=== PATIENT | male | born 1960 | race Caucasian/White ===

== ENCOUNTER 2022-05-12 10:27 | Emergency (ER) | payer MEDICAID, SELFPAY ==
--- NOTE | ~2022-05-12 | XR_ITS ---
EXAMINATION: LEFT HAND, BILATERAL KNEE AP PELVIS AND RIGHT HIP. CLINICAL INFORMATION: Fall. Pain. COMPARISON: None TECHNIQUE: Left hand 3 views. 4 views each knee. AP pelvis and right hip 3 views. FINDINGS: Left hand: There is mild loss of PIP and DIP joints all digits with mild flexion deformity PIP joint fifth digit and periarticular spurring. The MCP joint spaces are maintained normal. No visible acute fracture or dislocation seen. Left knee: There is mild loss of tricompartment joint space. No visible acute fracture or dislocation seen no bony erosive changes. No abnormal joint effusion. There is anterior superior patellar enthesophyte. There is a small bone infarct changes distal femur.. Right knee: Mild loss of tricompartment joint space is seen. There is minimal suprapatellar joint effusion. There is anterior superior patellar enthesophyte. There is moderate anterior patellar enthesophyte as well. Minimal suprapatellar joint effusion seen. There are no loose bodies. No bony erosive changes. AP pelvis and right hip: There is significant loss of right hip joint space with bone on bone apposition and moderate periarticular spurring. No visible acute fracture or dislocation seen. The SI joints are symmetrical and unremarkable. Rest the pelvic bones are normal.. There is moderate loss of left hip joint space. XR/XR hip RT w PEL1V IMPRESSION: Severe right and moderate left osteoarthritic changes PIP joint. No visible acute fracture or dislocation seen involving either hip joints are the pelvis. Mild degenerative changes bilateral knee joints without acute fracture or dislocation. There is mild bilateral suprapatellar joint effusion. There is moderate size anterior superior left and small anterior superior right enthesophytes. There is no acute fracture or dislocation in either joints. Mild degenerative osteoarthritic changes PIP and DIP joints all digits moderate periapical spurring DIP and PIP joint fifth digit with mild dorsal soft tissue swelling and deformity PIP joint fifth digit. However there is no visible fracture seen at any of the digits at this time
--- NOTE | ~2022-05-12 | XR_ITS ---
EXAMINATION: XR HAND, LEFT CLINICAL INFORMATION: Pain and swelling COMPARISON: 05/12/2022 TECHNIQUE: PA, lateral, and oblique views of the left hand. FINDINGS: There is no acute fracture or dislocation. Mild flexed positioning of the fifth digit at the proximal interphalangeal joint, similar to prior. Small osteophytes throughout the interphalangeal joints. Diffuse soft tissue swelling. XR/XR hand LT 2V IMPRESSION: Diffuse soft tissue swelling which is increased from prior. No acute osseous abnormality. Persistent flexed positioning at the fifth digit proximal interphalangeal joint.
[2022-05-12 10:34] VITALS: BP 152/92; PULSE 86; RESP 16; TEMP 36.1; O2SAT 97; BMI 37.4
--- NOTE | 2022-05-12 15:35 | ED_ITS ---
HPI - Fall General Chief Complaint: Fall Stated Complaint: Fall 05/09 multiple injuries Time Seen by Provider: 05/12/22 12:45 Source: patient Mode of arrival: ambulatory Limitations: no limitations History of Present Illness HPI Narrative: Patient presents emergency department for multiple joint pain after a mechanical fall per the case ago. He states he was attempting to walk up the stairs in his home which are carpeted, and he lost his balance falling forward. He is reporting pain to the left hand, bilateral knees and bilateral hips. He reports chronic severe osteoarthritis to all of his joints. He states that he is being followed by his primary care provider Dr. Rush, states that he is taking anti-inflammatories for pain, he states he has not received cortisone injections in acute months because his PCP has had COVID. States he is otherwise not prescribed anything for pain. He denies any preceding symptoms prior to the cough has present lightheadedness chest pain shortness of breath. He has no additional complaints at this time. He does report that he would like to be evaluated for short-term rehab as he feels too weak to return home safely Related Data Home Medications Medication Instructions Recorded Confirmed aspirin 81 mg chewable tablet 1 tab PO DAILY 05/12/22 05/12/22 chlordiazepoxide HCl 25 mg capsule 1 cap PO TID PRN Pain 05/12/22 05/12/22 clonidine HCl 0.1 mg tablet 1 tab PO TID PRN Anxiety 05/12/22 05/12/22 diclofenac sodium 75 mg 1 tab PO BID 05/12/22 05/12/22 tablet,delayed release diltiazem HCl 30 mg tablet 1 tab PO Q6H 05/12/22 05/12/22 lisinopril 40 mg tablet 1 tab PO DAILY 05/12/22 05/12/22 metoprolol tartrate 50 mg tablet 1 tab PO BID 05/12/22 05/12/22 Previous Rx's Medication Instructions Recorded buprenorphine 4 mg-naloxone 1 mg 1 film sublingual TID #42 ea 05/14/22 sublingual film (Suboxone) Allergies Allergy/AdvReac Type Severity Reaction Status Date / Time No Known Allergies Allergy Verified 05/12/22 10:33 Review of Systems Review of Systems: Musculoskeletal: Positive joint pain Yes all other systems are reviewed and are negative PMFSH Past Medical History Attestation statement: The following information was validated with the patient. Source: old records reviewed Social History Social History Advance Directives: No Advance Directives Information Provided: Yes Physical Exam Vital Signs: Vital Signs: Last Vital Signs Temp 97.6 F 05/15/22 07:14 Pulse 77 05/15/22 07:14 Resp 16 05/15/22 07:14 BP 141/84 H 05/15/22 07:14 Pulse Ox 98 05/15/22 07:14 O2 Del Method 05/15/22 07:14 BMI result Body Mass Index 37.4 Vital signs have been reviewed as normal and appeared to be correct. Hypertensive? Heart rate normal.? Respiration rate normal. Temperature normal.? Oxygen saturation normal. Appearance: Alert.?Oriented to person, place and time. No acute distress.?Normal affect. Eyes: Pupils equal, round and reactive to light.? ENT: Pharynx normal.?? Neck: Normal inspection.? Neck supple.?? CVS: Heart sounds normal. Normal heart rate and rhythm.? Pulses normal.?? Respiratory: No respiratory distress.? Lung sounds clear to auscultation bilate rally?? Abdomen: Soft and non-tender. Normoactive bowel sounds. ? Skin: Skin warm and dry.? Normal skin color.? ?? Extremities: No lower extremity edema.? No calf ttp? Neuro: Moves all extremities spontaneously. Sensation intact bilaterally. CN II- XII intact. No focal neuro deficits. Ambulates with antalgic gait and walker Course Course Course Narrative: Patient is a 62-year-old male with a past medical history of severe arthritis, and hypertension presenting to the emergency department for evaluation after a fall reportedly 3 days ago. Left hand x-ray reveals osteoarthritic changes, with dorsal soft tissue swelling, but no visible fractures. Degenerative changes of the bilateral knees without acute fracture dislocation, mild suprapatellar joint effusion. Severe right moderate osteoarthritic changes to the hips, no acute fracture or dislocation. Patient has been followed by his primary care provider, was previously receiving prescription for oxycodone every 2 weeks up until the beginning of March. He reports at that time he had been drinking a lot to aid with his pain as the oxycodone was not relieving it, he presented to [facility], as he states he took too many pills but did not overdose was able to drive himself there, but subsequently his primary care provider stopped prescribing him oxycodone due to this event. At this time he is reporting diffuse joint pain 08/24 will trial oxycodone 10 mg p.o. He states that he feels unsafe going home, he is having difficulty ambulating despite the use of his walker due to his unsteady gait, he is requesting to be evaluated for possible short-term rehab placement. Will obtain basic labs including CBC and BMP, COVID-19 test in preparation for possible short-term rehab placement, physical therapy evaluation and case management evaluation will be required. Reevaluation(s) Reevaluation #1: CBC and BMP are overall unremarkable. Patient placed in physician observation comments he has been evaluated by case management, physical therapy let the to evaluate patient tomorrow. Discussed this patient he is agreeable remaining night as she continues to report feeling unsafe to go home. He is in no apparent distress. Time: 16:42 MDM - Fall Medical Records Attestation: I reviewed the patient's medical records. Lab Data Attestation: I reviewed the patient's lab results. Result diagrams: 05/12/22 16:06 05/12/22 16:06 Labs: Lab Results 05/12/22 05/12/22 05/12/22 Range/Units 16:06 16:06 17:29 WBC 8.3 (4.8-10.8) X10*3/uL RBC 4.27 L (4.60-5.80) X10*6/uL Hgb 15.1 (14.0-18.0) g/dl Hct 42.6 (42.0-52.0) % MCV 99.8 H (80.0-98.0) fL MCH 35.4 H (27.0-33.0) pg MCHC 35.4 (31.0-36.0) g/dl RDW 12.6 (11.0-16.0) % Plt Count 211 (160-400) X10*3/uL MPV 10.4 (9.4-12.4) fL Immature Gran % (Auto) 0.6 H (0.0-0.4) % Neut % (Auto) 50.5 (45-73) % Lymph % (Auto) 37.9 (20-40) % [place] % (Auto) 7.8 (2-11) % Eos % (Auto) 2.5 (0-4) % Baso % (Auto) 0.7 (0-2) % Lymph # (Auto) 3.2 (1.2-4.9) X10*3/uL [place] # (Auto) 0.7 (0.1-1.2) X10*3/uL Eos # (Auto) 0.2 (0.0-0.4) X10*3/uL Baso # (Auto) 0.1 (0.0-0.2) X10*3/uL Abs Immat Gran (auto) 0.05 H (0.00-0.03) X10*3/uL Absolute Neuts (auto) 4.2 (2.0-8.3) x10*3/uL Absolute Nucleated RBC 0.000 (0.0-0.012) X10*3/uL Nucleated RBC % (auto) 0.0 (0.0-0.2) /100WBC Sodium 141 (135-145) mmol/L Potassium 4.1 (3.3-5.1) mmol/L Chloride 109 H (96-108) mmol/L Carbon Dioxide 24 (22-29) mmol/L Anion Gap 12 (12-20) BUN 15 (9-16) mg/dL Creatinine 0.84 (0.5-1.4) mg/dL Estim Creat Clear Calc 124.6 Estimated GFR > 60 Random Glucose 97 (60-115) mg/dL Calcium 8.6 (8.4-10.2) mg/dL Urine Color Urine Appearance Urine pH (5.0-8.0) Ur Specific [place] (1.005-1.025) Urine Protein (NEG-TRACE) MG/DL Urine Glucose (UA) (NEG) MG/DL Urine Ketones (NEG) MG/DL Urine Blood (NEG) Urine Nitrite (NEG) Ur Leukocyte Esterase (NEG) Urine Opiates Screen (Not Detect) Urine Fentanyl Screen (Not Detect) Ur Barbiturates Screen (Not Detect) Ur Phencyclidine Scrn (Not Detect) Ur Amphetamines Screen (Not Detect) U Benzodiazepines Scrn (Not Detect) Urine Cocaine Screen (Not Detect) U Marijuana (THC) Screen (Not Detect) COVID-19 (JANNIE) Negative (Negative) COVID-19 Clin Com See Note 05/12/22 05/12/22 Range/Units 18:37 18:37 WBC (4.8-10.8) X10*3/uL RBC (4.60-5.80) X10*6/uL Hgb (14.0-18.0) g/dl Hct (42.0-52.0) % MCV (80.0-98.0) fL MCH (27.0-33.0) pg MCHC (31.0-36.0) g/dl RDW (11.0-16.0) % Plt Count (160-400) X10*3/uL MPV (9.4-12.4) fL Immature Gran % (Auto) (0.0-0.4) % Neut % (Auto) (45-73) % Lymph % (Auto) (20-40) % [place] % (Auto) (2-11) % Eos % (Auto) (0-4) % Baso % (Auto) (0-2) % Lymph # (Auto) (1.2-4.9) X10*3/uL [place] # (Auto) (0.1-1.2) X10*3/uL Eos # (Auto) (0.0-0.4) X10*3/uL Baso # (Auto) (0.0-0.2) X10*3/uL Abs Immat Gran (auto) (0.00-0.03) X10*3/uL Absolute Neuts (auto) (2.0-8.3) x10*3/uL Absolute Nucleated RBC (0.0-0.012) X10*3/uL Nucleated RBC % (auto) (0.0-0.2) /100WBC Sodium (135-145) mmol/L Potassium (3.3-5.1) mmol/L Chloride (96-108) mmol/L Carbon Dioxide (22-29) mmol/L Anion Gap (12-20) BUN (9-16) mg/dL Creatinine (0.5-1.4) mg/dL Estim Creat Clear Calc Estimated GFR Random Glucose (60-115) mg/dL Calcium (8.4-10.2) mg/dL Urine Color STRAW Urine Appearance CLEAR Urine pH 6.0 (5.0-8.0) Ur Specific [place] 1.010 (1.005-1.025) Urine Protein NEG (NEG-TRACE) MG/DL Urine Glucose (UA) NEG (NEG) MG/DL Urine Ketones NEG (NEG) MG/DL Urine Blood NEG (NEG) Urine Nitrite NEG (NEG) Ur Leukocyte Esterase NEG (NEG) Urine Opiates Screen Not Detected (Not Detect) Urine Fentanyl Screen POSITIVE H (Not Detect) Ur Barbiturates Screen Not Detected (Not Detect) Ur Phencyclidine Scrn Not Detected (Not Detect) Ur Amphetamines Screen Not Detected (Not Detect) U Benzodiazepines Scrn POSITIVE H (Not Detect) Urine Cocaine Screen Not Detected (Not Detect) U Marijuana (THC) Screen Not Detected (Not Detect) COVID-19 (JANNIE) (Negative) COVID-19 Clin Com Imaging Data XR L hand, bilat knee, bilat hip: Radiologist's impression: IMPRESSION: Severe right and moderate left osteoarthritic changes PIP joint. No visible acute fracture or dislocation seen involving either hip joints are the pelvis. ? Mild degenerative changes bilateral knee joints without acute fracture or dislocation. There is mild bilateral suprapatellar joint effusion. There is moderate size anterior superior left and small anterior superior right enthesophytes. There is no acute fracture or dislocation in either joints. ? Mild degenerative osteoarthritic changes PIP and DIP joints all digits moderate periapical spurring DIP and PIP joint fifth digit with mild dorsal soft tissue swelling and deformity PIP joint fifth digit. However there is no visible fracture seen at any of the digits at this time Discharge Plan Discharge Clinical Impression: Fall, Osteoarthritis Patient Disposition: Still a Patient Prescriptions: New buprenorphine-naloxone [Suboxone] 4-1 mg film 1 film sublingual TID Qty: 42 0RF No Action clonidine HCl 0.1 mg tablet 1 tab PO TID PRN (Reason: Anxiety) metoprolol tartrate 50 mg tablet 1 tab PO BID aspirin 81 mg tablet,chewable 1 tab PO DAILY diclofenac sodium 75 mg tablet,delayed release (DR/EC) 1 tab PO BID diltiazem HCl 30 mg tablet 1 tab PO Q6H lisinopril 40 mg tablet 1 tab PO DAILY chlordiazepoxide HCl 25 mg capsule 1 cap PO TID PRN (Reason: Pain)
--- NOTE | 2022-05-12 15:52 | PC.NURSE ---
pt called and was given update that pt will likely be admitted for pt/cm consult for STR per pt request.
[2022-05-12 16:18] LABS: MANUAL DIFF FLAG NO
[2022-05-12 16:20] VITALS: PULSE 98; RESP 16; O2SAT 98
[2022-05-12 16:25] LABS: Basophils Absolute Auto 0.1 X10*3/uL (0.0-0.2); Basophils Percent Auto 0.7 % (0-2); Eosinophils Absolute Auto 0.2 X10*3/uL (0.0-0.4); Eosinophils Percent Auto 2.5 % (0-4); Hematocrit 42.6 % (42.0-52.0); Hemoglobin 15.1 g/dl (14.0-18.0); Imm Gran Abs Auto 0.05 X10*3/uL (0.00-0.03); Imm Gran Pct Auto 0.6 % (0.0-0.4); Lymphocytes Absolute Auto 3.2 X10*3/uL (1.2-4.9); Lymphocytes Percent Auto 37.9 % (20-40); Mean Corpuscular HGB Conc 35.4 g/dl (31.0-36.0); Mean Corpuscular Hemoglobin 35.4 pg (27.0-33.0); Mean Corpuscular Volume 99.8 fL (80.0-98.0); Mean Platelet Volume 10.4 fL (9.4-12.4); Monocytes Absolute Auto 0.7 X10*3/uL (0.1-1.2); Monocytes Percent Auto 7.8 % (2-11); Neutrophils Absolute Auto 4.2 x10*3/uL (2.0-8.3); Neutrophils Percent Auto 50.5 % (45-73); Platelet Count 211 X10*3/uL (160-400); Red Blood Count 4.27 X10*6/uL (4.60-5.80); Red Cell Distribution Width 12.6 % (11.0-16.0); White Blood Count 8.3 X10*3/uL (4.8-10.8)
[2022-05-12 16:37] LABS: Anion Gap 12 (12-20); Blood Urea Nitrogen 15 mg/dL (9-16); Calcium 8.6 mg/dL (8.4-10.2); Carbon Dioxide 24 mmol/L (22-29); Chloride 109 mmol/L (96-108); Creatinine Clr Calc Pharmacy 124.6; Estimated Glomerular Filt Rate > 60; Glucose Random 97 mg/dL (60-115); Potassium 4.1 mmol/L (3.3-5.1); Sodium 141 mmol/L (135-145)
[2022-05-12 17:01] VITALS: BP 162/111; PULSE 92; RESP 18; TEMP 36.2; O2SAT 99
[2022-05-12 18:00] LABS: COVID-19 Test Negative (Negative); IDNOW Serial# 16C4AD1C
[2022-05-12 18:50] LABS: Appearance Urine CLEAR; Color Urine STRAW; Glucose Urine UA NEG (NEG); Leukocyte Esterase Urine NEG (NEG); Nitrite Urine NEG (NEG); Urine Blood NEG (NEG); Urine Ketones NEG (NEG); Urine Protein NEG (NEG-TRACE)
[2022-05-12 19:07] LABS: Fentanyl, urine POSITIVE (Not Detect)
[2022-05-12 19:08] LABS: Amphetamine Screen Urine Not Detected (Not Detect); Barbiturates, Urine Not Detected (Not Detect); Cannabinoid Screen Urine Not Detected (Not Detect); Cocaine Screen Urine Not Detected (Not Detect); Opiate Screen Urine Not Detected (Not Detect); Phencyclidine Screen Urine Not Detected (Not Detect)
[2022-05-12] MEDS: oxyCODONE HCl Immed Release 5 MG TABLET PO (20:22)
[2022-05-12] MEDS: Metoprolol Tartrate 50 MG TABLET PO (20:24)
--- NOTE | 2022-05-12 21:31 | MHC.CM.ED ---
CM met with patient at request of Mikayla GAVIRIA. Pt is requesting STR. Pt has hx of arthritis, lumbar spine degeneration, ETOH and opiate dependence. Lives with . Drives. Uses walker/cane. No services. Pfizer x2. No booster. HCP reviewed, completed and signed. Copies given. Uploaded into [facility] and [facility]pan[facility]. HCP/ Tara Tolentino ([phone]). 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 Referrals also placed Locally for STR. [facility] given for both. PT pending in the morning. CM to follow for d/c needs.
[2022-05-12 23:11] VITALS: BP 161/109; PULSE 94; RESP 20; TEMP 36.2; O2SAT 96
[2022-05-12] MEDS: cloNIDine HCL 0.1 MG TABLET PO (23:39)
[2022-05-12] MEDS: dilTIAZem HCL 30 MG TABLET PO (23:39)
[2022-05-12] MEDS: Diclofenac Sodium Delayed Rel 75 MG TABLET.DR PO (23:39)
[2022-05-13] VITALS (7 sets, daily range): BP systolic 140–182; BP diastolic 90–119; PULSE 88–94; RESP 12–20; TEMP 36.2–36.9; O2SAT 96–98
[2022-05-13] MEDS: Ketorolac Tromethamine 60 MG/2 ML VIAL IM (02:30)
[2022-05-13] MEDS: lisinopriL 40 MG TABLET PO (07:47)
[2022-05-13] MEDS: Metoprolol Tartrate 50 MG TABLET PO ×2 (07:47→20:21)
[2022-05-13] MEDS: dilTIAZem HCL 30 MG TABLET PO ×3 (07:47→20:21)
[2022-05-13] MEDS: Aspirin 81 MG TAB.CHEW PO (07:48)
--- NOTE | 2022-05-13 09:08 | PHA.MEDREC ---
Pharmacy Consult ? Medication Reconciliation Pharmacy has completed the medication reconciliation. Spoke to patient down in ED.
--- NOTE | 2022-05-13 10:47 | MHC.RECOVRN ---
Met with pt in ED20 after request to discuss substance use. Upon entering, pt sitting on edge of bed, drinking coffee, does not appear in any distress. Pt easily engages in conversation. Pt reports extensive history (15 years) of prescription opioids for pain from PCP. Pt reports pain is due to arthritis in bilateral knees. Recently, pts prescriber informed pt he would no longer prescribe medications due to patient taking more than prescribed. Pt has since used illicit fentanyl patches and what patient believed to be Percocet. Pt informed that UDS positive for fentanyl, negative for opiates. Pt educated regarding the risks of pressed pills and buying medication on the street. Pt reports having friends who use heroin, denies personal use. Pt reports hx alcohol use, last drink approx 2 weeks ago. Pt denies current alcohol use and cravings. Pt reports having discussed methadone and Suboxone with PCP in the past, however, pt had declined. Upon further discussion and education, pt interested in Suboxone. Educated pt regarding risks and benefits, precipitated withdrawal, mechanism of action. Discussed with provider, plan to administer 2 mg Suboxone and assess for effectiveness.
--- NOTE | 2022-05-13 10:57 | MHC.CM.ED ---
Patient remains in ER. Physical therapy and occupational therapy evals completed. [facility] not able to offer a bed. Patient has a history of polysubstance abuse. [place] radio interference trouble shooter met with patient. Patient will be started on Suboxone. Anticipate patient will be dificult to place. Referral broadcasted in [facility] to all facilities within 50 miles. Continue to monitor for d/c needs.
[2022-05-13] MEDS: Buprenorphine/Naloxone 2/0.5mg FILM 1 FILM SUBLINGUAL (11:18)
[2022-05-13] MEDS: Diclofenac Sodium Delayed Rel 75 MG TABLET.DR PO ×2 (11:27→21:06)
[2022-05-13] MEDS: Colchicine 0.6 MG TABLET PO (11:27)
--- NOTE | 2022-05-13 14:14 | HO.ADDICT_ITS ---
History of Present Illness Date of Service: 05/13/2022 Chief Complaint: Fall 05/09 multiple injuries Requesting physician: Linda Lynn Discussed with referring provider: Yes Sources of Information: patient interviewed and chart reviewed HPI Narrative: Mirella is a 62 year old male who presented to [facility] ED after a reported fall at home. Reporting weakness and wprsening chronic knee and back pain and remained in ED while STR placement was being sought out. Lab work completed, including UDS, which showed +fentanyl (negative for all other substances) Seen by RSRN and patient reported that he has been prescribed oxycodone for over 15 years and last month provider stopped prescribing secondary to ED visit where patient reported increased drinking and taking more oxycodone than prescribed. Following that he states he was given, what he believed was an oxycodone, and per UDS , likely fentanyl. Discussed with RN and provider options for treatment and agreeable to buprenorphine. Patient seen by this curriculum writer in room 20 of main ED. Awake, alert, pleasant and engaged in interview. COnfirmed that he was was being prescribed oxycodone every two weeks by his PCP for several years. He states that his pain had been worsening, likely du eo tworking, and he was drinking several shots of hard liquor and beers after work to be able to sleep. He states he presented to other local ED because he noted drinking was worsening and per his report, his PCP was esther aware and discontinued oxycodone rx. He is tearful during interview numeroud times referencing pain and impact on quality of life. Denies any history of SUDs including alcohol use disorder. Patient reports that although he abruptly discontinued oxycodone, he did not experience any withdrawal sx. aside from worsening pain and anxiety. This curriculum writer reviewed medication with patient suboxone (buprenorphine/naloxone). Reviewed indications, including opioid use disorder. Reviewed dosing, goals of treatment and outpatient treatment program. Reviewed benefits and limitations of medication. Reviewed risk associated with taking medication and drinking alcohol. Reinforced risk of adverse events with buying medications off the street, including overdose. Patient verbalized understanding and wishes to continue with this medication Review of Systems Constitutional: Reports as per HPI Diagnostics Vital Signs (24Hr): Vital Signs - 24 hr 05/12/22 16:20 05/12/22 17:01 05/12/22 23:11 Temperature 97.1 F 97.1 F Pulse Rate 98 92 94 Respiratory Rate 16 18 20 Blood Pressure 162/111 H 161/109 H Pulse Oximetry 98 99 96 Oxygen Delivery Method Room Air Room Air Room Air 05/13/22 07:33 05/13/22 07:49 05/13/22 11:32 Temperature 97.1 F Pulse Rate 94 89 88 Respiratory Rate 18 20 Blood Pressure 156/106 H 142/100 H Pulse Oximetry 96 98 Oxygen Delivery Method Room Air BMI result Body Mass Index 37.4 Labs Results: 05/12/22 16:06 05/12/22 16:06 Labs: Laboratory Results - last 48 hr 05/12/22 05/12/22 05/12/22 16:06 16:06 17:29 WBC 8.3 RBC 4.27 L Hgb 15.1 Hct 42.6 MCV 99.8 H MCH 35.4 H MCHC 35.4 RDW 12.6 Plt Count 211 MPV 10.4 Immature Gran % (Auto) 0.6 H Neut % (Auto) 50.5 Lymph % (Auto) 37.9 [place] % (Auto) 7.8 Eos % (Auto) 2.5 Baso % (Auto) 0.7 Lymph # (Auto) 3.2 [place] # (Auto) 0.7 Eos # (Auto) 0.2 Baso # (Auto) 0.1 Abs Immat Gran (auto) 0.05 H Absolute Neuts (auto) 4.2 Absolute Nucleated RBC 0.000 Nucleated RBC % (auto) 0.0 Sodium 141 Potassium 4.1 Chloride 109 H Carbon Dioxide 24 Anion Gap 12 BUN 15 Creatinine 0.84 Estim Creat Clear Calc 124.6 Estimated GFR > 60 Random Glucose 97 Calcium 8.6 Urine Color Urine Appearance Urine pH Ur Specific [place] Urine Protein Urine Glucose (UA) Urine Ketones Urine Blood Urine Nitrite Ur Leukocyte Esterase Urine Opiates Screen Urine Fentanyl Screen Ur Barbiturates Screen Ur Phencyclidine Scrn Ur Amphetamines Screen Urine Cocaine Screen U Marijuana (THC) Screen COVID-19 (JANNIE) Negative COVID-19 Clin Com See Note 05/12/22 05/12/22 18:37 18:37 WBC RBC Hgb Hct MCV MCH MCHC RDW Plt Count MPV Immature Gran % (Auto) Neut % (Auto) Lymph % (Auto) [place] % (Auto) Eos % (Auto) Baso % (Auto) Lymph # (Auto) [place] # (Auto) Eos # (Auto) Baso # (Auto) Abs Immat Gran (auto) Absolute Neuts (auto) Absolute Nucleated RBC Nucleated RBC % (auto) Sodium Potassium Chloride Carbon Dioxide Anion Gap BUN Creatinine Estim Creat Clear Calc Estimated GFR Random Glucose Calcium Urine Color STRAW Urine Appearance CLEAR Urine pH 6.0 Ur Specific [place] 1.010 Urine Protein NEG Urine Glucose (UA) NEG Urine Ketones NEG Urine Blood NEG Urine Nitrite NEG Ur Leukocyte Esterase NEG Urine Opiates Screen Not Detected Urine Fentanyl Screen POSITIVE H Ur Barbiturates Screen Not Detected Ur Phencyclidine Scrn Not Detected Ur Amphetamines Screen Not Detected Urine Cocaine Screen Not Detected U Marijuana (THC) Screen Not Detected COVID-19 (JANNIE) COVID-19 Clin Com Imaging Radiology Impressions: ITS Impressions Hand X-Ray 05/12/22 12:07 IMPRESSION: Severe right and moderate left osteoarthritic changes PIP joint. No visible acute fracture or dislocation seen involving either hip joints are the pelvis. Mild degenerative changes bilateral knee joints without acute fracture or dislocation. There is mild bilateral suprapatellar joint effusion. There is moderate size anterior superior left and small anterior superior right enthesophytes. There is no acute fracture or dislocation in either joints. Mild degenerative osteoarthritic changes PIP and DIP joints all digits moderate periapical spurring DIP and PIP joint fifth digit with mild dorsal soft tissue swelling and deformity PIP joint fifth digit. However there is no visible fracture seen at any of the digits at this time Hip/Pelvis X-Ray 05/12/22 12:07 IMPRESSION: Severe right and moderate left osteoarthritic changes PIP joint. No visible acute fracture or dislocation seen involving either hip joints are the pelvis. Mild degenerative changes bilateral knee joints without acute fracture or dislocation. There is mild bilateral suprapatellar joint effusion. There is moderate size anterior superior left and small anterior superior right enthesophytes. There is no acute fracture or dislocation in either joints. Mild degenerative osteoarthritic changes PIP and DIP joints all digits moderate periapical spurring DIP and PIP joint fifth digit with mild dorsal soft tissue swelling and deformity PIP joint fifth digit. However there is no visible fracture seen at any of the digits at this time Knee X-Ray 05/12/22 12:07 IMPRESSION: Severe right and moderate left osteoarthritic changes PIP joint. No visible acute fracture or dislocation seen involving either hip joints are the pelvis. Mild degenerative changes bilateral knee joints without acute fracture or dislocation. There is mild bilateral suprapatellar joint effusion. There is moderate size anterior superior left and small anterior superior right enthesophytes. There is no acute fracture or dislocation in either joints. Mild degenerative osteoarthritic changes PIP and DIP joints all digits moderate periapical spurring DIP and PIP joint fifth digit with mild dorsal soft tissue swelling and deformity PIP joint fifth digit. However there is no visible fracture seen at any of the digits at this time Knee X-Ray 05/12/22 12:07 IMPRESSION: Severe right and moderate left osteoarthritic changes PIP joint. No visible acute fracture or dislocation seen involving either hip joints are the pelvis. Mild degenerative changes bilateral knee joints without acute fracture or dislocation. There is mild bilateral suprapatellar joint effusion. There is moderate size anterior superior left and small anterior superior right enthesophytes. There is no acute fracture or dislocation in either joints. Mild degenerative osteoarthritic changes PIP and DIP joints all digits moderate periapical spurring DIP and PIP joint fifth digit with mild dorsal soft tissue swelling and deformity PIP joint fifth digit. However there is no visible fracture seen at any of the digits at this time Mental Status Exam Mental Status Exam Patient Appearance: Appropriate Patient Orientation: Person, Place, Time and Situation Level of Consciousness: Awake and Appropriate Patient Behavior: Talkative and Cooperative Mood Description: Depressed and Sad Affect Description: Anxious (tearful) Medications Medications Current Medications Aspirin (Aspirin 81 Mg Tab.Chew) 81 mg PO DAILY [facility] Last Admin: 05/13/22 07:48 Dose: 81 mg Buprenorphine/Naloxone (Buprenorphine/Naloxone 4/1 Mg Film) 1 film SUBLINGUAL TID [facility] Clonidine HCl (Clonidine Hcl 0.1 Mg Tablet) 0.1 mg PO TID PRN; Protocol PRN Reason: Anxiety Last Admin: 05/12/22 23:39 Dose: 0.1 mg Colchicine (Colchicine 0.6 Mg Tablet) 0.6 mg PO DAILY [facility] Last Admin: 05/13/22 11:27 Dose: 0.6 mg Diclofenac Sodium (Diclofenac Sodium Delayed Rel 75 Mg Tablet.Dr) 75 mg PO BID [facility] Last Admin: 05/13/22 11:27 Dose: 75 mg Diltiazem HCl (Diltiazem Hcl 30 Mg Tablet) 30 mg PO Q6H [facility]; Protocol Last Admin: 05/13/22 13:28 Dose: 30 mg Lisinopril (Lisinopril 40 Mg Tablet) 40 mg PO DAILY [facility]; Protocol Last Admin: 05/13/22 07:47 Dose: 40 mg Metoprolol Tartrate (Metoprolol Tartrate 50 Mg Tablet) 50 mg PO BID [facility]; Protocol Last Admin: 05/13/22 07:47 Dose: 50 mg Pharmacy Consult (Consult Rx Perform Med Rec) 1 each MISCELLANE ONCE PRN PRN Reason: Consult order Allergies Allergies Allergy/AdvReac Type Severity Reaction Status Date / Time No Known Allergies Allergy Verified 05/12/22 10:33 Assessment & Plan Assessment & Plan (1) Opioid dependence: Status: Acute Code(s): F11.20 - Opioid dependence, uncomplicated Assessment and Plan: * additional 4mg dose now and anotehr 4mg this evening * tomorrow suboxone 4mg TID. --it will likely take a few days to get to appropriate dose * if any signs of oversedation, hold next dose. I spent ___50___ minutes with the patient and/or on the patient floor today, greater than?50% of which was spent counseling/coordinating care. PMFSH Social History Social History Advance Directives: No Advance Directives Information Provided: Yes
--- NOTE | 2022-05-13 14:55 | MHC.CM.ED ---
Met with patient to discuss discharge plan. Patient has not been able to get in touch with his . He wants to discuss if he will go to STR about an hour away or go home with outpatient physical therapy arranged by PCP's office at [facility]. Continue to monitor for d/c needs.
--- NOTE | 2022-05-13 15:50 | MHC.CM.ED ---
Addendum entered by Christy Dove 05/13/22 16:00: Pt has still not reached his . Deferring decision until he speaks with his . Original Note: Spoke with pt at 1515 regarding bed offer at [facility]. Pt wants to discuss with his , as he is unsure if he wants to go that far, or if he wants to d/c with outpatient PT. Explained to patient that CM would need to know to save his bed. Pt asked for 1 hour to decide. CM to follow for d/c needs.
--- NOTE | 2022-05-13 16:07 | PC.NURSE ---
PATIENT IS IN GOOD SPRITS ,LAUGHING AND JOKING AROUND WITH STAFF .
[2022-05-13] MEDS: Buprenorphine/Naloxone 4/1 mg FILM 1 FILM SUBLINGUAL ×2 (16:10→20:21)
--- NOTE | 2022-05-13 19:56 | PC.NURSE ---
patient ate 100 % of meals drank 720 ml fluids ,now walking around the department .
[2022-05-13] MEDS: cloNIDine HCL 0.1 MG TABLET PO (20:21)
[2022-05-14 00:02] VITALS: BP 152/86; PULSE 90; RESP 20; O2SAT 95
--- NOTE | 2022-05-14 00:45 | PC.NURSE ---
drivability technician alerted this RN that pt was c/o left hand pain and swelling. LINE SERVICER notified. XR ordered. +CSM
[2022-05-14] MEDS: dilTIAZem HCL 30 MG TABLET PO ×5 (01:15→23:41)
[2022-05-14] MEDS: predniSONE 20 MG TABLET 60 MG PO (02:19)
--- NOTE | 2022-05-14 04:12 | PC.NURSE ---
pt has no further c/o pain r/t left hand after prednisone administration. sleeping at this time
[2022-05-14 05:56] VITALS: BP 142/85; PULSE 86; RESP 20; O2SAT 95
[2022-05-14 07:41] VITALS: BP 145/95; PULSE 99; RESP 16; TEMP 36.7; O2SAT 94
--- NOTE | 2022-05-14 07:48 | MHC.CM.ED ---
Addendum entered by Chula Bender 05/14/22 10:40: [facility] is not able to offer a bed. Met with patient and . They will accept the [facility] bed. [facility] aware. MDS faxed to [facility]. [place], disaster recovery consultant has been asked to make sure a 2 week suboxone prescription is faxed to [facility] at [phone]. Original Note: Patient remains in ER. Started on Suboxone 05/13. Waiting to hear if [facility] will be able to offer a bed today. If not, [facility] should be able to offer a bed. Continue to monitor for d/c needs.
[2022-05-14] MEDS: Diclofenac Sodium Delayed Rel 75 MG TABLET.DR PO ×2 (08:19→21:18)
[2022-05-14] MEDS: Colchicine 0.6 MG TABLET PO (08:19)
[2022-05-14] MEDS: Aspirin 81 MG TAB.CHEW PO (08:19)
[2022-05-14] MEDS: Buprenorphine/Naloxone 4/1 mg FILM 1 FILM SUBLINGUAL ×3 (08:19→20:15)
[2022-05-14] MEDS: Metoprolol Tartrate 50 MG TABLET PO ×2 (08:19→20:15)
[2022-05-14] MEDS: lisinopriL 40 MG TABLET PO (08:19)
[2022-05-14 08:45] LABS: Benzodiazepines Screen Urine POSITIVE (Not Detect)
--- NOTE | 2022-05-14 09:26 | PC.NURSE ---
awaiting answers from 2 facilities for str placement, of not dc home.
--- NOTE | 2022-05-14 12:08 | MHC.RECOVRN ---
Met with pt to follow up after Suboxone initiation yesterday. Pt sitting on edge of bed, awake, alert, easily engages in conversation. Pt does not appear in any distress. Pt reports Suboxone has helped decrease pain in bilateral knees, however, continues to have pain in right hip. Discussed plan with pt- telehealth to be scheduled next week with Yumiko Simms APRN for follow up. When pt returns to the area, will have in person appointments. Pt agreeable. Answered pts questions regarding dosing and frequency of dose, reinforced education regarding the medication. Pt denies other questions or concerns at this time. Discussed with CM as well as MQ.
[2022-05-14 14:50] VITALS: BP 168/87; PULSE 83; RESP 16; TEMP 36.7; O2SAT 94
--- NOTE | 2022-05-14 17:20 | PC.NURSE ---
[facility]
[2022-05-14 18:47] VITALS: BP 158/93; PULSE 84; RESP 18; TEMP 36.3; O2SAT 98
[2022-05-14 23:39] VITALS: BP 133/85; PULSE 79; RESP 18; O2SAT 95
[2022-05-14] MEDS: Acetaminophen 325 MG TABLET 975 MG PO (23:59)
[2022-05-15] VITALS (8 sets, daily range): BP systolic 105–178; BP diastolic 55–91; PULSE 66–93; RESP 16–20; TEMP 36.3–36.4; O2SAT 95–98
[2022-05-15] MEDS: dilTIAZem HCL 30 MG TABLET PO ×3 (06:23→19:31)
[2022-05-15] MEDS: Diclofenac Sodium Delayed Rel 75 MG TABLET.DR PO (09:14)
[2022-05-15] MEDS: lisinopriL 40 MG TABLET PO (09:15)
[2022-05-15] MEDS: Colchicine 0.6 MG TABLET PO (09:15)
[2022-05-15] MEDS: Aspirin 81 MG TAB.CHEW PO (09:16)
[2022-05-15] MEDS: Metoprolol Tartrate 50 MG TABLET PO ×2 (09:16→20:48)
[2022-05-15] MEDS: Buprenorphine/Naloxone 4/1 mg FILM 1 FILM SUBLINGUAL ×3 (09:18→20:48)
--- NOTE | 2022-05-15 09:19 | PC.NURSE ---
Patient A/O X 4. Pearrla . lungs clear . heart beat regular at 88 beats . patient obese . skin pink and warm . edema noted in lower extremities , pulses felt . positive bowel sounds in all sounds in all quadrants . abdomen soft non distended . patient uses walker to ambulate . patient aware of plan of care .
--- NOTE | 2022-05-15 12:30 | MHC.RECOVRN ---
Pt has follow up appt through the [facility] with Yumiko Simms APRN, on 05/21 at 4:14PM. CM aware.
[2022-05-15] MEDS: Ketorolac Tromethamine 15 MG/ML VIAL IM (13:34)
--- NOTE | 2022-05-15 13:45 | MHC.CM.ED ---
Patient can leave for [facility] at 4pm. [facility] booked. Med nec with chart. Patient, Tawanna OVALLE and Terri GAVIRIA aware. Continue to monitor for d/c needs.
--- NOTE | 2022-05-15 16:08 | PC.NURSE ---
Rn to RN [facility] . patient awaiting ambulance transport . patient aware of plan of care .
--- NOTE | 2022-05-15 18:12 | MHC.CM.ED ---
Addendum entered by Christy Dove 05/15/22 20:50: Ambulance arrived [id number]. RN awate Addendum entered by Christy Dove 05/15/22 19:23: Still waiting for ambulance transport. CM called [facility]. They are aware that transport is delayed and are willing to accept pt whenever he arrives. Pt aware. Original Note: CM called [facility] at 1700 regarding ETA. Unfortunately, ambulance is delayed and expect transport at 7pm. Pt aware. CM to follow for d/c needs.
== END 2022-05-15 20:53 ==
PROVIDERS: Nurse Practitioner Family; Emergency Provider Emergency Medicine; PCP Internal Medicine
DX: M19.042 Primary osteoarthritis, left hand (principal); M19.041 Primary osteoarthritis, right hand; M25.561 Pain in right knee; M25.562 Pain in left knee; M25.511 Pain in right shoulder; M25.552 Pain in left hip; I10 Essential (primary) hypertension; F11.20 Opioid dependence, uncomplicated; Z91.81 History of falling; Z79.82 Long term (current) use of aspirin; Z79.899 Other long term (current) drug therapy; Z20.822 Contact with and (suspected) exposure to COVID-19
CPT/HCPCS: 36415; 73120; 73130; 73502; 73564; 80048; 80307; 81003; 85025; 87635; 96372; 97162; 97166; 99284; 99285; J1885

== ENCOUNTER → 2022-06-18 09:41 | Outpatient (BNVA) | payer MEDICAID, SELFPAY | PROVIDERS: PCP Internal Medicine; Visit Provider Nurse Practitioner Psychiatric/Mental Health | DX: F11.20 Opioid dependence, uncomplicated (principal); Z51.81 Encounter for therapeutic drug level monitoring; Z79.01 Long term (current) use of anticoagulants | CPT/HCPCS: 80305; 99212 ==

== ENCOUNTER → 2022-06-22 09:39 | Outpatient (BNVA) | payer MEDICAID, SELFPAY | PROVIDERS: PCP Internal Medicine; Visit Provider Nurse Practitioner Psychiatric/Mental Health | DX: F11.20 Opioid dependence, uncomplicated (principal); Z51.81 Encounter for therapeutic drug level monitoring; Z79.899 Other long term (current) drug therapy | CPT/HCPCS: 80305 ==

== ENCOUNTER → 2022-07-06 09:35 | Outpatient (BNVA) | payer MEDICAID, SELFPAY | PROVIDERS: PCP Internal Medicine; Visit Provider Nurse Practitioner Psychiatric/Mental Health | DX: Z51.81 Encounter for therapeutic drug level monitoring (principal); F11.20 Opioid dependence, uncomplicated | CPT/HCPCS: 80305; 99212 ==

== ENCOUNTER → 2022-07-21 09:40 | Outpatient (BNVA) | payer MEDICAID, SELFPAY | PROVIDERS: PCP Internal Medicine; Visit Provider Nurse Practitioner Psychiatric/Mental Health | DX: F11.20 Opioid dependence, uncomplicated (principal); Z51.81 Encounter for therapeutic drug level monitoring; Z79.899 Other long term (current) drug therapy | CPT/HCPCS: 80305; 99212 ==

== ENCOUNTER → 2022-08-04 10:12 | Outpatient (BNVA) | payer MEDICAID, SELFPAY | PROVIDERS: PCP Internal Medicine; Visit Provider Nurse Practitioner Psychiatric/Mental Health | DX: F11.20 Opioid dependence, uncomplicated (principal) | CPT/HCPCS: 80305; 99212 ==

== ENCOUNTER → 2022-08-25 09:18 | Outpatient (BNVA) | payer MEDICAID, SELFPAY | PROVIDERS: PCP Internal Medicine; Visit Provider Nurse Practitioner Psychiatric/Mental Health | DX: Z51.81 Encounter for therapeutic drug level monitoring (principal); F11.20 Opioid dependence, uncomplicated | CPT/HCPCS: 80305; 99212 ==

== ENCOUNTER → 2022-09-14 10:07 | Outpatient (BNVA) | payer MEDICAID, SELFPAY | PROVIDERS: PCP Internal Medicine; Visit Provider Nurse Practitioner Psychiatric/Mental Health | DX: Z51.81 Encounter for therapeutic drug level monitoring (principal); F11.20 Opioid dependence, uncomplicated | CPT/HCPCS: 80305; 99212 ==

== ENCOUNTER → 2022-10-05 11:04 | Outpatient (BNVA) | payer MEDICAID, SELFPAY | PROVIDERS: PCP Internal Medicine; Visit Provider Nurse Practitioner Psychiatric/Mental Health | DX: F11.20 Opioid dependence, uncomplicated (principal); Z51.81 Encounter for therapeutic drug level monitoring; Z79.01 Long term (current) use of anticoagulants | CPT/HCPCS: 99212 ==

== ENCOUNTER → 2022-11-03 10:59 | Outpatient (BNVA) | payer MEDICAID, SELFPAY | PROVIDERS: PCP Internal Medicine; Visit Provider Nurse Practitioner Psychiatric/Mental Health | DX: Z51.81 Encounter for therapeutic drug level monitoring (principal); F11.20 Opioid dependence, uncomplicated | CPT/HCPCS: 99212 ==

== ENCOUNTER → 2022-11-24 10:49 | Outpatient (BNVA) | payer MEDICAID, SELFPAY | PROVIDERS: PCP Internal Medicine; Visit Provider Nurse Practitioner Psychiatric/Mental Health | DX: Z51.81 Encounter for therapeutic drug level monitoring (principal); F11.20 Opioid dependence, uncomplicated | CPT/HCPCS: 80305; 99212 ==

== ENCOUNTER → 2022-12-17 10:29 | Outpatient (BNVA) | payer MEDICAID, SELFPAY | PROVIDERS: PCP Internal Medicine; Visit Provider Nurse Practitioner Psychiatric/Mental Health | DX: Z51.81 Encounter for therapeutic drug level monitoring (principal); F11.20 Opioid dependence, uncomplicated | CPT/HCPCS: 99212 ==

== ENCOUNTER → 2023-01-08 09:26 | Outpatient (BNVA) | payer MEDICAID, SELFPAY | PROVIDERS: PCP Internal Medicine; Visit Provider Nurse Practitioner Psychiatric/Mental Health | DX: F11.20 Opioid dependence, uncomplicated (principal) | CPT/HCPCS: 99212 ==

== ENCOUNTER → 2023-02-05 10:09 | Outpatient (BNVA) | payer MEDICAID, SELFPAY | PROVIDERS: PCP Internal Medicine | DX: Z51.81 Encounter for therapeutic drug level monitoring (principal); F11.20 Opioid dependence, uncomplicated | CPT/HCPCS: 80305 ==

== ENCOUNTER → 2023-04-08 11:09 | Outpatient (BNVA) | payer MEDICAID, SELFPAY | PROVIDERS: PCP Internal Medicine; Visit Provider Nurse Practitioner Psychiatric/Mental Health | DX: Z51.81 Encounter for therapeutic drug level monitoring (principal); F11.20 Opioid dependence, uncomplicated | CPT/HCPCS: 99212 ==

== ENCOUNTER → 2023-04-29 09:32 | Outpatient (BNVA) | payer MEDICAID, SELFPAY | PROVIDERS: PCP Internal Medicine; Visit Provider Nurse Practitioner Psychiatric/Mental Health | DX: Z51.81 Encounter for therapeutic drug level monitoring (principal); F11.20 Opioid dependence, uncomplicated; Z79.52 Long term (current) use of systemic steroids | CPT/HCPCS: 99212 ==

== ENCOUNTER 2023-05-14 11:11 | Inpatient (IN) | payer MEDICAID, SELFPAY ==
[2023-05-14] VITALS (10 sets, daily range): BP systolic 90–137; BP diastolic 58–82; PULSE 85–131; RESP 13–20; TEMP 36.2–36.7; O2SAT 95–98; BMI 40.4; BMI 40.6
--- NOTE | ~2023-05-14 | XR_ITS ---
EXAMINATION: XR CHEST CLINICAL INFORMATION: Weakness and shortness of breath COMPARISON: 03/19/2019 TECHNIQUE: Frontal view of the chest was obtained. FINDINGS: Mild left base atelectasis, otherwise no significant abnormality is noted involving the heart, lungs, mediastinum, bony thorax or soft tissues. XR/XR chest 1V IMPRESSION: Mild left base atelectasis.
--- NOTE | ~2023-05-14 | CT_ITS ---
EXAMINATION: CT HEAD WITHOUT CONTRAST CLINICAL INFORMATION: Presyncope COMPARISON: None available. TECHNIQUE: Contiguous axial imaging was performed from the skull base to vertex without intravenous administration of contrast. This CT examination was performed using dose optimization techniques as appropriate, variously including the following: *Automated exposure control *Adjustment of mA and/or kV according to patient size (this includes techniques or standardized protocols for targeted exams where dose is matched to indication/reason for exam; i.e. extremities or head) *Use of iterative reconstruction technique DLP: 821 mGy-cm FINDINGS: The brain parenchyma has normal attenuation. The magdaleno-white matter differentiation is well preserved. No evidence of an acute major vascular territory infarction. No intracranial hemorrhage, extra-axial fluid collection, focal mass effect or midline shift. The ventricles have normal size and configuration; no hydrocephalus. The brainstem and cerebellum have a normal appearance. The cerebellar tonsils are in normal position. The calvarium is intact. The visualized paranasal sinuses, mastoid air cells and middle ear cavities are well aerated. The orbits and globes are unremarkable. The temporomandibular joints are normal. Chronic severe dental caries of a right maxillary molar tooth. CT/CT head/brain wo IV con IMPRESSION: No intracranial mass, hemorrhage or other acute intracranial pathology.
--- NOTE | 2023-05-14 11:17 | ECG_ITS ---
Test Reason : WEAKNESS Blood Pressure : / mmHG Vent. Rate : 088 BPM Atrial Rate : 000 BPM P-R Int : 000 ms QRS Dur : 094 ms QT Int : 342 ms P-R-T Axes : 000 060 061 degrees QTc Int : 413 ms Atrial fibrillation Abnormal ECG When compared with ECG of 06-OCT-2006 15:09, Atrial fibrillation has replaced Sinus rhythm Referred By: Carol Brice Electronically Signed By:Samy Pink
--- NOTE | 2023-05-14 11:17 | ED.GENADULT ---
HPI - General Adult General Chief complaint: Syncope Stated complaint: not feeling well feels like passing out Time Seen by Provider: 05/14/23 11:58 Source: patient Mode of arrival: ambulatory Limitations: no limitations History of Present Illness HPI narrative: 63 yo male with history of afib on Eliquis, HTN, opioid use disorder on Suboxone, arthritis, obesity, former ETOH abuse now sober x 9 months, hx right hip replacement 2 months ago who presents to the ER for evaluation of recurrent episodes of feeling lightheaded, like he is going to pass out with exertion, associated with significant diaphoresis. Patient states he was seen at [facility] on 05/10 where he was diagnosed with a UTI and started on cefpodoxime. He states for the last several days he has felt weak, tired, and fatigued. With exertion he gets very lightheaded and sweaty. He needed to ring out his shirt yesterday because it was soaked. He denies any associated SOB or chest pain. His symptoms improve with rest. No new medication changes. He has been compliant with all of his meds. MD complaint: lightheaded and diaphoretic Onset (ago): day(s) Radiation: non-radiation Severity: moderate Quality: other (lightheaded) Pain Consistency: intermittent Relieving factors: rest Exacerbating factors: movement Associated symptoms: diaphoresis, malaise and weakness Treatments prior to arrival: none Related Data Home Medications Medication Instructions Recorded Confirmed aspirin 81 mg chewable tablet 1 tab PO DAILY 05/12/22 05/12/22 chlordiazepoxide HCl 25 mg capsule 1 cap PO TID PRN Pain 05/12/22 05/12/22 clonidine HCl 0.1 mg tablet 1 tab PO TID PRN Anxiety 05/12/22 05/12/22 diclofenac sodium 75 mg 1 tab PO BID 05/12/22 05/12/22 tablet,delayed release diltiazem HCl 30 mg tablet 1 tab PO Q6H 05/12/22 05/12/22 lisinopril 40 mg tablet 1 tab PO DAILY 05/12/22 05/12/22 metoprolol tartrate 50 mg tablet 1 tab PO BID 05/12/22 05/12/22 Previous Rx's Medication Instructions Recorded docusate sodium 100 mg capsule 100 mg PO BID PRN constipation #30 06/22/22 (Colace) caps naloxone 4 mg/actuation nasal 4 mg intranasal Q2M PRN opioid 06/22/22 spray (Narcan) overdose #2 ea polyethylene glycol 3350 17 17 g PO DAILY PRN constipation 11/13/22 gram/dose oral powder #510 grams buprenorphine 8 mg-naloxone 2 mg 1 film sublingual DAILY #15 ea 05/13/23 sublingual film (Suboxone) Allergies Allergy/AdvReac Type Severity Reaction Status Date / Time No Known Allergies Allergy Verified 01/08/23 09:33 Review of Systems Review of Systems: Yes all other systems are reviewed and are negative [facility] Past Medical History Attestation statement: The following information was validated with the patient. Source: old records reviewed Medical History Alcohol withdrawal Elevated LFTs Hypersomnia with sleep apnea Hypertension Knee osteoarthritis Lumbar degenerative disc disease Social History Social History Alcohol intake: never Smoked in Last 30 Days: No Use of substances other than those prescribed or required for medical reasons: No Advance Directives: Yes Advance Directives on File: Yes Advance Directives Date on File: 05/12/22 Physical Exam ED Vital Signs: Vital Signs - 24 hr 05/14/23 11:22 05/14/23 11:59 05/14/23 11:59 Temperature 97.9 F Pulse Rate 92 93 Respiratory Rate 20 13 Blood Pressure 123/70 104/67 Pulse Oximetry 98 96 97 Oxygen Delivery Method Room Air Room Air Room Air 05/14/23 12:51 05/14/23 12:53 05/14/23 12:54 Temperature Pulse Rate 87 85 97 Respiratory Rate Blood Pressure 94/69 100/66 115/67 Pulse Oximetry Oxygen Delivery Method BMI result Body Mass Index 40.4 Appearance: Alert. Oriented X3. No acute distress. Significantly diaphoretic. Head: normocephalic, atraumatic. Eyes: Pupils equal, round and reactive to light. ENT: Pharynx normal. No tonsillar swelling or exudate. Neck: Normal inspection. Neck supple. CVS:irregularly irregular, regular rate. Pulses normal. Respiratory: No respiratory distress. Breath sounds normal. Abdomen: Obese, Soft and nontender. +BS x4 Skin: Skin warm and dry. Normal skin color. Normal skin turgor. No rashes. Extremities: No lower extremity edema. No joint swelling. Neuro/psych: Oriented X 3. Course Course Course Narrative: This is an RME: Additional HPI, ROS, PE not included below will be deferred to primary provider. 63 year old male hx htn, afib on eliquis presenting w/ near syncope, weakness, diaphoresis, fatigue, malaise X2 days. Currently on atbx for UTI. PE- diaphoretic plan- labs, blood cultures, lactic Medical Decision Making Medical Decision Making MDM Narrative: 63 yo male with history of afib on Eliquis, HTN, opioid use disorder on Suboxone, arthritis, obesity, former ETOH abuse now sober x 9 months, hx right hip replacement 2 months ago who presents to the ER for evaluation of recurrent episodes of feeling lightheaded, like he is going to pass out with exertion, associated with significant diaphoresis. Vital signs unremarkable. Physical exam significant for Orthostatic vitals notable for increased HR at 120, otherwise within normal limits. CBC within normal limits. BNP normal. Urine tox negative. COVID negative. Differential Diagnosis Differential Diagnoses: The differential diagnosis associated with the presentation includes (orthostatic hypotension, ACS, symptomatic afib, less likely PE, dehydration, anemia) Admission/Observation Consideration of admission/observation: Escalation of care including admission/observation considered (This 63 yo male with history of afib and anginal equivilent symptoms will be admitted.) Consult Healthcare Provider Management of the patient was discussed with: Hospitalist (Dalia) Lab Data [facility] Lab Attestation statement: I reviewed the patient's lab results. CBC and CMP within normal limits. U tox negative. 05/14/23 12:21 05/14/23 11:49 Labs: Lab Results 05/14/23 05/14/23 05/14/23 Range/Units 11:49 11:49 11:49 WBC (4.8-10.8) X10*3/uL RBC (4.60-5.80) X10*6/uL Hgb (14.0-18.0) g/dl Hct (42.0-52.0) % MCV (80.0-98.0) fL MCH (27.0-33.0) pg MCHC (31.0-36.0) g/dl RDW (11.0-16.0) % Plt Count (160-400) X10*3/uL MPV (9.4-12.4) fL Immature Gran % (Auto) (0.0-0.4) % Neut % (Auto) (45-73) % Lymph % (Auto) (20-40) % Bartholomew % (Auto) (2-11) % Eos % (Auto) (0-4) % Baso % (Auto) (0-2) % Lymph # (Auto) (1.2-4.9) X10*3/uL Bartholomew # (Auto) (0.1-1.2) X10*3/uL Eos # (Auto) (0.0-0.4) X10*3/uL Baso # (Auto) (0.0-0.2) X10*3/uL Abs Immat Gran (auto) (0.00-0.03) X10*3/uL Absolute Neuts (auto) (2.0-8.3) x10*3/uL Absolute Nucleated RBC (0.0-0.012) X10*3/uL Nucleated RBC % (auto) (0.0-0.2) /100WBC Sodium 138 (135-145) mmol/L Potassium 3.6 (3.3-5.1) mmol/L Chloride 103 (96-108) mmol/L Carbon Dioxide 20 L (22-29) mmol/L Anion Gap 19 (12-20) BUN 21 H (9-16) mg/dL Creatinine 1.23 (0.5-1.4) mg/dL Estim Creat Clear Calc 85.0 Estimated GFR 59 Random Glucose 141 H (60-115) mg/dL Lactic Acid 1.9 (0.5-2.0) mmol/L Calcium 9.7 D (8.4-10.2) mg/dL Magnesium 1.9 (1.6-2.6) mg/dL Total Bilirubin 0.8 (0.0-1.0) mg/dL AST 34 (5-37) U/L ALT 38 (0-40) U/L Alkaline Phosphatase 104 (39-117) U/L Troponin I High Sens < 2.7 (<3.5-35.0) ng/L B-Natriuretic Peptide (<100) pg/mL Total Protein 7.5 (6.5-8.0) g/dL Albumin 4.1 (3.5-5.0) g/dL Urine Color Urine Appearance Urine pH (5.0-9.0) Ur Specific [place] (1.005-1.025) Urine Protein (Neg-Trace) mg/dL Urine Glucose (UA) (Negative) mg/dL Urine Ketones (Negative) mg/dL Urine Blood (Negative) Urine Nitrite (Negative) Ur Leukocyte Esterase (Negative) Urine RBC (0-2) /HPF Urine WBC (0-5) /HPF Ur Squamous Epith Cells (0-2) /HPF Urine Bacteria (None Seen) Hyaline Casts (0-2) /LPF Urine Opiates Screen (Not Detect) Urine Fentanyl Screen (Not Detect) Ur Barbiturates Screen (Not Detect) Ur Phencyclidine Scrn (Not Detect) Ur Amphetamines Screen (Not Detect) U Benzodiazepines Scrn (Not Detect) Urine Cocaine Screen (Not Detect) U Marijuana (THC) Screen (Not Detect) Ethyl Alcohol < 10 mg/dL COVID-19 (JANNIE) (Negative) COVID-19 Clin Com 05/14/23 05/14/23 05/14/23 Range/Units 11:49 12:21 12:21 WBC 9.2 (4.8-10.8) X10*3/uL RBC 4.71 (4.60-5.80) X10*6/uL Hgb 15.1 (14.0-18.0) g/dl Hct 44.4 (42.0-52.0) % MCV 94.3 (80.0-98.0) fL MCH 32.1 (27.0-33.0) pg MCHC 34.0 (31.0-36.0) g/dl RDW 12.6 (11.0-16.0) % Plt Count 294 D (160-400) X10*3/uL MPV 9.7 (9.4-12.4) fL Immature Gran % (Auto) 0.2 (0.0-0.4) % Neut % (Auto) 54.7 (45-73) % Lymph % (Auto) 35.7 (20-40) % Bartholomew % (Auto) 7.7 (2-11) % Eos % (Auto) 1.3 (0-4) % Baso % (Auto) 0.4 (0-2) % Lymph # (Auto) 3.3 (1.2-4.9) X10*3/uL Bartholomew # (Auto) 0.7 (0.1-1.2) X10*3/uL Eos # (Auto) 0.1 (0.0-0.4) X10*3/uL Baso # (Auto) 0.0 (0.0-0.2) X10*3/uL Abs Immat Gran (auto) 0.02 (0.00-0.03) X10*3/uL Absolute Neuts (auto) 5.0 (2.0-8.3) x10*3/uL Absolute Nucleated RBC 0.000 (0.0-0.012) X10*3/uL Nucleated RBC % (auto) 0.0 (0.0-0.2) /100WBC Sodium (135-145) mmol/L Potassium (3.3-5.1) mmol/L Chloride (96-108) mmol/L Carbon Dioxide (22-29) mmol/L Anion Gap (12-20) BUN (9-16) mg/dL Creatinine (0.5-1.4) mg/dL Estim Creat Clear Calc Estimated GFR Random Glucose (60-115) mg/dL Lactic Acid (0.5-2.0) mmol/L Calcium (8.4-10.2) mg/dL Magnesium (1.6-2.6) mg/dL Total Bilirubin (0.0-1.0) mg/dL AST (5-37) U/L ALT (0-40) U/L Alkaline Phosphatase (39-117) U/L Troponin I High Sens (<3.5-35.0) ng/L B-Natriuretic Peptide 28 (<100) pg/mL Total Protein (6.5-8.0) g/dL Albumin (3.5-5.0) g/dL Urine Color Urine Appearance Urine pH (5.0-9.0) Ur Specific [place] (1.005-1.025) Urine Protein (Neg-Trace) mg/dL Urine Glucose (UA) (Negative) mg/dL Urine Ketones (Negative) mg/dL Urine Blood (Negative) Urine Nitrite (Negative) Ur Leukocyte Esterase (Negative) Urine RBC (0-2) /HPF Urine WBC (0-5) /HPF Ur Squamous Epith Cells (0-2) /HPF Urine Bacteria (None Seen) Hyaline Casts (0-2) /LPF Urine Opiates Screen (Not Detect) Urine Fentanyl Screen (Not Detect) Ur Barbiturates Screen (Not Detect) Ur Phencyclidine Scrn (Not Detect) Ur Amphetamines Screen (Not Detect) U Benzodiazepines Scrn (Not Detect) Urine Cocaine Screen (Not Detect) U Marijuana (THC) Screen (Not Detect) Ethyl Alcohol mg/dL COVID-19 (JANNIE) Negative (Negative) COVID-19 Clin Com See Note 05/14/23 05/14/23 Range/Units 13:43 13:43 WBC (4.8-10.8) X10*3/uL RBC (4.60-5.80) X10*6/uL Hgb (14.0-18.0) g/dl Hct (42.0-52.0) % MCV (80.0-98.0) fL MCH (27.0-33.0) pg MCHC (31.0-36.0) g/dl RDW (11.0-16.0) % Plt Count (160-400) X10*3/uL MPV (9.4-12.4) fL Immature Gran % (Auto) (0.0-0.4) % Neut % (Auto) (45-73) % Lymph % (Auto) (20-40) % Bartholomew % (Auto) (2-11) % Eos % (Auto) (0-4) % Baso % (Auto) (0-2) % Lymph # (Auto) (1.2-4.9) X10*3/uL Bartholomew # (Auto) (0.1-1.2) X10*3/uL Eos # (Auto) (0.0-0.4) X10*3/uL Baso # (Auto) (0.0-0.2) X10*3/uL Abs Immat Gran (auto) (0.00-0.03) X10*3/uL Absolute Neuts (auto) (2.0-8.3) x10*3/uL Absolute Nucleated RBC (0.0-0.012) X10*3/uL Nucleated RBC % (auto) (0.0-0.2) /100WBC Sodium (135-145) mmol/L Potassium (3.3-5.1) mmol/L Chloride (96-108) mmol/L Carbon Dioxide (22-29) mmol/L Anion Gap (12-20) BUN (9-16) mg/dL Creatinine (0.5-1.4) mg/dL Estim Creat Clear Calc Estimated GFR Random Glucose (60-115) mg/dL Lactic Acid (0.5-2.0) mmol/L Calcium (8.4-10.2) mg/dL Magnesium (1.6-2.6) mg/dL Total Bilirubin (0.0-1.0) mg/dL AST (5-37) U/L ALT (0-40) U/L Alkaline Phosphatase (39-117) U/L Troponin I High Sens (<3.5-35.0) ng/L B-Natriuretic Peptide (<100) pg/mL Total Protein (6.5-8.0) g/dL Albumin (3.5-5.0) g/dL Urine Color Yellow Urine Appearance Clear Urine pH 6.0 (5.0-9.0) Ur Specific [place] 1.010 (1.005-1.025) Urine Protein Negative (Neg-Trace) mg/dL Urine Glucose (UA) Negative (Negative) mg/dL Urine Ketones Negative (Negative) mg/dL Urine Blood Negative (Negative) Urine Nitrite Negative (Negative) Ur Leukocyte Esterase Trace H (Negative) Urine RBC 0-2 (0-2) /HPF Urine WBC 0-5 (0-5) /HPF Ur Squamous Epith Cells 3-5 (0-2) /HPF Urine Bacteria None Seen (None Seen) Hyaline Casts 3-5 (0-2) /LPF Urine Opiates Screen Not Detected (Not Detect) Urine Fentanyl Screen Not Detected (Not Detect) Ur Barbiturates Screen Not Detected (Not Detect) Ur Phencyclidine Scrn Not Detected (Not Detect) Ur Amphetamines Screen Not Detected (Not Detect) U Benzodiazepines Scrn Not Detected (Not Detect) Urine Cocaine Screen Not Detected (Not Detect) U Marijuana (THC) Screen Not Detected (Not Detect) Ethyl Alcohol mg/dL COVID-19 (JANNIE) (Negative) COVID-19 Clin Com Independent Interpretation I performed an independent interpretation of an: EKG and Plain X-Ray Interpretation: ekg w/ atrial fibrillation, HR 88 bpm, no ST segment elevations or depressions cxr w/ some LLL opacity c/w atelectasis Radiology Impression Discussion of test interpretation with radiology: I have reviewed the radiologist's reading. Radiologist Impression: XR/XR chest 1V IMPRESSION: Mild left base atelectasis. ? External Record Review External record reviewed: Inpatient record Chronic Conditions Patient?s care impacted by: Hypertension and Other (afib, obesity) Critical Care Time Critical Care Time Critical Care Time: Yes Total Critical Care Time: 36 Attestation: I have personally provided critical care time exclusive of time spent on separately billable procedures. Time includes review of lab data, radiology results, discussion with consultants, and monitoring for potential decompensation. Intervention performed as documented. Discharge Plan Discharge Clinical Impression: Pre-syncope Patient Disposition: Admitted As Inpatient
[2023-05-14 12:08] LABS: Lactic Acid 1.9 mmol/L (0.5-2.0)
[2023-05-14 12:19] LABS: Alanine Aminotransferase 38 U/L (0-40); Albumin Level 4.1 g/dL (3.5-5.0); Alkaline Phosphatase 104 U/L (39-117); Anion Gap 19 (12-20); Aspartate Amino Transferase 34 U/L (5-37); Bilirubin Total 0.8 mg/dL (0.0-1.0); Blood Urea Nitrogen 21 mg/dL (9-16); Calcium 9.7 mg/dL (8.4-10.2); Carbon Dioxide 20 mmol/L (22-29); Chloride 103 mmol/L (96-108); Estimated Glomerular Filt Rate 59; Glucose Random 141 mg/dL (60-115); Magnesium 1.9 mg/dL (1.6-2.6); Potassium 3.6 mmol/L (3.3-5.1); Sodium 138 mmol/L (135-145); Total Protein 7.5 g/dL (6.5-8.0)
[2023-05-14 12:26] LABS: MANUAL DIFF FLAG NO
[2023-05-14 12:27] LABS: Troponin-I High Sensitivity < 2.7 ng/L (<3.5-35.0)
[2023-05-14 12:29] LABS: Basophils Percent Auto 0.4 % (0-2); Eosinophils Absolute Auto 0.1 X10*3/uL (0.0-0.4); Eosinophils Percent Auto 1.3 % (0-4); Hematocrit 44.4 % (42.0-52.0); Hemoglobin 15.1 g/dl (14.0-18.0); Imm Gran Abs Auto 0.02 X10*3/uL (0.00-0.03); Imm Gran Pct Auto 0.2 % (0.0-0.4); Lymphocytes Absolute Auto 3.3 X10*3/uL (1.2-4.9); Lymphocytes Percent Auto 35.7 % (20-40); Mean Corpuscular Hemoglobin 32.1 pg (27.0-33.0); Mean Corpuscular Volume 94.3 fL (80.0-98.0); Mean Platelet Volume 9.7 fL (9.4-12.4); Monocytes Absolute Auto 0.7 X10*3/uL (0.1-1.2); Monocytes Percent Auto 7.7 % (2-11); Neutrophils Percent Auto 54.7 % (45-73); Platelet Count 294 X10*3/uL (160-400); Red Blood Count 4.71 X10*6/uL (4.60-5.80); Red Cell Distribution Width 12.6 % (11.0-16.0); White Blood Count 9.2 X10*3/uL (4.8-10.8)
[2023-05-14 12:47] LABS: B Type Natriuretic Peptide 28 pg/mL (<100)
[2023-05-14 12:48] LABS: Ethanol < 10 mg/dL
[2023-05-14 12:57] LABS: COVID-19 Test Negative (Negative); IDNOW Serial# BCCEAD1C
[2023-05-14 14:09] LABS: Appearance Urine Clear; Color Urine Yellow; Glucose Urine UA Negative (Negative); Leukocyte Esterase Urine Trace (Negative); Nitrite Urine Negative (Negative); UMIC TRIGGER UACC YES; Urine Blood Negative (Negative); Urine Ketones Negative (Negative); Urine Protein Negative (Neg-Trace)
[2023-05-14 14:17] LABS: Amphetamine Screen Urine Not Detected (Not Detect); Barbiturates, Urine Not Detected (Not Detect); Benzodiazepines Screen Urine Not Detected (Not Detect); Cannabinoid Screen Urine Not Detected (Not Detect); Cocaine Screen Urine Not Detected (Not Detect); Fentanyl, urine Not Detected (Not Detect); Opiate Screen Urine Not Detected (Not Detect); Phencyclidine Screen Urine Not Detected (Not Detect)
[2023-05-14 14:29] LABS: Bacteria Urine None Seen (None Seen); RBC Urine 0-2 /HPF (0-2); WBC Urine 0-5 /HPF (0-5)
--- NOTE | 2023-05-14 15:20 | PHA.MEDREC ---
Pharmacy Consult ? Medication Reconciliation Pharmacy has completed the medication reconciliation. Patient stopped aspirin, atorvastatin, folic acid, and gabapentin anymore Shay
--- NOTE | 2023-05-14 15:59 | P.HPHOSP_ITS ---
History of Present Illness Date of Service: 05/14/23 Attending physician on admission: [facility] Chief Complaint: Near syncope 63-year-old male with history of alcohol use disorder, morbid obesity, HFrEF, chronic low back pain with lumbar degenerative disc disease, osteoarthritis, hy pertension, atrial fibrillation anticoagulated with Eliquis presents earlier today for evaluation of recurrent episodes of near-syncope. He is reporting episodes of lightheadedness with associated pallor and diaphoresis that last for several minutes typically occurring with exertion. He denies any associated palpitations, shortness of breath, chest pain, visual changes. States this has been ongoing for several weeks. He did recently have right hip replacement and was told by Anesthesia that he has sleep apnea but is not yet been formally diagnosed on sleep study and does not wear CPAP. He does state occasionally he experiences some shortness of breath but again this was not related to these instances. He states yesterday he went to buy an iced tea and 1 is unable to walk up to the counter due to the symptoms and was so diaphoretic that he had during out his shirt. He states there happened to be EMS on site who checked his vital signs with normal blood pressure and mild bradycardia 50 not normalized. Prior to 1 month ago, no history of similar symptoms. Denies any illicit drug use though does have a history of opiate use disorder and is on Suboxone. No ongoing alcohol use, last drink was about 9 months ago. Denies any smoking history. In the ED, vitals on the softer side but no hypotension. Orthostatic vital signs negative. No leukocytosis, no anemia. Creatinine 1.23, BUN 21, lytes normal. Urinalysis unremarkable. Urine drug screen negative. Head CT negative for any acute intracranial pathology. Chest x-ray showing mild left basilar atelectasis. Last echo at [facility] with decreased systolic LV function with EF 40-45% with moderate global hypokinesis of the left ventricle. Left ventricular wall thickness mildly increased. Normal right ventricular size and function and no significant valvular disease. Review of Systems Review of Systems: General: No fevers, malaise, unintentional weight loss. + pallor HEENT: No blurred vision, diplopia. No sore throat, nasal congestion, rhinorrhea, sinus pain, ear pain Cardiovascular: No chest pain, palpitations, or leg edema. + diaphoresis Respiratory: No wheezing, cough. + occasional shortness of breath GI: No abdominal pain, nausea, vomiting, diarrhea, constipation, melena, hematochezia : No dysuria, hematuria, increased urinary frequency, decreased urinary output MSK: No myalgia, back pain Neuro: No headaches, weakness, paresthesias. + near syncope Skin: No rashes or lesions [facility] Medical History Alcohol withdrawal Elevated LFTs History of alcohol abuse Hypersomnia with sleep apnea Hypertension Knee osteoarthritis Lumbar degenerative disc disease Opioid dependence Social History Alcohol intake: never Smoked in Last 30 Days: No Use of substances other than those prescribed or required for medical reasons: No Advance Directives: Yes Advance Directives on File: Yes Advance Directives Date on File: 05/12/22 Meds Allergies Allergy/AdvReac Type Severity Reaction Status Date / Time No Known Allergies Allergy Verified 01/08/23 09:33 Active Medications: Current Medications Acetaminophen (Acetaminophen 325 Mg Tablet) 650 mg PO Q6H PRN PRN Reason: Pain, Mild (Pain Scale 1-3) Albuterol Sulfate (Albuterol Sulfate 90 Mcg 8 Gm Inhaler) 2 puff INHALE Q4H PRN PRN Reason: wheezing Apixaban (Apixaban 5 Mg Tablet) 5 mg PO BID [facility] Docusate Sodium (Docusate Sodium 100 Mg Capsule) 100 mg PO DAILY PRN PRN Reason: Constipation Ondansetron HCl (Ondansetron Hcl 4 Mg/2 Ml Vial) 4 mg IVPUSH Q8H PRN PRN Reason: Nausea and Vomiting Pharmacy Consult (Consult Rx Perform Med Rec) 1 each MISCELLANE ONCE PRN PRN Reason: Consult order Sodium Chloride (0.9 % Sodium Chloride Flush 3 Ml Syringe) 3 ml IVFLUSH [facility] Home Medications Medication Instructions Recorded Confirmed Last Taken Type lisinopril 40 mg tablet 1 tab PO DAILY 05/12/22 05/14/23 05/14/23 History albuterol sulfate 90 mcg/actuation 2 puff inhalation Q4H PRN wheezing 05/14/23 05/14/23 Unknown History aerosol inhaler (Ventolin HFA) apixaban 5 mg tablet (Eliquis) 5 mg PO BID 05/14/23 05/14/23 05/14/23 History cefpodoxime 200 mg tablet 200 mg PO Q12H 05/14/23 05/14/23 Unknown History duloxetine 30 mg capsule,delayed 30 mg PO DAILY 05/14/23 05/14/23 3 Days Ago History release ~05/11/23 hydrochlorothiazide 25 mg tablet 25 mg PO DAILY 05/14/23 05/14/23 05/14/23 History lorazepam 0.5 mg tablet 0.5 mg PO BID PRN Anxiety 05/14/23 05/14/23 Unknown History metoprolol tartrate 50 mg tablet 100 mg PO BID 05/14/23 05/14/23 05/14/23 H istory tizanidine 2 mg tablet 2 mg PO TID PRN MUSCLE SPASMS 05/14/23 05/14/23 2 Days Ago History ~05/12/23 Physical Exam Vital Signs and Narrative: Vital Signs: Last Vital Signs Temp 97.9 F 05/14/23 11:22 Pulse 90 05/14/23 15:39 Resp 14 05/14/23 15:39 BP 118/69 05/14/23 15:39 Pulse Ox 96 05/14/23 15:39 O2 Del Method Room Air 05/14/23 15:39 BMI result Body Mass Index 40.4 Constitutional - Awake and Alert, No apparent distress . Morbidly obese Eyes - PERRLA, EOMI Cardiovascular - S1S2, RRR, No edema Respiratory - Normal lung expansion, Normal respiratory effort, No respiratory distress, CTA bilaterally Gastrointestinal - obese abdomen, NT / ND; +BS; No rebound or guarding - No CVA tenderness Extremities - no calf tenderness bilaterally, no swelling Skin - Warm/Dry Neurological - Alert & oriented x3, CN II-XII in tact, 5/5 strength BUE and BLE Psychological - Appropriate affect Results Labs 05/14/23 12:21 05/14/23 11:49 Labs: Laboratory Results - last 24 hr 05/14/23 05/14/23 05/14/23 11:49 11:49 11:49 MCV MCH MCHC RDW Plt Count MPV Immature Gran % (Auto) Neut % (Auto) Lymph % (Auto) [place] % (Auto) Eos % (Auto) Baso % (Auto) Lymph # (Auto) [place] # (Auto) Eos # (Auto) Baso # (Auto) Abs Immat Gran (auto) Absolute Neuts (auto) Absolute Nucleated RBC Nucleated RBC % (auto) Anion Gap 19 Estim Creat Clear Calc 85.0 Estimated GFR 59 Random Glucose 141 H Lactic Acid 1.9 Calcium 9.7 D Magnesium 1.9 Total Bilirubin 0.8 AST 34 ALT 38 Alkaline Phosphatase 104 Troponin I High Sens < 2.7 B-Natriuretic Peptide Total Protein 7.5 Albumin 4.1 Urine Color Urine Appearance Urine pH Ur Specific [place] Urine Protein Urine Glucose (UA) Urine Ketones Urine Blood Urine Nitrite Ur Leukocyte Esterase Urine RBC Urine WBC Ur Squamous Epith Cells Urine Bacteria Hyaline Casts Urine Opiates Screen Urine Fentanyl Screen Ur Barbiturates Screen Ur Phencyclidine Scrn Ur Amphetamines Screen U Benzodiazepines Scrn Urine Cocaine Screen U Marijuana (THC) Screen Ethyl Alcohol < 10 COVID-19 (JANNIE) COVID-[employer] [employer] 05/14/23 05/14/23 05/14/23 11:49 12:21 12:21 MCV 94.3 MCH 32.1 MCHC 34.0 RDW 12.6 Plt Count 294 D MPV 9.7 Immature Gran % (Auto) 0.2 Neut % (Auto) 54.7 Lymph % (Auto) 35.7 [place] % (Auto) 7.7 Eos % (Auto) 1.3 Baso % (Auto) 0.4 Lymph # (Auto) 3.3 [place] # (Auto) 0.7 Eos # (Auto) 0.1 Baso # (Auto) 0.0 Abs Immat Gran (auto) 0.02 Absolute Neuts (auto) 5.0 Absolute Nucleated RBC 0.000 Nucleated RBC % (auto) 0.0 Anion Gap Estim Creat Clear Calc Estimated GFR Random Glucose Lactic Acid Calcium Magnesium Total Bilirubin AST ALT Alkaline Phosphatase Troponin I High Sens B-Natriuretic Peptide 28 Total Protein Albumin Urine Color Urine Appearance Urine pH Ur Specific [place] Urine Protein Urine Glucose (UA) Urine Ketones Urine Blood Urine Nitrite Ur Leukocyte Esterase Urine RBC Urine WBC Ur Squamous Epith Cells Urine Bacteria Hyaline Casts Urine Opiates Screen Urine Fentanyl Screen Ur Barbiturates Screen Ur Phencyclidine Scrn Ur Amphetamines Screen U Benzodiazepines Scrn Urine Cocaine Screen U Marijuana (THC) Screen Ethyl Alcohol COVID-19 (JANNIE) Negative COVID-19 [employer] See Note 05/14/23 05/14/23 13:43 13:43 MCV MCH MCHC RDW Plt Count MPV Immature Gran % (Auto) Neut % (Auto) Lymph % (Auto) [place] % (Auto) Eos % (Auto) Baso % (Auto) Lymph # (Auto) [place] # (Auto) Eos # (Auto) Baso # (Auto) Abs Immat Gran (auto) Absolute Neuts (auto) Absolute Nucleated RBC Nucleated RBC % (auto) Anion Gap Estim Creat Clear Calc Estimated GFR Random Glucose Lactic Acid Calcium Magnesium Total Bilirubin AST ALT Alkaline Phosphatase Troponin I High Sens B-Natriuretic Peptide Total Protein Albumin Urine Color Yellow Urine Appearance Clear Urine pH 6.0 Ur Specific [place] 1.010 Urine Protein Negative Urine Glucose (UA) Negative Urine Ketones Negative Urine Blood Negative Urine Nitrite Negative Ur Leukocyte Esterase Trace H Urine RBC 0-2 Urine WBC 0-5 Ur Squamous Epith Cells 3-5 Urine Bacteria None Seen Hyaline Casts 3-5 Urine Opiates Screen Not Detected Urine Fentanyl Screen Not Detected Ur Barbiturates Screen Not Detected Ur Phencyclidine Scrn Not Detected Ur Amphetamines Screen Not Detected U Benzodiazepines Scrn Not Detected Urine Cocaine Screen Not Detected U Marijuana (THC) Screen Not Detected Ethyl Alcohol COVID-19 (JANNIE) COVID-19 Clin Com Imaging Radiologist's Impressions: Impressions Chest X-Ray 05/14/23 12:13 IMPRESSION: Mild left base atelectasis. Head CT 05/14/23 14:50 IMPRESSION: No intracranial mass, hemorrhage or other acute intracranial pathology. Assessment and Plan (1) Pre-syncope: Status: Acute Plan 63-year-old male with history of alcohol use disorder, morbid obesity, HFrEF, chronic low back pain with lumbar degenerative disc disease, osteoarthritis, hypertension, atrial fibrillation anticoagulated with Eliquis to be observed for near syncope. # recurrent near-syncope -suspect cardiogenic and allergy given associated pallor and diaphoresis -U tox negative, urinalysis unremarkable, no anemia, renal function electrolytes normal -hold HCTZ, tizanidine -monitor on telemetry -orthostatics negative -echocardiogram ordered -cardiology consult # paroxysmal atrial fibrillation-rate controlled -continue Eliquis -continue metoprolol for rate control #HFrEF -no acute exacerbation -not on Lasix # hypertension -BP is reasonably controlled -hold HCTZ in setting of above. Continue metoprolol and lisinopril # history opiate abuse -continue Suboxone DVT prophylaxis-on Eliquis Full code Time Spent With Patient Time: Total time managing care of this patient today ____ minutes. Quality Stroke Does the patient have a stroke diagnosis?: No VTE Prior VTE?: No VTE Risk Level:: Medical - moderate - high VTE Device Contraindication: Treatment Not Indicated VTE Drug Contraindication: N/A - Med Ordered
[2023-05-14] MEDS: 0.9 % Sodium Chloride 1,000 ML 250 ML IV (17:18)
--- NOTE | 2023-05-14 18:34 | PC.NURSE ---
nurse to nurse report given to Ly on [facility]
[2023-05-14] MEDS: Apixaban 5 MG TABLET PO (20:23)
[2023-05-14] MEDS: Metoprolol Tartrate 100 MG TABLET PO (20:23)
[2023-05-14] MEDS: 0.9 % Sodium Chloride Flush 3 ML SYRINGE IVFLUSH (20:24)
[2023-05-15] VITALS (9 sets, daily range): BP systolic 103–134; BP diastolic 50–79; PULSE 78–94; RESP 18–20; TEMP 30.3–36.8; O2SAT 94–97
[2023-05-15 07:37] LABS: MANUAL DIFF FLAG NO
[2023-05-15 07:45] LABS: Basophils Percent Auto 0.4 % (0-2); Eosinophils Absolute Auto 0.2 X10*3/uL (0.0-0.4); Eosinophils Percent Auto 1.9 % (0-4); Hematocrit 42.1 % (42.0-52.0); Hemoglobin 14.2 g/dl (14.0-18.0); Imm Gran Abs Auto 0.01 X10*3/uL (0.00-0.03); Imm Gran Pct Auto 0.1 % (0.0-0.4); Lymphocytes Absolute Auto 3.2 X10*3/uL (1.2-4.9); Lymphocytes Percent Auto 41.4 % (20-40); Mean Corpuscular HGB Conc 33.7 g/dl (31.0-36.0); Mean Corpuscular Hemoglobin 32.4 pg (27.0-33.0); Mean Corpuscular Volume 96.1 fL (80.0-98.0); Mean Platelet Volume 10.5 fL (9.4-12.4); Monocytes Absolute Auto 0.7 X10*3/uL (0.1-1.2); Monocytes Percent Auto 9.1 % (2-11); Neutrophils Absolute Auto 3.7 x10*3/uL (2.0-8.3); Neutrophils Percent Auto 47.1 % (45-73); Platelet Count 230 X10*3/uL (160-400); Red Blood Count 4.38 X10*6/uL (4.60-5.80); Red Cell Distribution Width 12.6 % (11.0-16.0); White Blood Count 7.8 X10*3/uL (4.8-10.8)
[2023-05-15 08:07] LABS: Blood Urea Nitrogen 18 mg/dL (9-16); Calcium 9.2 mg/dL (8.4-10.2); Creatinine Clr Calc Pharmacy 121.8; Estimated Glomerular Filt Rate > 60; Glucose Random 96 mg/dL (60-115)
[2023-05-15 08:16] LABS: Anion Gap 15 (12-20); Carbon Dioxide 24 mmol/L (22-29); Chloride 106 mmol/L (96-108); Potassium 3.4 mmol/L (3.3-5.1); Sodium 142 mmol/L (135-145)
--- NOTE | 2023-05-15 08:34 | MHC.CM.PN ---
Interview conducted w/Pt. Lives at home w/ Tara. HCP on file. Stairs in home, Pt previously independent, drives, owns walker and cane from hip replacement 2.5 mos. ago. [facility] services in the home have ended and he is no longer active w/them, but was very happy their care should he require services for D/C for any reason. Pt drove himself to [facility], but is unsure if vehicle will stay in [facility] lot, he may have family come get it. Either way, for D/C either he intends on driving self home, or he will arrange his own ride home. D/C plan is home via self-arranged transport. CM to follow.
[2023-05-15] MEDS: Buprenorphine/Naloxone 8/2 mg FILM 1 FILM SUBLINGUAL (08:48)
[2023-05-15] MEDS: lisinopriL 40 MG TABLET PO (08:48)
[2023-05-15] MEDS: 0.9 % Sodium Chloride Flush 3 ML SYRINGE IVFLUSH ×3 (08:48→20:42)
[2023-05-15] MEDS: Metoprolol Tartrate 100 MG TABLET PO ×2 (08:48→20:41)
[2023-05-15] MEDS: Apixaban 5 MG TABLET PO ×2 (08:48→20:41)
[2023-05-15] MEDS: DULoxetine HCl 30 MG CAPSULE.DR PO (08:48)
[2023-05-15] MEDS: LORazepam 0.5 MG TABLET PO (10:20)
--- NOTE | 2023-05-15 10:33 | PM.CNCAR ---
History of Present Illness History of Present Illness Date of Service: 05/15/23 Requesting physician: Jamar Callahan Chief complaint: near syncope Narrative: 63-year-old gentleman who is presenting with presyncope. He has background history of low normal ejection fraction and permanent atrial fibrillation for which he has been on apixaban and metoprolol tartrate 100 mg twice a day. He has been following with Dr. Ramsey. He said he had cardiac catheterization performed previously which showed mild coronary disease. Two weeks ago he was admitted at [facility] urinary tract infection and presyncope. He said he was sweating profusely and was nauseous and had low blood pressure at that time. Yesterday he was trying to help his friend when he started feeling hot and flushed and became very sweaty and nauseous. He said he left and went to a convenience store to get cold water. An ambulance was there who checked him and his blood pressure by his report was quite low. Was advised to go to the hospital but he decided to go back home and laid down in bed. He said he continued to feel nauseous and was very weak and tired. After this he decided to come to [facility]. His troponins and proBNP were normal. His blood pressure readings are mostly okay with couple of readings with systolics in 90s. His hydrochlorothiazide lisinopril and tizanidine were stopped. He has been feeling quite fatigued and tired. He has obesity and nighttime snoring. He had hip surgery in the last 2 months and during the surgery then is still just told him that he stops breathing many times pointing to underlying sleep apnea. This was performed under spinal anesthesia. He is due to get a sleep study at [facility] next month. [facility] Past Medical History Medical History Alcohol withdrawal Elevated LFTs History of alcohol abuse Hypersomnia with sleep apnea Hypertension Knee osteoarthritis Lumbar degenerative disc disease Opioid dependence Social History Social History Alcohol intake: never Patient Tobacco Use Status: Former Tobacco user Smoked in Last 30 Days: No Use of substances other than those prescribed or required for medical reasons: No Advance Directives: Yes Advance Directives on File: Yes Advance Directives Date on File: 05/12/22 Nutrition Risks: No Nutritional Risk service: No Meds Allergies Allergy/AdvReac Type Severity Reaction Status Date / Time No Known Allergies Allergy Verified 01/08/23 09:33 Active Medications: Current Medications Acetaminophen (Acetaminophen 325 Mg Tablet) 650 mg PO Q6H PRN PRN Reason: Pain, Mild (Pain Scale 1-3) Albuterol Sulfate (Albuterol Sulfate 90 Mcg 8 Gm Inhaler) 2 puff INHALE Q4H PRN PRN Reason: wheezing Apixaban (Apixaban 5 Mg Tablet) 5 mg PO BID [facility] Last Admin: 05/15/23 08:48 Dose: 5 mg Buprenorphine/Naloxone (Buprenorphine/Naloxone 8/2 Mg Film) 1 film SUBLINGUAL DAILY [facility] Last Admin: 05/15/23 08:48 Dose: 1 film Cefuroxime Axetil (Cefuroxime Axetil 500 Mg Tablet) 500 mg PO BID [facility] Stop: 05/16/23 21:01 Last Admin: 05/15/23 08:48 Dose: 500 mg Docusate Sodium (Docusate Sodium 100 Mg Capsule) 100 mg PO DAILY PRN PRN Reason: Constipation Duloxetine HCl (Duloxetine Hcl 30 Mg Capsule.Dr) 30 mg PO DAILY [facility] Last Admin: 05/15/23 08:48 Dose: 30 mg Lisinopril (Lisinopril 40 Mg Tablet) 40 mg PO DAILY [facility]; Protocol Last Admin: 05/15/23 08:48 Dose: 40 mg Lorazepam (Lorazepam 0.5 Mg Tablet) 0.5 mg PO BID PRN PRN Reason: Anxiety Last Admin: 05/15/23 10:20 Dose: 0.5 mg Metoprolol Tartrate (Metoprolol Tartrate 100 Mg Tablet) 100 mg PO BID [facility]; Protocol Last Admin: 05/15/23 08:48 Dose: 100 mg Naloxone HCl (Naloxone Hcl Nasal 4 Mg [place]) 4 mg NOSTRILALT Q2M PRN PRN Reason: opioid overdose Ondansetron HCl (Ondansetron Hcl 4 Mg/2 Ml Vial) 4 mg IVPUSH Q8H PRN PRN Reason: Nausea and Vomiting Pharmacy Consult (Consult Rx Perform Med Rec) 1 each MISCELLANE ONCE PRN PRN Reason: Consult order Sodium Chloride (0.9 % Sodium Chloride Flush 3 Ml Syringe) 3 ml IVFLUSH QSHIFT [facility] Last Admin: 05/15/23 08:48 Dose: 3 ml Home Medications Medication Instructions Recorded Confirmed Last Taken Type lisinopril 40 mg tablet 1 tab PO DAILY 05/12/22 05/14/23 05/14/23 History albuterol sulfate 90 mcg/actuation 2 puff inhalation Q4H PRN wheezing 05/14/23 05/14/23 Unknown History aerosol inhaler (Ventolin HFA) apixaban 5 mg tablet (Eliquis) 5 mg PO BID 05/14/23 05/14/23 05/14/23 History cefpodoxime 200 mg tablet 200 mg PO Q12H 05/14/23 05/14/23 Unknown History duloxetine 30 mg capsule,delayed 30 mg PO DAILY 05/14/23 05/14/23 3 Days Ago History release ~05/11/23 hydrochlorothiazide 25 mg tablet 25 mg PO DAILY 05/14/23 05/14/23 05/14/23 History lorazepam 0.5 mg tablet 0.5 mg PO BID PRN Anxiety 05/14/23 05/14/23 Unknown History metoprolol tartrate 50 mg tablet 100 mg PO BID 05/14/23 05/14/23 05/14/23 History tizanidine 2 mg tablet 2 mg PO TID PRN MUSCLE SPASMS 05/14/23 05/14/23 2 Days Ago History ~05/12/23 Physical Exam Vital Signs: Vital Signs: Last Vital Signs Temp 97.6 F 05/15/23 07:15 Pulse 85 05/15/23 07:15 Resp 20 05/15/23 07:15 BP 130/62 05/15/23 07:15 Pulse Ox 95 05/15/23 07:15 O2 Del Method Room Air 05/15/23 07:15 BMI result Body Mass Index 40.6 GENERAL APPEARANCE: in no acute distress, pleasant. NECK: no carotid bruit, no jugular venous distention. SKIN: no suspicious lesions, warm and dry. HEART: no murmurs, irregular rate and rhythm. LUNGS: clear to auscultation bilaterally. ABDOMEN: soft, nontender. EXTREMITIES: no edema. PERIPHERAL PULSES: equal. NEUROLOGIC: No gross deficits, AAO X 3 Objective Labs and Meds 05/15/23 06:14 05/15/23 06:14 Lab results: Laboratory Results - last 24 hr 05/14/23 05/14/23 05/14/23 11:49 11:49 11:49 WBC RBC Hgb Hct MCV MCH MCHC RDW Plt Count MPV Immature Gran % (Auto) Neut % (Auto) Lymph % (Auto) [place] % (Auto) Eos % (Auto) Baso % (Auto) Lymph # (Auto) [place] # (Auto) Eos # (Auto) Baso # (Auto) Abs Immat Gran (auto) Absolute Neuts (auto) Absolute Nucleated RBC Nucleated RBC % (auto) Sodium 138 Potassium 3.6 Chloride 103 Carbon Dioxide 20 L Anion Gap 19 BUN 21 H Creatinine 1.23 Estim Creat Clear Calc 85.0 Estimated GFR 59 Random Glucose 141 H Lactic Acid 1.9 Calcium 9.7 D Magnesium 1.9 Total Bilirubin 0.8 AST 34 ALT 38 Alkaline Phosphatase 104 Troponin I High Sens < 2.7 B-Natriuretic Peptide Total Protein 7.5 Albumin 4.1 Urine Color Urine Appearance Urine pH Ur Specific [place] Urine Protein Urine Glucose (UA) Urine Ketones Urine Blood Urine Nitrite Ur Leukocyte Esterase Urine RBC Urine WBC Ur Squamous Epith Cells Urine Bacteria Hyaline Casts Urine Opiates Screen Urine Fentanyl Screen Ur Barbiturates Screen Ur Phencyclidine Scrn Ur Amphetamines Screen U Benzodiazepines Scrn Urine Cocaine Screen U Marijuana (THC) Screen Ethyl Alcohol < 10 COVID-19 (JANNIE) COVID-19 Clin Com 05/14/23 05/14/23 05/14/23 11:49 12:21 12:21 WBC 9.2 RBC 4.71 Hgb 15.1 Hct 44.4 MCV 94.3 MCH 32.1 MCHC 34.0 RDW 12.6 Plt Count 294 D MPV 9.7 Immature Gran % (Auto) 0.2 Neut % (Auto) 54.7 Lymph % (Auto) 35.7 [place] % (Auto) 7.7 Eos % (Auto) 1.3 Baso % (Auto) 0.4 Lymph # (Auto) 3.3 [place] # (Auto) 0.7 Eos # (Auto) 0.1 Baso # (Auto) 0.0 Abs Immat Gran (auto) 0.02 Absolute Neuts (auto) 5.0 Absolute Nucleated RBC 0.000 Nucleated RBC % (auto) 0.0 Sodium Potassium Chloride Carbon Dioxide Anion Gap BUN Creatinine Estim Creat Clear Calc Estimated GFR Random Glucose Lactic Acid Calcium Magnesium Total Bilirubin AST ALT Alkaline Phosphatase Troponin I High Sens B-Natriuretic Peptide 28 Total Protein Albumin Urine Color Urine Appearance Urine pH Ur Specific [place] Urine Protein Urine Glucose (UA) Urine Ketones Urine Blood Urine Nitrite Ur Leukocyte Esterase Urine RBC Urine WBC Ur Squamous Epith Cells Urine Bacteria Hyaline Casts Urine Opiates Screen Urine Fentanyl Screen Ur Barbiturates Screen Ur Phencyclidine Scrn Ur Amphetamines Screen U Benzodiazepines Scrn Urine Cocaine Screen U Marijuana (THC) Screen Ethyl Alcohol COVID-19 (JANNIE) Negative COVID-19 Clin Com See Note 05/14/23 05/14/23 05/15/23 13:43 13:43 06:14 WBC 7.8 RBC 4.38 L Hgb 14.2 Hct 42.1 MCV 96.1 MCH 32.4 MCHC 33.7 RDW 12.6 Plt Count 230 MPV 10.5 Immature Gran % (Auto) 0.1 Neut % (Auto) 47.1 Lymph % (Auto) 41.4 H [place] % (Auto) 9.1 Eos % (Auto) 1.9 Baso % (Auto) 0.4 Lymph # (Auto) 3.2 [place] # (Auto) 0.7 Eos # (Auto) 0.2 Baso # (Auto) 0.0 Abs Immat Gran (auto) 0.01 Absolute Neuts (auto) 3.7 Absolute Nucleated RBC 0.000 Nucleated RBC % (auto) 0.0 Sodium Potassium Chloride Carbon Dioxide Anion Gap BUN Creatinine Estim Creat Clear Calc Estimated GFR Random Glucose Lactic Acid Calcium Magnesium Total Bilirubin AST ALT Alkaline Phosphatase Troponin I High Sens B-Natriuretic Peptide Total Protein Albumin Urine Color Yellow Urine Appearance Clear Urine pH 6.0 Ur Specific [place] 1.010 Urine Protein Negative Urine Glucose (UA) Negative Urine Ketones Negative Urine Blood Negative Urine Nitrite Negative Ur Leukocyte Esterase Trace H Urine RBC 0-2 Urine WBC 0-5 Ur Squamous Epith Cells 3-5 Urine Bacteria None Seen Hyaline Casts 3-5 Urine Opiates Screen Not Detected Urine Fentanyl Screen Not Detected Ur Barbiturates Screen Not Detected Ur Phencyclidine Scrn Not Detected Ur Amphetamines Screen Not Detected U Benzodiazepines Scrn Not Detected Urine Cocaine Screen Not Detected U Marijuana (THC) Screen Not Detected Ethyl Alcohol COVID-19 (JANNIE) COVID-19 Clin Com 05/15/23 06:14 WBC RBC Hgb Hct MCV MCH MCHC RDW Plt Count MPV Immature Gran % (Auto) Neut % (Auto) Lymph % (Auto) [place] % (Auto) Eos % (Auto) Baso % (Auto) Lymph # (Auto) [place] # (Auto) Eos # (Auto) Baso # (Auto) Abs Immat Gran (auto) Absolute Neuts (auto) Absolute Nucleated RBC Nucleated RBC % (auto) Sodium 142 Potassium 3.4 Chloride 106 Carbon Dioxide 24 Anion Gap 15 BUN 18 H Creatinine 0.86 Estim Creat Clear Calc 121.8 Estimated GFR > 60 Random Glucose 96 Lactic Acid Calcium 9.2 Magnesium Total Bilirubin AST ALT Alkaline Phosphatase Troponin I High Sens B-Natriuretic Peptide Total Protein Albumin Urine Color Urine Appearance Urine pH Ur Specific [place] Urine Protein Urine Glucose (UA) Urine Ketones Urine Blood Urine Nitrite Ur Leukocyte Esterase Urine RBC Urine WBC Ur Squamous Epith Cells Urine Bacteria Hyaline Casts Urine Opiates Screen Urine Fentanyl Screen Ur Barbiturates Screen Ur Phencyclidine Scrn Ur Amphetamines Screen U Benzodiazepines Scrn Urine Cocaine Screen U Marijuana (THC) Screen Ethyl Alcohol COVID-19 (JANNIE) COVID-19 Clin Com Imaging Radiologist's impression: Impressions Chest X-Ray 05/14/23 12:13 IMPRESSION: Mild left base atelectasis. Head CT 05/14/23 14:50 IMPRESSION: No intracranial mass, hemorrhage or other acute intracranial pathology. Assessment and Plan (1) Pre-syncope: Status: Acute Plan 63-year-old gentleman with mild cardiomyopathy with no coronary artery disease diagnosed by cardiac catheterization by his report presenting with 2 episodes of presyncope, nausea, sweating and feeling hot and flushed. First episode was in the setting of urinary tract infection and was treated for that. Second episode was while he was working outside in the heat and started feeling hot and flushed and then had extreme fatigue and tiredness and nausea. He was noticed to be hypotensive by EMS. Overall his clinical presentation appears to be due to his vocal syncope. Monitor on telemetry for any arrhythmia. Does not appear to be in heart failure. His BNP and troponins are completely normal. Stop the hydrochlorothiazide and hold lisinopril for now. Potentially can be discharged home on beta-edwin with advised to keep himself well hydrated. He should avoid heat. He should follow-up with Dr. Ramsey after discharge. Thank you for allowing me to participate in the care of your patient. Please feel free to contact me if you have any questions. Time Spent With Patient Time: Total time managing care of this patient today ____ minutes. Procedures Date of Service Date of Service: 05/15/23
--- NOTE | 2023-05-15 15:48 | HO.PM.IMPN ---
Subjective Subjective Date of Service: 05/15/23 Interval History: still feels out of sorts .no other acute issues Review of Systems denies chest pain Denies shortness of breath Denies Physical Exam Vital Signs: Vital Signs: Last Vital Signs Temp 98.2 F 05/15/23 14:30 Pulse 84 05/15/23 14:30 Resp 19 05/15/23 14:30 BP 109/70 05/15/23 14:30 Pulse Ox 96 05/15/23 14:30 O2 Del Method Room Air 05/15/23 14:30 BMI result Body Mass Index 40.6 Const: Other: awake alert no acute distress Resp: Other: clear to auscultation bilaterally no rales rhonchi or wheezes Cardio: Other: no S4; positive S1-S2; no S3 murmurs rubs or gallops GI: Other: soft nontender nondistended normoactive bowel sounds Neuro: Other: cranial nerves 2-12 grossly intact as tested. Motor is 5/5 all extremities. Sensation intact. Cognition appropriate Extrem: Other: no edema bilaterally Objective Data Active Medications Acetaminophen (Acetaminophen 325 Mg Tablet) 650 mg PO Q6H PRN PRN Reason: Pain, Mild (Pain Scale 1-3) Albuterol Sulfate (Albuterol Sulfate 90 Mcg 8 Gm Inhaler) 2 puff INHALE Q4H PRN PRN Reason: wheezing Apixaban (Apixaban 5 Mg Tablet) 5 mg PO BID [facility] Last Admin: 05/15/23 08:48 Dose: 5 mg Documented By: JARROD Buprenorphine/Naloxone (Buprenorphine/Naloxone 8/2 Mg Film) 1 film SUBLINGUAL DAILY [facility] Last Admin: 05/15/23 08:48 Dose: 1 film Documented By: JARROD Cefuroxime Axetil (Cefuroxime Axetil 500 Mg Tablet) 500 mg PO BID [facility] Stop: 05/16/23 21:01 Last Admin: 05/15/23 08:48 Dose: 500 mg Documented By: JARROD Docusate Sodium (Docusate Sodium 100 Mg Capsule) 100 mg PO DAILY PRN PRN Reason: Constipation Duloxetine HCl (Duloxetine Hcl 30 Mg Capsule.) 30 mg PO DAILY [facility] Last Admin: 05/15/23 08:48 Dose: 30 mg Documented By: JARROD Lisinopril (Lisinopril 40 Mg Tablet) 40 mg PO DAILY [facility]; Protocol Last Admin: 05/15/23 08:48 Dose: 40 mg Documented By: JARROD Lorazepam (Lorazepam 0.5 Mg Tablet) 0.5 mg PO BID PRN PRN Reason: Anxiety Last Admin: 05/15/23 10:20 Dose: 0.5 mg Documented By: JARROD Metoprolol Tartrate (Metoprolol Tartrate 100 Mg Tablet) 100 mg PO BID [facility]; Protocol Last Admin: 05/15/23 08:48 Dose: 100 mg Documented By: JARROD Naloxone HCl (Naloxone Hcl Nasal 4 Mg [place]) 4 mg NOSTRILALT Q2M PRN PRN Reason: opioid overdose Ondansetron HCl (Ondansetron Hcl 4 Mg/2 Ml Vial) 4 mg IVPUSH Q8H PRN PRN Reason: Nausea and Vomiting Pharmacy Consult (Consult Rx Perform Med Rec) 1 each MISCELLANE ONCE PRN PRN Reason: Consult order Sodium Chloride (0.9 % Sodium Chloride Flush 3 Ml Syringe) 3 ml IVFLUSH [facility] Last Admin: 05/15/23 08:48 Dose: 3 ml Documented By: JARROD Labs 05/15/23 06:14 05/15/23 06:14 Labs: Laboratory Results - last 24 hr 05/15/23 05/15/23 06:14 06:14 MCV 96.1 MCH 32.4 MCHC 33.7 RDW 12.6 Plt Count 230 MPV 10.5 Immature Gran % (Auto) 0.1 Neut % (Auto) 47.1 Lymph % (Auto) 41.4 H [place] % (Auto) 9.1 Eos % (Auto) 1.9 Baso % (Auto) 0.4 Lymph # (Auto) 3.2 [place] # (Auto) 0.7 Eos # (Auto) 0.2 Baso # (Auto) 0.0 Abs Immat Gran (auto) 0.01 Absolute Neuts (auto) 3.7 Absolute Nucleated RBC 0.000 Nucleated RBC % (auto) 0.0 Anion Gap 15 Estim Creat Clear Calc 121.8 Estimated GFR > 60 Random Glucose 96 Calcium 9.2 Microbiology Microbiology Results: Microbiology 05/14/23 11:49 Blood Culture - Preliminary Blood - Venous No growth after 24 hours. 06/30/23 11:49 Blood Culture - Preliminary Blood - Venous No growth after 24 hours. Assessment and Plan (1) Pre-syncope: Status: Acute (2) Paroxysmal atrial fibrillation: Status: Acute (3) (HFpEF) heart failure with preserved ejection fraction: Status: Acute (4) Hypertension: Status: Acute Plan 63-year-old male with history of alcohol use disorder, morbid obesity, HFrEF, chronic low back pain with lumbar degenerative disc disease, osteoarthritis, hypertension, atrial fibrillation anticoagulated with Eliquis to be observed for near syncope. 1.Recurrent near-syncope - cardiology input appreciated. Query vasovagal - 2D echo essentially unremarkable - continue to hold lisinopril/ HCTZ 2. Paroxysmal atrial fibrillation -rate control adequate -continue Eliquis -continue metoprolol - adjust as indicated 3.HFrEF - stable/well compensated - continue current therapies 4.Hypertension - acceptable control off therapy - observe symptoms Eliquis Full code requires ongoing hospitalization to assess near-syncope in backdrop of med changes Time Spent With Patient Time: Total time managing care of this patient today ____ minutes. Quality Stroke Does the patient have a stroke diagnosis?: No VTE Prior VTE?: No VTE Risk Level:: Medical - moderate - high VTE Device Contraindication: Treatment Not Indicated VTE Drug Contraindication: N/A - Med Ordered
[2023-05-16 03:31] VITALS: BP 126/58; PULSE 99; RESP 18; TEMP 36.4; O2SAT 97
[2023-05-16 07:15] LABS: MANUAL DIFF FLAG NO
[2023-05-16 07:27] LABS: Basophils Percent Auto 0.4 % (0-2); Eosinophils Absolute Auto 0.2 X10*3/uL (0.0-0.4); Eosinophils Percent Auto 2.3 % (0-4); Hematocrit 41.7 % (42.0-52.0); Hemoglobin 13.9 g/dl (14.0-18.0); Imm Gran Abs Auto 0.05 X10*3/uL (0.00-0.03); Imm Gran Pct Auto 0.6 % (0.0-0.4); Lymphocytes Percent Auto 33.6 % (20-40); Mean Corpuscular HGB Conc 33.3 g/dl (31.0-36.0); Mean Corpuscular Hemoglobin 32.2 pg (27.0-33.0); Mean Corpuscular Volume 96.5 fL (80.0-98.0); Mean Platelet Volume 10.5 fL (9.4-12.4); Monocytes Absolute Auto 0.6 X10*3/uL (0.1-1.2); Monocytes Percent Auto 6.6 % (2-11); Neutrophils Absolute Auto 5.1 x10*3/uL (2.0-8.3); Neutrophils Percent Auto 56.5 % (45-73); Platelet Count 232 X10*3/uL (160-400); Red Blood Count 4.32 X10*6/uL (4.60-5.80); Red Cell Distribution Width 12.6 % (11.0-16.0); White Blood Count 9.1 X10*3/uL (4.8-10.8)
[2023-05-16 08:00] VITALS: BP 115/79; PULSE 79; RESP 18; TEMP 36.8; O2SAT 94
[2023-05-16 08:01] LABS: Alanine Aminotransferase 31 U/L (0-40); Albumin Level 3.5 g/dL (3.5-5.0); Alkaline Phosphatase 86 U/L (39-117); Anion Gap 13 (12-20); Aspartate Amino Transferase 25 U/L (5-37); Bilirubin Total 0.2 mg/dL (0.0-1.0); Blood Urea Nitrogen 18 mg/dL (9-16); Calcium 9.1 mg/dL (8.4-10.2); Carbon Dioxide 26 mmol/L (22-29); Chloride 105 mmol/L (96-108); Creatinine Clr Calc Pharmacy 112.7; Estimated Glomerular Filt Rate > 60; Glucose Fasting 142 mg/dL (60-99); Potassium 3.5 mmol/L (3.3-5.1); Sodium 140 mmol/L (135-145); Total Protein 6.3 g/dL (6.5-8.0)
[2023-05-16] MEDS: Apixaban 5 MG TABLET PO ×2 (08:30→20:11)
[2023-05-16] MEDS: LORazepam 0.5 MG TABLET PO (08:30)
[2023-05-16] MEDS: Metoprolol Tartrate 100 MG TABLET PO ×2 (08:30→20:11)
[2023-05-16] MEDS: DULoxetine HCl 30 MG CAPSULE.DR PO (08:30)
[2023-05-16] MEDS: Buprenorphine/Naloxone 8/2 mg FILM 1 FILM SUBLINGUAL (08:30)
--- NOTE | 2023-05-16 11:51 | PM.PNCARD ---
Subjective Subjective Date of Service: 05/16/23 Interval history: Seen and examined at bedside. He is feeling tired and fatigued. Echocardiography disorders from yesterday reviewed with patient his ejection fraction is 55-60. Previously was 40 45%. Physical Exam Vital Signs: Last Vital Signs Temp 98.3 F 05/16/23 08:00 Pulse 79 05/16/23 08:00 Resp 18 05/16/23 08:00 BP 115/79 05/16/23 08:00 Pulse Ox 94 05/16/23 08:00 O2 Del Method Room Air 05/16/23 08:00 BMI result Body Mass Index 40.6 GENERAL APPEARANCE: in no acute distress, pleasant. NECK: no carotid bruit, no jugular venous distention. SKIN: no suspicious lesions, warm and dry. HEART: no murmurs, irregular rate and rhythm. LUNGS: clear to auscultation bilaterally. ABDOMEN: soft, nontender. EXTREMITIES: no edema. PERIPHERAL PULSES: equal. NEUROLOGIC: No gross deficits, AAO X 3 Objective Labs and Meds 05/16/23 05:52 05/16/23 05:52 Lab results: Laboratory Results - last 24 hr 05/16/23 05/16/23 05:52 05:52 WBC 9.1 RBC 4.32 L Hgb 13.9 L Hct 41.7 L MCV 96.5 MCH 32.2 MCHC 33.3 RDW 12.6 Plt Count 232 MPV 10.5 Immature Gran % (Auto) 0.6 H Neut % (Auto) 56.5 Lymph % (Auto) 33.6 [place] % (Auto) 6.6 Eos % (Auto) 2.3 Baso % (Auto) 0.4 Lymph # (Auto) 3.0 [place] # (Auto) 0.6 Eos # (Auto) 0.2 Baso # (Auto) 0.0 Abs Immat Gran (auto) 0.05 H Absolute Neuts (auto) 5.1 Absolute Nucleated RBC 0.000 Nucleated RBC % (auto) 0.0 Sodium 140 Potassium 3.5 Chloride 105 Carbon Dioxide 26 Anion Gap 13 BUN 18 H Creatinine 0.93 Estim Creat Clear Calc 112.7 Estimated GFR > 60 Fasting Glucose 142 H Calcium 9.1 Total Bilirubin 0.2 AST 25 ALT 31 Alkaline Phosphatase 86 Total Protein 6.3 L Albumin 3.5 Progress Note: A&P Assessment and plan (1) Hypertension: Status: Acute (2) (HFpEF) heart failure with preserved ejection fraction: Status: Acute (3) Persistent atrial fibrillation: Status: Acute Plan 63-year-old gentleman presenting with presyncope. Clinical story is consistent with vasovagal syncope. Echocardiography has shown normal LV function. RV function is borderline reduced and RV is mildly dilated. There is also mild dilation of aorta. He is obese and has underlying undiagnosed sleep apnea. He is due for sleep study next month. He appears to be in a negative fluid balance still. He is saying his mildly dizzy. His thiazide should be discontinued on discharge. He should be encouraged to drink more fluids. Orthostatic vital sign should be checked. Continue apixaban for atrial fibrillation. He is saying he is in AFib all the time making AFib when unlikely cause for his fatigue and tiredness. 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 Thank you for allowing me to participate in the care of your patient. Please feel free to contact me if you have any questions. Time Spent With Patient Time: Total time managing care of this patient today ____ minutes. Progress Note: Quality Stroke Does the patient have a stroke diagnosis?: No Procedures Date of Service Date of Service: 05/16/23
[2023-05-16 12:00] VITALS: BP 119/74; PULSE 83; RESP 20; TEMP 36.1; O2SAT 94
--- NOTE | 2023-05-16 12:11 | HO.PM.IMPN ---
Subjective Subjective Date of Service: 05/16/23 Interval History: still feels lousy . BP acceptable off lisinopril 40 mg. When further queried patient does not take his Suboxone regularly; some symptoms today after Suboxone ingestion Review of Systems denies chest pain Denies shortness of breath Denies nausea vomiting diarrhea Denies fever chills Physical Exam Vital Signs: Vital Signs: Last Vital Signs Temp 97.0 F 05/16/23 12:00 Pulse 83 05/16/23 12:00 Resp 20 05/16/23 12:00 BP 119/74 05/16/23 12:00 Pulse Ox 94 05/16/23 12:00 O2 Del Method Room Air 05/16/23 12:00 BMI result Body Mass Index 40.6 Const: Other: awake alert no acute distress Resp: Other: clear to auscultation bilaterally no rales rhonchi or wheezes Cardio: Other: no S4; positive S1-S2; no S3 murmurs rubs or gallops GI: Other: soft nontender nondistended normoactive bowel sounds Neuro: Other: cranial nerves 2-12 grossly intact as tested. Motor is 5/5 all extremities. Sensation intact. Cognition appropriate Extrem: Other: no edema bilaterally Objective Data Active Medications Acetaminophen (Acetaminophen 325 Mg Tablet) 650 mg PO Q6H PRN PRN Reason: Pain, Mild (Pain Scale 1-3) Albuterol Sulfate (Albuterol Sulfate 90 Mcg 8 Gm Inhaler) 2 puff INHALE Q4H PRN PRN Reason: wheezing Apixaban (Apixaban 5 Mg Tablet) 5 mg PO BID [facility] Last Admin: 05/16/23 08:30 Dose: 5 mg Documented By: MYRIAM Buprenorphine/Naloxone (Buprenorphine/Naloxone 8/2 Mg Film) 1 film SUBLINGUAL DAILY [facility] Last Admin: 05/16/23 08:30 Dose: 1 film Documented By: MYRIAM Cefuroxime Axetil (Cefuroxime Axetil 500 Mg Tablet) 500 mg PO BID [facility] Stop: 05/16/23 21:01 Last Admin: 05/16/23 08:30 Dose: 500 mg Documented By: MYRIAM Docusate Sodium (Docusate Sodium 100 Mg Capsule) 100 mg PO DAILY PRN PRN Reason: Constipation Duloxetine HCl (Duloxetine Hcl 30 Mg Capsule.) 30 mg PO DAILY [facility] Last Admin: 05/16/23 08:30 Dose: 30 mg Documented By: MYRIAM Lorazepam (Lorazepam 0.5 Mg Tablet) 0.5 mg PO BID PRN PRN Reason: Anxiety Last Admin: 05/16/23 08:30 Dose: 0.5 mg Documented By: MYRIAM Metoprolol Tartrate (Metoprolol Tartrate 100 Mg Tablet) 100 mg PO BID [facility]; Protocol Last Admin: 05/16/23 08:30 Dose: 100 mg Documented By: MYRIAM Naloxone HCl (Naloxone Hcl Nasal 4 Mg [place]) 4 mg NOSTRILALT Q2M PRN PRN Reason: opioid overdose Ondansetron HCl (Ondansetron Hcl 4 Mg/2 Ml Vial) 4 mg IVPUSH Q8H PRN PRN Reason: Nausea and Vomiting Pharmacy Consult (Consult Rx Perform Med Rec) 1 each MISCELLANE ONCE PRN PRN Reason: Consult order Sodium Chloride (0.9 % Sodium Chloride Flush 3 Ml Syringe) 3 ml IVFLUSH QSMNFT [facility] Last Admin: 05/15/23 20:42 Dose: 3 ml Documented By: JUAN Labs 05/16/23 05:52 05/16/23 05:52 Labs: Laboratory Results - last 24 hr 05/16/23 05/16/23 05:52 05:52 MCV 96.5 MCH 32.2 MCHC 33.3 RDW 12.6 Plt Count 232 MPV 10.5 Immature Gran % (Auto) 0.6 H Neut % (Auto) 56.5 Lymph % (Auto) 33.6 [place] % (Auto) 6.6 Eos % (Auto) 2.3 Baso % (Auto) 0.4 Lymph # (Auto) 3.0 [place] # (Auto) 0.6 Eos # (Auto) 0.2 Baso # (Auto) 0.0 Abs Immat Gran (auto) 0.05 H Absolute Neuts (auto) 5.1 Absolute Nucleated RBC 0.000 Nucleated RBC % (auto) 0.0 Anion Gap 13 Estim Creat Clear Calc 112.7 Estimated GFR > 60 Fasting Glucose 142 H Calcium 9.1 Total Bilirubin 0.2 AST 25 ALT 31 Alkaline Phosphatase 86 Total Protein 6.3 L Albumin 3.5 Microbiology Microbiology Results: Microbiology 05/14/23 11:49 Blood Culture - Preliminary Blood - Venous No growth after 24 hours. 06/30/23 11:49 Blood Culture - Preliminary Blood - Venous No growth after 24 hours. Assessment and Plan (1) Pre-syncope: Status: Acute (2) Paroxysmal atrial fibrillation: Status: Acute (3) (HFpEF) heart failure with preserved ejection fraction: Status: Acute (4) Hypertension: Status: Acute Plan 63-year-old male with history of alcohol use disorder, morbid obesity, HFrEF, chronic low back pain with lumbar degenerative disc disease, osteoarthritis, hypertension, atrial fibrillation anticoagulated with Eliquis to be observed for near syncope. 1.Recurrent near-syncope - cardiology input appreciated. - 2D echo essentially unremarkable - continue to hold lisinopril/ HCTZ - likely combination of untreated sleep apnea/ Suboxone use/ overmedication - check TSH and free testosterone in a.m. 2. Paroxysmal atrial fibrillation -rate control adequate -continue Eliquis -continue metoprolol - adjust as indicated 3.HFrEF - stable/well compensated - continue current therapies 4.Hypertension - acceptable control off therapy - observe symptoms Eliquis Full code requires ongoing hospitalization to assess near-syncope in backdrop of med changes Time Spent With Patient Time: Total time managing care of this patient today ____ minutes. Quality Stroke Does the patient have a stroke diagnosis?: No VTE Prior VTE?: No VTE Risk Level:: Medical - moderate - high VTE Device Contraindication: Treatment Not Indicated VTE Drug Contraindication: N/A - Med Ordered
[2023-05-16 15:57] VITALS: BP 142/83; PULSE 82; RESP 20; TEMP 36; O2SAT 96
[2023-05-16] MEDS: 0.9 % Sodium Chloride Flush 3 ML SYRINGE IVFLUSH ×2 (16:54→20:11)
[2023-05-16 19:21] VITALS: BP 125/80; PULSE 83; RESP 18; TEMP 36.2; O2SAT 94
[2023-05-16 23:33] VITALS: BP 160/86; PULSE 83; RESP 18; TEMP 36.6; O2SAT 93
[2023-05-17 03:55] VITALS: BP 129/69; PULSE 88; RESP 20; TEMP 36.8; O2SAT 96
[2023-05-17 07:38] VITALS: BP 140/80; PULSE 92; RESP 20; TEMP 36.6; O2SAT 97
[2023-05-17 07:44] LABS: Thyroid Stimulating Hormone 1.17 uIU/mL (0.32-4.0)
[2023-05-17] MEDS: Metoprolol Tartrate 100 MG TABLET PO ×2 (08:08→19:55)
[2023-05-17] MEDS: LORazepam 0.5 MG TABLET PO ×2 (08:08→20:01)
[2023-05-17] MEDS: Apixaban 5 MG TABLET PO ×2 (08:08→19:55)
[2023-05-17] MEDS: DULoxetine HCl 30 MG CAPSULE.DR PO (08:08)
[2023-05-17] MEDS: 0.9 % Sodium Chloride Flush 3 ML SYRINGE IVFLUSH ×2 (08:08→19:55)
--- NOTE | 2023-05-17 10:43 | MHC.CM.PN ---
EMR reviewed and per MD rounds, pt is not medically cleared for D/C due to ongoing management of A-fib. CM will continue to follow.
[2023-05-17] MEDS: Acetaminophen 325 MG TABLET 650 MG PO ×2 (10:53→21:44)
[2023-05-17 11:20] VITALS: BP 157/93; PULSE 79; RESP 20; TEMP 36.2; O2SAT 95
--- NOTE | 2023-05-17 11:24 | HO.PM.IMPN ---
Subjective Subjective Date of Service: 05/17/23 Interval History: episodes of AFib with rapid ventricular response overnight during which patient was symptomatic. When queried patient states he does not feel this Review of Systems denies chest pain Denies shortness of breath Denies nausea vomiting diarrhea Denies fever chills Physical Exam Vital Signs: Vital Signs: Last Vital Signs Temp 97.2 F 05/17/23 11:20 Pulse 79 05/17/23 11:20 Resp 20 05/17/23 11:20 BP 157/93 H 05/17/23 11:20 Pulse Ox 95 05/17/23 11:20 O2 Del Method Room Air 05/17/23 11:20 BMI result Body Mass Index 40.6 Const: Other: awake alert no acute distress Resp: Other: clear to auscultation bilaterally no rales rhonchi or wheezes Cardio: Other: no S4; positive S1-S2; no S3 murmurs rubs or gallops GI: Other: soft nontender nondistended normoactive bowel sounds Neuro: Other: cranial nerves 2-12 grossly intact as tested. Motor is 5/5 all extremities. Sensation intact. Cognition appropriate Extrem: Other: no edema bilaterally Objective Data Active Medications Acetaminophen (Acetaminophen 325 Mg Tablet) 650 mg PO Q6H PRN PRN Reason: Pain, Mild (Pain Scale 1-3) Last Admin: 05/17/23 10:53 Dose: 650 mg Documented By: MYRIAM Albuterol Sulfate (Albuterol Sulfate 90 Mcg 8 Gm Inhaler) 2 puff INHALE Q4H PRN PRN Reason: wheezing Apixaban (Apixaban 5 Mg Tablet) 5 mg PO BID [facility] Last Admin: 05/17/23 08:08 Dose: 5 mg Documented By: MYRIAM Buprenorphine/Naloxone (Buprenorphine/Naloxone 8/2 Mg Film) 1 film SUBLINGUAL DAILY [facility] Last Admin: 05/17/23 08:10 Dose: Not Given Documented By: MYRIAM Non-Admin Reason: Patient Refused Digoxin (Digoxin 0.5 Mg/2 Ml Ampul) 0.25 mg IVPUSH Q6H [facility] Stop: 05/18/23 00:31 Docusate Sodium (Docusate Sodium 100 Mg Capsule) 100 mg PO DAILY PRN PRN Reason: Constipation Duloxetine HCl (Duloxetine Hcl 30 Mg Capsule.) 30 mg PO DAILY [facility] Last Admin: 05/17/23 08:08 Dose: 30 mg Documented By: MYRIAM Lorazepam (Lorazepam 0.5 Mg Tablet) 0.5 mg PO BID PRN PRN Reason: Anxiety Last Admin: 05/17/23 08:08 Dose: 0.5 mg Documented By: MYRIAM Metoprolol Tartrate (Metoprolol Tartrate 100 Mg Tablet) 100 mg PO BID [facility]; Protocol Last Admin: 05/17/23 08:08 Dose: 100 mg Documented By: MYRIAM Naloxone HCl (Naloxone Hcl Nasal 4 Mg [place]) 4 mg NOSTRILALT Q2M PRN PRN Reason: opioid overdose Ondansetron HCl (Ondansetron Hcl 4 Mg/2 Ml Vial) 4 mg IVPUSH Q8H PRN PRN Reason: Nausea and Vomiting Pharmacy Consult (Consult Rx Perform Med Rec) 1 each MISCELLANE ONCE PRN PRN Reason: Consult order Sodium Chloride (0.9 % Sodium Chloride Flush 3 Ml Syringe) 3 ml IVFLUSH QSHIFT [facility] Last Admin: 05/17/23 08:08 Dose: 3 ml Documented By: MYRIAM Labs 05/16/23 05:52 05/16/23 05:52 Labs: Laboratory Results - last 24 hr 05/17/23 06:15 TSH 1.17 Microbiology Microbiology Results: Microbiology 05/14/23 11:49 Blood Culture - Preliminary Blood - Venous No growth after 48 hours. 05/14/23 11:49 Blood Culture - Preliminary Blood - Venous No growth after 48 hours. Assessment and Plan (1) Pre-syncope: Status: Acute (2) Persistent atrial fibrillation: Status: Acute (3) (HFpEF) heart failure with preserved ejection fraction: Status: Acute (4) Hypertension: Status: Acute Plan 63-year-old male with history of alcohol use disorder, morbid obesity, HFrEF, chronic low back pain with lumbar degenerative disc disease, osteoarthritis, hypertension, atrial fibrillation anticoagulated with Eliquis to be observed for near syncope. 1.Recurrent near-syncope - cardiology input appreciated. - 2D echo essentially unremarkable - continue to hold lisinopril/ HCTZ - check TSH and free testosterone in a.m. 2. Persistant atrial fibrillation ( RVR likely the cause of his symptoms) -poor rate control...will dig load -continue Eliquis -continue metoprolol 3.HFrEF - stable/well compensated - continue current therapies 4.Hypertension - acceptable control off therapy - observe symptoms Eliquis Full code requires ongoing hospitalization to assess near-syncope in backdrop Afib with poor Ventricular Rate Time Spent With Patient Time: Total time managing care of this patient today ____ minutes. Quality Stroke Does the patient have a stroke diagnosis?: No VTE Prior VTE?: No VTE Risk Level:: Medical - moderate - high VTE Device Contraindication: Treatment Not Indicated VTE Drug Contraindication: N/A - Med Ordered
[2023-05-17 15:17] VITALS: BP 143/81; PULSE 87; RESP 18; TEMP 37; O2SAT 95
[2023-05-17 19:08] VITALS: BP 139/69; PULSE 86; RESP 16; TEMP 36.1; O2SAT 96
[2023-05-17 23:38] VITALS: BP 163/98; PULSE 75; RESP 18; TEMP 37.1; O2SAT 96
[2023-05-18 04:00] VITALS: BP 126/66; PULSE 70; RESP 20; TEMP 37.1; O2SAT 94
[2023-05-18] MEDS: Acetaminophen 325 MG TABLET 650 MG PO ×3 (05:55→21:05)
[2023-05-18 07:07] LABS: Alanine Aminotransferase 26 U/L (0-40); Albumin Level 3.3 g/dL (3.5-5.0); Alkaline Phosphatase 78 U/L (39-117); Anion Gap 14 (12-20); Aspartate Amino Transferase 22 U/L (5-37); Bilirubin Total 0.8 mg/dL (0.0-1.0); Blood Urea Nitrogen 14 mg/dL (9-16); Calcium 9.3 mg/dL (8.4-10.2); Carbon Dioxide 24 mmol/L (22-29); Chloride 107 mmol/L (96-108); Creatinine Clr Calc Pharmacy 147.6; Estimated Glomerular Filt Rate > 60; Glucose Fasting 100 mg/dL (60-99); Potassium 3.8 mmol/L (3.3-5.1); Sodium 141 mmol/L (135-145); Total Protein 6.2 g/dL (6.5-8.0)
[2023-05-18 07:26] VITALS: BP 151/90; PULSE 81; RESP 20; TEMP 36.3; O2SAT 95
[2023-05-18] MEDS: Apixaban 5 MG TABLET PO ×2 (08:31→21:06)
[2023-05-18] MEDS: Metoprolol Tartrate 100 MG TABLET PO ×2 (08:31→21:06)
[2023-05-18] MEDS: Buprenorphine/Naloxone 8/2 mg FILM 1 FILM SUBLINGUAL (08:32)
[2023-05-18] MEDS: DULoxetine HCl 30 MG CAPSULE.DR PO (08:32)
[2023-05-18] MEDS: 0.9 % Sodium Chloride Flush 3 ML SYRINGE IVFLUSH ×3 (08:32→21:11)
[2023-05-18] MEDS: LORazepam 0.5 MG TABLET PO ×2 (08:53→21:05)
--- NOTE | 2023-05-18 11:19 | HO.PM.IMPN ---
Subjective Subjective Date of Service: 05/18/23 Interval History: Being followed for near-syncope, complaining of persistent lightheadedness feel not ready for discharge complaining of headache, no nausea no vomiting complaining of urinary symptoms of nocturia, frequency was told to have enlarged prostate , denies urinary burning, no urgency. No fevers, no chills Review of Systems All other systems reviewed and negative. Physical Exam Vital Signs: Vital Signs: Last Vital Signs Temp 97.4 F 05/18/23 07:26 Pulse 81 05/18/23 07:26 Resp 20 05/18/23 07:26 BP 151/90 H 05/18/23 07:26 Pulse Ox 95 05/18/23 07:26 O2 Del Method Room Air 05/18/23 07:26 BMI result Body Mass Index 40.6 Const: Other: General awake alert x3 resting comfortably in no acute distress. Neck no JVD. CVS regular rate rhythm, Respiratory lungs clear to auscultation, no respiratory distress, no wheeze, no rhonchi. Gastrointestinal abdomen soft, nontender, bowel sounds audible, no guarding , no rigidity. Extremities no edema. Neuro nonfocal Skin no rash Psych appropriate affect Objective Data Active Medications Acetaminophen (Acetaminophen 325 Mg Tablet) 650 mg PO Q6H PRN PRN Reason: Pain, Mild (Pain Scale 1-3) Last Admin: 05/18/23 05:55 Dose: 650 mg Documented By: PERRI Albuterol Sulfate (Albuterol Sulfate 90 Mcg 8 Gm Inhaler) 2 puff INHALE Q4H PRN PRN Reason: wheezing Apixaban (Apixaban 5 Mg Tablet) 5 mg PO BID [facility] Last Admin: 05/18/23 08:31 Dose: 5 mg Documented By: JONNIE Buprenorphine/Naloxone (Buprenorphine/Naloxone 4/1 Mg Film) 1 film SUBLINGUAL DAILY [facility] Docusate Sodium (Docusate Sodium 100 Mg Capsule) 100 mg PO DAILY PRN PRN Reason: Constipation Duloxetine HCl (Duloxetine Hcl 30 Mg Capsule.Dr) 30 mg PO DAILY [facility] Last Admin: 05/18/23 08:32 Dose: 30 mg Documented By: JONNIE Lisinopril (Lisinopril 10 Mg Tablet) 10 mg PO DAILY [facility]; Protocol Lorazepam (Lorazepam 0.5 Mg Tablet) 0.5 mg PO BID PRN PRN Reason: Anxiety Last Admin: 05/18/23 08:53 Dose: 0.5 mg Documented By: JARROD Metoprolol Tartrate (Metoprolol Tartrate 100 Mg Tablet) 100 mg PO BID [facility]; Protocol Last Admin: 05/18/23 08:31 Dose: 100 mg Documented By: JONNIE Naloxone HCl (Naloxone Hcl Nasal 4 Mg [place]) 4 mg NOSTRILALT Q2M PRN PRN Reason: opioid overdose Ondansetron HCl (Ondansetron Hcl 4 Mg/2 Ml Vial) 4 mg IVPUSH Q8H PRN PRN Reason: Nausea and Vomiting Pharmacy Consult (Consult Rx Perform Med Rec) 1 each MISCELLANE ONCE PRN PRN Reason: Consult order Sodium Chloride (0.9 % Sodium Chloride Flush 3 Ml Syringe) 3 ml IVFLUSH QSHIFT [facility] Last Admin: 05/18/23 08:32 Dose: 3 ml Documented By: JONNIE Labs 05/18/23 05:50 05/18/23 05:50 Labs: Laboratory Results - last 24 hr 05/17/23 05/18/23 05/18/23 15:53 05:50 05:50 MCV 95.3 MCH 32.7 MCHC 34.3 RDW 12.2 Plt Count 201 MPV 10.7 Immature Gran % (Auto) 0.4 Neut % (Auto) 63.3 Lymph % (Auto) 27.6 [place] % (Auto) 6.6 Eos % (Auto) 1.6 Baso % (Auto) 0.5 Lymph # (Auto) 2.7 [place] # (Auto) 0.7 Eos # (Auto) 0.2 Baso # (Auto) 0.1 Abs Immat Gran (auto) 0.04 H Absolute Neuts (auto) 6.2 Absolute Nucleated RBC 0.000 Nucleated RBC % (auto) 0.0 Anion Gap 14 Estim Creat Clear Calc 147.6 Estimated GFR > 60 POC Glucose 99 Fasting Glucose 100 H Calcium 9.3 Total Bilirubin 0.8 AST 22 ALT 26 Alkaline Phosphatase 78 Total Protein 6.2 L Albumin 3.3 L Assessment and Plan (1) Pre-syncope: Status: Acute (2) Persistent atrial fibrillation: Status: Acute (3) (HFpEF) heart failure with preserved ejection fraction: Status: Acute (4) Hypertension: Status: Acute Plan 63-year-old male with history of alcohol use disorder, morbid obesity, HFrEF, chronic low back pain with lumbar degenerative disc disease, osteoarthritis, hypertension, atrial fibrillation anticoagulated with Eliquis to be observed for near syncope. 1.Recurrent near-syncope - question etiology orthostatic vitals unremarkable, normal CBC and electrolytes, normal blood sugars, question due to anxiety/urinary symptoms, had an episode of AFib RVR but have persistent symptoms despite stable heart rate - continue metoprolol 100 mg b.i.d. , status post digoxin load - continue to hold lisinopril 40 mg/ HCTZ, 2D echo essentially unremarkable - TSH normal, total and free testosterone pending - will resume lisinopril 10 mg low-dose, patient declined Suboxone yesterday question contributing to symptoms will place on low-dose Suboxone with slow taper -will add Flomax for urinary symptoms follow clinical course 2. Persistant atrial fibrillation ( RVR likely the cause of his symptoms) -s/p dig load, will place on digoxin 0.125 mg daily check dig level next week -continue Eliquis -continue metoprolol 3.HFrEF - stable/well compensated - continue current therapies 4.Hypertension - few high blood pressure readings since lisinopril 40 mg and hydrochlorothiazide on hold will place on lisinopril 10 mg daily continue metoprolol 100 b.i.d. 5. Urinary frequency and nocturia l placed on Flomax 0.4 mg daily 6. History of opioid dependence Will gradually wean Suboxone since patient refused to take Suboxone yesterday home dose 06/18 will change to 02/13 recommended slow taper and outpatient follow-up Eliquis Full code requires ongoing hospitalization to assess near-syncope in backdrop Afib with poor Ventricular Rate Time Spent With Patient Time: Total time managing care of this patient today ____ minutes. Quality Stroke Does the patient have a stroke diagnosis?: No VTE Prior VTE?: No VTE Risk Level:: Medical - moderate - high VTE Device Contraindication: Treatment Not Indicated VTE Drug Contraindication: N/A - Med Ordered
[2023-05-18 11:20] VITALS: BP 137/80; PULSE 59; RESP 20; TEMP 36.4; O2SAT 94
[2023-05-18 15:32] VITALS: BP 132/65; PULSE 61; RESP 18; TEMP 36.2; O2SAT 96
[2023-05-18 20:00] VITALS: BP 158/91; PULSE 93; RESP 20; TEMP 36.5; O2SAT 96
[2023-05-18 23:45] VITALS: BP 153/85; PULSE 66; RESP 18; TEMP 36.6; O2SAT 96
[2023-05-19] VITALS (7 sets, daily range): BP systolic 115–164; BP diastolic 63–90; PULSE 60–92; RESP 17–20; TEMP 36.1–37.2; O2SAT 92–100
[2023-05-19] MEDS: Acetaminophen 325 MG TABLET 650 MG PO ×2 (08:48→15:25)
[2023-05-19] MEDS: Metoprolol Tartrate 100 MG TABLET PO ×2 (08:50→20:32)
[2023-05-19] MEDS: Apixaban 5 MG TABLET PO ×2 (08:51→20:32)
[2023-05-19] MEDS: DULoxetine HCl 30 MG CAPSULE.DR PO (08:56)
[2023-05-19] MEDS: 0.9 % Sodium Chloride Flush 3 ML SYRINGE IVFLUSH ×2 (08:58→17:57)
--- NOTE | 2023-05-19 11:02 | HO.PM.IMPN ---
Subjective Subjective Date of Service: 05/19/23 Interval History: dizzy, weakness Physical Exam Vital Signs: Vital Signs: Last Vital Signs Temp 96.9 F 05/19/23 07:31 Pulse 74 05/19/23 07:31 Resp 18 05/19/23 07:31 BP 129/63 05/19/23 07:31 Pulse Ox 93 05/19/23 07:31 O2 Del Method Room Air 05/19/23 07:31 BMI result Body Mass Index 40.6 Const: Other: General awake alert x3 resting comfortably in no acute distress. Neck no JVD. CVS regular rate rhythm, Respiratory lungs clear to auscultation, no respiratory distress, no wheeze, no rhonchi. Gastrointestinal abdomen soft, nontender, bowel sounds audible, no guarding , no rigidity. Extremities no edema. Neuro nonfocal Skin no rash Psych appropriate affect Objective Data Active Medications Acetaminophen (Acetaminophen 325 Mg Tablet) 650 mg PO Q6H PRN PRN Reason: Pain, Mild (Pain Scale 1-3) Last Admin: 05/19/23 08:48 Dose: 650 mg Documented By: CARA Albuterol Sulfate (Albuterol Sulfate 90 Mcg 8 Gm Inhaler) 2 puff INHALE Q4H PRN PRN Reason: wheezing Apixaban (Apixaban 5 Mg Tablet) 5 mg PO BID [facility] Last Admin: 05/19/23 08:51 Dose: 5 mg Documented By: CARA Buprenorphine/Naloxone (Buprenorphine/Naloxone 4/1 Mg Film) 1 film SUBLINGUAL DAILY [facility] Last Admin: 05/19/23 08:51 Dose: 1 film Documented By: CARA Digoxin (Digoxin 0.125 Mg Tablet) 0.125 mg PO DAILY [facility] Last Admin: 05/19/23 08:49 Dose: 0.125 mg Documented By: CARA Docusate Sodium (Docusate Sodium 100 Mg Capsule) 100 mg PO DAILY PRN PRN Reason: Constipation Duloxetine HCl (Duloxetine Hcl 30 Mg Capsule.) 30 mg PO DAILY [facility] Last Admin: 05/19/23 08:56 Dose: 30 mg Documented By: CARA Lisinopril (Lisinopril 10 Mg Tablet) 10 mg PO DAILY [facility]; Protocol Last Admin: 05/19/23 08:50 Dose: 10 mg Documented By: CARA Lorazepam (Lorazepam 0.5 Mg Tablet) 0.5 mg PO BID PRN PRN Reason: Anxiety Last Admin: 05/18/23 21:05 Dose: 0.5 mg Documented By: DENYS Metoprolol Tartrate (Metoprolol Tartrate 100 Mg Tablet) 100 mg PO BID [facility]; Protocol Last Admin: 05/19/23 08:50 Dose: 100 mg Documented By: CARA Naloxone HCl (Naloxone Hcl Nasal 4 Mg [place]) 4 mg NOSTRILALT Q2M PRN PRN Reason: opioid overdose Ondansetron HCl (Ondansetron Hcl 4 Mg/2 Ml Vial) 4 mg IVPUSH Q8H PRN PRN Reason: Nausea and Vomiting Pharmacy Consult (Consult Rx Perform Med Rec) 1 each MISCELLANE ONCE PRN PRN Reason: Consult order Sodium Chloride (0.9 % Sodium Chloride Flush 3 Ml Syringe) 3 ml IVFLUSH QSHIFT [facility] Last Admin: 05/19/23 08:58 Dose: 3 ml Documented By: CARA Tamsulosin HCl (Tamsulosin Hcl 0.4 Mg Capsule) 0.4 mg PO BEDTIME [facility] Last Admin: 05/18/23 21:05 Dose: 0.4 mg Documented By: DENYS Labs 05/18/23 05:50 05/18/23 05:50 Assessment and Plan (1) Pre-syncope: Status: Acute (2) Persistent atrial fibrillation: Status: Acute (3) (HFpEF) heart failure with preserved ejection fraction: Status: Acute (4) Hypertension: Status: Acute Plan 63-year-old male with history of alcohol use disorder, morbid obesity, HFrEF, chronic low back pain with lumbar degenerative disc disease, osteoarthritis, hypertension, atrial fibrillation anticoagulated with Eliquis presented with near syncope. Recurrent near-syncope multifactorial decondintiong - PT recommended STr untreated CHRISTI - outpatient sleep study morbid obesity - weight loss ? etoh neuropathy - continue cymbalta Persistant atrial fibrillation with rvr on ambulation digoxin 0.125 mg daily -continue Eliquis -continue metoprolol chronic chf with recovered EF metoprolol, lisinopril Hypertension lisinopril 10 mg daily continue metoprolol 100 b.i.d. Urinary frequency and nocturia placed on Flomax 0.4 mg daily History of opioid dependence gradually wean Suboxone since patient refused to take Suboxone on 05/17/23 home dose 06/18 changed to 02/13 recommended slow taper and outpatient follow-up Vasu Full code reason for continued hospitalization:still feeling dizzy Time Spent With Patient Time: Total time managing care of this patient today ____ minutes. Quality Stroke Does the patient have a stroke diagnosis?: No VTE Prior VTE?: No VTE Risk Level:: Medical - moderate - high VTE Device Contraindication: Treatment Not Indicated VTE Drug Contraindication: N/A - Med Ordered
[2023-05-19] MEDS: ondansetron HCL 4 MG/2 ML VIAL IVPUSH (15:41)
[2023-05-20] MEDS: ondansetron HCL 4 MG/2 ML VIAL IVPUSH (01:48)
[2023-05-20] MEDS: 0.9 % Sodium Chloride Flush 3 ML SYRINGE IVFLUSH ×4 (02:21→20:17)
[2023-05-20 04:00] VITALS: BP 134/84; PULSE 70; RESP 18
[2023-05-20 06:43] LABS: Hemoglobin 13.4 g/dl (14.0-18.0); Mean Corpuscular HGB Conc 34.4 g/dl (31.0-36.0); Mean Corpuscular Hemoglobin 31.8 pg (27.0-33.0); Mean Corpuscular Volume 92.6 fL (80.0-98.0); Mean Platelet Volume 10.4 fL (9.4-12.4); Platelet Count 230 X10*3/uL (160-400); Red Blood Count 4.21 X10*6/uL (4.60-5.80); Red Cell Distribution Width 12.2 % (11.0-16.0); White Blood Count 9.6 X10*3/uL (4.8-10.8)
[2023-05-20 07:10] LABS: Anion Gap 10 (12-20); Blood Urea Nitrogen 19 mg/dL (9-16); Calcium 9.4 mg/dL (8.4-10.2); Carbon Dioxide 27 mmol/L (22-29); Chloride 105 mmol/L (96-108); Creatinine Clr Calc Pharmacy 120.4; Estimated Glomerular Filt Rate > 60; Glucose Fasting 105 mg/dL (60-99); Sodium 138 mmol/L (135-145)
[2023-05-20 07:31] VITALS: BP 137/83; PULSE 78; RESP 16; TEMP 35.6; O2SAT 92
[2023-05-20] MEDS: Apixaban 5 MG TABLET PO ×2 (08:21→20:16)
[2023-05-20] MEDS: Metoprolol Tartrate 100 MG TABLET PO ×2 (08:21→20:16)
[2023-05-20] MEDS: DULoxetine HCl 30 MG CAPSULE.DR PO (08:22)
--- NOTE | 2023-05-20 09:13 | HO.PM.IMPN ---
Subjective Subjective Date of Service: 05/20/23 Interval History: headache Physical Exam Vital Signs: Vital Signs: Last Vital Signs Temp 96.0 F L 05/20/23 07:31 Pulse 78 05/20/23 07:31 Resp 16 05/20/23 07:31 BP 137/83 05/20/23 07:31 Pulse Ox 92 05/20/23 07:31 O2 Del Method Room Air 05/20/23 07:31 BMI result Body Mass Index 40.6 Const: Other: General awake alert x3 resting comfortably in no acute distress. Neck no JVD. CVS regular rate rhythm, Respiratory lungs clear to auscultation, no respiratory distress, no wheeze, no rhonchi. Gastrointestinal abdomen soft, nontender, bowel sounds audible, no guarding , no rigidity. Extremities no edema. Neuro nonfocal Skin no rash Psych appropriate affect Objective Data Active Medications Acetaminophen (Acetaminophen 325 Mg Tablet) 650 mg PO Q6H PRN PRN Reason: Pain, Mild (Pain Scale 1-3) Last Admin: 05/19/23 15:25 Dose: 650 mg Documented By: CARA Acetaminophen/Butalbital/Caffeine (Butalb/Acetamin/Caff 50/325/40 Tablet) 1 tab PO Q4H PRN PRN Reason: Headache Last Admin: 05/20/23 08:23 Dose: 1 tab Documented By: CARA Albuterol Sulfate (Albuterol Sulfate 90 Mcg 8 Gm Inhaler) 2 puff INHALE Q4H PRN PRN Reason: wheezing Apixaban (Apixaban 5 Mg Tablet) 5 mg PO BID [facility] Last Admin: 05/20/23 08:21 Dose: 5 mg Documented By: CARA Buprenorphine/Naloxone (Buprenorphine/Naloxone 4/1 Mg Film) 1 film SUBLINGUAL DAILY [facility] Last Admin: 05/20/23 08:20 Dose: 1 film Documented By: CARA Digoxin (Digoxin 0.125 Mg Tablet) 0.125 mg PO DAILY [facility] Last Admin: 05/20/23 08:21 Dose: 0.125 mg Documented By: CARA Docusate Sodium (Docusate Sodium 100 Mg Capsule) 100 mg PO DAILY PRN PRN Reason: Constipation Duloxetine HCl (Duloxetine Hcl 30 Mg Capsule.) 30 mg PO DAILY [facility] Last Admin: 05/20/23 08:22 Dose: 30 mg Documented By: CARA Lisinopril (Lisinopril 10 Mg Tablet) 10 mg PO DAILY [facility]; Protocol Last Admin: 05/20/23 08:21 Dose: 10 mg Documented By: CARA Metoprolol Tartrate (Metoprolol Tartrate 100 Mg Tablet) 100 mg PO BID [facility]; Protocol Last Admin: 05/20/23 08:21 Dose: 100 mg Documented By: CARA Naloxone HCl (Naloxone Hcl Nasal 4 Mg [place]) 4 mg NOSTRILALT Q2M PRN PRN Reason: opioid overdose Ondansetron HCl (Ondansetron Hcl 4 Mg/2 Ml Vial) 4 mg IVPUSH Q8H PRN PRN Reason: Nausea and Vomiting Last Admin: 05/20/23 01:48 Dose: 4 mg Documented By: ANIL Pharmacy Consult (Consult Rx Perform Med Rec) 1 each MISCELLANE ONCE PRN PRN Reason: Consult order Sodium Chloride (0.9 % Sodium Chloride Flush 3 Ml Syringe) 3 ml IVFLUSH QSHIFT [facility] Last Admin: 05/20/23 08:23 Dose: 3 ml Documented By: CARA Tamsulosin HCl (Tamsulosin Hcl 0.4 Mg Capsule) 0.4 mg PO BEDTIME [facility] Last Admin: 05/19/23 20:32 Dose: 0.4 mg Documented By: KELLEY Labs 05/20/23 06:13 05/20/23 06:13 Labs: Laboratory Results - last 24 hr 05/20/23 05/20/23 06:13 06:13 MCV 92.6 MCH 31.8 MCHC 34.4 RDW 12.2 Plt Count 230 MPV 10.4 Absolute Nucleated RBC 0.000 Nucleated RBC % (auto) 0.0 Anion Gap 10 L Estim Creat Clear Calc 120.4 Estimated GFR > 60 Fasting Glucose 105 H Calcium 9.4 Microbiology Microbiology Results: Microbiology 05/14/23 11:49 Blood Culture - Final Blood - Venous No growth after 5 days. 05/14/23 11:49 Blood Culture - Final Blood - Venous No growth after 5 days. Assessment and Plan (1) Pre-syncope: Status: Acute (2) Persistent atrial fibrillation: Status: Acute (3) (HFpEF) heart failure with preserved ejection fraction: Status: Acute (4) Hypertension: Status: Acute Plan 63-year-old male with history of alcohol use disorder, morbid obesity, HFrEF, chronic low back pain with lumbar degenerative disc disease, osteoarthritis, hypertension, atrial fibrillation anticoagulated with Eliquis presented with near syncope. Recurrent near-syncope multifactorial decondintiong - PT recommended home with vna untreated CHRISTI - outpatient sleep study morbid obesity - weight loss ? etoh neuropathy - continue cymbalta headaches fiorecet Persistant atrial fibrillation with rvr on ambulation digoxin 0.125 mg daily -continue Eliquis -continue metoprolol rate much better chronic chf with recovered EF metoprolol, lisinopril Hypertension lisinopril 10 mg daily continue metoprolol 100 b.i.d. Urinary frequency and nocturia placed on Flomax 0.4 mg daily History of opioid dependence gradually wean Suboxone since patient refused to take Suboxone on 05/17/23 home dose 06/18 changed to 02/13 recommended slow taper and outpatient follow-up Vasu Full code reason for continued hospitalization:still feeling dizzy, headache Time Spent With Patient Time: Total time managing care of this patient today ____ minutes. Quality Stroke Does the patient have a stroke diagnosis?: No VTE Prior VTE?: No VTE Risk Level:: Medical - moderate - high VTE Device Contraindication: Treatment Not Indicated VTE Drug Contraindication: N/A - Med Ordered
[2023-05-20 11:36] VITALS: BP 133/74; PULSE 60; RESP 20; TEMP 36.8; O2SAT 94
[2023-05-20 15:46] VITALS: BP 118/69; PULSE 70; RESP 20; TEMP 36.3; O2SAT 97
[2023-05-20 19:13] VITALS: BP 128/75; PULSE 93; RESP 16; TEMP 36.3; O2SAT 94
[2023-05-20 23:25] VITALS: BP 117/55; PULSE 84; RESP 18; TEMP 36.8; O2SAT 92
[2023-05-21 07:11] VITALS: BP 136/69; PULSE 99; RESP 20; TEMP 37.2; O2SAT 93
[2023-05-21 08:47] LABS: Anion Gap 13 (12-20); Blood Urea Nitrogen 15 mg/dL (9-16); Calcium 9.2 mg/dL (8.4-10.2); Carbon Dioxide 25 mmol/L (22-29); Chloride 108 mmol/L (96-108); Creatinine Clr Calc Pharmacy 137.9; Estimated Glomerular Filt Rate > 60; Glucose Fasting 93 mg/dL (60-99); Sodium 142 mmol/L (135-145)
[2023-05-21] MEDS: 0.9 % Sodium Chloride Flush 3 ML SYRINGE IVFLUSH (08:56)
[2023-05-21] MEDS: Metoprolol Tartrate 100 MG TABLET PO (08:57)
[2023-05-21] MEDS: Apixaban 5 MG TABLET PO (08:57)
[2023-05-21] MEDS: DULoxetine HCl 30 MG CAPSULE.DR PO (08:57)
--- NOTE | 2023-05-21 09:34 | PM.DS ---
DS: Providers Provider Date of Service: 05/21/23 Date of admission: 05/17/23 15:15 Primary care physician: Duncan Rush MD Consults: 05/14/23 15:52 Consult to Cardiology Routine Consulting Provider: [facility] [facility] Reason for consultation: recurrent near syncope, diaphoresis DS: Diagnosis Discharge Diagnosis (1) Pre-syncope: Status: Acute (2) Persistent atrial fibrillation: Status: Acute (3) (HFpEF) heart failure with preserved ejection fraction: Status: Acute (4) Hypertension: Status: Acute DS: Summary Hospital Course Hospital Course: from initial hpi: 63-year-old male with history of alcohol use disorder, morbid obesity, HFrEF, chronic low back pain with lumbar degenerative disc disease, osteoarthritis, hypertension, atrial fibrillation anticoagulated with Eliquis presents earlier today for evaluation of recurrent episodes of near-syncope.? He is reporting episodes of lightheadedness with associated pallor and diaphoresis that last for several minutes typically occurring with exertion.? He denies any associated palpitations, shortness of breath, chest pain, visual changes.? States this has been ongoing for several weeks.? He did recently have right hip replacement and was told by Anesthesia that he has sleep apnea but is not yet been formally diagnosed on sleep study and does not wear CPAP.? He does state occasionally he experiences some shortness of breath but again this was not related to these instances.? He states yesterday he went to buy an iced tea and 1 is unable to walk up to the counter due to the symptoms and was so diaphoretic that he had during out his shirt.? He states there happened to be EMS on site who checked his vital signs with normal blood pressure and mild bradycardia 50 not normalized.? Prior to 1 month ago, no history of similar symptoms.? Denies any illicit drug use though does have a history of opiate use disorder and is on Suboxone.? No ongoing alcohol use, last drink was about 9 months ago.? Denies any smoking history. In the ED, vitals on the softer side but no hypotension.? Orthostatic vital signs negative.? No leukocytosis, no anemia.? Creatinine 1.23, BUN 21, lytes normal.? Urinalysis unremarkable.? Urine drug screen negative.? Head CT negative for any acute intracranial pathology.? Chest x-ray showing mild left basilar atelectasis. Last echo at [facility] with decreased systolic LV function with EF 40-45% with moderate global hypokinesis of the left ventricle.? Left ventricular wall thickness mildly increased.? Normal right ventricular size and function and no significant valvular disease. hospital course: Patient was admitted with recurrent near-syncope, likely multifactorial due to deconditioning, untreated CHRISTI, morbid obesity, question of alcohol neuropathy. He was seen by physical therapy recommended home with services, present treated CHRISTI he should get a sleep study as outpatient. From morbid obesity weight loss recommended for his alcohol neuropathy is on Cymbalta. Patient had headaches throughout hospital course which significant improved with Fioricet. For persistent atrial fibrillation patient episodes of rapid ventricular response on ambulation. He was started on digoxin 0.125 mg daily and continued on metoprolol and Eliquis. Rate is now much better. For chronic CHF with recovered ejection fraction he was continued on metoprolol and lisinopril. He remained euvolemic. For hypertension his lisinopril was decreased to 10 mg daily and was continue metoprolol 100 mg b.i.d., hydrochlorothiazide was discontinued. For urinary frequency and nocturia he was placed on Flomax. For history of opiate dependence he was weaned off Suboxone. Patient is feeling much better will be discharged home. Time Spent with Patient Time attestation: Total time managing care of this patient today ____ minutes. Discharge coordination time: Greater than 30 minutes Quality: Safe Use of Opioids Does Pt have an Active Cancer Diagnosis on the Problem List?: No Quality: Stroke Does the patient have a stroke diagnosis?: No Physical Exam Vital Signs: Vital Signs: Last Vital Signs Temp 99.0 F 05/21/23 07:11 Pulse 99 05/21/23 07:11 Resp 20 05/21/23 07:11 BP 136/69 05/21/23 07:11 Pulse Ox 93 05/21/23 07:11 O2 Del Method Room Air 05/21/23 07:11 BMI result Body Mass Index 40.6 Const: Other: General awake alert x3 resting comfortably in no acute distress. Neck no JVD. CVS regular rate rhythm, Respiratory lungs clear to auscultation, no respiratory distress, no wheeze, no rhonchi. Gastrointestinal abdomen soft, nontender, bowel sounds audible, no guarding , no rigidity. Extremities no edema. Neuro nonfocal Skin no rash Psych appropriate affect DS: Data Data Completed and Pending Labs on day of discharge: Laboratory Results - last 24 hr 05/21/23 05/21/23 06:50 06:50 WBC 8.0 RBC 4.10 L Hgb 13.3 L Hct 39.2 L MCV 95.6 MCH 32.4 MCHC 33.9 RDW 12.3 Plt Count 233 MPV 10.7 Absolute Nucleated RBC 0.000 Nucleated RBC % (auto) 0.0 Sodium 142 Potassium 4.0 Chloride 108 Carbon Dioxide 25 Anion Gap 13 BUN 15 Creatinine 0.76 Estim Creat Clear Calc 137.9 Estimated GFR > 60 Fasting Glucose 93 Calcium 9.2 Discharge Plan Discharge Anticipated Discharge Date/Time: 05/21/23 09:30 Patient Disposition: Home Health Service Discharge Diagnosis: afib, christi, Referrals: Duncan Rush MD [Primary Care Provider] - 1 Week Discharge Medications: New bzhaplokqa-afoqbwrvrknke-fxyw 50-325-40 mg Tablet 1 tab PO Q4H PRN (Reason: Headache) Qty: 15 0RF tamsulosin 0.4 mg Capsule 0.4 mg PO BEDTIME Qty: 30 0RF lisinopril 10 mg Tablet 10 mg PO DAILY Qty: 30 0RF Protocol: Hold for SBP< HOLD for SBP < : 90 digoxin 125 mcg (0.125 mg) Tablet 0.125 mg PO DAILY Qty: 30 0RF Continued tizanidine 2 mg tablet 2 mg PO TID PRN (Reason: MUSCLE SPASMS) albuterol sulfate [Ventolin HFA] 90 mcg/actuation HFA aerosol inhaler 2 puff INHALATION Q4H PRN (Reason: wheezing) metoprolol tartrate 50 mg tablet 100 mg PO BID lorazepam 0.5 mg tablet 0.5 mg PO BID PRN (Reason: Anxiety) Qty: 20 0RF duloxetine 30 mg capsule,delayed release(DR/EC) 30 mg PO DAILY Qty: 30 0RF Eliquis 5 mg tablet 5 mg PO BID Qty: 60 0RF naloxone [Narcan] 4 mg/actuation spray,non-aerosol 4 mg intranasal Q2M PRN (Reason: opioid overdose) Qty: 2 0RF Rx Instructions: spray 1 dose into ONE nostril; alternate nostrils w each dose until help arrives Discontinued buprenorphine-naloxone [Suboxone] 8-2 mg film 1 film sublingual DAILY Qty: 15 0RF lisinopril 40 mg tablet 1 tab PO DAILY hydrochlorothiazide 25 mg tablet 25 mg PO DAILY cefpodoxime 200 mg tablet 200 mg PO Q12H Discharge Orders: Discharge Order (Routine); Ordered 05/21/23 Ordered By: Deandre Martin Diet: Advance to usual diet Activity on Discharge: As tolerated Stand Alone Forms: Patient Portal Discharge page Care Plan Goals: recovery Health Concerns: CHRISTI Plan of Treatment: arrange sleep study, PT at home Assessment: see above
--- NOTE | 2023-05-21 09:36 | W.MHC.F2F ---
Service Date Service Date: 05/21/23 Encounter Date of encounter: 05/21/23 Reasons for Services Signs and symptoms assessed: dizzy on ambulation, poor excersise tolerance Reason for mcc: medication management, medication treatment and teach disease management Reason for physical therapy: home safety and mobility, therapeutic exercises and restore joint function Homebound: Leaving the home is medically contraindicated at this time without the asist of a device and/or another person due th the listed conditions above and below. Reason homebound: poor balance / fall risk Certification: Based on the above findings, I certify that this patient is confined to the home and needs intermittent mcc care, physical therapy and/or speech therapy, or continues to need occupational therapy. The patient is under my care, and I have initiated the establishment of the plan of care. The patient will be followed by a physician who will periodically review the plan of care. Time Spent With Patient Time: Total time managing care of this patient today ____ minutes.
--- NOTE | 2023-05-21 09:54 | MHC.CM.PN ---
Patient has been medically cleared for dc to home today, with services, A referral was made to [facility], who has been made aware of today's dc.
[2023-05-21 11:49] VITALS: BP 131/71; PULSE 81; RESP 18; TEMP 36.7; O2SAT 93
[2023-05-21 13:28] VITALS: BP 131/71; PULSE 81; O2SAT 93
[2023-05-21 17:13] LABS: Testosterone, Free 27.2 pg/mL (35.0-155.0); Testosterone, Total 394 ng/dL (250-1100)
== END 2023-05-21 12:29 | disposition home health service (06) | DRG 201 ==
LOC: HO.ED 14:24 → HO.EDOVER 15:58 → HO.IMC 16:20
PROVIDERS: Hospitalist; Physician Assistant; Admitting Provider Physician Assistant; Emergency Provider Emergency Medicine Emergency Medical Services; PCP Internal Medicine; Visit Provider Internal Medicine
DX: I48.19 Other persistent atrial fibrillation (principal); G62.1 Alcoholic polyneuropathy; I42.9 Cardiomyopathy, unspecified; I50.22 Chronic systolic (congestive) heart failure; I11.0 Hypertensive heart disease with heart failure; Z79.01 Long term (current) use of anticoagulants; E66.01 Morbid (severe) obesity due to excess calories; F10.11 Alcohol abuse, in remission; F11.20 Opioid dependence, uncomplicated; G47.33 Obstructive sleep apnea (adult) (pediatric); F10.188 Alcohol abuse with other alcohol-induced disorder; M51.36 Other intervertebral disc degeneration, lumbar region; Z91.148 Patient's other noncompliance with medication regimen for other reason; Z68.41 Body mass index [BMI] 40.0-44.9, adult; Z20.822 Contact with and (suspected) exposure to COVID-19; Z79.899 Other long term (current) drug therapy
CPT/HCPCS: 36415; 70450; 71045; 80048; 80053; 80307; 81001; 82947; 83605; 83735; 83880; 84402; 84403; 84443; 84484; 85025; 85027; 87040; 87635; 93005; 93306; 97116; 97162; 99285; J1160; J1885; J2060; J2405; Q9957

== ENCOUNTER 2023-05-27 14:46 | Outpatient (AMB) | payer MEDICAID, SELFPAY ==
[2023-05-27 14:58] VITALS: BP 130/74; PULSE 92; O2SAT 95
--- NOTE | 2023-05-27 14:58 | MHC.OFFVIS ---
Intake Vital Signs 05/27/23 14:58 BP 130/74 Blood Pressure Location Rt brachial Position Sitting Pulse 92 Pulse Source Pulse Oximeter Pulse Oximetry (%) 95 Oxygen Delivery Method Room Air Intake Visit Reasons: MAT Visit Allergies No Known Allergies Allergy (Verified 01/08/23 09:33) HPI MAT Visit HPI Details Patient presents for OUD treatment follow up Recently discharged from the hospital--CHF Was hospitalized for about a week. Has follow-up with Cardiology. Per chart review patient was not taking not taking full dose of suboxone at home and as a result Suboxone dose was decreased from 8 mg daily to 4 mg daily. Patient tolerating current dose. No issues related to medication. [facility], [facility] Medical History Alcohol withdrawal Elevated LFTs History of alcohol abuse Hypersomnia with sleep apnea Hypertension Knee osteoarthritis Lumbar degenerative disc disease Opioid dependence Social History Alcohol intake: never Patient Tobacco Use Status: Former Tobacco user Advance Directives Date on File: 05/12/22 service: No Review of Systems Const Reports as per HPI and Reports no additional complaints Physical Exam Vital Signs: Last Vital Signs Pulse 92 05/27/23 14:58 BP 130/74 05/27/23 14:58 Pulse Ox 95 05/27/23 14:58 Oxygen Delivery Method Room Air 05/27/23 14:58 Const General: cooperative Psych Speech and movement: Clear speech present Thought process: Circumstantial thought process present Insight: Good insight present (Psych) Assessment & Plan Assessment & Plan (1) Opioid dependence: Code(s): F11.20 - Opioid dependence, uncomplicated Plan: Continue Suboxone at 4 mg daily Follow-up 4 weeks Medications: New buprenorphine-naloxone 4-1 mg (Suboxone) 1 film sublingual DAILY 28 ea 0RF Coding Level of Care Code Est Pt Level 3 (38747) Diagnoses Opioid dependence F11.20
== END 2023-05-27 15:12 | disposition home or self-care (01) ==
LOC: HO.HCC 14:46
PROVIDERS: PCP Internal Medicine; Visit Provider Nurse Practitioner Psychiatric/Mental Health
DX: F11.20 Opioid dependence, uncomplicated (principal)
CPT/HCPCS: 99213

== ENCOUNTER → 2023-05-27 14:46 | Outpatient (BNVA) | payer MEDICAID, SELFPAY | PROVIDERS: PCP Internal Medicine; Visit Provider Nurse Practitioner Psychiatric/Mental Health | DX: F11.20 Opioid dependence, uncomplicated (principal) | CPT/HCPCS: 99213 ==

== ENCOUNTER 2023-06-01 15:57 | Outpatient (REF) | payer MEDICAID, SELFPAY ==
[2023-06-01 19:01] LABS: Prostate Specific Antigen 1.56 ng/mL (<0.05-4.0)
== END 2023-06-01 15:58 | disposition home or self-care (01) ==
LOC: HO.MANLDS 15:57
PROVIDERS: Visit Provider Physician Assistant
DX: Z12.5 Encounter for screening for malignant neoplasm of prostate (principal)
CPT/HCPCS: 36415; 84153

== ENCOUNTER 2023-06-24 14:41 | Outpatient (AMB) | payer MEDICAID, SELFPAY ==
--- NOTE | 2023-06-24 14:52 | MHC.OFFVIS ---
Intake Vital Signs 06/24/23 14:59 BP 134/78 Blood Pressure Location Lt radial Position Sitting Pulse 95 Pulse Source Pulse Oximeter Pulse Oximetry (%) 97 Oxygen Delivery Method Room Air Intake Visit Reasons: MAT Visit Intake Note: the patient is here for a mat visit Cardiology Consultant Required: No Allergies No Known Allergies Allergy (Verified 06/24/23 14:59) Do you need a note to return to daycare/school/sports/work: No HPI MAT Visit HPI Details Patient presents for OUD treatment follow up Recently saw PCP--no medication changes Currently prescribed Suboxone 4mg daily --reports he occasionally takes more than prescribed Appearing very comfortable today, bright affect, minimal anxiety PFSH Medical History Alcohol withdrawal Elevated LFTs History of alcohol abuse Hypersomnia with sleep apnea Hypertension Knee osteoarthritis Lumbar degenerative disc disease Opioid dependence Social History Alcohol intake: never Patient Tobacco Use Status: Former Tobacco user Advance Directives Date on File: 05/12/22 service: No Review of Systems Const Reports as per HPI and Reports no additional complaints Physical Exam Vital Signs: Last Vital Signs Pulse 95 06/24/23 14:59 BP 134/78 06/24/23 14:59 Pulse Ox 97 06/24/23 14:59 Oxygen Delivery Method Room Air 06/24/23 14:59 Const General: cooperative Psych Speech and movement: Clear speech present Thought process: Circumstantial thought process present Insight: Good insight present (Psych) Assessment & Plan Assessment & Plan (1) Opioid dependence: Code(s): F11.20 - Opioid dependence, uncomplicated Plan: Continue Suboxone at 4 mg daily Follow-up 4 weeks Medications: Refilled buprenorphine-naloxone 4-1 mg (Suboxone) 1 film sublingual DAILY 30 ea 0RF Coding Level of Care Code Est Pt Level 3 (77512) Diagnoses Opioid dependence F11.20
[2023-06-24 14:59] VITALS: BP 134/78; PULSE 95; O2SAT 97
== END 2023-06-24 15:33 | disposition home or self-care (01) ==
LOC: HO.HCC 14:41
PROVIDERS: PCP Internal Medicine; Visit Provider Nurse Practitioner Psychiatric/Mental Health
DX: F11.20 Opioid dependence, uncomplicated (principal)
CPT/HCPCS: 99213

== ENCOUNTER → 2023-06-24 14:41 | Outpatient (BNVA) | payer MEDICAID, SELFPAY | PROVIDERS: PCP Internal Medicine; Visit Provider Nurse Practitioner Psychiatric/Mental Health | DX: F11.20 Opioid dependence, uncomplicated (principal); F10.239 Alcohol dependence with withdrawal, unspecified; Z51.81 Encounter for therapeutic drug level monitoring; Z79.899 Other long term (current) drug therapy | CPT/HCPCS: 99213 ==

== ENCOUNTER 2023-07-22 13:26 | Outpatient (AMB) | payer MEDICAID, SELFPAY ==
[2023-07-22 13:39] VITALS: BP 124/80; PULSE 76
--- NOTE | 2023-07-22 13:39 | A.OFFVIS_ITS ---
Intake Vital Signs 07/22/23 13:39 BP 124/80 Blood Pressure Location Lt brachial Position Sitting Pulse 76 Intake Visit Reasons: MAT Visit Allergies No Known Allergies Allergy (Verified 06/24/23 14:59) HPI MAT Visit HPI Details Patient presents for OUD treatment follow up Continues to do well with current suboxone dose More active recently--hip is feeling better, working, bright affect Denies any constipation PFSH Medical History (Updated 07/22/23 @ 14:29 by Yumiko Simms CNP) History of alcohol abuse Elevated LFTs Hypersomnia with sleep apnea Lumbar degenerative disc disease Knee osteoarthritis Hypertension Alcohol withdrawal Opioid dependence Social History Alcohol intake: never Patient Tobacco Use Status: Former Tobacco user Advance Directives Date on File: 05/12/22 service: No Review of Systems Const Reports as per HPI and Reports no additional complaints Physical Exam Vital Signs: Last Vital Signs Pulse 76 07/22/23 13:39 BP 124/80 07/22/23 13:39 Const General: cooperative Psych Speech and movement: Clear speech present Thought process: Circumstantial thought process present Insight: Good insight present (Psych) Assessment & Plan Assessment & Plan (1) Opioid dependence: Code(s): F11.20 - Opioid dependence, uncomplicated Qualifiers: Substance use status: uncomplicated Qualified Code(s): F11.20 - Opioid dependence, uncomplicated Plan: * Continue Suboxone at 4 mg daily * Follow-up 4 weeks Medications: Refilled buprenorphine-naloxone 4-1 mg (Suboxone) 1 film sublingual DAILY 30 ea 0RF Coding Level of Care Code Est Pt Level 3 (19761) Diagnoses Uncomplicated opioid dependence F11.20 Substance use status: uncomplicated
== END 2023-07-22 14:08 | disposition home or self-care (01) ==
LOC: HO.HCC 13:26
PROVIDERS: PCP Internal Medicine; Visit Provider Nurse Practitioner Psychiatric/Mental Health
DX: F11.20 Opioid dependence, uncomplicated (principal)
CPT/HCPCS: 99213

== ENCOUNTER → 2023-07-22 13:26 | Outpatient (BNVA) | payer MEDICAID, SELFPAY | PROVIDERS: PCP Internal Medicine; Visit Provider Nurse Practitioner Psychiatric/Mental Health | DX: F11.20 Opioid dependence, uncomplicated (principal) | CPT/HCPCS: 99212 ==

== ENCOUNTER 2023-08-19 14:43 | Outpatient (AMB) | payer MEDICAID, SELFPAY ==
[2023-08-19 14:53] VITALS: BP 126/70; PULSE 71; O2SAT 95
--- NOTE | 2023-08-19 14:53 | A.OFFVIS_ITS ---
Intake Vital Signs 08/19/23 14:53 BP 126/70 Pulse 71 Pulse Oximetry (%) 95 Intake Visit Reasons: MAT Visit Allergies No Known Allergies Allergy (Verified 06/24/23 14:59) HPI MAT Visit HPI Details Pt presents for OUD treatment follow up Currently being prescribed Suboxone 4mg daily Denies any side effects related to medication At times needs an extra dose of suboxone if he has been working alot Very happy to be active and working again PFSH Medical History (Updated 07/22/23 @ 14:29 by Yumiko Simms CNP) History of alcohol abuse Elevated LFTs Hypersomnia with sleep apnea Lumbar degenerative disc disease Knee osteoarthritis Hypertension Alcohol withdrawal Opioid dependence Social History Alcohol intake: never Patient Tobacco Use Status: Former Tobacco user Advance Directives Date on File: 05/12/22 service: No Review of Systems Const Reports as per HPI and Reports no additional complaints Physical Exam Vital Signs: Last Vital Signs Pulse 71 08/19/23 14:53 BP 126/70 08/19/23 14:53 Pulse Ox 95 08/19/23 14:53 Const General: cooperative Psych Speech and movement: Clear speech present Thought process: Circumstantial thought process present Insight: Good insight present (Psych) Assessment & Plan Assessment & Plan (1) Opioid dependence: Code(s): F11.20 - Opioid dependence, uncomplicated Qualifiers: Substance use status: uncomplicated Qualified Code(s): F11.20 - Opioid dependence, uncomplicated Plan: * Continue Suboxone at 4 mg daily +4mg PRN * Follow-up 4 weeks Medications: New buprenorphine-naloxone 4-1 mg (Suboxone) in addition to scheduled 4mg daily 1 film sublingual Q24H PRN 15 ea 1RF pain Refilled buprenorphine-naloxone 4-1 mg (Suboxone) 1 film sublingual DAILY 30 ea 1RF Coding Level of Care Code Est Pt Level 3 (98638) Diagnoses Uncomplicated opioid dependence F11.20 Substance use status: uncomplicated
== END 2023-08-19 15:17 | disposition home or self-care (01) ==
PROVIDERS: PCP Internal Medicine; Visit Provider Nurse Practitioner Psychiatric/Mental Health
DX: F11.20 Opioid dependence, uncomplicated (principal)
CPT/HCPCS: 99213

== ENCOUNTER → 2023-08-19 14:43 | Outpatient (BNVA) | payer MEDICAID, SELFPAY | PROVIDERS: PCP Internal Medicine; Visit Provider Nurse Practitioner Psychiatric/Mental Health | DX: F11.20 Opioid dependence, uncomplicated (principal) | CPT/HCPCS: 99212 ==

== ENCOUNTER 2023-09-22 00:39 | Emergency (ER) | payer MEDICAID, SELFPAY ==
--- NOTE | ~2023-09-22 | XR_ITS ---
EXAMINATION: XR SHOULDER, LEFT CLINICAL INFORMATION: Pain. COMPARISON: None available. TECHNIQUE: AP external rotation, Grashey, scapular Y, and axillary views of the left shoulder. FINDINGS: Examination demonstrates degenerative change and spurring at the acromioclavicular joint. Mild degenerative change involves the glenohumeral joint as well. No fracture or dislocation is seen. Bony mineralization appears preserved. No lytic or sclerotic bony lesion is noted. The soft tissues appear unremarkable. XR/XR shoulder LT min 2V IMPRESSION: Degenerative change.
[2023-09-22 00:57] VITALS: BP 161/94; PULSE 95; RESP 20; TEMP 36.4; O2SAT 95; BMI 41.9
--- NOTE | 2023-09-22 05:06 | PC.NURSE ---
pt reports L. sided neck/shoulder pain onset approx 3-4 days ago; unsure cause pt denies injury. pt states constant pain without relief with home remedies. neuros intact. Dr. Lynn at bedside for primary eval. call dueñas within reach.
--- NOTE | 2023-09-22 05:08 | ED.EXTPRO ---
HPI - Extremity Problem General Chief complaint: Neck Pain/Injury Stated complaint: Neck/Shoulder pain Time Seen by Provider: 09/22/23 04:54 Source: patient and old records reviewed Mode of arrival: ambulatory Limitations: no limitations History of Present Illness HPI Narrative: 63 yo male with opiate dependence who follows with Yumiko Simms and prescribed suboxone but he states he doesn't really take it and hasn't take it for a couple of days, HTN, PAF on eliquis, CHF, here with c/o atraumatic L shoulder pain that shoots down the arm and it stabbing and anytime he moves his arm or neck or even any movements he has severe pain. He has tried lidocaine patches and heat without relief. He wants an xray to know if he has a bone spurt Complaint: extremity pain Onset (ago): day(s) (3) Pain Consistency: constant Location: left and upper extremity Quality: stabbing Radiation: distal Relieving factors: rest Exacerbating factors: range of motion, palpation and other (movements of arm or neck) Associated symptoms: denies other symptoms Related Data Home Medications Medication Instructions Recorded Confirmed albuterol sulfate 90 mcg/actuation 2 puff inhalation Q4H PRN wheezing 05/14/23 05/14/23 aerosol inhaler (Ventolin HFA) metoprolol tartrate 50 mg tablet 100 mg PO BID 05/14/23 05/14/23 tizanidine 2 mg tablet 2 mg PO TID PRN MUSCLE SPASMS 05/14/23 05/14/23 Previous Rx's Medication Instructions Recorded naloxone 4 mg/actuation nasal 4 mg intranasal Q2M PRN opioid 06/22/22 spray (Narcan) overdose #2 ea apixaban 5 mg tablet (Eliquis) 5 mg PO BID #60 tabs 05/21/23 uxodzdqhqz-gnyfpqlgkbgoj-dipcsyix 1 tab PO Q4H PRN Headache #15 tabs 05/21/23 50 mg-325 mg-40 mg tablet digoxin 125 mcg (0.125 mg) tablet 0.125 mg PO DAILY #30 tabs 05/21/23 duloxetine 30 mg capsule,delayed 30 mg PO DAILY #30 caps 05/21/23 release lisinopril 10 mg tablet 10 mg PO DAILY #30 tabs 05/21/23 lorazepam 0.5 mg tablet 0.5 mg PO BID PRN Anxiety #20 tabs 05/21/23 tamsulosin 0.4 mg capsule 0.4 mg PO BEDTIME #30 caps 05/21/23 buprenorphine 4 mg-naloxone 1 mg 1 film sublingual DAILY #30 ea 08/19/23 sublingual film (Suboxone) buprenorphine 4 mg-naloxone 1 mg 1 film sublingual Q24H PRN pain 08/21/23 sublingual film (Suboxone) #15 ea hydromorphone 2 mg tablet 2 mg PO Q6H PRN pain #10 tabs 09/22/23 (Dilaudid) Allergies Allergy/AdvReac Type Severity Reaction Status Date / Time No Known Allergies Allergy Verified 06/24/23 14:59 Review of Systems Review of Systems: Constitutional : No Fever, No Chills Cardiovascular : No Chest Pain, No SOB Respiratory : No Cough, No Dyspnea Gastrointestinal : No Nausea, No Vomiting, No Diarrhea, No abdominal Pain Genitourinary : No Dysuria, No Hematuria Musculoskeletal : positive joint pain, No Myalgias, No Joint Swelling Skin : No Skin lacerations, No rash Neuro : No Weakness, No Numbness, No Loss of Consciousness, No Dizziness, No Headache Psych : No Anxiety/Panic, No Depression All other systems reviewed and are negative [facility] Past Medical History Attestation statement: The following information was validated with the patient. Source: old records reviewed Medical History History of alcohol abuse Elevated LFTs Hypersomnia with sleep apnea Lumbar degenerative disc disease Knee osteoarthritis Hypertension Alcohol withdrawal Opioid dependence Social History Social History Alcohol intake: never Patient Tobacco Use Status: Former Tobacco user Advance Directives: Yes Advance Directives on File: Yes Advance Directives Date on File: 05/12/22 service: No Physical Exam Vital Signs: Vital Signs: Last Vital Signs Temp 97.6 F 09/22/23 00:57 Pulse 95 09/22/23 05:14 Resp 20 09/22/23 05:14 BP 142/102 H 09/22/23 05:14 Pulse Ox 96 09/22/23 06:39 O2 Del Method Room Air 09/22/23 06:39 BMI result Body Mass Index 41.9 Appearance: Alert. Oriented X3. No acute distress. Eyes: Pupils equal, round and reactive to light. ENT: Pharynx normal. Neck: Normal inspection. Neck supple. CVS: Normal heart rate and rhythm. Pulses normal. Respiratory: No respiratory distress. Breath sounds normal. Abdomen: Soft and nontender. Skin: Skin warm and dry. Normal skin color. Normal skin turgor. Extremities: No lower extremity edema. L shoulder pain with ROM testing - ttp along posterior thoracic paraspinals and rhomboid muscles with trigger points that reproduce pain - he is NV intact no rash or mass felt, no warmth or erythema. Neuro: Oriented X 3. No motor deficit. No sensory deficit. Course Course Course Narrative: feels much better stable for DC Medications Administered Discontinued Medications Generic Name Dose Route Start Last Admin Trade Name Freq PRN Reason Stop Dose Admin Diazepam 2 mg 09/22/23 05:04 09/22/23 05:15 Diazepam 2 Mg Tablet PO 09/22/23 05:05 2 mg ONCE ONE Administration Hydromorphone HCl 2 mg 09/22/23 05:04 09/22/23 05:15 Hydromorphone Hcl 2 Mg Tablet PO 09/22/23 05:05 2 mg ONCE ONE Administration Medical Decision Making Medical Decision Making [facility] Narrative: 63 yo male with opiate dependence who follows with Yumiko Mendez and prescribed suboxone but he states he doesn't really take it and hasn't take it for a couple of days, HTN, PAF on eliquis, CHF here with c/o atraumatic L shoulder pain no signs of infection, it is reproduceable, distal NV intact - at this time will need pain control and xray at his request though this seems more radicular and nerve related. Differential Diagnosis Differential Diagnoses: The differential diagnosis associated with the presentation includes radicular pain, nerve impingement, muscle spasm Admission/Observation Consideration of admission/observation: Escalation of care including admission/observation considered pain improved stable for DC Independent Interpretation I performed an independent interpretation of an: Plain X-Ray (degeneration) Radiology Impression Discussion of test interpretation with radiology: I have reviewed the radiologist's reading. External Record Review External record reviewed: Inpatient record Prescription Management I considered prescription management with: Pain Medication Discharge Plan Discharge Clinical Impression: Acute pain of left shoulder Patient Disposition: Home, Self-Care Instructions: Arthralgia (ED), Shoulder Pain (ED) Additional Instructions: return for numbness, weakness, worsening pain or any other concerns. follow up with orthopedics your xray shows a lot of degeneration of the shoulder joint Prescriptions: New hydromorphone [Dilaudid] 2 mg tablet 2 mg PO Q6H PRN (Reason: pain) Qty: 10 0RF Rx Instructions: Partial Fill upon patient request. No Action tizanidine 2 mg tablet 2 mg PO TID PRN (Reason: MUSCLE SPASMS) albuterol sulfate [Ventolin HFA] 90 mcg/actuation HFA aerosol inhaler 2 puff INHALATION Q4H PRN (Reason: wheezing) metoprolol tartrate 50 mg tablet 100 mg PO BID iciqiedquf-oiuodjulfoocr-zmwo 50-325-40 mg Tablet 1 tab PO Q4H PRN (Reason: Headache) Qty: 15 0RF tamsulosin 0.4 mg Capsule 0.4 mg PO BEDTIME Qty: 30 0RF lisinopril 10 mg Tablet 10 mg PO DAILY Qty: 30 0RF Protocol: Hold for SBP< HOLD for SBP < : 90 digoxin 125 mcg (0.125 mg) Tablet 0.125 mg PO DAILY Qty: 30 0RF lorazepam 0.5 mg tablet 0.5 mg PO BID PRN (Reason: Anxiety) Qty: 20 0RF duloxetine 30 mg capsule,delayed release(DR/EC) 30 mg PO DAILY Qty: 30 0RF Eliquis 5 mg tablet 5 mg PO BID Qty: 60 0RF naloxone [Narcan] 4 mg/actuation spray,non-aerosol 4 mg intranasal Q2M PRN (Reason: opioid overdose) Qty: 2 0RF Rx Instructions: spray 1 dose into ONE nostril; alternate nostrils w each dose until help arrives buprenorphine-naloxone [Suboxone] 4-1 mg film 1 film sublingual DAILY Qty: 30 1RF buprenorphine-naloxone [Suboxone] 4-1 mg film 1 film sublingual Q24H PRN (Reason: pain) Qty: 15 1RF Rx Instructions: in addition to scheduled 4mg daily Referrals: Mercy Loyd PA-C [Physician Cardiology Nurse Practitioner] - (call to schedule an appointment)
[2023-09-22 05:14] VITALS: BP 142/102; PULSE 95; RESP 20; O2SAT 97
[2023-09-22] MEDS: diazePAM 2 MG TABLET PO (05:15)
[2023-09-22] MEDS: HYDROmorphone HCl 2 MG TABLET PO (05:15)
--- NOTE | 2023-09-22 05:16 | PC.NURSE ---
pt states muscles cannot cause this much pain i cant accept that. i think i need an xray. Dr. Lynn notified. pt medicated per mar. heat packs placed on neck/shoulder. call dueñas within reach..
[2023-09-22 06:39] VITALS: O2SAT 96
== END 2023-09-22 07:31 | disposition home or self-care (01) ==
PROVIDERS: Emergency Provider Emergency Medicine; PCP Internal Medicine
DX: M25.512 Pain in left shoulder (principal); M54.2 Cervicalgia; Z87.891 Personal history of nicotine dependence; Z79.899 Other long term (current) drug therapy
CPT/HCPCS: 73030; 99283; 99284

== ENCOUNTER 2023-09-24 21:10 | Emergency (ER) | payer MEDICAID, SELFPAY ==
--- NOTE | ~2023-09-24 | XR_ITS ---
EXAMINATION: XR CERVICAL SPINE CLINICAL INFORMATION: Neck pain COMPARISON: None available. TECHNIQUE: 3 views of the cervical spine were obtained. FINDINGS: Bone alignment is normal. No fracture or dislocation. Degenerative spondylosis from C2-C3 to C6-C7. Large anterior bridging vertebral body bony osteophytes at the 4 and C4-C5. Prominent prevertebral soft tissues anterior to C5 and C6 measuring up to 2.8 cm. XR/XR cervical spine 3V IMPRESSION: Degenerative spondylosis with large anterior bridging vertebral body bony osteophytes. Prominent prevertebral soft tissues anterior to C5 and C6. Clinical correlation recommended.
[2023-09-24 21:12] VITALS: BP 138/68; PULSE 89; RESP 16; TEMP 36.2; O2SAT 94; BMI 40.7
--- NOTE | 2023-09-24 21:57 | ED.EXTPRO ---
HPI - Extremity Problem General Chief complaint: Extremity Injury, Upper Stated complaint: Left Arm/Shoulder Pain Time Seen by Provider: 09/24/23 21:57 Source: patient Mode of arrival: ambulatory Limitations: no limitations History of Present Illness HPI Narrative: 63-year-old male presents with bilateral neck pain that radiates into his left upper extremity, this is been going on for few weeks acutely worsening over the past few days. He has been seen for this before he was discharged home with Jonah which she feels as though is not working. He is scheduled to see a specialist in 5 days. He denies any trauma recently however he states years ago he did have neck trauma he is wondering if this may contribute. Denies fevers, chills, upper extremity clumsiness, tingling, chest pain and shortness of breath. Related Data Home Medications Medication Instructions Recorded Confirmed albuterol sulfate 90 mcg/actuation 2 puff inhalation Q4H PRN wheezing 05/14/23 05/14/23 aerosol inhaler (Ventolin HFA) metoprolol tartrate 50 mg tablet 100 mg PO BID 05/14/23 05/14/23 tizanidine 2 mg tablet 2 mg PO TID PRN MUSCLE SPASMS 05/14/23 05/14/23 Previous Rx's Medication Instructions Recorded naloxone 4 mg/actuation nasal 4 mg intranasal Q2M PRN opioid 06/22/22 spray (Narcan) overdose #2 ea apixaban 5 mg tablet (Eliquis) 5 mg PO BID #60 tabs 05/21/23 fotiwhatdj-ordvenljzmnlx-pazspexh 1 tab PO Q4H PRN Headache #15 tabs 05/21/23 50 mg-325 mg-40 mg tablet digoxin 125 mcg (0.125 mg) tablet 0.125 mg PO DAILY #30 tabs 05/21/23 duloxetine 30 mg capsule,delayed 30 mg PO DAILY #30 caps 05/21/23 release lisinopril 10 mg tablet 10 mg PO DAILY #30 tabs 05/21/23 lorazepam 0.5 mg tablet 0.5 mg PO BID PRN Anxiety #20 tabs 05/21/23 tamsulosin 0.4 mg capsule 0.4 mg PO BEDTIME #30 caps 05/21/23 buprenorphine 4 mg-naloxone 1 mg 1 film sublingual DAILY #30 ea 08/19/23 sublingual film (Suboxone) buprenorphine 4 mg-naloxone 1 mg 1 film sublingual Q24H PRN pain 08/21/23 sublingual film (Suboxone) #15 ea hydromorphone 2 mg tablet 2 mg PO Q6H PRN pain #10 tabs 09/22/23 (Dilaudid) lidocaine 5 % topical patch 1 patch topical DAILY PRN pain #15 09/24/23 ea morphine 15 mg immediate release 15 mg PO Q6H PRN pain 5 days #10 09/24/23 tablet tabs prednisone 20 mg tablet 40 mg (2 x 20 mg) PO DAILY 5 days 09/24/23 #10 tabs Allergies Allergy/AdvReac Type Severity Reaction Status Date / Time No Known Allergies Allergy Verified 06/24/23 14:59 Review of Systems Review of Systems: Constitutional : No Weight loss, No Fever, No Chills, No Fatigue, No Malaise ENT/Mouth : No sore throat, No Rhinorrhea Eyes: No Eye Pain, No Swelling, No Redness Cardiovascular : No Chest Pain, No SOB, No Dyspnea on Exertion, No Orthopnea, No Edema, No Palpitations Respiratory : No Cough, No Sputum, No Wheezing Gastrointestinal : No Nausea, No Vomiting, No Diarrhea, No Constipation, No abdominal Pain, No Hematochezia, No Melena Genitourinary : No Dysuria, No Urinary Frequency, No Hematuria, Musculoskeletal : No joint pain, No Myalgias, No Joint Swelling, + neck pain Skin : No Skin Lesions, No rash Neuro : No Weakness, No Numbness, No Dizziness, No Headache Psych : No Anxiety/Panic, No Depression All other systems reviewed and are negative Yes all other systems are reviewed and are negative FOR[facility]LY [facility] Past Medical History Attestation statement: The following information was validated with the patient. Source: old records reviewed and nursing notes reviewed Medical History History of alcohol abuse Elevated LFTs Hypersomnia with sleep apnea Lumbar degenerative disc disease Knee osteoarthritis Hypertension Alcohol withdrawal Opioid dependence Social History Social History Alcohol intake: never Patient Tobacco Use Status: Former Tobacco user Advance Directives: Yes Advance Directives on File: Yes Advance Directives Date on File: 05/12/22 service: No Physical Exam Vital Signs: Vital Signs: Last Vital Signs Temp 97.1 F 09/24/23 21:12 Pulse 89 09/24/23 21:12 Resp 16 09/24/23 21:12 BP 138/68 09/24/23 21:12 Pulse Ox 94 09/24/23 21:12 O2 Del Method Room Air 09/24/23 21:12 BMI result Body Mass Index 40.7 vss Appearance: Alert.? Oriented X3.? No acute distress.? Head: Normocephalic, atraumatic, no step-offs or deformities Eyes: Pupils equal, round and reactive to light.? ENT: Pharynx normal.? Neck: Normal inspection.? Discomfort w/ rom of neck .?+ cervical paraspinous tenderness b/l L>R CVS: Normal heart rate and rhythm.? Pulses normal.? Respiratory: No respiratory distress.? Breath sounds normal.? Abdomen: Soft and nontender.? Skin: Skin warm and dry.? Normal skin color.? Normal skin turgor.? Extremities: No lower extremity edema.? No calf ttp. 5/5 strength to bilateral upper and lower extremities. 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 2+ radial pulses. Back: No midline tenderness, no C-spine tenderness, full range of motion, no CVA tenderness bilaterally Neuro: Oriented X 3.? No motor deficit.? No sensory deficit. CN 2-12 intact Course Reevaluation(s) Reevaluation #1: X-rays pending. I discussed pain control with patient. His pharmacy is closed [facility]. I explained him I cannot give him a narcotic your if he is driving home he is having his come get him. Therefore Dilaudid IV will be ordered. Plan is for discharge home with outpatient follow-up. Will discharge him with morphine, prednisone. Educated patient on diagnosis and treatment plan, answered all question, patient verbalizes understanding. At this time patient will be discharged home, advised to return with new or worsening symptoms. Educated on worrisome signs and symptoms and when to return. At this time I feel comfortable discharge home. Time: 22:54 Medications Administered Discontinued Medications Generic Name Dose Route Start Last Admin Trade Name Freq PRN Reason Stop Dose Admin Lidocaine 1 patch 09/24/23 22:09 09/24/23 22:37 Lidocaine 4 % Patch Adh..Patch TRANSDERMA 09/24/23 22:10 1 patch ONCE ONE Administration Protocol Medical Decision Making Medical Decision Making [facility] Narrative: [id number] 63-year-old male presents with complaints of neck pain for the past few days worsening. No red flag symptom Physical exam significant for Normal inspection.? Discomfort w/ rom of neck .?+ cervical paraspinous tenderness b/l L>R Concerns for cervical stenosis vs cervical radiculopathy vs paraspinous tenderness to cervical region. Unlikley red compression, cervical myelopathy, cauda equina. Unlikely atypical presentation of ACS Plan imaging will give something for pain as patient will have his come get him Differential Diagnosis Differential Diagnoses: The differential diagnosis associated with the presentation includes Concerns for cervical stenosis vs cervical radiculopathy vs paraspinous tenderness to cervical region. Unlikley red compression, cervical myelopathy, cauda equina. Unlikely atypical presentation of ACS Admission/Observation Consideration of admission/observation: Escalation of care including admission/observation considered Consult Healthcare Provider Management of the patient was discussed with: [facility] (Attending Dr. Lynn recommends [facility] for home and specialty follow-up) Independent Interpretation I performed an independent interpretation of an: EKG (Ventricular rate 107, ND varies, QT/QTC normal. EKG with AFib rapid ventricular response. No ischemic changes) and Plain X-Ray Radiology Impression Discussion of test interpretation with radiology: I have reviewed the radiologist's reading. Prescription Management I considered prescription management with: Pain Medication Critical Care Time Critical Care Time Critical Care Time: No Discharge Plan Discharge Clinical Impression: Cervical radiculopathy Patient Disposition: Home, Self-Care Instructions: Cervical Radiculopathy (ED), Neck Pain (ED) Additional Instructions: Take your medications as prescribed. If you were prescribed antibiotics today, it is important that you take your medication to their entirety, do not skip any doses, do not finish them early. Follow-up with your primary care provider this week. Return to the emergency department with new or worsening symptoms. Such as fevers, chills, chest pain, shortness of breath, nausea, vomiting, dizziness, headache, vision changes, lethargy In case of emergency call 911 A narcotic has been sent to your pharmacy please take this as prescribed. Do not take more than the prescribed dose. Narcotic medications can cause addiction. Please do not mix them with alcohol. Do not take them while driving or operating machinery. Do not take them with any other narcotics. Do not share them with friends or family. They can cause constipation. Take them only for severe pain. Prescriptions: New prednisone 20 mg tablet 40 mg PO DAILY 5 Days Qty: 10 0RF lidocaine 5 % adhesive patch,medicated 1 patch topical DAILY PRN (Reason: pain) Qty: 15 0RF Rx Instructions: leave on most painful area for up to 12 hrs morphine 15 mg tablet 15 mg PO Q6H PRN (Reason: pain) 5 Days Qty: 10 0RF Rx Instructions: Partial Fill upon patient request. No Action tizanidine 2 mg tablet 2 mg PO TID PRN (Reason: MUSCLE SPASMS) albuterol sulfate [Ventolin HFA] 90 mcg/actuation HFA aerosol inhaler 2 puff INHALATION Q4H PRN (Reason: wheezing) metoprolol tartrate 50 mg tablet 100 mg PO BID lgdvflbqoc-lmrqvndeygfqy-zipx 50-325-40 mg Tablet 1 tab PO Q4H PRN (Reason: Headache) Qty: 15 0RF tamsulosin 0.4 mg Capsule 0.4 mg PO BEDTIME Qty: 30 0RF lisinopril 10 mg Tablet 10 mg PO DAILY Qty: 30 0RF Protocol: Hold for SBP< HOLD for SBP < : 90 digoxin 125 mcg (0.125 mg) Tablet 0.125 mg PO DAILY Qty: 30 0RF lorazepam 0.5 mg tablet 0.5 mg PO BID PRN (Reason: Anxiety) Qty: 20 0RF duloxetine 30 mg capsule,delayed release(DR/EC) 30 mg PO DAILY Qty: 30 0RF Eliquis 5 mg tablet 5 mg PO BID Qty: 60 0RF hydromorphone [Dilaudid] 2 mg tablet 2 mg PO Q6H PRN (Reason: pain) Qty: 10 0RF Rx Instructions: Partial Fill upon patient request. naloxone [Narcan] 4 mg/actuation spray,non-aerosol 4 mg intranasal Q2M PRN (Reason: opioid overdose) Qty: 2 0RF Rx Instructions: spray 1 dose into ONE nostril; alternate nostrils w each dose until help arrives buprenorphine-naloxone [Suboxone] 4-1 mg film 1 film sublingual DAILY Qty: 30 1RF buprenorphine-naloxone [Suboxone] 4-1 mg film 1 film sublingual Q24H PRN (Reason: pain) Qty: 15 1RF Rx Instructions: in addition to scheduled 4mg daily Referrals: Duncan Rush MD [Primary Care Provider] - 2 days [facility] [Provider Group] - 2 days Stand Alone Forms: Work/School Release
--- NOTE | 2023-09-24 22:12 | ECG_ITS ---
Test Reason : LUE PAIN Blood Pressure : / mmHG Vent. Rate : 107 BPM Atrial Rate : 000 BPM P-R Int : 000 ms QRS Dur : 094 ms QT Int : 340 ms P-R-T Axes : 000 052 062 degrees QTc Int : 453 ms Rhythm shows atrial flutter with variable block RSR' or QR pattern in V1 suggests right ventricular conduction delay Abnormal ECG When compared with ECG of 14-MAY-2023 11:22, No significant change was found Referred By: Carol Brice Electronically Signed By:MO NELSON MD
[2023-09-24] MEDS: Lidocaine 4 % Patch ADH..PATCH 1 PATCH TRANSDERMA (22:37)
[2023-09-24] MEDS: HYDROmorphone HCl 1 MG/ML SYRINGE IVPUSH (22:59)
[2023-09-24] MEDS: Acetaminophen 325 MG TABLET 975 MG PO (23:07)
== END 2023-09-24 23:30 | disposition home or self-care (01) ==
PROVIDERS: Emergency Provider Internal Medicine; PCP Internal Medicine
DX: M54.12 Radiculopathy, cervical region (principal); M54.2 Cervicalgia; R94.31 Abnormal electrocardiogram [ECG] [EKG]
CPT/HCPCS: 72040; 93005; 96374; 99283; 99284; J1170

== ENCOUNTER 2023-09-29 09:05 | Outpatient (AMB) | payer MEDICAID, SELFPAY ==
--- NOTE | 2023-09-29 09:06 | MHC.OFFVIS ---
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 He also has intermittent discomfort along the lateral aspect of his shoulder. Patient states that his symptoms have gotten worse over the last few years in spite of continued non operative treatments. 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 The patient also reports intermittent weakness in his left arm. He has done physical therapy for 12 weeks over the last 6 months which aggravated his pain. He has also tried Tylenol and anti-inflammatory medicines which gave him minimal relief. The patient states that he is not able to sleep because of his pain. Allergies No Known Allergies Allergy (Verified 09/29/23 09:13) Medication List - Last Reconciled 09/29/23 by Joey Sánchez MD albuterol sulfate 90 mcg/actuation (Ventolin HFA) 2 puffs inhalation Q4H PRN apixaban (Eliquis) 5 mg PO BID buprenorphine-naloxone 4-1 mg (Suboxone) 1 film sublingual DAILY buprenorphine-naloxone 4-1 mg (Suboxone) 1 film sublingual Q24H PRN stlxbdwrim-vsbftuniucbky-xdfg 50-325-40 mg 1 tab PO Q4H PRN digoxin 0.125 mg PO DAILY duloxetine 30 mg PO DAILY hydromorphone (Dilaudid) 2 mg PO Q6H PRN lidocaine 5% 1 patch topical DAILY PRN lisinopril 10 mg See Protocol PO DAILY lorazepam 0.5 mg PO BID PRN methylprednisolone (Medrol (Mahin)) PO PER PKG DIR metoprolol tartrate 100 mg PO BID morphine 15 mg PO Q6H PRN 5 days naloxone 4 mg/actuation (Narcan) 4 mg intranasal Q2M PRN prednisone 40 mg (2 x 20 mg) PO DAILY 5 days tamsulosin 0.4 mg PO BEDTIME tizanidine 2 mg PO TID PRN PFSH Medical History History of alcohol abuse Elevated LFTs Hypersomnia with sleep apnea Lumbar degenerative disc disease Knee osteoarthritis Hypertension Alcohol withdrawal Opioid dependence Social History Alcohol intake: never Patient Tobacco Use Status: Former Tobacco user Advance Directives Date on File: 05/12/22 service: No Physical Exam Const Other: Well-nourished well-developed very friendly male awake alert and oriented x3 in no acute distress Neck Other: Cervical spine examination shows pain with range of motion, tenderness along his left paraspinal muscles, positive Spurling's test, 4/5 strength with testing of his left biceps and wrist extensors when compared to 5/5 strength on his right side Extrem Other: Bilateral upper extremity examination shows good capillary refill, no skin lesions noted, normal sensation light touch Left shoulder examination shows full range of motion when compared to his right shoulder, 4+ out of 5 strength with supraspinatus testing, positive impingement signs, no instability Results Reviewed Results Reviewed: X-rays of the patient's left shoulder show severe acromioclavicular joint narrowing, a type 2 acromion, no acute bony abnormalities X-rays of the patient's cervical spine show multiple levels degenerative disc disease as well as bridging osteophyte, no acute bony abnormalities Assessment & Plan Assessment & Plan (1) Neck pain: Code(s): M54.2 - Cervicalgia Plan Mr. Tolentino presents with progressively worsening neck pain which radiates down his left arm to his left hand most likely due to cervical stenosis or a disc herniation. Thus, I will send him for an MRI of his cervical spine for further evaluation. If he has significant stenosis or disc herniation I will refer him to the neurosurgery department here at [facility] for further information regarding his treatment options. I did give him a prescription for a Medrol Dosepak to help with his symptoms in the meantime. He will contact me prior to his MRI should his symptoms worsen in any way. Feel free to call me at any time should questions regarding his orthopedic management arise. Thank you very much for asking me to see this very friendly gentleman. I spent 22 minutes in reviewing the patient's records and imaging studies, seeing the patient and documenting in the medical record. Orders: Orders MR cervical spine wo con Today M54.2 - Cervicalgia Medications: New methylprednisolone (Medrol (Mahin)) PO PER PKG DIR 21 ea 0RF Coding Level of Care Code New Pt Level 2 (11038) Diagnoses Neck pain M54.2
== END 2023-09-29 09:23 | disposition home or self-care (01) ==
PROVIDERS: PCP Internal Medicine; Visit Provider Orthopaedic Surgery
DX: M54.2 Cervicalgia (principal)
CPT/HCPCS: 99202

== ENCOUNTER → 2023-09-29 09:05 | Outpatient (BNVA) | payer MEDICAID, SELFPAY | PROVIDERS: PCP Internal Medicine; Visit Provider Orthopaedic Surgery | DX: M54.2 Cervicalgia (principal) | CPT/HCPCS: 99202 ==

== ENCOUNTER 2023-10-21 08:00 | Outpatient (AMB) | payer MEDICAID, SELFPAY ==
--- NOTE | 2023-10-21 08:05 | A.OFFVIS_ITS ---
Intake Vital Signs 10/21/23 08:07 Height 6 ft Weight 300 lb BMI 40.7 Intake Visit Reasons: OV- MRI Review Lt Shoulder Intake Note: Wong is a 63 year old male who presents today as a new patient for a evaluation of progressively worsening neck pain which radiates down to his left hand. He also has intermittent discomfort along the lateral aspect of his shoulder. Patient states that his symptoms have gotten worse over the last few years in spite of continued non operative treatments. 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 The patient also reports intermittent weakness in his left arm. He has done physical therapy for 12 weeks over the last 6 months which aggravated his pain. He has also tried Tylenol and anti-inflammatory medicines which gave him minimal relief. The patient states that he is not able to sleep because of his pain. He has also tried a Medrol Dosepak which gave him minimal relief. Allergies No Known Allergies Allergy (Verified 10/21/23 08:06) Medication List - Last Reconciled 10/21/23 by Joey Sánchez MD albuterol sulfate 90 mcg/actuation (Ventolin HFA) 2 puffs inhalation Q4H PRN apixaban (Eliquis) 5 mg PO BID buprenorphine-naloxone 4-1 mg (Suboxone) 1 film sublingual DAILY buprenorphine-naloxone 4-1 mg (Suboxone) 1 film sublingual Q24H PRN cijvpgqybc-bgdqmxsdnvbkc-pian 50-325-40 mg 1 tab PO Q4H PRN digoxin 0.125 mg PO DAILY duloxetine 30 mg PO DAILY hydromorphone (Dilaudid) 2 mg PO Q6H PRN lidocaine 5% 1 patch topical DAILY PRN lisinopril 10 mg See Protocol PO DAILY lorazepam 0.5 mg PO BID PRN methylprednisolone (Medrol (Mahin)) PO PER PKG DIR metoprolol tartrate 100 mg PO BID morphine 15 mg PO Q6H PRN 5 days naloxone 4 mg/actuation (Narcan) 4 mg intranasal Q2M PRN prednisone 40 mg (2 x 20 mg) PO DAILY 5 days tamsulosin 0.4 mg PO BEDTIME tizanidine 2 mg PO TID PRN PFSH Medical History History of alcohol abuse Elevated LFTs Hypersomnia with sleep apnea Lumbar degenerative disc disease Knee osteoarthritis Hypertension Alcohol withdrawal Opioid dependence Social History Alcohol intake: never Patient Tobacco Use Status: Former Tobacco user Advance Directives Date on File: 05/12/22 service: No Physical Exam Vital Signs: BMI result Body Mass Index 40.7 Const Other: Well-nourished well-developed very friendly male awake alert and oriented x3 in no acute distress Neck Other: Cervical spine examination shows pain with range of motion, left-sided paraspinal muscle tenderness, positive Spurling's test Results Reviewed Results Reviewed: MRI report from [facility] the did did of the cervical spine shows multiple levels of left-sided advanced foraminal stenosis, no acute bony abnormalities Assessment & Plan Assessment & Plan (1) Cervical stenosis of spinal canal: Code(s): M48.02 - Spinal stenosis, cervical region Plan Mr. Tolentino presents with progressively worsening neck pain which radiates into his left arm due to foraminal stenosis. Thus, I will refer the patient to the neuro surgery Department here at [facility]. I did give the patient a prescription for hydrocodone to help with his symptoms in the meantime. Feel free to call me at any time should questions regarding his orthopedic management arise. I spent 22 minutes in reviewing the patient's records and imaging studies, seeing the patient and documenting in the medical record. Orders: Referrals Neurosurgery Referral M48.02 - Spinal stenosis, cervical region Medications: New hydrocodone-acetaminophen 5-300 mg Partial Fill upon patient request. 1 tab PO Q8H PRN 30 tabs 0RF pain Coding Level of Care Code Est Pt Level 2 (49831) Diagnoses Cervical stenosis of spinal canal M48.02
[2023-10-21 08:07] VITALS: BMI 40.7
== END 2023-10-21 08:32 | disposition home or self-care (01) ==
PROVIDERS: PCP Internal Medicine; Visit Provider Orthopaedic Surgery
DX: M48.02 Spinal stenosis, cervical region (principal)
CPT/HCPCS: 99212

== ENCOUNTER → 2023-10-21 08:00 | Outpatient (BNVA) | payer MEDICAID, SELFPAY | PROVIDERS: PCP Internal Medicine; Visit Provider Orthopaedic Surgery | DX: M48.02 Spinal stenosis, cervical region (principal) | CPT/HCPCS: 99212 ==

== ENCOUNTER 2023-10-22 13:31 | Outpatient (AMB) | payer MEDICAID, SELFPAY ==
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
== END 2023-10-22 14:09 | disposition home or self-care (01) ==
PROVIDERS: PCP Internal Medicine; Referring Provider Orthopaedic Surgery; Visit Provider Physician Assistant
DX: M48.02 Spinal stenosis, cervical region (principal)
CPT/HCPCS: 99205

== ENCOUNTER → 2023-10-22 13:31 | Outpatient (BNVA) | payer MEDICAID, SELFPAY | PROVIDERS: PCP Internal Medicine; Visit Provider Physician Assistant | DX: M48.02 Spinal stenosis, cervical region (principal) | CPT/HCPCS: 99212 ==

== ENCOUNTER 2023-11-17 12:09 | Outpatient (REF) | payer OTHER, SELFPAY ==
--- NOTE | ~2023-11-17 | CT_ITS ---
EXAMINATION: CT CERVICAL SPINE WITHOUT CONTRAST CLINICAL INFORMATION: Spinal stenosis. Assess for osteophyte formation of anterior cervical spine. COMPARISON: X-ray cervical spine dated 09/24/2023. TECHNIQUE: Multidetector helical imaging acquired in the axial plane with generation of reformatted acquisitions. This CT examination was performed using dose optimization techniques as appropriate, variously including the following: *Automated exposure control *Adjustment of mA and/or kV according to patient size (this includes techniques or standardized protocols for targeted exams where dose is matched to indication/reason for exam; i.e. extremities or head) *Use of iterative reconstruction technique DLP: 584 mGy-cm FINDINGS: Bulky bridging endplate osteophyte formation is noted from the C3 through the C4 levels. There is prominent osteophytic spurring as well at the C4-C5 and C6-C7 levels. No compression fracture or subluxation is seen. The atlantoaxial articulation is normally maintained. There is prominent osseous spurring along the outer cortical table of the occipital bone as well. C2-C3: There is partial ankylosis of the left C2-C3 facet joint. Ossification of the posterior longitudinal ligament without thecal sac distortion or central canal stenosis. Patent neural foramina. C3-C4: Bulky bridging endplate osteophyte formation mildly impressing upon the posterior pharyngeal wall. Mild ossification of the posterior longitudinal ligament with mild central canal stenosis. Moderate left foraminal narrowing and mild right foraminal encroachment and bony spurring. C4-C5: Bulky bridging endplate osteophyte formation anteriorly. Moderate central canal stenosis with a disc-osteophyte complex lateralized more so to the right side. Severe right foraminal narrowing and mild left foraminal encroachment. C5-C6: Shallow disc-osteophyte complex and left-sided hypertrophic facet arthropathy. Mild central canal stenosis and novw-uv-epokjeri left foraminal narrowing. C6-C7: Moderate loss of disc height with a broad-based disc-osteophyte complex. Tcvc-tf-sxysgyhe central canal stenosis and moderate right foraminal narrowing. Mild left foraminal encroachment. C7-T1: Focal ossification of the ligamentum flavum on the left side with osseous spurring significantly encroach upon the left subarticular zone and possibly impinging upon the left C8 nerve root. Mild central canal stenosis. Mild foraminal narrowing. The imaged portions of the brain appear normal. The middle ear cavities and mastoid air cells are well aerated. The visualized mediastinum is normal. The lung apices are clear. CT/CT cervical spine wo IV con IMPRESSION: 1. Bulky bridging endplate osteophyte formation from the C3 through the C5 levels with mild ossification of the posterior longitudinal ligament at the C2-C3 and C3-C4 levels. 2. Moderate central canal stenosis and severe right foraminal narrowing at the C4-C5 level. 3. Fymn-mi-ukjnhdef central canal stenosis and moderate right foraminal narrowing at the C6-C7 level. Bulky anterior endplate osteophyte formation anteriorly as well. 4. Focal ossification of the ligamentum flavum on the left side at the C7-T1 level with osseous spurring encroaching upon the left subarticular zone and possibly impinging upon the left C8 nerve root.
== END 2023-11-17 12:10 | disposition home or self-care (01) ==
LOC: HO.CT 12:09
PROVIDERS: PCP Internal Medicine; Visit Provider Physician Assistant
DX: M48.02 Spinal stenosis, cervical region (principal)
CPT/HCPCS: 72125

== ENCOUNTER 2024-11-02 14:09 | Inpatient (IN) | payer OTHER, SELFPAY ==
--- NOTE | ~2024-11-02 | CT_ITS ---
CLINICAL HISTORY: head trauma on eliquis EXAM: CT Head Without Intravenous Contrast COMPARISON: CT head 05/14/2023 FINDINGS: BRAIN AND EXTRA-AXIAL SPACES: Scattered subcortical and periventricular hypoattenuation, likely in keeping with chronic small vessel ischemic disease. Parenchymal volume loss with compensatory prominence of the ventricles and CSF spaces. No acute territorial infarction, intracranial hemorrhage, midline shift or hydrocephalus. Diffuse bandlike hypoattenuation throughout the bifrontal region and diffusely along the lateral right cerebrum felt to be artifactual. BONES/JOINTS: Unremarkable. No acute fracture. SOFT TISSUES: Unremarkable. SINUSES: Unremarkable as visualized. No acute sinusitis. MASTOID AIR CELLS: Unremarkable as visualized. No mastoid effusion. IMPRESSION: 1. No acute intracranial abnormality. 2. Additional findings as described. This document has been electronically signed by: Francois Angel MD on 11/02/2024 19:31:21
--- NOTE | ~2024-11-02 | CT_ITS ---
CLINICAL HISTORY: rectus ttp on eliquis s p fall EXAM: CT Abdomen and Pelvis With Intravenous Contrast COMPARISON: No relevant prior studies available. FINDINGS: LUNG BASES: Nodular lingular atelectasis. Attention on follow-up. HEART: Cardiomegaly. MEDIASTINUM: Diffuse esophageal mural thickening, nonspecific. ABDOMEN: LIVER: Hepatomegaly with steatosis. Cirrhosis. GALLBLADDER AND BILE DUCTS: Mildly distended gallbladder with wall edema can be seen with hepatocellular disease however is nonspecific. No radiopaque gallstones. No ductal dilation. PANCREAS: Unremarkable. No mass. No ductal dilation. SPLEEN: Unremarkable. No splenomegaly. ADRENALS: Unremarkable. No mass. KIDNEYS AND URETERS: Nonobstructive 3 mm left lower pole renal calculus. Left-sided hypodense renal cysts. STOMACH AND BOWEL: Colonic diverticulosis with mural thickening, peridiverticular inflammatory changes and fluid stranding noted in the descending colon, consistent with diverticulitis. No evidence of free air or peridiverticular collections. No obstruction. PELVIS: APPENDIX: No findings to suggest acute appendicitis. BLADDER: Unremarkable. No mass. REPRODUCTIVE: Unremarkable as visualized. ABDOMEN and PELVIS: INTRAPERITONEAL SPACE: See above. BONES/JOINTS: Osteopenia with diffuse multilevel spondylosis. Multilevel Schmorl's nodes. Right total hip arthroplasty. Resq-xd-tteomylc osteoarthritic changes in the left hip. No acute fracture. No dislocation. SOFT TISSUES: Fat containing umbilical hernia. Fat containing inguinal hernias. VASCULATURE: Unremarkable. No abdominal aortic aneurysm. LYMPH NODES: Unremarkable. No enlarged lymph nodes. IMPRESSION: 1. Nonobstructive 3 mm left lower pole renal calculus. 2. Uncomplicated descending colonic diverticulitis. 3. Additional findings as described. This document has been electronically signed by: Francois Angel MD on 11/02/2024 19:17:08
[2024-11-02 14:18] VITALS: BP 141/57; PULSE 95; RESP 18; TEMP 36.9; O2SAT 96; BMI 39.8
--- NOTE | 2024-11-02 14:18 | ED_ITS ---
HPI - Fall General Chief Complaint: Fall Stated Complaint: Fell down stairs - abd pain Time Seen by Provider: 11/02/24 15:57 Source: patient and old records reviewed Limitations: no limitations History of Present Illness ED Provider: ZAYRA HPI Narrative: 64 yo male with PMH of PAF on eliquis, HTN, CHF with preserved ED, opiate use disorder, alcohol dependence who notes he fell 2 weeks ago down 4 to 5 stairs lost balance due to water jug he hit his abdomen on a pole at that bottom of the stairs and hit his head but no LOC. He has been vomiting intermittent in the AM, he started to drink ETOH and use oxycodone. He notes he feels like when he fell he ripped the muscles on his abdomen apart. He has normal BMs and passing flatus. He states it hurts to move and walk. He also hit his R knee but the bruise is healing. He states he needs help as he is using again and used to do well with Neeta Simms. He did have ventral hernia repair 5 years ago at [facility] complaint: fall Onset (ago): week(s) (2) Fall from: standing Fall witnessed: no Place fall occurred: home Loss of consciousness: none Prolonged down time: no Symptoms prior to fall: none Context: tripped/slipped Location of injury: head and abdomen Severity: moderate Quality: sharp Associated symptoms (after fall): denies Related Data Home Medications ?Medication ?Instructions ?Recorded ?Confirmed albuterol sulfate 90 mcg/actuation 2 puff inhalation Q4H PRN wheezing 05/14/23 10/21/23 aerosol inhaler (Ventolin HFA) metoprolol tartrate 50 mg tablet 100 mg PO BID 05/14/23 10/21/23 tizanidine 2 mg tablet 2 mg PO TID PRN MUSCLE SPASMS 05/14/23 10/21/23 Previous Rx's ?Medication ?Instructions ?Recorded naloxone 4 mg/actuation nasal 4 mg intranasal Q2M PRN opioid 06/22/22 spray (Narcan) overdose #2 ea apixaban 5 mg tablet (Eliquis) 5 mg PO BID #60 tabs 05/21/23 dfhzhggfpr-[id number]-bppkwsyo 1 tab PO Q4H PRN Headache #15 tabs 05/21/23 50 mg-325 mg-40 mg tablet digoxin 125 mcg (0.125 mg) tablet 0.125 mg PO DAILY #30 tabs 05/21/23 duloxetine 30 mg capsule,delayed 30 mg PO DAILY #30 caps 05/21/23 release lisinopril 10 mg tablet 10 mg PO DAILY #30 tabs 05/21/23 lorazepam 0.5 mg tablet 0.5 mg PO BID PRN Anxiety #20 tabs 05/21/23 tamsulosin 0.4 mg capsule 0.4 mg PO BEDTIME #30 caps 05/21/23 buprenorphine 4 mg-naloxone 1 mg 1 film sublingual DAILY #30 ea 08/19/23 sublingual film (Suboxone) buprenorphine 4 mg-naloxone 1 mg 1 film sublingual Q24H PRN pain 08/21/23 sublingual film (Suboxone) #15 ea hydromorphone 2 mg tablet 2 mg PO Q6H PRN pain #10 tabs 09/22/23 (Dilaudid) lidocaine 5 % topical patch 1 patch topical DAILY PRN pain #15 09/24/23 ea morphine 15 mg immediate release 15 mg PO Q6H PRN pain 5 days #10 09/24/23 tablet tabs prednisone 20 mg tablet 40 mg (2 x 20 mg) PO DAILY 5 days 09/24/23 #10 tabs methylprednisolone 4 mg tablets in See Rx Instructions PO PER PKG DIR 09/29/23 a dose pack (Medrol (Mahin)) #21 ea hydrocodone 5 mg-acetaminophen 325 1 tab PO Q8H PRN pain #40 tabs 01/14/24 mg tablet Allergies Allergy/AdvReac Type Severity Reaction Status Date / Time No Known Allergies Allergy Verified 11/02/24 14:23 Review of Systems 2 Review of Systems: Constitutional : No Weight loss, No Fever, No Chills ENT/Mouth : No sore throat, No Rhinorrhea Eyes: No Swelling, No Redness Cardiovascular : No Chest Pain, No SOB, No Edema Respiratory : No Cough, No Sputum, No Wheezing Gastrointestinal : Positive Nausea, Positive Vomiting, no Diarrhea, positive abdominal Pain, No Hematochezia, No Melena Genitourinary : No Dysuria, No Urinary Frequency, No Hematuria, No Urgency Musculoskeletal : pos joint pain, No Myalgias, No Joint Swelling Skin : No Skin Lesions, No rash Neuro : No Weakness, No Numbness, No Dizziness, No Headache Psych : No Anxiety/Panic, No Depression All other systems reviewed and are negative. [facility] Past Medical History Attestation statement: The following information was validated with the patient. Source: old records reviewed Medical History History of alcohol abuse Elevated LFTs Hypersomnia with sleep apnea Lumbar degenerative disc disease Knee osteoarthritis Hypertension Alcohol withdrawal Opioid dependence Social History Social History Alcohol intake: never Patient Tobacco Use Status: Former Tobacco user Advance Directives: Yes Advance Directives on File: Yes Advance Directives Date on File: 05/12/22 service: No Physical Exam 2 Vital Signs: Vital Signs: Last Vital Signs Temp 97.9 F 11/02/24 17:52 Pulse 86 11/02/24 17:52 Resp 20 11/02/24 17:52 BP 131/95 H 11/02/24 17:52 Pulse Ox 96 11/02/24 17:52 O2 Del Method Room Air 11/02/24 17:52 BMI result Body Mass Index 39.8 Appearance: Alert. Oriented X3. No acute distress. Eyes: Pupils equal, round and reactive to light. ENT: Pharynx normal. atraumatic Neck: Normal inspection. Neck supple. CVS: Normal heart rate and rhythm. Pulses normal. Respiratory: No respiratory distress. Breath sounds normal. Abdomen: Soft obese with area between xiphoid and umbilicus that has small hard firm area not fluctuance no obv external bruising or mass felt Skin: Skin warm and dry. Normal skin color. Normal skin turgor. Extremities: No lower extremity edema. R knee healing abrasions and contusion normal ROM Neuro: Oriented X 3. No motor deficit. No sensory deficit. Course Course Course Narrative: This is a Rapid Medical Examination (RME) performed by Linda Fall PA-C in triage. Full HPI, ROS, assessment and treatment plan per primary provider in the Main ED. 64 yo male with history of afib on Eliquis, HFpEF, anxiety, hx umbilical hernia repair who presents to the ER for evaluation of abdominal pain after he fell down 5 stairs 2 weeks ago. admits to starting drinking 1 month ago and buying percocets off the street. used to see neeta barragann and wants to get back in with her. tearful in triage. has abdominal tenderness but no appreciated umbilical hernia. Plan: lab workup, imaging per primary provider Medications Administered Discontinued Medications Generic Name Dose Route Start Last Admin Trade Name Bailey PRN Reason Stop Dose Admin Iohexol 100 ml 11/02/24 18:48 11/02/24 18:48 Iohexol 350 Mg/Ml 100 Ml Infus..Btl IV 11/02/24 18:49 85 ml ONCE ONE Administration Medical Decision Making Medical Decision Making [facility] Narrative: 64 yo male with PMH of PAF on eliquis, HTN, CHF with preserved ED, opiate use disorder, alcohol dependence here s/p fall 2 weeks ago where he has persistent pain on abdominal wall but passing gas and BMs, he has some AM vomiting - he is GCS 15 right now. At this time he will need labs, CT of the head given headstrike on DOAC, CT abdomen for rectus sheath hematoma. He will then be referred to CARE team for his addiction concerns. Differential Diagnosis Differential Diagnoses: The differential diagnosis associated with the presentation includes rectus sheath hematoma, hernia, contusion, substance use disorder Admission/Observation Consideration of admission/observation: Escalation of care including admission/observation considered no acute findings on work up H/H stable likely related to ETOH on CIWA referred to CARE team physician observation started at 748pm Consult Healthcare Provider Management of the patient was discussed with: Behavioral Health Provider Lab Data [facility] Lab Attestation statement: I reviewed the patient's lab results. 11/02/24 15:31 11/02/24 15:31 Labs: Lab Results 11/02/24 11/02/24 11/02/24 Range/Units 15:31 15:36 16:58 WBC 9.4 (4.8-10.8) X10*3/uL RBC 4.14 L (4.60-5.80) X10*6/uL Hgb 14.6 (14.0-18.0) g/dl Hct 42.1 (42.0-52.0) % MCV 101.7 H (80.0-98.0) fL MCH 35.3 H (27.0-33.0) pg MCHC 34.7 (31.0-36.0) g/dl RDW 13.4 (11.0-16.0) % Plt Count 198 (160-400) X10*3/uL MPV 10.0 (9.4-12.4) fL Immature Gran % (Auto) 0.3 (0.0-0.4) % Neut % (Auto) 67.3 (45-73) % Lymph % (Auto) 22.2 (20-40) % [place] % (Auto) 7.4 (2-11) % Eos % (Auto) 2.2 (0-4) % Baso % (Auto) 0.6 (0-2) % Lymph # (Auto) 2.1 (1.2-4.9) X10*3/uL [place] # (Auto) 0.7 (0.1-1.2) X10*3/uL Eos # (Auto) 0.2 (0.0-0.4) X10*3/uL Baso # (Auto) 0.1 (0.0-0.2) X10*3/uL Abs Immat Gran (auto) 0.03 (0.00-0.03) X10*3/uL Absolute Neuts (auto) 6.3 (2.0-8.3) x10*3/uL Absolute Nucleated RBC 0.000 (0.0-0.012) X10*3/uL Nucleated RBC % (auto) 0.0 (0.0-0.2) /100WBC Sodium 139 (135-145) mmol/L Potassium 4.0 (3.3-5.1) mmol/L Chloride 107 (96-108) mmol/L Carbon Dioxide 24 (22-29) mmol/L Anion Gap 12 (12-20) BUN 11 (9-16) mg/dL Creatinine 0.87 (0.5-1.4) mg/dL Estim Creat Clear Calc 121.0 Estimated GFR > 60 Random Glucose 163 H (60-115) mg/dL Calcium 8.5 D (8.4-10.2) mg/dL Magnesium 2.0 (1.6-2.6) mg/dL Total Bilirubin 0.7 (0.0-1.0) mg/dL Direct Bilirubin 0.3 (0.0-0.5) mg/dL AST 151 H (5-37) U/L ALT 99 H (0-40) U/L Alkaline Phosphatase 176 H (39-117) U/L Total Protein 7.2 (6.5-8.0) g/dL Albumin 3.2 L (3.5-5.0) g/dL Lipase 33 (8-78) U/L Urine Color Yellow Urine Appearance Clear Urine pH 6.5 (5.0-9.0) Ur Specific [place] 1.025 (1.005-1.025) Urine Protein Trace (Neg-Trace) mg/dL Urine Glucose (UA) Negative (Negative) mg/dL Urine Ketones Trace (Negative) mg/dL Urine Blood Negative (Negative) Urine Nitrite Negative (Negative) Ur Leukocyte Esterase Negative (Negative) Digoxin 0.4 L (0.8-2.0) ng/mL Urine Opiates Screen Not Detected (Not Detect) Ur Buprenorphine Scrn Not Detected (Not Detect) ng/mL Ur Oxycodone Screen Positive H (Not Detect) ng/mL Urine Methadone Screen Not Detected (Not Detect) ng/mL Urine Fentanyl Screen POSITIVE H (Not Detect) Ur Barbiturates Screen Not Detected (Not Detect) Ur Phencyclidine Scrn Not Detected (Not Detect) Ur Amphetamines Screen Not Detected (Not Detect) U Benzodiazepines Scrn Not Detected (Not Detect) Urine Cocaine Screen Not Detected (Not Detect) U Marijuana (THC) Screen Not Detected (Not Detect) Ethyl Alcohol < 10 mg/dL Independent Interpretation I performed an independent interpretation of an: CT Scan (no trauma) Radiology Impression Discussion of test interpretation with radiology: I have reviewed the radiologist's reading. External Record Review External record reviewed: Outpatient record Discharge Plan Discharge Clinical Impression: Opioid dependence, Abdominal wall strain Patient Disposition: Still a Patient Instructions: Muscle Strain (ED), Abdominal Pain (ED), Opioid Use Disorder (ED) Additional Instructions: labs reassuring no acute trauma on CT scans of head or abdominal wall only fat containing hernias no bowel issues. Prescriptions: No Action hydrocodone-acetaminophen 5-325 mg tablet 1 tab PO Q8H PRN (Reason: pain) Qty: 40 0RF Rx Instructions: Partial Fill upon patient request. tizanidine 2 mg tablet 2 mg PO TID PRN (Reason: MUSCLE SPASMS) albuterol sulfate [Ventolin HFA] 90 mcg/actuation HFA aerosol inhaler 2 puff INHALATION Q4H PRN (Reason: wheezing) metoprolol tartrate 50 mg tablet 100 mg PO BID fvevoutcwi-mjyzkymkjvtfm-fzod 50-325-40 mg Tablet 1 tab PO Q4H PRN (Reason: Headache) Qty: 15 0RF tamsulosin 0.4 mg Capsule 0.4 mg PO BEDTIME Qty: 30 0RF lisinopril 10 mg Tablet 10 mg PO DAILY Qty: 30 0RF Protocol: Hold for SBP< HOLD for SBP < : 90 digoxin 125 mcg (0.125 mg) Tablet 0.125 mg PO DAILY Qty: 30 0RF lorazepam 0.5 mg tablet 0.5 mg PO BID PRN (Reason: Anxiety) Qty: 20 0RF duloxetine 30 mg capsule,delayed release(DR/EC) 30 mg PO DAILY Qty: 30 0RF Eliquis 5 mg tablet 5 mg PO BID Qty: 60 0RF hydromorphone [Dilaudid] 2 mg tablet 2 mg PO Q6H PRN (Reason: pain) Qty: 10 0RF Rx Instructions: Partial Fill upon patient request. prednisone 20 mg tablet 40 mg PO DAILY 5 Days Qty: 10 0RF lidocaine 5 % adhesive patch,medicated 1 patch topical DAILY PRN (Reason: pain) Qty: 15 0RF Rx Instructions: leave on most painful area for up to 12 hrs morphine 15 mg tablet 15 mg PO Q6H PRN (Reason: pain) 5 Days Qty: 10 0RF Rx Instructions: Partial Fill upon patient request. naloxone [Narcan] 4 mg/actuation spray,non-aerosol 4 mg intranasal Q2M PRN (Reason: opioid overdose) Qty: 2 0RF Rx Instructions: spray 1 dose into ONE nostril; alternate nostrils w each dose until help arrives methylprednisolone [Medrol (Mahin)] 4 mg tablets,dose pack See Rx Instructions PO PER PKG DIR Qty: 21 0RF Rx Instructions: PO PER PKG DIR buprenorphine-naloxone [Suboxone] 4-1 mg film 1 film sublingual DAILY Qty: 30 1RF buprenorphine-naloxone [Suboxone] 4-1 mg film 1 film sublingual Q24H PRN (Reason: pain) Qty: 15 1RF Rx Instructions: in addition to scheduled 4mg daily Print Language: Romanian
[2024-11-02 15:37] LABS: MANUAL DIFF FLAG NO
[2024-11-02 15:38] LABS: Basophils Absolute Auto 0.1 X10*3/uL (0.0-0.2); Basophils Percent Auto 0.6 % (0-2); Eosinophils Absolute Auto 0.2 X10*3/uL (0.0-0.4); Eosinophils Percent Auto 2.2 % (0-4); Hematocrit 42.1 % (42.0-52.0); Hemoglobin 14.6 g/dl (14.0-18.0); Imm Gran Abs Auto 0.03 X10*3/uL (0.00-0.03); Imm Gran Pct Auto 0.3 % (0.0-0.4); Lymphocytes Absolute Auto 2.1 X10*3/uL (1.2-4.9); Lymphocytes Percent Auto 22.2 % (20-40); Mean Corpuscular HGB Conc 34.7 g/dl (31.0-36.0); Mean Corpuscular Hemoglobin 35.3 pg (27.0-33.0); Mean Corpuscular Volume 101.7 fL (80.0-98.0); Monocytes Absolute Auto 0.7 X10*3/uL (0.1-1.2); Monocytes Percent Auto 7.4 % (2-11); Neutrophils Absolute Auto 6.3 x10*3/uL (2.0-8.3); Neutrophils Percent Auto 67.3 % (45-73); Platelet Count 198 X10*3/uL (160-400); Red Blood Count 4.14 X10*6/uL (4.60-5.80); Red Cell Distribution Width 13.4 % (11.0-16.0); White Blood Count 9.4 X10*3/uL (4.8-10.8)
[2024-11-02 15:44] LABS: Appearance Urine Clear; Color Urine Yellow; Glucose Urine UA Negative (Negative); Leukocyte Esterase Urine Negative (Negative); Nitrite Urine Negative (Negative); PH 6.5 (5.0-9.0); Specific Gravity - Urine 1.025 (1.005-1.025); Urine Blood Negative (Negative); Urine Ketones Trace mg/dL (Negative); Urine Protein Trace mg/dL (Neg-Trace)
[2024-11-02 16:04] LABS: Amphetamine Screen Urine Not Detected (Not Detect); Barbiturates, Urine Not Detected (Not Detect); Benzodiazepines Screen Urine Not Detected (Not Detect); Buprenorphine Scr Not Detected (Not Detect); Cannabinoid Screen Urine Not Detected (Not Detect); Cocaine Screen Urine Not Detected (Not Detect); Fentanyl, urine POSITIVE (Not Detect); Methadone Screen, Urine Not Detected (Not Detect); Opiate Screen Urine Not Detected (Not Detect); Oxycodone Screen Urine Positive (Not Detect); Phencyclidine Screen Urine Not Detected (Not Detect)
[2024-11-02 16:05] LABS: Albumin Level 3.2 g/dL (3.5-5.0); Anion Gap 12 (12-20); Aspartate Amino Transferase 151 U/L (5-37); Bilirubin Direct 0.3 mg/dL (0.0-0.5); Bilirubin Total 0.7 mg/dL (0.0-1.0); Blood Urea Nitrogen 11 mg/dL (9-16); Calcium 8.5 mg/dL (8.4-10.2); Carbon Dioxide 24 mmol/L (22-29); Chloride 107 mmol/L (96-108); Estimated Glomerular Filt Rate > 60; Ethanol < 10 mg/dL; Glucose Random 163 mg/dL (60-115); Lipase 33 U/L (8-78); Sodium 139 mmol/L (135-145); Total Protein 7.2 g/dL (6.5-8.0)
[2024-11-02 16:25] LABS: Alanine Aminotransferase 99 U/L (0-40); Alkaline Phosphatase 176 U/L (39-117)
[2024-11-02 17:22] LABS: Digoxin 0.4 ng/mL (0.8-2.0)
[2024-11-02 17:35] VITALS: BP 138/90; PULSE 88; RESP 18; O2SAT 96
[2024-11-02 17:52] VITALS: BP 131/95; PULSE 86; RESP 20; TEMP 36.6; O2SAT 96
--- NOTE | 2024-11-02 17:59 | PC.NURSE ---
patient states that his last alcoholic beverage was this morning he had 4 shots. patient states he normally drinks bourbon and christine kassie. patient states he ususally drinks 4-6 shots a day. patient denies any withdrawl seizures or DT's with prior withdrawl
[2024-11-02] MEDS: iohexoL 350 MG/ML 100 ML INFUS..BTL IV (18:48)
[2024-11-02 20:11] VITALS: BP 145/74; PULSE 84; RESP 16; TEMP 36.8; O2SAT 95
--- NOTE | 2024-11-02 20:47 | PHA.MEDREC ---
Pharmacy Consult ? Medication Reconciliation Pharmacy has completed the medication reconciliation.Med rec completed, spoke with patient and compared with pharmacy claim history.
[2024-11-02 21:57] VITALS: BP 167/82; PULSE 87
[2024-11-02] MEDS: Apixaban 5 MG TABLET PO (21:57)
[2024-11-02] MEDS: Metoprolol Tartrate 50 MG TABLET 150 MG PO (21:57)
--- NOTE | 2024-11-02 23:59 | PC.NURSE ---
Medicated pt per Mar, pt given a sandwich and drink, pt awaiting care time, pt reports problem with drinking and substance. Medicated per jan.
[2024-11-03] VITALS (8 sets, daily range): BP systolic 144–180; BP diastolic 61–98; PULSE 90–106; RESP 16–20; TEMP 36.4–36.9; O2SAT 95–98
[2024-11-03] MEDS: Zolpidem Tartrate 5 MG TABLET PO (00:17)
--- NOTE | 2024-11-03 00:20 | PC.NURSE ---
medicated per jan for sleep.
--- NOTE | 2024-11-03 03:19 | MHC.EDTECH ---
This tech took over care of pt at 0300am ,rounded and introduced self to pt, patient is resting quietly,call dueñas in reach
--- NOTE | 2024-11-03 05:33 | PC.NURSE ---
pt sleeping at this time, no sign of distress.
[2024-11-03] MEDS: Colchicine 0.6 MG TABLET PO (06:32)
[2024-11-03] MEDS: Metoprolol Tartrate 50 MG TABLET 150 MG PO ×2 (09:20→20:25)
[2024-11-03] MEDS: Amoxicillin/Potassium Clav 875 MG TABLET PO ×3 (09:20→22:23)
[2024-11-03] MEDS: Furosemide 20 MG TABLET PO (09:22)
[2024-11-03] MEDS: lisinopriL 10 MG TABLET PO (09:23)
[2024-11-03] MEDS: Apixaban 5 MG TABLET PO ×2 (09:23→20:26)
[2024-11-03] MEDS: Digoxin 0.125 MG TABLET PO (09:23)
[2024-11-03] MEDS: LORazepam 1 MG TABLET 2 MG PO (10:00)
--- NOTE | 2024-11-03 11:03 | PC.NURSE ---
Resumed care of pt at 0700. Pt calm/cooperative, a/ox4, resting quietly on stretcher, respirations even and unlabored, no increased wob/signs of distress. Pt med with Socorro from Addiction Medicine, plan for pt to meet with CARE team. Changed over into POD clothes and belongings locked in [facility] port closet. Call dueñas within reach, all needs met at this time.
[2024-11-03] MEDS: methADONE HCl 20 MG/2 ML ORAL.CONC 10 MG PO ×2 (12:10→16:19)
--- NOTE | 2024-11-03 15:48 | MHC.RECOVRN ---
Met with pt to check in after receiving 10 mg methadone. Pt laying in bed speaking with CARE Team clinician, awake, alert, easily engages in conversation. Pt reports methadone helped, he feels more alive. Pt reports he still has body aches and is requesting additional dose. Pt also reports he would like to continue methadone outpatient at [facility] in [place]. Discussed with Yumiko Simms APRN.
--- NOTE | 2024-11-03 15:55 | MHC.RECOVRN ---
Pts referral faxed to [facility].
--- NOTE | 2024-11-03 17:23 | PC.NURSE ---
Patient reports feeling better after methadone dose. oob ambulating to bathroom with wheeled walker (d/t complaints of toe pain r/t gout).
--- NOTE | 2024-11-03 19:08 | PC.NURSE ---
patient appears to remain at rest presently, apparently plan is for [facility] to go inpatient here, patient appears in no distress
[2024-11-03] MEDS: Ibuprofen 600 MG TABLET PO (20:39)
[2024-11-03] MEDS: LORazepam 0.5 MG TABLET PO (22:23)
[2024-11-04] VITALS (9 sets, daily range): BP systolic 154–185; BP diastolic 79–95; PULSE 64–103; RESP 14–18; TEMP 36.5–37.2; O2SAT 95–96
--- NOTE | 2024-11-04 | ECG_ITS ---
Test Reason : PRE ADMISSION Blood Pressure : / mmHG Vent. Rate : 087 BPM Atrial Rate : 000 BPM P-R Int : 000 ms QRS Dur : 096 ms QT Int : 380 ms P-R-T Axes : 000 075 062 degrees QTc Int : 457 ms Atrial fibrillation Abnormal ECG When compared with ECG of 24-SEP-2023 22:29, No significant changes seen Referred By: Roxanna Reynoso Electronically Signed By:JAY MARTINEZ
[2024-11-04] MEDS: diphenhydrAMINE HCL 25 MG CAPSULE 50 MG PO (03:13)
[2024-11-04] MEDS: Colchicine 0.6 MG TABLET PO ×2 (04:27→10:45)
[2024-11-04] MEDS: methADONE HCl 20 MG/2 ML ORAL.CONC 10 MG PO (08:47)
[2024-11-04] MEDS: Amoxicillin/Potassium Clav 875 MG TABLET PO ×3 (08:48→23:40)
[2024-11-04] MEDS: lisinopriL 10 MG TABLET PO (08:49)
[2024-11-04] MEDS: Furosemide 20 MG TABLET PO (08:49)
[2024-11-04] MEDS: Digoxin 0.125 MG TABLET PO (08:50)
[2024-11-04] MEDS: Metoprolol Tartrate 50 MG TABLET 150 MG PO ×2 (08:50→21:25)
[2024-11-04] MEDS: Apixaban 5 MG TABLET PO ×2 (08:50→21:25)
[2024-11-04] MEDS: Ketorolac Tromethamine 60 MG/2 ML VIAL IM (10:19)
[2024-11-04 17:06] LABS: Ammonia 58 umol/L (13-55)
--- NOTE | 2024-11-04 17:20 | PC.NURSE ---
Pt hasbeen resting mostly. States abd is still irritating him slightly. Aware of plan for admission to [facility]. NAD.
[2024-11-04 17:24] LABS: Alanine Aminotransferase 96 U/L (0-40); Albumin Level 3.3 g/dL (3.5-5.0); Alkaline Phosphatase 187 U/L (39-117); Anion Gap 12 (12-20); Aspartate Amino Transferase 155 U/L (5-37); Bilirubin Total 0.5 mg/dL (0.0-1.0); Blood Urea Nitrogen 16 mg/dL (9-16); Calcium 8.3 mg/dL (8.4-10.2); Carbon Dioxide 25 mmol/L (22-29); Chloride 105 mmol/L (96-108); Cholesterol 163 mg/dL (<200); Creatinine Clr Calc Pharmacy 101.2; Estimated Glomerular Filt Rate > 60; Glucose Random 232 mg/dL (60-115); HDL Cholesterol 19 mg/dL (>40); LDL Cholesterol Calculated 95 mg/dL (<100); Potassium 3.8 mmol/L (3.3-5.1); Sodium 138 mmol/L (135-145); Total Protein 7.1 g/dL (6.5-8.0); Triglycerides 245 mg/dL (<150)
[2024-11-04 17:39] LABS: TSH reflex Free T4 2.03 uIU/mL (0.32-4.0)
[2024-11-04 17:54] LABS: Folate 6.5 ng/mL (> or = 4.0); Vitamin B12 480 pg/mL (200-900)
--- NOTE | 2024-11-04 18:12 | PC.NURSE ---
Nurse to Nurse with M3 complete. Pt will have dinner then go upstairs.
[2024-11-04] MEDS: LORazepam 1 MG TABLET PO (19:18)
[2024-11-04] MEDS: Butalb/Acetamin/Caff 50/325/40 TABLET 1 TAB PO (21:25)
--- NOTE | 2024-11-05 | ECG_ITS ---
Test Reason : afib Blood Pressure : / mmHG Vent. Rate : 082 BPM Atrial Rate : 000 BPM P-R Int : 000 ms QRS Dur : 096 ms QT Int : 378 ms P-R-T Axes : 000 081 051 degrees QTc Int : 441 ms Atrial fibrillation Abnormal ECG When compared with ECG of 04-NOV-2024 15:54, No significant change was found Referred By: Roxanna Reynoso Electronically Signed By:Samy Pink
[2024-11-05 00:38] VITALS: BP 155/84; PULSE 92; RESP 20
[2024-11-05] MEDS: traZODone HCL 50 MG TABLET PO ×3 (00:45→23:08)
[2024-11-05] MEDS: LORazepam 1 MG TABLET PO ×2 (00:46→07:12)
[2024-11-05] MEDS: methADONE HCl 20 MG/2 ML ORAL.CONC 10 MG PO ×3 (01:15→20:40)
--- NOTE | 2024-11-05 03:57 | PC.ADMIT ---
Wong was admitted to [facility] from the POD on a CV for unspecified depression, unspecified anxiety and substance abuse, with a past medical history of A-fib for which the patient takes Eliquis. He is alert and oriented X's 4. He is pleasant and cooperative with the admission process completing all assessments but requests to sign documents in the morning (after he gets his glasses). Per the crisis report patient had stated that he felt like stabbing himself or cutting my throat Patient denies current suicidal ideation and is somatically focused on pain, ETOH withdrawal, and when and how much medications he will be receiving. When his next Methadone dose is due they were giving it to me twice a day down stairs, why would they change that. This was a mistake coming here. nothing is going to change. I'm the big dummy that thought this was going to be a good idea, I'm going to end up worse then I was before. I was sober for a long time but now with this pain I started buying pills off the street and drinking 6 or more shots every day. 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 Sure I use to make a lot of money but, now look at me I can't work because of the pain, even if I worked just one day it would screw-up everything I worked for. B/P during assessment 191, 1 hour after receiving Lopressor 155/84. patient stated that he is concerned about the timing of his medications, I always take my meds at 5 in the morning and 5 in the afternoon. You guys are going to screw me all up. I shouldn't have come here. utilizing a walker for ambulation, oriented to the unit, treatment plan completed.
[2024-11-05] MEDS: Amoxicillin/Potassium Clav 875 MG TABLET PO ×3 (07:05→23:08)
[2024-11-05 07:18] VITALS: BP 173/82; PULSE 85; RESP 20; TEMP 36.5; O2SAT 94
[2024-11-05] MEDS: Metoprolol Tartrate 50 MG TABLET 150 MG PO ×2 (07:23→20:24)
[2024-11-05] MEDS: Digoxin 0.125 MG TABLET PO (07:24)
[2024-11-05] MEDS: lisinopriL 10 MG TABLET PO (07:24)
--- NOTE | 2024-11-05 07:46 | PC.NURSE ---
9am lisinopril, Metoprolol, and Digoxin give for elevated B/P given and severe headache per Dr. Cody covering provider
[2024-11-05 08:24] LABS: Estimated Average Glucose 160 mg/dL; Hemoglobin A1C 195.7582 umol/L; Hemoglobin A1c % 7.2 % (<6.0); Total Hemoglobin (HGBA1C) 3570.9552 umol/L
[2024-11-05 09:15] VITALS: BP 123/77; PULSE 84; RESP 18; TEMP 36.5; O2SAT 93
[2024-11-05] MEDS: Apixaban 5 MG TABLET PO ×2 (09:17→20:22)
[2024-11-05] MEDS: Furosemide 20 MG TABLET PO (09:17)
--- NOTE | 2024-11-05 09:35 | P.HPPS_ITS ---
HPI Date of Service: 11/05/24 Chief Complaint: Depression Sources of Information: patient interviewed, chart reviewed and crisis/core team assessment reviewed HPI Subjective Notes: Villa Warning (given and shows understanding) and Conditional Voluntary Narrative: Mr. Tolentino is a 64 year-old male with hx of alcohol and opioid use disorder who initially self presented to [facility] reporting abdominal pain. Abdominal pain showed diverticulitis. He was started on augmentin. Utox was positive for fentanyl and oxycodone, which he reports buying on the streets. He also reported increased depression, and suicidal ideation with plan to cut his throat. He has a number of medical conditions. In terms of pertinent labs- cbc with elevated MCV although no anemia, no leukopenia nor leukocytosis. B12 480. CMP without electrolyte imbalances, BUN 16, Cr 1.04 with creatinine clearance of 100. LFTs elevated (AST 155, ALT 96, Al.phos 187) Ammonia is slightly elevated 58. Abdominal CT showed liver cirrhosis. UA is negative. Head CT without acute findings but does show microvascular changes and atrophy. A1c elevated 7.8%- pt reports never been told to have DM.TSH On the unit, pt reports he has been feeling more depressed in the past few months. He endorses anhedonia, low energy levels, hopeless and helpless. He also reports chronic pain exacerbating mood. He denies current or past visual or auditory hallucinations. He reports poor sleep. He reports using alcohol daily about 10 nips a day. He also reports buying oxycodone and fentanyl on the streets. He does denied any plan or intent to harm himself. He reports that although he has been more depressed he is not suicidal anymore. He reports he needs help with mental health, addiction and his overall health. Past Psychiatric History: Inpt: no prior psych admission OP: none Past med trials: he reports he has not been on antidepressant in a long time and does not remember the name Hx of suicide attempts: denies Medical Evaluation Reviewed: Yes [facility] Medical History History of alcohol abuse Elevated LFTs Hypersomnia with sleep apnea Lumbar degenerative disc disease Knee osteoarthritis Hypertension Alcohol withdrawal Opioid dependence Family History: denies Social History: lives with of several years. Substance History: reports using opioids for several years, used to be on suboxone alcohol also for many years, reports recently using about 10 nips/day cocaine- denies Trauma History: not disclosed Diagnostics Vital Signs (24Hr): Vital Signs - 24 hr 11/04/24 15:49 11/04/24 18:47 11/04/24 20:10 Temperature 98.9 F 97.7 F 97.7 F Pulse Rate 88 84 96 Respiratory Rate 18 18 16 Blood Pressure 175/86 H 180/87 H 176/84 H Pulse Oximetry 96 95 95 Oxygen Delivery Method Room Air Room Air Room Air 11/04/24 21:25 11/04/24 22:11 11/05/24 00:38 Temperature Pulse Rate 103 H 92 92 Respiratory Rate 20 Blood Pressure 171/92 H 180/84 H 155/84 H Pulse Oximetry Oxygen Delivery Method 11/05/24 07:18 11/05/24 09:15 Temperature 97.7 F 97.7 F Pulse Rate 85 84 Respiratory Rate 20 18 Blood Pressure 173/82 H 123/77 Pulse Oximetry 94 93 Oxygen Delivery Method Room Air Room Air BMI result Body Mass Index 39.8 Labs 11/02/24 15:31 11/04/24 16:47 Labs: Laboratory Results - last 48 hr 11/04/24 11/05/24 16:47 07:53 Sodium 138 Potassium 3.8 Chloride 105 Carbon Dioxide 25 Anion Gap 12 BUN 16 Creatinine 1.04 Estim Creat Clear Calc 101.2 Estimated GFR > 60 Random Glucose 232 H Estimat Average Glucose 160 Hemoglobin A1c % 7.2 H Calcium 8.3 L Total Bilirubin 0.5 AST 155 H ALT 96 H Alkaline Phosphatase 187 H Ammonia 58 H Total Protein 7.1 Albumin 3.3 L Triglycerides 245 H Cholesterol 163 LDL Cholesterol, Calc 95 HDL Cholesterol 19 L Vitamin B12 480 Folate 6.5 TSH 2.03 Meds/Allergies Meds Home Medications ?Medication ?Instructions ?Recorded ?Confirmed ?Type albuterol sulfate 90 mcg/actuation 2 puff inhalation Q4H PRN wheezing 05/14/23 11/02/24 History aerosol inhaler (Ventolin HFA) colchicine 0.6 mg tablet 0.6 mg PO TID PRN GOUT FLARE 11/02/24 11/02/24 History furosemide 20 mg tablet 20 mg PO DAILY 11/02/24 11/02/24 History ibuprofen 800 mg tablet 800 mg PO TID PRN Pain (Scale 12/19/24 12/19/24 History Score 4-6) metoprolol tartrate 100 mg tablet 150 mg PO BID 11/02/24 11/02/24 History Allergies Allergies Allergy/AdvReac Type Severity Reaction Status Date / Time No Known Allergies Allergy Verified 11/02/24 14:23 Mental Status Exam Mental Status Exam Narrative: Appearance: MO, disheveled, fair hygiene, ambulating with walker, in NAD Behavior: cooperative Psychomotor: no agitation or retardation noted Speech: clear, normal rate/rhythm/volume, spontaneous TP: linear TC: wanting more methadone as he reports still having cravings. Mood: tired Affect: congruent SI: denies HI: denies VH/AH: none Delusions: none Insight/judgment: poor x 2. Memory/cog: alert, oriented x 3. may benefit from MOCA Assessment & Plan Assessment & Plan (1) MDD (major depressive disorder), recurrent episode, moderate: Status: Acute Code(s): F33.1 - Major depressive disorder, recurrent, moderate (2) Opioid dependence: Status: Acute Qualifiers: Substance use status: uncomplicated Qualified Code(s): F11.20 - Opioid dependence, uncomplicated Code(s): F11.20 - Opioid dependence, uncomplicated (3) Alcohol use disorder, moderate, dependence: Status: Acute Code(s): F10.20 - Alcohol dependence, uncomplicated Plan Mr. Tolentino is a 64 year-old male with hx of alcohol, opioid use disorder who self presented to [facility] reporting abdominal pain found to have diverticulitis, started on augmentin. Utox positive for fentanyl and oxycodone. He also reported increased depression and SI initially with a plan to shoot himself. On the unit, he denies any plan or intent to harm himself but does report that he has been more depressed in past months. It also seems that he has not been to his PCP recently. His LFTs elevated, ammonia mildly elevated 58. A1c also elevated 7.8% which he says he has never been told he has DM. We discussed risks, benefits and alternative treatment options. Will start lactulose 20gm BID, recheck ammonia tomorrow AM. Start metformin ER 500mg po qhs- with plan to follow up with PCP. Although B12 not severely low 480's will give one time dose of cyanocobalamine 1000mcg IM. Will start effexor for depression 37.5mg po daily, monitor SBP. Addiction consult to adjust Methadone- he was started on methadone 10mg po daily. EKG shows Afib- reviewed with Dr. Landers since long hx of Afib, no RVR, already on eliquix and metoprolol- no additional intervention needed. PLAN 1. Admit to M3, CV, 5 mins checks due to walker 2. Medical: * Lactulose 20gm po BID for elevated ammonia 58 on 11/05/24, will recheck on 11/[address] abdomen shows cirrhosis, need to be seen by GI. * A1c 7.8% started on metformin ER 500mg po qhs--> follow up with PCP. May benefit from SGLT2 for additional cardiac protection given hx of HF with preserved ejection fraction. * EKG shows Afib, long hx of persistent afib, no RVR, already on eliquis and metoprolol. Per Dr. Landers no additional intervention at this point. 3. Ordered addiction medicine consult to adjust methadone. Started in ED methadone 10mg po daily. 4. Start Effexor 37.5mg po daily for depression, using SNRI to help with energy. Monitor SBP. 5. aftercare planning Patient educated on: diagnosis, medication risk/benefits and substance abuse Reason for continued inpatient stay Substantial Risk for: harm to self Statement Statement: I have reviewed the history and physical and performed a pertinent examination on my patient. No changes have occurred unless specified. If the History and Physical was not performed prior to admission, the Hospitalist's service will be consulted for completing the admission physical. Time Spent With Patient Time: Total time managing care of this patient today ____ minutes.
[2024-11-05] MEDS: methADONE HCl 20 MG/2 ML ORAL.CONC 15 MG PO (10:05)
[2024-11-05] MEDS: Lactulose 20 GM/30 ML SOLUTION PO ×2 (10:06→20:20)
[2024-11-05] MEDS: Venlafaxine HCl ER 37.5 MG CAP.ER.24H PO (10:06)
[2024-11-05] MEDS: Cyanocobalamin (Vitamin B-12) 1,000 MCG/ML VIAL 1000 MCG IM (11:43)
--- NOTE | 2024-11-05 12:03 | HO.ADDICTCON ---
History of Present Illness Date of Service: 11/05/2024 Chief Complaint: Depression Reason for Consult: OUD-methadone titration Sources of Information: patient interviewed and chart reviewed HPI Narrative: Patient is a 64 year old male with history of AUD and OUD, admitted to unit with worsening depression and suicidal ideation. Patient is known to this technical writer and editor via previous treatment for OUD, outpatient, where he was prescribed buprenorphine. Patient seen on M3. He is awake, alert, engaged in interview. Appearing unkempt, using a walker to assist with ambulation. Chart review shows he has received several 10mg doses of methadone since presenting to [facility] days ago. Prior to being seen by this technical writer and editor he received a total of 25mg methadone. Patient reports he has been taking at least (6) 10mg oxycodone's daily--however, pills are not real and he has been taking fentanyl He reports oral and IN use Denies any other opiate use. He states his pain has been worsening, and pills were doing little to address the pain, but would help with overall energy, body aches, and GI sx. He expresses sadness and frustration at how he feels. He reports that he has also started drinking again, which he had stopped for quite some time. States that he is surrounded by it , referring to people who drink with regularity, in his home and immediate social [place], inlcuding his . Several times he refers to wanting to feel like myself again, not perfect, but not in bed all day . He asked to start methadone, because in the end he did not feel that buprenophine was effective in addressing pain. Current sx: joint pain, nausea, energy, decreased appetite, increased anxiety Past Psychiatric History: Inpt: no prior psych admission OP: none Past med trials: he reports he has not been on antidepressant in a long time and does not remember the name Hx of suicide attempts: denies Review of Systems Constitutional: Reports as per HPI Diagnostics Vital Signs (24Hr): Vital Signs - 24 hr 11/04/24 15:49 11/04/24 18:47 11/04/24 20:10 Temperature 98.9 F 97.7 F 97.7 F Pulse Rate 88 84 96 Respiratory Rate 18 18 16 Blood Pressure 175/86 H 180/87 H 176/84 H Pulse Oximetry 96 95 95 Oxygen Delivery Method Room Air Room Air Room Air 11/04/24 21:25 11/04/24 22:11 11/05/24 00:38 Temperature Pulse Rate 103 H 92 92 Respiratory Rate 20 Blood Pressure 171/92 H 180/84 H 155/84 H Pulse Oximetry Oxygen Delivery Method 11/05/24 07:18 11/05/24 09:15 Temperature 97.7 F 97.7 F Pulse Rate 85 84 Respiratory Rate 20 18 Blood Pressure 173/82 H 123/77 Pulse Oximetry 94 93 Oxygen Delivery Method Room Air Room Air BMI result Body Mass Index 39.8 Labs 11/02/24 15:31 11/04/24 16:47 Labs: Laboratory Results - last 48 hr 11/04/24 11/05/24 16:47 07:53 Sodium 138 Potassium 3.8 Chloride 105 Carbon Dioxide 25 Anion Gap 12 BUN 16 Creatinine 1.04 Estim Creat Clear Calc 101.2 Estimated GFR > 60 Random Glucose 232 H Estimat Average Glucose 160 Hemoglobin A1c % 7.2 H Calcium 8.3 L Total Bilirubin 0.5 AST 155 H ALT 96 H Alkaline Phosphatase 187 H Ammonia 58 H Total Protein 7.1 Albumin 3.3 L Triglycerides 245 H Cholesterol 163 LDL Cholesterol, Calc 95 HDL Cholesterol 19 L Vitamin B12 480 Folate 6.5 TSH 2.03 Mental Status Exam Mental Status Exam Patient Appearance: Unkempt Level of Consciousness: Awake and Alert Patient Behavior: Appropriate and Talkative Mood Description: Sad Affect Description: Anxious Speech Pattern: Clear Delusions: Not Present Thought Process: Intact Thought Content: positive for Intact and positive for Circumstantial Medications Medications Current Medications Al Hydroxide/Mg Hydroxide (Magnesium Hydrox/Alum Hydrox 30 Ml Oral.Susp) 30 ml PO Q6H PRN PRN Reason: Heartburn/Nausea Albuterol Sulfate (Albuterol Sulfate 90 Mcg 8 Gm Inhaler) 2 puff INHALE Q4H PRN PRN Reason: wheezing Amoxicillin/Clavulanate Potassium (Amoxicillin/Potassium Clav 875 Mg Tablet) 875 mg PO Q8H LAURENCE Stop: 11/10/24 07:44 Last Admin: 11/05/24 07:05 Dose: 875 mg Apixaban (Apixaban 5 Mg Tablet) 5 mg PO BID LAURENCE Last Admin: 11/05/24 09:17 Dose: 5 mg Colchicine (Colchicine 0.6 Mg Tablet) 0.6 mg PO TID PRN PRN Reason: GOUT FLARE Last Admin: 11/04/24 10:45 Dose: 0.6 mg Digoxin (Digoxin 0.125 Mg Tablet) 0.125 mg PO DAILY [facility]; Protocol Last Admin: 11/05/24 07:24 Dose: 0.125 mg Furosemide (Furosemide 20 Mg Tablet) 20 mg PO DAILY [facility]; Protocol Last Admin: 11/05/24 09:17 Dose: 20 mg Hydroxyzine HCl (Hydroxyzine Hcl 25 Mg Tablet) 25 mg PO Q6H PRN PRN Reason: Anxiety Lactulose (Lactulose 20 Gm/30 Ml Solution) 20 gm PO BID [facility] Last Admin: 11/05/24 10:06 Dose: 20 gm Lidocaine (Lidocaine 4 % Patch Adh..Patch) 1 patch TRANSDERMA DAILY PRN PRN Reason: pain Lisinopril (Lisinopril 10 Mg Tablet) 10 mg PO DAILY [facility]; Protocol Last Admin: 11/05/24 07:24 Dose: 10 mg Lorazepam (Lorazepam 1 Mg Tablet) 2 mg PO Q4H PRN PRN Reason: ciwa 13-17 Lorazepam (Lorazepam 1 Mg Tablet) 1 mg PO Q4H PRN PRN Reason: ciwa 7-12 Last Admin: 11/05/24 07:12 Dose: 1 mg Lorazepam (Lorazepam 1 Mg Tablet) 3 mg PO Q4H PRN PRN Reason: ciwa >17, notify Magnesium Hydroxide (Milk Of Magnesia 30 Ml Oral.Susp) 30 ml PO DAILY PRN PRN Reason: Constipation Metformin HCl (Metformin Hcl Er 500 Mg Tab.Er.24h) 500 mg PO BEDTIME [facility] Methadone HCl (Methadone Hcl 20 Mg/2 Ml Oral.Conc) 30 mg PO DAILY@0800 [facility] Methadone HCl (Methadone Hcl 20 Mg/2 Ml Oral.Conc) 10 mg PO DAILY PRN PRN Reason: Opiate Withdrawal Metoprolol Tartrate (Metoprolol Tartrate 50 Mg Tablet) 150 mg PO BID [facility]; Protocol Last Admin: 11/05/24 07:23 Dose: 150 mg Naloxone HCl (Naloxone Hcl Nasal 4 Mg [place]) 4 mg NOSTRILALT Q2M PRN PRN Reason: opioid overdose Nicotine (Nicotine 21 Mg Patch.Td24) 21 mg TRANSDERMA DAILY PRN PRN Reason: nicotine cravings Nicotine Polacrilex (Nicotine Polacrilex 2 Mg Gum) 4 mg BUCCAL Q2H PRN PRN Reason: Nicotine Cravings Trazodone HCl (Trazodone Hcl 50 Mg Tablet) 50 mg PO BEDTIME MRX1 PRN PRN Reason: Insomnia Last Admin: 11/05/24 00:45 Dose: 50 mg Venlafaxine HCl (Venlafaxine Hcl Er 37.5 Mg Cap.Er.24h) 37.5 mg PO DAILY LAURENCE Last Admin: 11/05/24 10:06 Dose: 37.5 mg Allergies Allergies Allergy/AdvReac Type Severity Reaction Status Date / Time No Known Allergies Allergy Verified 11/02/24 14:23 Assessment & Plan Assessment & Plan (1) Opioid use disorder, severe, dependence: Status: Acute Code(s): F11.20 - Opioid dependence, uncomplicated Assessment and Plan: methadone 30mg daily starting 11/06--will titrate dose as necessary and appropriate methadone 10mg once daily PRN withdrawal sx EKG reviewed Hepatitis screens ordered will continue to follow--AUD resources and follow up needed as well will need coordination with [facility] in [place] for continuation of OUD treatment Total time managing care of this patient today __40__ minutes. [facility] Past Medical History Medical History History of alcohol abuse Elevated LFTs Hypersomnia with sleep apnea Lumbar degenerative disc disease Knee osteoarthritis Hypertension Alcohol withdrawal Opioid dependence Social History Social History Household Members: Spouse Housing: Apartment Do you presently have visiting nurse or other home services: No Alcohol intake: never Patient Tobacco Use Status: Former Tobacco user Use of substances other than those prescribed or required for medical reasons: Yes Substance Use Type: Opiates Substance Use Type Other:: was on suboxone then bought opiates off the street Substance Use Frequency: Daily Last Used Substance: Days (ago) Currently Displaying Signs/Symptoms of Drug Intoxication Withdrawal: No Have you been hit, kicked, punched, or otherwise hurt by someone within the past year? If so, by whom?: No Do you feel safe in your current relationship?: Yes Is there a partner from a previous relationship who is making you feel unsafe now?: No Are you made to feel afraid or neglected: No Advance Directives: Yes Advance Directives Information Provided: No Advance Directives on File: Yes Advance Directives Date on File: 05/12/22 Do you have thoughts of harming others: None Do you have a plan to hurt others: No Plan Recently lost weight without trying: No Nutrition Risks: No Nutritional Risk Poor oral hygiene: No (broken teeth in the back) service: No
[2024-11-05] MEDS: Magnesium Hydrox/Alum Hydrox 30 ML ORAL.SUSP PO (16:43)
[2024-11-05] MEDS: Colchicine 0.6 MG TABLET PO ×2 (18:05→23:07)
[2024-11-05 20:00] VITALS: BP 167/77; PULSE 90; RESP 16; TEMP 36.8; O2SAT 95
[2024-11-05] MEDS: Lidocaine 4 % Patch ADH..PATCH 1 PATCH TRANSDERMA (20:19)
[2024-11-05] MEDS: metFORMIN HCl ER 500 MG TAB.ER.24H PO (20:20)
[2024-11-05] MEDS: hydrOXYzine HCL 25 MG TABLET PO (20:21)
[2024-11-06 07:43] VITALS: BP 123/61; PULSE 83; RESP 14; TEMP 36.5; O2SAT 91
[2024-11-06] MEDS: methADONE HCl 20 MG/2 ML ORAL.CONC 30 MG PO (08:10)
[2024-11-06] MEDS: Colchicine 0.6 MG TABLET PO ×2 (08:12→20:37)
[2024-11-06] MEDS: lisinopriL 10 MG TABLET PO (08:12)
[2024-11-06] MEDS: Lactulose 20 GM/30 ML SOLUTION PO ×2 (08:12→20:34)
[2024-11-06] MEDS: Apixaban 5 MG TABLET PO ×2 (08:13→20:36)
[2024-11-06] MEDS: Digoxin 0.125 MG TABLET PO (08:13)
[2024-11-06] MEDS: Furosemide 20 MG TABLET PO (08:13)
[2024-11-06] MEDS: Metoprolol Tartrate 50 MG TABLET 150 MG PO ×2 (08:13→20:36)
[2024-11-06] MEDS: Amoxicillin/Potassium Clav 875 MG TABLET PO ×3 (08:13→23:17)
[2024-11-06] MEDS: Venlafaxine HCl ER 37.5 MG CAP.ER.24H PO (08:14)
[2024-11-06 08:31] LABS: Ammonia 49 umol/L (13-55)
[2024-11-06 09:07] LABS: HBsAGNum1 0.32 S/CO (0.00-0.99); Hepatitis A Antibody IgM 0.18 Index (0-0.79); Hepatitis B Core Antibody Nonreactive (Nonreactive); Hepatitis B Surface Antigen Negative (Negative); ~Hepatitis A Antibody IgM Nonreactive (Nonreactive); ~Hepatitis B Surface Antibody NONREACTIVE (Nonreactive); ~Hepatitis C Antibody Nonreactive (Nonreactive)
--- NOTE | 2024-11-06 10:52 | MHC.RECOVSUP ---
[employer] S[employer]er Note Patient seen in M3 Consult requested for?Recovery Supports? Current substance use reported by patient: ETOH Currently on Methadone Plan:? Patient referred to [employer]er's services through [facility]ory.
--- NOTE | 2024-11-06 11:06 | HO.PSYCHPN ---
Subjective Subjective Date of Service: 11/06/24 Reason For Visit: Depression Subjective Notes: Conditional Voluntary Interim History: Active on unit, social with peers. attending groups. Patient reports feeling depressed ; pt stated, my pain kept me up all night. I'm walking hurt. I relapsed because of the pain. I wouldn't kill myself because that would only hurt my if I did that . denies SI/HI/VH/AH. Patient reports he feels methadone helped him a bit with his pain; being followed by Yumiko Simms NP. Medication Compliance: Yes Side effects from medications: No Attending Groups: Yes Review of Systems Constitutional: Reports as per HPI Eyes: Reports as per HPI Reports as per HPI Cardiovascular: Reports as per HPI Respiratory: Reports as per HPI Gastrointestinal: Reports as per HPI Genitourinary: Reports as per HPI Musculoskeletal: Reports as per HPI Skin/Breast: Reports as per HPI Reports as per HPI Psychiatric: Reports as per HPI Endocrine: Reports as per HPI Hematologic/Lymphatic: Reports as per HPI Allergic/Immunologic: Reports as per HPI Mental Status Exam Mental Status Exam Narrative: Pt is alert and oriented; behavior is cooperative and calm; dressed in casual attire; mood is described as good ; eye contact appropriate; Speech is normal rate, volume and not pressured; thought process is organized and goal directed; Thought content is on tx; denies SI/HI/VH/AH. Diagnostics Vital Signs (24Hr): Vital Signs - 24 hr 11/05/24 20:00 11/06/24 07:43 Temperature 98.2 F 97.7 F Pulse Rate 90 83 Respiratory Rate 16 14 Blood Pressure 167/77 H 123/61 Pulse Oximetry 95 91 L Oxygen Delivery Method Room Air Room Air BMI result Body Mass Index 39.8 Labs 11/02/24 15:31 11/04/24 16:47 Labs: Laboratory Results - last 48 hr 11/04/24 11/05/24 11/06/24 16:47 07:53 08:16 Sodium 138 Potassium 3.8 Chloride 105 Carbon Dioxide 25 Anion Gap 12 BUN 16 Creatinine 1.04 Estim Creat Clear Calc 101.2 Estimated GFR > 60 Random Glucose 232 H Estimat Average Glucose 160 Hemoglobin A1c % 7.2 H Calcium 8.3 L Total Bilirubin 0.5 AST 155 H ALT 96 H Alkaline Phosphatase 187 H Ammonia 58 H 49 Total Protein 7.1 Albumin 3.3 L Triglycerides 245 H Cholesterol 163 LDL Cholesterol, Calc 95 HDL Cholesterol 19 L Vitamin B12 480 Folate 6.5 TSH 2.03 Medications Medications Current Medications Al Hydroxide/Mg Hydroxide (Magnesium Hydrox/Alum Hydrox 30 Ml Oral.Susp) 30 ml PO Q6H PRN PRN Reason: Heartburn/Nausea Last Admin: 11/05/24 16:43 Dose: 30 ml Albuterol Sulfate (Albuterol Sulfate 90 Mcg 8 Gm Inhaler) 2 puff INHALE Q4H PRN PRN Reason: wheezing Amoxicillin/Clavulanate Potassium (Amoxicillin/Potassium Clav 875 Mg Tablet) 875 mg PO Q8H [facility] Stop: 11/10/24 07:44 Last Admin: 11/06/24 08:13 Dose: 875 mg Apixaban (Apixaban 5 Mg Tablet) 5 mg PO BID [facility] Last Admin: 11/06/24 08:13 Dose: 5 mg Colchicine (Colchicine 0.6 Mg Tablet) 0.6 mg PO TID PRN PRN Reason: GOUT FLARE Last Admin: 11/06/24 08:12 Dose: 0.6 mg Digoxin (Digoxin 0.125 Mg Tablet) 0.125 mg PO DAILY [facility]; Protocol Last Admin: 11/06/24 08:13 Dose: 0.125 mg Furosemide (Furosemide 20 Mg Tablet) 20 mg PO DAILY [facility]; Protocol Last Admin: 11/06/24 08:13 Dose: 20 mg Hydroxyzine HCl (Hydroxyzine Hcl 25 Mg Tablet) 25 mg PO Q6H PRN PRN Reason: Anxiety Last Admin: 11/05/24 20:21 Dose: 25 mg Lactulose (Lactulose 20 Gm/30 Ml Solution) 20 gm PO BID [facility] Last Admin: 11/06/24 08:12 Dose: 20 gm Lidocaine (Lidocaine 4 % Patch Adh..Patch) 1 patch TRANSDERMA DAILY PRN PRN Reason: pain Last Admin: 11/05/24 20:19 Dose: 1 patch Lisinopril (Lisinopril 10 Mg Tablet) 10 mg PO DAILY [facility]; Protocol Last Admin: 11/06/24 08:12 Dose: 10 mg Lorazepam (Lorazepam 1 Mg Tablet) 2 mg PO Q4H PRN PRN Reason: ciwa 13-17 Lorazepam (Lorazepam 1 Mg Tablet) 1 mg PO Q4H PRN PRN Reason: ciwa 7-12 Last Admin: 11/05/24 07:12 Dose: 1 mg Lorazepam (Lorazepam 1 Mg Tablet) 3 mg PO Q4H PRN PRN Reason: ciwa >17, notify Magnesium Hydroxide (Milk Of Magnesia 30 Ml Oral.Susp) 30 ml PO DAILY PRN PRN Reason: Constipation Metformin HCl (Metformin Hcl Er 500 Mg Tab.Er.24h) 500 mg PO BEDTIME [facility] Last Admin: 11/05/24 20:20 Dose: 500 mg Methadone HCl (Methadone Hcl 20 Mg/2 Ml Oral.Conc) 30 mg PO DAILY@0800 [facility] Last Admin: 11/06/24 08:10 Dose: 30 mg Methadone HCl (Methadone Hcl 20 Mg/2 Ml Oral.Conc) 10 mg PO DAILY PRN PRN Reason: Opiate Withdrawal Last Admin: 11/05/24 20:40 Dose: 10 mg Metoprolol Tartrate (Metoprolol Tartrate 50 Mg Tablet) 150 mg PO BID [facility]; Protocol Last Admin: 11/06/24 08:13 Dose: 150 mg Naloxone HCl (Naloxone Hcl Nasal 4 Mg [place]) 4 mg NOSTRILALT Q2M PRN PRN Reason: opioid overdose Nicotine (Nicotine 21 Mg Patch.Td24) 21 mg TRANSDERMA DAILY PRN PRN Reason: nicotine cravings Nicotine Polacrilex (Nicotine Polacrilex 2 Mg Gum) 4 mg BUCCAL Q2H PRN PRN Reason: Nicotine Cravings Trazodone HCl (Trazodone Hcl 50 Mg Tablet) 50 mg PO BEDTIME MRX1 PRN PRN Reason: Insomnia Last Admin: 11/05/24 23:08 Dose: 50 mg Venlafaxine HCl (Venlafaxine Hcl Er 37.5 Mg Cap.Er.24h) 37.5 mg PO DAILY [facility] Last Admin: 11/06/24 08:14 Dose: 37.5 mg Allergies Allergies Allergy/AdvReac Type Severity Reaction Status Date / Time No Known Allergies Allergy Verified 11/02/24 14:23 Assessment & Plan Assessment & Plan (1) MDD (major depressive disorder), recurrent episode, moderate: Status: Acute Code(s): F33.1 - Major depressive disorder, recurrent, moderate (2) Opioid use disorder, severe, dependence: Status: Acute Code(s): F11.20 - Opioid dependence, uncomplicated Assessment and Plan: methadone 30mg daily starting 11/06--will titrate dose as necessary and appropriate methadone 10mg once daily PRN withdrawal sx EKG reviewed Hepatitis screens ordered will continue to follow--AUD resources and follow up needed as well will need coordination with [facility] in [place] for continuation of OUD treatment (3) Alcohol use disorder, moderate, dependence: Status: Acute Code(s): F10.20 - Alcohol dependence, uncomplicated Plan Mr. Tolentino is a 64 year-old male with hx of alcohol, opioid use disorder who self presented [place] [facility] [place] abdominal pain found to have diverticulitis, started on augmentin. Utox positive for fentanyl and oxycodone. He also reported increased depression and SI initially with a plan to shoot himself. On the unit, he denies any plan or intent to harm himself but does report that he has been more depressed in past months. It also seems that he has not been to his PCP recently. His LFTs elevated, ammonia mildly elevated 58. A1c also elevated 7.8% which he says he has never been told he has DM. We discussed risks, benefits and alternative treatment options. Will start lactulose 20gm BID, recheck ammonia tomorrow AM. Start metformin ER 500mg po qhs- with plan to follow up with PCP. Although B12 not severely low 480's will give one time dose of cyanocobalamine 1000mcg IM. Will start effexor for depression 37.5mg po daily, monitor SBP. Addiction consult to adjust Methadone- he was started on methadone 10mg po daily. EKG shows Afib- reviewed with Dr. Landers since long hx of Afib, no RVR, already on eliquix and metoprolol- no additional intervention needed. PLAN 1. Admit to M3, CV, 5 mins checks due to walker 2. Medical: Lactulose 20gm po BID for elevated ammonia 58 on 11/05/24, will recheck on 11/[address] abdomen shows cirrhosis, need to be seen by GI. A1c 7.8% started on metformin ER 500mg po qhs--> follow up with PCP. May benefit from SGLT2 for additional cardiac protection given hx of HF with preserved ejection fraction. EKG shows Afib, long hx of persistent afib, no RVR, already on eliquis and metoprolol. Per Dr. Landers no additional intervention at this point. 3. Ordered addiction medicine consult to adjust methadone. Started in ED methadone 10mg po daily. 4. Start Effexor 37.5mg po daily for depression, using SNRI to help with energy. Monitor SBP. 5. aftercare planning 11/06: Active on unit, social with peers. attending groups. Patient reports feeling depressed ; pt stated, my pain kept me up all night. I'm walking hurt. I relapsed because of the pain. I wouldn't kill myself because that would only hurt my if I did that . denies SI/HI/VH/AH. Patient reports he feels methadone helped him a bit with his pain; being followed by Yumiko Simms NP. Patient educated on: diagnosis and medication risk/benefits Reason for continued inpatient stay Substantial Risk for: med/psych decompensation Time Spent With Patient Time: Total time managing care of this patient today _20___ minutes.
--- NOTE | 2024-11-06 13:45 | MHC.RECOVRN ---
AUDIT-C Brief Intervention Pt had positive screen for unhealthy alcohol use on admission, subsequently met with t/w to discuss alcohol use and recovery supports/options. This medical writer met with patient to discuss current alcohol use and concerns related to increased risk of alcohol related problems.? Pt reports 10-12 shots daily x 2 months. Discussed how alcohol use has impacted health, including negative impact on mental health. Withdrawal History: denies hx withdrawal seizures Treatment History: reports 1 ATS admission Supports:? Discussed risk reduction strategies including drinking below the recommended limit. Provided pt with written resources including information on inpatient and outpatient treatment, RIKKI, harm reduction, and recovery coaching. Pt plans to abstain from alcohol after discharge from with the support of and reading recovery teacher. Pt provided with t/w contact information if questions or concerns arise. Denies other questions or concerns at this time.?
--- NOTE | 2024-11-06 13:46 | MHC.RECOVRN ---
Met with pt to follow up after receiving 30 mg methadone this morning. Pt reports he feels cloudy and this is the first day he has felt this way. Reports nausea, diarrhea yesterday, abdominal pain. Of note, pt also diagnosed with diverticulitis. Pt reports methadone has helped a little with pain. Would like to continue with methadone but also does not like the cloudy feeling. Denies other questions or concerns for t/w. Discussed with Yumiko Simms APRN.
[2024-11-06 16:38] LABS: Glucose, Whole Blood 149 mg/dL (60-115)
[2024-11-06 20:21] VITALS: BP 154/94; PULSE 80; RESP 16; TEMP 36.9; O2SAT 93
[2024-11-06] MEDS: methADONE HCl 20 MG/2 ML ORAL.CONC 10 MG PO (20:32)
[2024-11-06] MEDS: hydrOXYzine HCL 25 MG TABLET PO (20:35)
[2024-11-06] MEDS: traZODone HCL 50 MG TABLET PO ×2 (20:35→23:17)
[2024-11-06] MEDS: metFORMIN HCl ER 500 MG TAB.ER.24H PO (20:35)
[2024-11-06] MEDS: Lidocaine 4 % Patch ADH..PATCH 1 PATCH TRANSDERMA (20:39)
[2024-11-07 07:44] VITALS: BP 140/71; PULSE 75; RESP 18; TEMP 36.2; O2SAT 93
[2024-11-07] MEDS: methADONE HCl 20 MG/2 ML ORAL.CONC 40 MG PO (08:12)
[2024-11-07] MEDS: Amoxicillin/Potassium Clav 875 MG TABLET PO ×3 (08:46→23:59)
[2024-11-07] MEDS: lisinopriL 10 MG TABLET PO (08:47)
[2024-11-07] MEDS: Venlafaxine HCl ER 37.5 MG CAP.ER.24H PO (08:47)
[2024-11-07] MEDS: Metoprolol Tartrate 50 MG TABLET 150 MG PO ×2 (08:47→22:05)
[2024-11-07] MEDS: Apixaban 5 MG TABLET PO ×2 (08:47→22:06)
[2024-11-07] MEDS: Lactulose 20 GM/30 ML SOLUTION PO ×2 (08:47→22:08)
[2024-11-07] MEDS: Furosemide 20 MG TABLET PO (08:47)
[2024-11-07] MEDS: Digoxin 0.125 MG TABLET PO (08:47)
--- NOTE | 2024-11-07 09:02 | HO.PSYCHPN ---
Subjective Subjective Date of Service: 11/07/24 Reason For Visit: Depression Subjective Notes: Conditional Voluntary Interim History: Active on unit, social with peers. attending groups. Patient reports feeling okay today; pt stated, I always feel anxious but today I'm feeling like I can walk better. The methadone is helping me but it makes me feel out of it . Per nursing, slept 6 hours. denies SI/HI/VH/AH. Medication Compliance: Yes Side effects from medications: No Attending Groups: Yes Review of Systems Constitutional: Reports as per HPI Eyes: Reports as per HPI Reports as per HPI Cardiovascular: Reports as per HPI Respiratory: Reports as per HPI Gastrointestinal: Reports as per HPI Genitourinary: Reports as per HPI Musculoskeletal: Reports as per HPI Skin/Breast: Reports as per HPI Reports as per HPI Psychiatric: Reports as per HPI Endocrine: Reports as per HPI Hematologic/Lymphatic: Reports as per HPI Allergic/Immunologic: Reports as per HPI Mental Status Exam Mental Status Exam Narrative: Pt is alert and oriented; behavior is cooperative and calm; dressed in casual attire; mood is described as okay ; eye contact appropriate; Speech is normal rate, volume and not pressured; thought process is organized and goal directed; Thought content is on tx; denies SI/HI/VH/AH. Diagnostics Vital Signs (24Hr): Vital Signs - 24 hr 11/06/24 20:21 11/07/24 07:44 Temperature 98.5 F 97.2 F Pulse Rate 80 75 Respiratory Rate 16 18 Blood Pressure 154/94 H 140/71 H Pulse Oximetry 93 93 Oxygen Delivery Method Room Air Room Air BMI result Body Mass Index 39.8 Labs 11/02/24 15:31 11/04/24 16:47 Labs: Laboratory Results - last 48 hr 11/04/24 11/06/24 11/06/24 16:47 08:16 16:34 POC Glucose 149 H Ammonia 49 Hepatitis A IgM Ab Nonreactive Hep Bs Antigen Negative Hep Bs Antibody NONREACTIVE Hep B Core Total Ab Nonreactive Hepatitis C Ab (EIA) Nonreactive Medications Medications Current Medications Al Hydroxide/Mg Hydroxide (Magnesium Hydrox/Alum Hydrox 30 Ml Oral.Susp) 30 ml PO Q6H PRN PRN Reason: Heartburn/Nausea Last Admin: 11/05/24 16:43 Dose: 30 ml Albuterol Sulfate (Albuterol Sulfate 90 Mcg 8 Gm Inhaler) 2 puff INHALE Q4H PRN PRN Reason: wheezing Amoxicillin/Clavulanate Potassium (Amoxicillin/Potassium Clav 875 Mg Tablet) 875 mg PO Q8H [facility] Stop: 11/10/24 07:44 Last Admin: 11/07/24 08:46 Dose: 875 mg Apixaban (Apixaban 5 Mg Tablet) 5 mg PO BID [facility] Last Admin: 11/07/24 08:47 Dose: 5 mg Colchicine (Colchicine 0.6 Mg Tablet) 0.6 mg PO TID PRN PRN Reason: GOUT FLARE Last Admin: 11/06/24 20:37 Dose: 0.6 mg Digoxin (Digoxin 0.125 Mg Tablet) 0.125 mg PO DAILY [facility]; Protocol Last Admin: 11/07/24 08:47 Dose: 0.125 mg Furosemide (Furosemide 20 Mg Tablet) 20 mg PO DAILY [facility]; Protocol Last Admin: 11/07/24 08:47 Dose: 20 mg Hydroxyzine HCl (Hydroxyzine Hcl 25 Mg Tablet) 25 mg PO Q6H PRN PRN Reason: Anxiety Last Admin: 11/06/24 20:35 Dose: 25 mg Lactulose (Lactulose 20 Gm/30 Ml Solution) 20 gm PO BID [facility] Last Admin: 11/07/24 08:47 Dose: 20 gm Lidocaine (Lidocaine 4 % Patch Adh..Patch) 1 patch TRANSDERMA DAILY PRN PRN Reason: pain Last Admin: 11/06/24 20:39 Dose: 1 patch Lisinopril (Lisinopril 10 Mg Tablet) 10 mg PO DAILY [facility]; Protocol Last Admin: 11/07/24 08:47 Dose: 10 mg Lorazepam (Lorazepam 1 Mg Tablet) 2 mg PO Q4H PRN PRN Reason: ciwa 13-17 Lorazepam (Lorazepam 1 Mg Tablet) 1 mg PO Q4H PRN PRN Reason: ciwa 7-12 Last Admin: 11/05/24 07:12 Dose: 1 mg Lorazepam (Lorazepam 1 Mg Tablet) 3 mg PO Q4H PRN PRN Reason: ciwa >17, notify Magnesium Hydroxide (Milk Of Magnesia 30 Ml Oral.Susp) 30 ml PO DAILY PRN PRN Reason: Constipation Metformin HCl (Metformin Hcl Er 500 Mg Tab.Er.24h) 500 mg PO BEDTIME [facility] Last Admin: 11/06/24 20:35 Dose: 500 mg Methadone HCl (Methadone Hcl 20 Mg/2 Ml Oral.Conc) 10 mg PO DAILY PRN PRN Reason: Opiate Withdrawal or uncontrolled pain (7-10) Last Admin: 11/06/24 20:32 Dose: 10 mg Methadone HCl (Methadone Hcl 20 Mg/2 Ml Oral.Conc) 40 mg PO DAILY@0800 [facility] Last Admin: 11/07/24 08:12 Dose: 40 mg Metoprolol Tartrate (Metoprolol Tartrate 50 Mg Tablet) 150 mg PO BID [facility]; Protocol Last Admin: 11/07/24 08:47 Dose: 150 mg Naloxone HCl (Naloxone Hcl Nasal 4 Mg [place]) 4 mg NOSTRILALT Q2M PRN PRN Reason: opioid overdose Nicotine (Nicotine 21 Mg Patch.Td24) 21 mg TRANSDERMA DAILY PRN PRN Reason: nicotine cravings Nicotine Polacrilex (Nicotine Polacrilex 2 Mg Gum) 4 mg BUCCAL Q2H PRN PRN Reason: Nicotine Cravings Trazodone HCl (Trazodone Hcl 50 Mg Tablet) 50 mg PO BEDTIME MRX1 PRN PRN Reason: Insomnia Last Admin: 11/06/24 23:17 Dose: 50 mg Venlafaxine HCl (Venlafaxine Hcl Er 37.5 Mg Cap.Er.24h) 37.5 mg PO DAILY [facility] Last Admin: 11/07/24 08:47 Dose: 37.5 mg Allergies Allergies Allergy/AdvReac Type Severity Reaction Status Date / Time No Known Allergies Allergy Verified 11/02/24 14:23 Assessment & Plan Assessment & Plan (1) MDD (major depressive disorder), recurrent episode, moderate: Status: Acute Code(s): F33.1 - Major depressive disorder, recurrent, moderate (2) Opioid use disorder, severe, dependence: Status: Acute Code(s): F11.20 - Opioid dependence, uncomplicated Assessment and Plan: methadone 30mg daily starting 11/06--will titrate dose as necessary and appropriate methadone 10mg once daily PRN withdrawal sx EKG reviewed Hepatitis screens ordered will continue to follow--AUD resources and follow up needed as well will need coordination with [facility] in [place] for continuation of OUD treatment (3) Alcohol use disorder, moderate, dependence: Status: Acute Code(s): F10.20 - Alcohol dependence, uncomplicated Plan Mr. Tolentino is a 64 year-old male with hx of alcohol, opioid use disorder who self presented [place] [facility] [place] reporting abdominal pain found to have diverticulitis, started on augmentin. Utox positive for fentanyl and oxycodone. He also reported increased depression and SI initially with a plan to shoot himself. On the unit, he denies any plan or intent to harm himself but does report that he has been more depressed in past months. It also seems that he has not been to his PCP recently. His LFTs elevated, ammonia mildly elevated 58. A1c also elevated 7.8% which he says he has never been told he has DM. We discussed risks, benefits and alternative treatment options. Will start lactulose 20gm BID, recheck ammonia tomorrow AM. Start metformin ER 500mg po qhs- with plan to follow up with PCP. Although B12 not severely low 480's will give one time dose of cyanocobalamine 1000mcg IM. Will start effexor for depression 37.5mg po daily, monitor SBP. Addiction consult to adjust Methadone- he was started on methadone 10mg po daily. EKG shows Afib- reviewed with Dr. Landers since long hx of Afib, no RVR, already on eliquix and metoprolol- no additional intervention needed. PLAN 1. Admit to M3, CV, 5 mins checks due to walker 2. Medical: Lactulose 20gm po BID for elevated ammonia 58 on 11/05/24, will recheck on 11/[address] abdomen shows cirrhosis, need to be seen by GI. A1c 7.8% started on metformin ER 500mg po qhs--> follow up with PCP. May benefit from SGLT2 for additional cardiac protection given hx of HF with preserved ejection fraction. EKG shows Afib, long hx of persistent afib, no RVR, already on eliquis and metoprolol. Per Dr. Landers no additional intervention at this point. 3. Ordered addiction medicine consult to adjust methadone. Started in ED methadone 10mg po daily. 4. Start Effexor 37.5mg po daily for depression, using SNRI to help with energy. Monitor SBP. 5. aftercare planning 11/06: Active on unit, social with peers. attending groups. Patient reports feeling depressed ; pt stated, my pain kept me up all night. I'm walking hurt. I relapsed because of the pain. I wouldn't kill myself because that would only hurt my if I did that . denies SI/HI/VH/AH. Patient reports he feels methadone helped him a bit with his pain; being followed by Yumiko Simms NP. 11/07: Active on unit, social with peers. attending groups. Patient reports feeling okay today; pt stated, I always feel anxious but today I'm feeling like I can walk better. The methadone is helping me but it makes me feel out of it . Per nursing, slept 6 hours. denies SI/HI/VH/AH. Continue current tx plan. Patient educated on: diagnosis, medication risk/benefits and therapeutic strategies Reason for continued inpatient stay Substantial Risk for: med/psych decompensation Time Spent With Patient Time: Total time managing care of this patient today _20___ minutes.
[2024-11-07 21:56] VITALS: BP 113/55; PULSE 78; RESP 20; TEMP 36.1; O2SAT 93
[2024-11-07] MEDS: methADONE HCl 20 MG/2 ML ORAL.CONC 10 MG PO (22:03)
[2024-11-07] MEDS: traZODone HCL 50 MG TABLET PO (22:04)
[2024-11-07] MEDS: metFORMIN HCl ER 500 MG TAB.ER.24H PO (22:05)
[2024-11-07] MEDS: hydrOXYzine HCL 25 MG TABLET PO (22:05)
[2024-11-07] MEDS: Colchicine 0.6 MG TABLET PO (22:07)
[2024-11-07] MEDS: Lidocaine 4 % Patch ADH..PATCH 1 PATCH TRANSDERMA (22:10)
[2024-11-08] MEDS: traZODone HCL 50 MG TABLET PO (02:31)
[2024-11-08] MEDS: methADONE HCl 20 MG/2 ML ORAL.CONC 10 MG PO (02:32)
[2024-11-08 07:25] VITALS: BP 148/78; PULSE 107; RESP 14; TEMP 36.4; O2SAT 93
[2024-11-08] MEDS: Colchicine 0.6 MG TABLET PO ×3 (08:34→21:17)
[2024-11-08 08:47] VITALS: BP 148/78; PULSE 107
[2024-11-08] MEDS: Metoprolol Tartrate 50 MG TABLET 150 MG PO ×2 (08:47→21:17)
[2024-11-08] MEDS: Digoxin 0.125 MG TABLET PO (08:49)
[2024-11-08 08:50] VITALS: BP 148/78
[2024-11-08] MEDS: Furosemide 20 MG TABLET PO (08:50)
[2024-11-08] MEDS: Amoxicillin/Potassium Clav 875 MG TABLET PO ×3 (08:50→22:26)
[2024-11-08 08:51] VITALS: BP 148/78
[2024-11-08] MEDS: Apixaban 5 MG TABLET PO ×2 (08:51→21:16)
[2024-11-08] MEDS: lisinopriL 10 MG TABLET PO (08:51)
[2024-11-08] MEDS: Venlafaxine HCl ER 37.5 MG CAP.ER.24H PO (08:51)
[2024-11-08] MEDS: Lactulose 20 GM/30 ML SOLUTION PO ×2 (09:00→21:17)
--- NOTE | 2024-11-08 10:27 | HO.PSYCHPN ---
Subjective Subjective Date of Service: 11/08/24 Reason For Visit: Depression Subjective Notes: Conditional Voluntary Interim History: Patient was seen and discussed in rounds today. Records and plans were reviewed. He continues to have a lot of hand, knee discomfort and pain and was wondering about a hospital bed which is not possible here nor is it safe to give him 2 mattresses which is going to make him be more unsteady upon getting up and movements at nights. He also feels a little to ?cloudy? in his mind from the methadone which he requested to decrease to 30 mg. He still has a p.r.n. 10 mg available. I also ordered capsaicin cream for his knees. Eating adequately. No SI. No other changes were made. He also wanted his colchicine to be on a regular basis because he was not aware that he could have it up to 3 times so I changed it to scheduled dosing. Review of Systems Review of Systems Hand and knee pain and swelling Yes all other systems are reviewed and are negative Mental Status Exam Mental Status Exam Narrative: In today's visit he is alert, oriented and pleasant. Normal speech. Good eye contact. Affect is appropriate and subdued. No signs of psychosis. Cognitively he is grossly intact. No SI/HI. He is able to move his limbs but with difficulty because of pain and swelling. No abnormalities of gait. Judgment is intact Diagnostics Vital Signs (24Hr): Vital Signs - 24 hr 11/07/24 21:56 11/08/24 07:25 11/08/24 08:47 Temperature 97.0 F 97.6 F Pulse Rate 78 107 H 107 H Respiratory Rate 20 14 Blood Pressure 113/55 L 148/78 H 148/78 H Pulse Oximetry 93 93 Oxygen Delivery Method Room Air Room Air 11/08/24 08:50 11/08/24 08:51 Temperature Pulse Rate Respiratory Rate Blood Pressure 148/78 H 148/78 H Pulse Oximetry Oxygen Delivery Method BMI result Body Mass Index 39.8 Labs 11/02/24 15:31 11/04/24 16:47 Labs: Laboratory Results - last 48 hr 11/04/24 11/06/24 16:47 16:34 POC Glucose 149 H Hepatitis A IgM Ab Nonreactive Hep Bs Antigen Negative Hep Bs Antibody NONREACTIVE Hep B Core Total Ab Nonreactive Hepatitis C Ab (EIA) Nonreactive Medications Medications Current Medications Al Hydroxide/Mg Hydroxide (Magnesium Hydrox/Alum Hydrox 30 Ml Oral.Susp) 30 ml PO Q6H PRN PRN Reason: Heartburn/Nausea Last Admin: 11/05/24 16:43 Dose: 30 ml Albuterol Sulfate (Albuterol Sulfate 90 Mcg 8 Gm Inhaler) 2 puff INHALE Q4H PRN PRN Reason: wheezing Amoxicillin/Clavulanate Potassium (Amoxicillin/Potassium Clav 875 Mg Tablet) 875 mg PO Q8H [facility] Stop: 11/10/24 07:44 Last Admin: 11/08/24 08:50 Dose: 875 mg Apixaban (Apixaban 5 Mg Tablet) 5 mg PO BID [facility] Last Admin: 11/08/24 08:51 Dose: 5 mg Capsaicin (Capsaicin 0.025% Cream 60 Gm Tube) 1 appl TOPICAL QID PRN; Protocol PRN Reason: knee pain Colchicine (Colchicine 0.6 Mg Tablet) 0.6 mg PO TID [facility] Digoxin (Digoxin 0.125 Mg Tablet) 0.125 mg PO DAILY [facility]; Protocol Last Admin: 11/08/24 08:49 Dose: 0.125 mg Furosemide (Furosemide 20 Mg Tablet) 20 mg PO DAILY [facility]; Protocol Last Admin: 11/08/24 08:50 Dose: 20 mg Hydroxyzine HCl (Hydroxyzine Hcl 25 Mg Tablet) 25 mg PO Q6H PRN PRN Reason: Anxiety Last Admin: 11/07/24 22:05 Dose: 25 mg Lactulose (Lactulose 20 Gm/30 Ml Solution) 20 gm PO BID [facility] Last Admin: 11/08/24 09:00 Dose: 20 gm Lidocaine (Lidocaine 4 % Patch Adh..Patch) 1 patch TRANSDERMA DAILY PRN PRN Reason: pain Last Admin: 11/07/24 22:10 Dose: 1 patch Lisinopril (Lisinopril 10 Mg Tablet) 10 mg PO DAILY [facility]; Protocol Last Admin: 11/08/24 08:51 Dose: 10 mg Magnesium Hydroxide (Milk Of Magnesia 30 Ml Oral.Susp) 30 ml PO DAILY PRN PRN Reason: Constipation Metformin HCl (Metformin Hcl Er 500 Mg Tab.Er.24h) 500 mg PO BEDTIME [facility] Last Admin: 11/07/24 22:05 Dose: 500 mg Methadone HCl (Methadone Hcl 20 Mg/2 Ml Oral.Conc) 10 mg PO DAILY PRN PRN Reason: Opiate Withdrawal or uncontrolled pain (7-10) Last Admin: 11/08/24 02:32 Dose: 10 mg Methadone HCl (Methadone Hcl 20 Mg/2 Ml Oral.Conc) 30 mg PO DAILY@0800 [facility] Metoprolol Tartrate (Metoprolol Tartrate 50 Mg Tablet) 150 mg PO BID [facility]; Protocol Last Admin: 11/08/24 08:47 Dose: 150 mg Naloxone HCl (Naloxone Hcl Nasal 4 Mg [place]) 4 mg NOSTRILALT Q2M PRN PRN Reason: opioid overdose Nicotine (Nicotine 21 Mg Patch.Td24) 21 mg TRANSDERMA DAILY PRN PRN Reason: nicotine cravings Nicotine Polacrilex (Nicotine Polacrilex 2 Mg Gum) 4 mg BUCCAL Q2H PRN PRN Reason: Nicotine Cravings Trazodone HCl (Trazodone Hcl 50 Mg Tablet) 50 mg PO BEDTIME MRX1 PRN PRN Reason: Insomnia Last Admin: 11/08/24 02:31 Dose: 50 mg Venlafaxine HCl (Venlafaxine Hcl Er 37.5 Mg Cap.Er.24h) 37.5 mg PO DAILY [facility] Last Admin: 11/08/24 08:51 Dose: 37.5 mg Allergies Allergies Allergy/AdvReac Type Severity Reaction Status Date / Time No Known Allergies Allergy Verified 11/02/24 14:23 Assessment & Plan Assessment & Plan (1) MDD (major depressive disorder), recurrent episode, moderate: Status: Acute Code(s): F33.1 - Major depressive disorder, recurrent, moderate (2) Opioid use disorder, severe, dependence: Status: Acute Code(s): F11.20 - Opioid dependence, uncomplicated Assessment and Plan: methadone 30mg daily starting 11/06--will titrate dose as necessary and appropriate methadone 10mg once daily PRN withdrawal sx EKG reviewed Hepatitis screens ordered will continue to follow--AUD resources and follow up needed as well will need coordination with [facility] in [place] for continuation of OUD treatment (3) Alcohol use disorder, moderate, dependence: Status: Acute Code(s): F10.20 - Alcohol dependence, uncomplicated Plan Mr. Tolentino is a 64 year-old male with hx of alcohol, opioid use disorder who self [place] [facility] reporting abdominal pain found to have diverticulitis, started on augmentin. Utox positive for fentanyl and oxycodone. He also reported increased depression and SI initially with a plan to shoot himself. On the unit, he denies any plan or intent to harm himself but does report that he has been more depressed in past months. It also seems that he has not been to his PCP recently. His LFTs elevated, ammonia mildly elevated 58. A1c also elevated 7.8% which he says he has never been told he has DM. We discussed risks, benefits and alternative treatment options. Will start lactulose 20gm BID, recheck ammonia tomorrow AM. Start metformin ER 500mg po qhs- with plan to follow up with PCP. Although B12 not severely low 480's will give one time dose of cyanocobalamine 1000mcg IM. Will start effexor for depression 37.5mg po daily, monitor SBP. Addiction consult to adjust Methadone- he was started on methadone 10mg po daily. EKG shows Afib- reviewed with Dr. Landers since long hx of Afib, no RVR, already on eliquix and metoprolol- no additional intervention needed. PLAN 1. Admit to M3, CV, 5 mins checks due to walker 2. Medical: Lactulose 20gm po BID for elevated ammonia 58 on 11/05/24, will recheck on 11/[address] abdomen shows cirrhosis, need to be seen by GI. A1c 7.8% started on metformin ER 500mg po qhs--> follow up with PCP. May benefit from SGLT2 for additional cardiac protection given hx of HF with preserved ejection fraction. EKG shows Afib, long hx of persistent afib, no RVR, already on eliquis and metoprolol. Per Dr. Landers no additional intervention at this point. 3. Ordered addiction medicine consult to adjust methadone. Started in ED methadone 10mg po daily. 4. Start Effexor 37.5mg po daily for depression, using SNRI to help with energy. Monitor SBP. 5. aftercare planning 11/06: Active on unit, social with peers. attending groups. Patient reports feeling depressed ; pt stated, my pain kept me up all night. I'm walking hurt. I relapsed because of the pain. I wouldn't kill myself because that would only hurt my if I did that . denies SI/HI/VH/AH. Patient reports he feels methadone helped him a bit with his pain; being followed by Yumiko Simms NP. 11/07: Active on unit, social with peers. attending groups. Patient reports feeling okay today; pt stated, I always feel anxious but today I'm feeling like I can walk better. The methadone is helping me but it makes me feel out of it . Per nursing, slept 6 hours. denies SI/HI/VH/AH. Continue current tx plan. 11/08: Continue current regimen and plans. Decreased his methadone to 30 mg, colchicine to t.i.d. dosing schedule and capsaicin ointment for his knees Patient educated on: medication risk/benefits Reason for continued inpatient stay Substantial Risk for: med/psych decompensation Time Spent With Patient Time: Total time managing care of this patient today ____ minutes.
[2024-11-08] MEDS: methADONE HCl 20 MG/2 ML ORAL.CONC 30 MG PO (15:18)
[2024-11-08 20:30] VITALS: BP 114/59; PULSE 86; TEMP 36.5; O2SAT 91
[2024-11-08] MEDS: metFORMIN HCl ER 500 MG TAB.ER.24H PO (21:16)
[2024-11-08] MEDS: hydrOXYzine HCL 25 MG TABLET PO (21:20)
[2024-11-08] MEDS: Capsaicin 0.025% Cream 60 GM TUBE 1 APPL TOPICAL (22:25)
[2024-11-09 07:43] VITALS: BP 131/74; PULSE 88; RESP 14; TEMP 36.3; O2SAT 94
[2024-11-09] MEDS: methADONE HCl 20 MG/2 ML ORAL.CONC 30 MG PO (08:12)
[2024-11-09] MEDS: Lactulose 20 GM/30 ML SOLUTION PO ×2 (09:02→20:32)
[2024-11-09 09:03] VITALS: BP 131/74
[2024-11-09] MEDS: lisinopriL 10 MG TABLET PO (09:03)
[2024-11-09] MEDS: Apixaban 5 MG TABLET PO ×2 (09:03→20:32)
[2024-11-09 09:04] VITALS: BP 131/74
[2024-11-09] MEDS: Amoxicillin/Potassium Clav 875 MG TABLET PO ×3 (09:04→22:31)
[2024-11-09] MEDS: Venlafaxine HCl ER 37.5 MG CAP.ER.24H PO (09:04)
[2024-11-09] MEDS: Furosemide 20 MG TABLET PO (09:04)
[2024-11-09 09:05] VITALS: BP 131/74; PULSE 88
[2024-11-09] MEDS: Metoprolol Tartrate 50 MG TABLET 150 MG PO ×2 (09:05→20:32)
[2024-11-09] MEDS: Digoxin 0.125 MG TABLET PO (09:05)
[2024-11-09] MEDS: Colchicine 0.6 MG TABLET PO ×3 (09:06→20:32)
--- NOTE | 2024-11-09 15:40 | P.PNPSI_ITS ---
Subjective Subjective Date of Service: 11/09/24 Reason For Visit: Depression Interim History: in bed, supine, elbows resting on bed but forearms vertical. c/o severe pain, especially in the wrists, kness, ankles B/L. states it feels like gout pain, with which he is familiar. speaks of methadone's inadequacy and how he was on oxycodone before. i can't go home in pain. per staff, 20/10 pain. methadone decreased. can barely get out of bed 2/2 pain. Mental Status Exam Mental Status Exam Narrative: Pt is alert and oriented; behavior is cooperative and calm; dressed in casual attire; eye contact appropriate; Speech is normal rate, volume and not pressured; thought process is organized and goal directed; Thought content is on pain, pain mgmt; denies SI. no HI/AVH expressed. Diagnostics Vital Signs (24Hr): Vital Signs - 24 hr 11/08/24 20:30 11/09/24 07:43 11/09/24 09:03 Temperature 97.7 F 97.3 F Pulse Rate 86 88 Respiratory Rate 14 Blood Pressure 114/59 L 131/74 131/74 Pulse Oximetry 91 L 94 Oxygen Delivery Method Room Air Room Air 11/09/24 09:04 11/09/24 09:05 Temperature Pulse Rate 88 Respiratory Rate Blood Pressure 131/74 131/74 Pulse Oximetry Oxygen Delivery Method BMI result Body Mass Index 39.8 Labs 11/02/24 15:31 11/04/24 16:47 Medications Medications Current Medications Al Hydroxide/Mg Hydroxide (Magnesium Hydrox/Alum Hydrox 30 Ml Oral.Susp) 30 ml PO Q6H PRN PRN Reason: Heartburn/Nausea Last Admin: 11/05/24 16:43 Dose: 30 ml Albuterol Sulfate (Albuterol Sulfate 90 Mcg 8 Gm Inhaler) 2 puff INHALE Q4H PRN PRN Reason: wheezing Amoxicillin/Clavulanate Potassium (Amoxicillin/Potassium Clav 875 Mg Tablet) 875 mg PO Q8H [facility] Stop: 11/10/24 07:44 Last Admin: 11/09/24 14:33 Dose: 875 mg Apixaban (Apixaban 5 Mg Tablet) 5 mg PO BID [facility] Last Admin: 11/09/24 09:03 Dose: 5 mg Capsaicin (Capsaicin 0.025% Cream 60 Gm Tube) 1 appl TOPICAL QID PRN; Protocol PRN Reason: knee pain Last Admin: 11/08/24 22:25 Dose: 1 appl Colchicine (Colchicine 0.6 Mg Tablet) 0.6 mg PO TID [facility] Last Admin: 11/09/24 14:33 Dose: 0.6 mg Digoxin (Digoxin 0.125 Mg Tablet) 0.125 mg PO DAILY [facility]; Protocol Last Admin: 11/09/24 09:05 Dose: 0.125 mg Furosemide (Furosemide 20 Mg Tablet) 20 mg PO DAILY [facility]; Protocol Last Admin: 11/09/24 09:04 Dose: 20 mg Hydroxyzine HCl (Hydroxyzine Hcl 25 Mg Tablet) 25 mg PO Q6H PRN PRN Reason: Anxiety Last Admin: 11/08/24 21:20 Dose: 25 mg Lactulose (Lactulose 20 Gm/30 Ml Solution) 20 gm PO BID [facility] Last Admin: 11/09/24 09:02 Dose: 20 gm Lidocaine (Lidocaine 4 % Patch Adh..Patch) 1 patch TRANSDERMA DAILY PRN PRN Reason: pain Last Admin: 11/07/24 22:10 Dose: 1 patch Lisinopril (Lisinopril 10 Mg Tablet) 10 mg PO DAILY [facility]; Protocol Last Admin: 11/09/24 09:03 Dose: 10 mg Magnesium Hydroxide (Milk Of Magnesia 30 Ml Oral.Susp) 30 ml PO DAILY PRN PRN Reason: Constipation Metformin HCl (Metformin Hcl Er 500 Mg Tab.Er.24h) 500 mg PO BEDTIME [facility] Last Admin: 11/08/24 21:16 Dose: 500 mg Methadone HCl (Methadone Hcl 20 Mg/2 Ml Oral.Conc) 10 mg PO DAILY PRN PRN Reason: Opiate Withdrawal or uncontrolled pain (7-10) Last Admin: 11/08/24 02:32 Dose: 10 mg Methadone HCl (Methadone Hcl 20 Mg/2 Ml Oral.Conc) 30 mg PO DAILY@0800 [facility] Last Admin: 11/09/24 08:12 Dose: 30 mg Metoprolol Tartrate (Metoprolol Tartrate 50 Mg Tablet) 150 mg PO BID [facility]; Protocol Last Admin: 11/09/24 09:05 Dose: 150 mg Naloxone HCl (Naloxone Hcl Nasal 4 Mg [place]) 4 mg NOSTRILALT Q2M PRN PRN Reason: opioid overdose Nicotine (Nicotine 21 Mg Patch.Td24) 21 mg TRANSDERMA DAILY PRN PRN Reason: nicotine cravings Nicotine Polacrilex (Nicotine Polacrilex 2 Mg Gum) 4 mg BUCCAL Q2H PRN PRN Reason: Nicotine Cravings Trazodone HCl (Trazodone Hcl 50 Mg Tablet) 50 mg PO BEDTIME MRX1 PRN PRN Reason: Insomnia Last Admin: 11/08/24 02:31 Dose: 50 mg Venlafaxine HCl (Venlafaxine Hcl Er 37.5 Mg Cap.Er.24h) 37.5 mg PO DAILY [facility] Last Admin: 11/09/24 09:04 Dose: 37.5 mg Allergies Allergies Allergy/AdvReac Type Severity Reaction Status Date / Time No Known Allergies Allergy Verified 11/02/24 14:23 Assessment & Plan Assessment & Plan (1) MDD (major depressive disorder), recurrent episode, moderate: Status: Acute Code(s): F33.1 - Major depressive disorder, recurrent, moderate (2) Opioid use disorder, severe, dependence: Status: Acute Code(s): F11.20 - Opioid dependence, uncomplicated Assessment and Plan: * methadone 30mg daily starting 11/06--will titrate dose as necessary and appropriate * methadone 10mg once daily PRN withdrawal sx * EKG reviewed * Hepatitis screens ordered * will continue to follow--AUD resources and follow up needed as well * will need coordination with [facility] in [place] for continuation of OUD treatment (3) Alcohol use disorder, moderate, dependence: Status: Acute Code(s): F10.20 - Alcohol dependence, uncomplicated Plan Mr. Tolentino is a 64 year-old male with hx of alcohol, opioid use disorder who self presented to [facility] [place] [facility] reporting abdominal pain found to have diverticulitis, started on augmentin. Utox positive for fentanyl and oxycodone. He also reported increased depression and SI initially with a plan to shoot himself. On the unit, he denies any plan or intent to harm himself but does report that he has been more depressed in past months. It also seems that he has not been to his PCP recently. His LFTs elevated, ammonia mildly elevated 58. A1c also elevated 7.8% which he says he has never been told he has DM. We discussed risks, benefits and alternative treatment options. Will start lactulose 20gm BID, recheck ammonia tomorrow AM. Start metformin ER 500mg po qhs- with plan to follow up with PCP. Although B12 not severely low 480's will give one time dose of cyanocobalamine 1000mcg IM. Will start effexor for depression 37.5mg po daily, monitor SBP. Addiction consult to adjust Methadone- he was started on methadone 10mg po daily. EKG shows Afib- reviewed with Dr. Landers since long hx of Afib, no RVR, already on eliquix and metoprolol- no additional intervention needed. PLAN 1. Admit to M3, CV, 5 mins checks due to walker 2. Medical: Lactulose 20gm po BID for elevated ammonia 58 on 11/05/24, will recheck on 11/[address] abdomen shows cirrhosis, need to be seen by GI. A1c 7.8% started on metformin ER 500mg po qhs--> follow up with PCP. May benefit from SGLT2 for additional cardiac protection given hx of HF with preserved ejection fraction. EKG shows Afib, long hx of persistent afib, no RVR, already on eliquis and metoprolol. Per Dr. Landers no additional intervention at this point. 3. Ordered addiction medicine consult to adjust methadone. Started in ED methadone 10mg po daily. 4. Start Effexor 37.5mg po daily for depression, using SNRI to help with energy. Monitor SBP. 5. aftercare planning 11/06: Active on unit, social with peers. attending groups. Patient reports feeling depressed ; pt stated, my pain kept me up all night. I'm walking hurt. I relapsed because of the pain. I wouldn't kill myself because that would only hurt my if I did that . denies SI/HI/VH/AH. Patient reports he feels methadone helped him a bit with his pain; being followed by Yumiko Simms NP. 11/07: Active on unit, social with peers. attending groups. Patient reports feeling okay today; pt stated, I always feel anxious but today I'm feeling like I can walk better. The methadone is helping me but it makes me feel out of it . Per nursing, slept 6 hours. denies SI/HI/VH/AH. Continue current tx plan. 11/08: Continue current regimen and plans. Decreased his methadone to 30 mg, colchicine to t.i.d. dosing schedule and capsaicin ointment for his knees. 11/09: B/L and polyarticular pain not c/w gout; hospitalist consult for proper eval and mgmt. aware staying on psych unit is not tenable for either pain or medical problems, denies SI. informed of plan for discharge tomorrow, pending outcome of hospitalist consult. Reason for continued inpatient stay Substantial Risk for: inability to function and rapid decompensation Time Spent With Patient Time: Total time managing care of this patient today _35___ minutes.
--- NOTE | 2024-11-09 16:51 | P.PNADD_ITS ---
Subjective Subjective Date of Service: 11/09/24 Reason For Visit: Depression Interim History: Patient seen in follow up. Laying in bed, awake, alert Chart review shows methadone dose was decreased to 30mg daily (from 40mg) per patient request Patient reporting he does not like the way methadone is making him feel I feel cloudly all day . He states that when he first received it, it was helpful, but as the days have gone on he david not care for it any longer. He states that he knows decreasing the dose has not been helpful for his pain, but he would rather address his pain in a different manner that does not make him feel the way he does. 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 Patient verbalizing hesitation around this, and states that he wants to wait and see what hospitalist says. Discussed concern with stopping medications for opiate use disorder and risk for overdose, worsening pain, and overall impacted quality of life. Patient verbalized understating and asked that methadone continue to be decreased. He reports joint pain, inability to ambulate without assistance, and stomach discomfort. Reminded patient that some of these sx are likely related to and worsened by opiate withdrawal. Patient partially in agreement, I really do think something else is wrong with me, I just don't know what Review of Systems Constitutional: Reports as per HPI Mental Status Exam Mental Status Exam Level of Consciousness: Awake and Alert Patient Behavior: Appropriate Mood Description: Anxious Affect Description: Anxious Diagnostics Vital Signs (24Hr): Vital Signs - 24 hr 11/08/24 20:30 11/09/24 07:43 11/09/24 09:03 Temperature 97.7 F 97.3 F Pulse Rate 86 88 Respiratory Rate 14 Blood Pressure 114/59 L 131/74 131/74 Pulse Oximetry 91 L 94 Oxygen Delivery Method Room Air Room Air 11/09/24 09:04 11/09/24 09:05 Temperature Pulse Rate 88 Respiratory Rate Blood Pressure 131/74 131/74 Pulse Oximetry Oxygen Delivery Method BMI result Body Mass Index 39.8 Labs 11/02/24 15:31 11/04/24 16:47 Medications Medications Current Medications Al Hydroxide/Mg Hydroxide (Magnesium Hydrox/Alum Hydrox 30 Ml Oral.Susp) 30 ml PO Q6H PRN PRN Reason: Heartburn/Nausea Last Admin: 11/05/24 16:43 Dose: 30 ml Albuterol Sulfate (Albuterol Sulfate 90 Mcg 8 Gm Inhaler) 2 puff INHALE Q4H PRN PRN Reason: wheezing Amoxicillin/Clavulanate Potassium (Amoxicillin/Potassium Clav 875 Mg Tablet) 875 mg PO Q8H [facility] Stop: 11/10/24 07:44 Last Admin: 11/09/24 14:33 Dose: 875 mg Apixaban (Apixaban 5 Mg Tablet) 5 mg PO BID [facility] Last Admin: 11/09/24 09:03 Dose: 5 mg Capsaicin (Capsaicin 0.025% Cream 60 Gm Tube) 1 appl TOPICAL QID PRN; Protocol PRN Reason: knee pain Last Admin: 11/08/24 22:25 Dose: 1 appl Colchicine (Colchicine 0.6 Mg Tablet) 0.6 mg PO TID [facility] Last Admin: 11/09/24 14:33 Dose: 0.6 mg Digoxin (Digoxin 0.125 Mg Tablet) 0.125 mg PO DAILY [facility]; Protocol Last Admin: 11/09/24 09:05 Dose: 0.125 mg Furosemide (Furosemide 20 Mg Tablet) 20 mg PO DAILY [facility]; Protocol Last Admin: 11/09/24 09:04 Dose: 20 mg Hydroxyzine HCl (Hydroxyzine Hcl 25 Mg Tablet) 25 mg PO Q6H PRN PRN Reason: Anxiety Last Admin: 11/08/24 21:20 Dose: 25 mg Lactulose (Lactulose 20 Gm/30 Ml Solution) 20 gm PO BID [facility] Last Admin: 11/09/24 09:02 Dose: 20 gm Lidocaine (Lidocaine 4 % Patch Adh..Patch) 1 patch TRANSDERMA DAILY PRN PRN Reason: pain Last Admin: 11/07/24 22:10 Dose: 1 patch Lisinopril (Lisinopril 10 Mg Tablet) 10 mg PO DAILY [facility]; Protocol Last Admin: 11/09/24 09:03 Dose: 10 mg Magnesium Hydroxide (Milk Of Magnesia 30 Ml Oral.Susp) 30 ml PO DAILY PRN PRN Reason: Constipation Metformin HCl (Metformin Hcl Er 500 Mg Tab.Er.24h) 500 mg PO BEDTIME [facility] Last Admin: 11/08/24 21:16 Dose: 500 mg Methadone HCl (Methadone Hcl 20 Mg/2 Ml Oral.Conc) 30 mg PO DAILY@0800 [facility] Last Admin: 11/09/24 08:12 Dose: 30 mg Metoprolol Tartrate (Metoprolol Tartrate 50 Mg Tablet) 150 mg PO BID [facility]; Protocol Last Admin: 11/09/24 09:05 Dose: 150 mg Naloxone HCl (Naloxone Hcl Nasal 4 Mg [place]) 4 mg NOSTRILALT Q2M PRN PRN Reason: opioid overdose Nicotine (Nicotine 21 Mg Patch.Td24) 21 mg TRANSDERMA DAILY PRN PRN Reason: nicotine cravings Nicotine Polacrilex (Nicotine Polacrilex 2 Mg Gum) 4 mg BUCCAL Q2H PRN PRN Reason: Nicotine Cravings Trazodone HCl (Trazodone Hcl 50 Mg Tablet) 50 mg PO BEDTIME MRX1 PRN PRN Reason: Insomnia Last Admin: 11/08/24 02:31 Dose: 50 mg Venlafaxine HCl (Venlafaxine Hcl Er 37.5 Mg Cap.Er.24h) 37.5 mg PO DAILY [facility] Last Admin: 11/09/24 09:04 Dose: 37.5 mg Allergies Allergies Allergy/AdvReac Type Severity Reaction Status Date / Time No Known Allergies Allergy Verified 11/02/24 14:23 Assessment & Plan Assessment & Plan (1) Opioid use disorder, severe, dependence: Status: Acute Code(s): F11.20 - Opioid dependence, uncomplicated Assessment and Plan: * does not wish to continue with methadone due to cloudy feeling * would like to decrease methadone to 20mg tomorrow, will decrease to 25mg. discussed transitioning back to buprenorphine (Suboxone), patient undecided at this time, wants to wait to see medical provider Total time managing care of this patient today ____ minutes.
[2024-11-09 20:00] VITALS: BP 138/89; PULSE 79; RESP 16; TEMP 36.4; O2SAT 97
[2024-11-09] MEDS: metFORMIN HCl ER 500 MG TAB.ER.24H PO (20:32)
[2024-11-09] MEDS: traZODone HCL 50 MG TABLET PO (20:32)
[2024-11-09] MEDS: hydrOXYzine HCL 25 MG TABLET PO (20:32)
[2024-11-10 07:45] VITALS: BP 141/67; PULSE 90; RESP 14; TEMP 36.4; O2SAT 91
[2024-11-10] MEDS: methADONE HCl 20 MG/2 ML ORAL.CONC 25 MG PO (08:07)
[2024-11-10 08:45] VITALS: BP 141/67
[2024-11-10] MEDS: Furosemide 20 MG TABLET PO (08:45)
[2024-11-10] MEDS: Colchicine 0.6 MG TABLET PO ×3 (08:45→20:33)
[2024-11-10 08:46] VITALS: BP 141/67; PULSE 90
[2024-11-10] MEDS: Apixaban 5 MG TABLET PO ×2 (08:46→20:33)
[2024-11-10] MEDS: lisinopriL 10 MG TABLET PO (08:46)
[2024-11-10] MEDS: Digoxin 0.125 MG TABLET PO (08:46)
[2024-11-10] MEDS: Metoprolol Tartrate 50 MG TABLET 150 MG PO ×2 (08:46→20:32)
[2024-11-10] MEDS: Venlafaxine HCl ER 37.5 MG CAP.ER.24H PO (08:46)
--- NOTE | 2024-11-10 11:30 | PM.EVENT ---
Event Note Date of Service: 11/10/24 Event Note: The patient is a 63-year-old male with a PMH significant for HFeEF, HTN, AFib on Eliquis, chronic low back pain with lumbar degenerative disc disease, osteoarthritis, alcohol use disorder, and gout who was admitted to M3 psych unit with hospitalist consult for bilateral wrist, knee, and ankle pain. The patient reports symptoms began last Wednesday and have not been alleviated by colchicine. Denies any fall or trauma to the area. Reports history of gout in his left great toe with last exacerbation approximately 3 weeks ago. Reports reduced ROM secondary to pain of wrists, hands, knees, hips, ankles, toes bilaterally. Patient with 1/5 strength of upper and lower extremities bilaterally during examination. However, when patient was observed during interview was noted to be moving extremities freely and with a much greater ROM than demonstrated during physical exam. Will treat patient with a prednisone taper: 60 mg daily x3 days, 40 mg daily x3 days, and 20 mg daily x3 days. No indication for additional workup or treatment at this time. Time Spent With Patient Time: Total time managing care of this patient today ____ minutes.
[2024-11-10] MEDS: predniSONE 20 MG TABLET 60 MG PO (13:45)
--- NOTE | 2024-11-10 15:47 | HO.PSYCHPN ---
Subjective Subjective Date of Service: 11/10/24 Reason For Visit: Depression Subjective Notes: Conditional Voluntary Interim History: Laying in bed. Patient reports feeling fine other than being in pain ; patient stated, I'm sad because of my family members passing but I don't want to . I love life. 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 denies SI/HI/VH/AH. Start: Cymbalta 20mg PO daily Pt seen by hospitalist; started on prednisone; please see note. Plan for discharge Wednesday;pt aware. Medication Compliance: Yes Side effects from medications: No Attending Groups: No Mental Status Exam Mental Status Exam Narrative: Pt is alert and oriented; behavior is cooperative; dressed in casual attire; mood is described as fine ; eye contact appropriate; Speech is normal rate, volume and not pressured; thought process is organized; Thought content is on medical issues; denies SI/HI/VH/AH. Diagnostics Vital Signs (24Hr): Vital Signs - 24 hr 11/09/24 20:00 11/10/24 07:45 11/10/24 08:45 Temperature 97.5 F 97.5 F Pulse Rate 79 90 Respiratory Rate 16 14 Blood Pressure 138/89 141/67 H 141/67 H Pulse Oximetry 97 91 L Oxygen Delivery Method Room Air Room Air 11/10/24 08:46 11/10/24 08:46 Temperature Pulse Rate 90 Respiratory Rate Blood Pressure 141/67 H 141/67 H Pulse Oximetry Oxygen Delivery Method BMI result Body Mass Index 39.8 Labs 11/02/24 15:31 11/04/24 16:47 Medications Medications Current Medications Al Hydroxide/Mg Hydroxide (Magnesium Hydrox/Alum Hydrox 30 Ml Oral.Susp) 30 ml PO Q6H PRN PRN Reason: Heartburn/Nausea Last Admin: 11/05/24 16:43 Dose: 30 ml Albuterol Sulfate (Albuterol Sulfate 90 Mcg 8 Gm Inhaler) 2 puff INHALE Q4H PRN PRN Reason: wheezing Apixaban (Apixaban 5 Mg Tablet) 5 mg PO BID [facility] Last Admin: 11/10/24 08:46 Dose: 5 mg Capsaicin (Capsaicin 0.025% Cream 60 Gm Tube) 1 appl TOPICAL QID PRN; Protocol PRN Reason: knee pain Last Admin: 11/08/24 22:25 Dose: 1 appl Colchicine (Colchicine 0.6 Mg Tablet) 0.6 mg PO TID [facility] Last Admin: 11/10/24 13:44 Dose: 0.6 mg Digoxin (Digoxin 0.125 Mg Tablet) 0.125 mg PO DAILY [facility]; Protocol Last Admin: 11/10/24 08:46 Dose: 0.125 mg Furosemide (Furosemide 20 Mg Tablet) 20 mg PO DAILY [facility]; Protocol Last Admin: 11/10/24 08:45 Dose: 20 mg Hydroxyzine HCl (Hydroxyzine Hcl 25 Mg Tablet) 25 mg PO Q6H PRN PRN Reason: Anxiety Last Admin: 11/09/24 20:32 Dose: 25 mg Lactulose (Lactulose 20 Gm/30 Ml Solution) 20 gm PO BID [facility] Last Admin: 11/10/24 13:04 Dose: Not Given Lidocaine (Lidocaine 4 % Patch Adh..Patch) 1 patch TRANSDERMA DAILY PRN PRN Reason: pain Last Admin: 11/07/24 22:10 Dose: 1 patch Lisinopril (Lisinopril 10 Mg Tablet) 10 mg PO DAILY [facility]; Protocol Last Admin: 11/10/24 08:46 Dose: 10 mg Magnesium Hydroxide (Milk Of Magnesia 30 Ml Oral.Susp) 30 ml PO DAILY PRN PRN Reason: Constipation Metformin HCl (Metformin Hcl Er 500 Mg Tab.Er.24h) 500 mg PO BEDTIME [facility] Last Admin: 11/09/24 20:32 Dose: 500 mg Methadone HCl (Methadone Hcl 20 Mg/2 Ml Oral.Conc) 25 mg PO DAILY@0800 [facility] Last Admin: 11/10/24 08:07 Dose: 25 mg Metoprolol Tartrate (Metoprolol Tartrate 50 Mg Tablet) 150 mg PO BID [facility]; Protocol Last Admin: 11/10/24 08:46 Dose: 150 mg Naloxone HCl (Naloxone Hcl Nasal 4 Mg [place]) 4 mg NOSTRILALT Q2M PRN PRN Reason: opioid overdose Nicotine (Nicotine 21 Mg Patch.Td24) 21 mg TRANSDERMA DAILY PRN PRN Reason: nicotine cravings Nicotine Polacrilex (Nicotine Polacrilex 2 Mg Gum) 4 mg BUCCAL Q2H PRN PRN Reason: Nicotine Cravings Prednisone (Prednisone 20 Mg Tablet) 60 mg PO DAILY [facility] Stop: 11/12/24 09:01 Last Admin: 11/10/24 13:45 Dose: 60 mg Prednisone (Prednisone 20 Mg Tablet) 40 mg PO DAILY [facility] Stop: 11/15/24 09:01 Prednisone (Prednisone 20 Mg Tablet) 20 mg PO DAILY [facility] Stop: 11/19/24 08:59 Trazodone HCl (Trazodone Hcl 50 Mg Tablet) 50 mg PO BEDTIME MRX1 PRN PRN Reason: Insomnia Last Admin: 11/09/24 20:32 Dose: 50 mg Venlafaxine HCl (Venlafaxine Hcl Er 37.5 Mg Cap.Er.24h) 37.5 mg PO DAILY [facility] Last Admin: 11/10/24 08:46 Dose: 37.5 mg Allergies Allergies Allergy/AdvReac Type Severity Reaction Status Date / Time No Known Allergies Allergy Verified 11/02/24 14:23 Assessment & Plan Assessment & Plan (1) MDD (major depressive disorder), recurrent episode, moderate: Status: Acute Code(s): F33.1 - Major depressive disorder, recurrent, moderate (2) Opioid use disorder, severe, dependence: Status: Acute Code(s): F11.20 - Opioid dependence, uncomplicated Assessment and Plan: does not wish to continue with methadone due to cloudy feeling would like to decrease methadone to 20mg tomorrow, will decrease to 25mg. discussed transitioning back to buprenorphine (Suboxone), patient undecided at this time, wants to wait to see medical provider (3) Alcohol use disorder, moderate, dependence: Status: Acute Code(s): F10.20 - Alcohol dependence, uncomplicated Plan Mr. Tolentino is a 64 year-old male with hx of alcohol, opioid use disorder who self presented to [facility] reporting abdominal pain found to have diverticulitis, started on augmentin. Utox positive for fentanyl and oxycodone. He also reported increased depression and SI initially with a plan to shoot himself. On the unit, he denies any plan or intent to harm himself but does report that he has been more depressed in past months. It also seems that he has not been to his PCP recently. His LFTs elevated, ammonia mildly elevated 58. A1c also elevated 7.8% which he says he has never been told he has DM. We discussed risks, benefits and alternative treatment options. Will start lactulose 20gm BID, recheck ammonia tomorrow AM. Start metformin ER 500mg po qhs- with plan to follow up with PCP. Although B12 not severely low 480's will give one time dose of cyanocobalamine 1000mcg IM. Will start effexor for depression 37.5mg po daily, monitor SBP. Addiction consult to adjust Methadone- he was started on methadone 10mg po daily. EKG shows Afib- reviewed with Dr. Landers since long hx of Afib, no RVR, already on eliquix and metoprolol- no additional intervention needed. PLAN 1. Admit to M3, CV, 5 mins checks due to walker 2. Medical: Lactulose 20gm po BID for elevated ammonia 58 on 11/05/24, will recheck on 11/[address] abdomen shows cirrhosis, need to be seen by GI. A1c 7.8% started on metformin ER 500mg po qhs--> follow up with PCP. May benefit from SGLT2 for additional cardiac protection given hx of HF with preserved ejection fraction. EKG shows Afib, long hx of persistent afib, no RVR, already on eliquis and metoprolol. Per Dr. Landers no additional intervention at this point. 3. Ordered addiction medicine consult to adjust methadone. Started in ED methadone 10mg po daily. 4. Start Effexor 37.5mg po daily for depression, using SNRI to help with energy. Monitor SBP. 5. aftercare planning 11/06: Active on unit, social with peers. attending groups. Patient reports feeling depressed ; pt stated, my pain kept me up all night. I'm walking hurt. I relapsed because of the pain. I wouldn't kill myself because that would only hurt my if I did that . denies SI/HI/VH/AH. Patient reports he feels methadone helped him a bit with his pain; being followed by Yumiko Simms NP. 11/07: Active on unit, social with peers. attending groups. Patient reports feeling okay today; pt stated, I always feel anxious but today I'm feeling like I can walk better. The methadone is helping me but it makes me feel out of it . Per nursing, slept 6 hours. denies SI/HI/VH/AH. Continue current tx plan. 11/08: Continue current regimen and plans. Decreased his methadone to 30 mg, colchicine to t.i.d. dosing schedule and capsaicin ointment for his knees. 11/09: B/L and polyarticular pain not c/w gout; hospitalist consult for proper eval and mgmt. aware staying on psych unit is not tenable for either pain or medical problems, denies SI. informed of plan for discharge tomorrow, pending outcome of hospitalist consult. 11/10: Laying in bed. Patient reports feeling fine other than being in pain ; patient stated, I'm sad because of my family members passing but I don't want to . I love life. 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 denies SI/HI/VH/AH. Start: Cymbalta 20mg PO daily Pt seen by hospitalist; started on prednisone; please see note. Plan for discharge Wednesday;pt aware. Patient educated on: diagnosis and medication risk/benefits Reason for continued inpatient stay Substantial Risk for: med/psych decompensation Time Spent With Patient Time: Total time managing care of this patient today _20___ minutes.
--- NOTE | 2024-11-10 16:00 | HO.ADDICTPRO ---
Subjective Subjective Date of Service: 11/10/24 Reason For Visit: Depression Interim History: Patient seen in follow up Laying in bed, awake, alert. Reporting he feels better in terms of cloudiness in my head with decrease in methadone dose He would like to discontinue all together Dose today 25mg Discussed restarting suboxone. Patient agreeable to this. No change to pain, but was started on steroids today so he is hopeful that pain may decrease some Review of Systems Constitutional: Reports as per HPI Diagnostics Vital Signs (24Hr): Vital Signs - 24 hr 11/09/24 20:00 11/10/24 07:45 11/10/24 08:45 Temperature 97.5 F 97.5 F Pulse Rate 79 90 Respiratory Rate 16 14 Blood Pressure 138/89 141/67 H 141/67 H Pulse Oximetry 97 91 L Oxygen Delivery Method Room Air Room Air 11/10/24 08:46 11/10/24 08:46 Temperature Pulse Rate 90 Respiratory Rate Blood Pressure 141/67 H 141/67 H Pulse Oximetry Oxygen Delivery Method BMI result Body Mass Index 39.8 Labs 11/02/24 15:31 11/04/24 16:47 Medications Medications Current Medications Al Hydroxide/Mg Hydroxide (Magnesium Hydrox/Alum Hydrox 30 Ml Oral.Susp) 30 ml PO Q6H PRN PRN Reason: Heartburn/Nausea Last Admin: 11/05/24 16:43 Dose: 30 ml Albuterol Sulfate (Albuterol Sulfate 90 Mcg 8 Gm Inhaler) 2 puff INHALE Q4H PRN PRN Reason: wheezing Apixaban (Apixaban 5 Mg Tablet) 5 mg PO BID [facility] Last Admin: 11/10/24 08:46 Dose: 5 mg Capsaicin (Capsaicin 0.025% Cream 60 Gm Tube) 1 appl TOPICAL QID PRN; Protocol PRN Reason: knee pain Last Admin: 11/08/24 22:25 Dose: 1 appl Colchicine (Colchicine 0.6 Mg Tablet) 0.6 mg PO TID [facility] Last Admin: 11/10/24 13:44 Dose: 0.6 mg Digoxin (Digoxin 0.125 Mg Tablet) 0.125 mg PO DAILY [facility]; Protocol Last Admin: 11/10/24 08:46 Dose: 0.125 mg Duloxetine HCl (Duloxetine Hcl 20 Mg Capsule.Dr) 20 mg PO DAILY [facility] Furosemide (Furosemide 20 Mg Tablet) 20 mg PO DAILY [facility]; Protocol Last Admin: 11/10/24 08:45 Dose: 20 mg Hydroxyzine HCl (Hydroxyzine Hcl 25 Mg Tablet) 25 mg PO Q6H PRN PRN Reason: Anxiety Last Admin: 11/09/24 20:32 Dose: 25 mg Lactulose (Lactulose 20 Gm/30 Ml Solution) 20 gm PO BID [facility] Last Admin: 11/10/24 13:04 Dose: Not Given Lidocaine (Lidocaine 4 % Patch Adh..Patch) 1 patch TRANSDERMA DAILY PRN PRN Reason: pain Last Admin: 11/07/24 22:10 Dose: 1 patch Lisinopril (Lisinopril 10 Mg Tablet) 10 mg PO DAILY [facility]; Protocol Last Admin: 11/10/24 08:46 Dose: 10 mg Magnesium Hydroxide (Milk Of Magnesia 30 Ml Oral.Susp) 30 ml PO DAILY PRN PRN Reason: Constipation Metformin HCl (Metformin Hcl Er 500 Mg Tab.Er.24h) 500 mg PO BEDTIME [facility] Last Admin: 11/09/24 20:32 Dose: 500 mg Methadone HCl (Methadone Hcl 20 Mg/2 Ml Oral.Conc) 15 mg PO DAILY@0800 [facility] Metoprolol Tartrate (Metoprolol Tartrate 50 Mg Tablet) 150 mg PO BID [facility]; Protocol Last Admin: 11/10/24 08:46 Dose: 150 mg Naloxone HCl (Naloxone Hcl Nasal 4 Mg [place]) 4 mg NOSTRILALT Q2M PRN PRN Reason: opioid overdose Nicotine (Nicotine 21 Mg Patch.Td24) 21 mg TRANSDERMA DAILY PRN PRN Reason: nicotine cravings Nicotine Polacrilex (Nicotine Polacrilex 2 Mg Gum) 4 mg BUCCAL Q2H PRN PRN Reason: Nicotine Cravings Prednisone (Prednisone 20 Mg Tablet) 60 mg PO DAILY [facility] Stop: 11/12/24 09:01 Last Admin: 11/10/24 13:45 Dose: 60 mg Prednisone (Prednisone 20 Mg Tablet) 40 mg PO DAILY [facility] Stop: 11/15/24 09:01 Prednisone (Prednisone 20 Mg Tablet) 20 mg PO DAILY [facility] Stop: 11/19/24 08:59 Trazodone HCl (Trazodone Hcl 50 Mg Tablet) 50 mg PO BEDTIME MRX1 PRN PRN Reason: Insomnia Last Admin: 11/09/24 20:32 Dose: 50 mg Venlafaxine HCl (Venlafaxine Hcl Er 37.5 Mg Cap.Er.24h) 37.5 mg PO DAILY [facility] Last Admin: 11/10/24 08:46 Dose: 37.5 mg Allergies Allergies Allergy/AdvReac Type Severity Reaction Status Date / Time No Known Allergies Allergy Verified 11/02/24 14:23 Assessment & Plan Assessment & Plan (1) Opioid use disorder, severe, dependence: Status: Acute Code(s): F11.20 - Opioid dependence, uncomplicated Assessment and Plan: methadone last dose tomorrow 11/10 --15mg suboxone to start Wednesday 8mg in AM will need appt with [facility]--airline managerial supervisor to see Wednesday and schedule telehealth Total time managing care of this patient today ____ minutes.
[2024-11-10 20:00] VITALS: BP 179/101; PULSE 80; RESP 16; TEMP 36.2; O2SAT 96
[2024-11-10] MEDS: traZODone HCL 50 MG TABLET PO (20:32)
[2024-11-10] MEDS: hydrOXYzine HCL 25 MG TABLET PO (20:33)
[2024-11-10] MEDS: metFORMIN HCl ER 500 MG TAB.ER.24H PO (20:33)
[2024-11-11] MEDS: methADONE HCl 20 MG/2 ML ORAL.CONC 15 MG PO (07:48)
[2024-11-11 07:56] VITALS: BP 137/78; PULSE 86; RESP 16; TEMP 36.6; O2SAT 95
[2024-11-11 08:49] LABS: Creatinine Clr Calc Pharmacy 126.8; Estimated Glomerular Filt Rate > 60
[2024-11-11] MEDS: DULoxetine HCl 20 MG CAPSULE.DR PO (09:48)
[2024-11-11] MEDS: Venlafaxine HCl ER 37.5 MG CAP.ER.24H PO (09:48)
[2024-11-11 09:49] VITALS: BP 137/78
[2024-11-11] MEDS: lisinopriL 10 MG TABLET PO (09:49)
[2024-11-11] MEDS: Apixaban 5 MG TABLET PO ×2 (09:49→20:31)
[2024-11-11] MEDS: predniSONE 20 MG TABLET 60 MG PO (09:49)
[2024-11-11] MEDS: Colchicine 0.6 MG TABLET PO ×3 (09:49→20:31)
[2024-11-11 09:50] VITALS: BP 137/78; PULSE 86
[2024-11-11] MEDS: Furosemide 20 MG TABLET PO (09:50)
[2024-11-11] MEDS: Digoxin 0.125 MG TABLET PO (09:50)
[2024-11-11] MEDS: Metoprolol Tartrate 50 MG TABLET 150 MG PO ×2 (09:50→20:31)
--- NOTE | 2024-11-11 10:38 | P.PNPSI_ITS ---
Subjective Subjective Date of Service: 11/11/24 Reason For Visit: Depression Interim History: Patient seen. Discussed. Patient reports he feels depressed. He is worried about being discharged before he feels ready . He was anxious about his medical issues including cirrhosis and liver function and joint pain. He discussed concerns about his son who is involved in some legal problems in [place] and issues with his step son. He denied SI/HI. We decide to repeat his LFT's and Ammonia levels today. Feels steroids have helped his pain. Review of Systems Review of Systems Hand and knee pain and swelling Yes all other systems are reviewed and are negative Constitutional: Reports as per HPI Eyes: Reports as per HPI Reports as per HPI Cardiovascular: Reports as per HPI Respiratory: Reports as per HPI Gastrointestinal: Reports as per HPI Genitourinary: Reports as per HPI Musculoskeletal: Reports as per HPI Skin/Breast: Reports as per HPI Reports as per HPI Psychiatric: Reports as per HPI Endocrine: Reports as per HPI Hematologic/Lymphatic: Reports as per HPI Allergic/Immunologic: Reports as per HPI Mental Status Exam Mental Status Exam Narrative: Pt is alert and oriented; behavior is cooperative; dressed in casual attire; mood is described as fine ; eye contact appropriate; Speech is normal rate, volume and not pressured; thought process is organized; Thought content is on medical issues; denies SI/HI/VH/AH. Patient Appearance: Unkempt Level of Consciousness: Awake and Alert Patient Behavior: Appropriate Mood Description: Anxious Affect Description: Anxious Speech Pattern: Clear Diagnostics Vital Signs (24Hr): Vital Signs - 24 hr 11/10/24 20:00 11/11/24 07:56 11/11/24 09:49 Temperature 97.1 F 97.9 F Pulse Rate 80 86 Respiratory Rate 16 16 Blood Pressure 179/101 H 137/78 137/78 Pulse Oximetry 96 95 Oxygen Delivery Method Room Air 11/11/24 09:50 11/11/24 09:50 Temperature Pulse Rate 86 Respiratory Rate Blood Pressure 137/78 137/78 Pulse Oximetry Oxygen Delivery Method BMI result Body Mass Index 39.8 Labs 11/02/24 15:31 11/11/24 08:12 Labs: Laboratory Results - last 48 hr 11/11/24 08:12 Creatinine 0.83 Estim Creat Clear Calc 126.8 Estimated GFR > 60 Medications Medications Current Medications Al Hydroxide/Mg Hydroxide (Magnesium Hydrox/Alum Hydrox 30 Ml Oral.Susp) 30 ml PO Q6H PRN PRN Reason: Heartburn/Nausea Last Admin: 11/05/24 16:43 Dose: 30 ml Albuterol Sulfate (Albuterol Sulfate 90 Mcg 8 Gm Inhaler) 2 puff INHALE Q4H PRN PRN Reason: wheezing Apixaban (Apixaban 5 Mg Tablet) 5 mg PO BID [facility] Last Admin: 11/11/24 09:49 Dose: 5 mg Capsaicin (Capsaicin 0.025% Cream 60 Gm Tube) 1 appl TOPICAL QID PRN; Protocol PRN Reason: knee pain Last Admin: 11/08/24 22:25 Dose: 1 appl Colchicine (Colchicine 0.6 Mg Tablet) 0.6 mg PO TID [facility] Last Admin: 11/11/24 09:49 Dose: 0.6 mg Digoxin (Digoxin 0.125 Mg Tablet) 0.125 mg PO DAILY [facility]; Protocol Last Admin: 11/11/24 09:50 Dose: 0.125 mg Duloxetine HCl (Duloxetine Hcl 20 Mg Capsule.Dr) 20 mg PO DAILY [facility] Last Admin: 11/11/24 09:48 Dose: 20 mg Furosemide (Furosemide 20 Mg Tablet) 20 mg PO DAILY [facility]; Protocol Last Admin: 11/11/24 09:50 Dose: 20 mg Hydroxyzine HCl (Hydroxyzine Hcl 25 Mg Tablet) 25 mg PO Q6H PRN PRN Reason: Anxiety Last Admin: 11/10/24 20:33 Dose: 25 mg Lactulose (Lactulose 20 Gm/30 Ml Solution) 20 gm PO BID [facility] Last Admin: 11/11/24 09:55 Dose: Not Given Lidocaine (Lidocaine 4 % Patch Adh..Patch) 1 patch TRANSDERMA DAILY PRN PRN Reason: pain Last Admin: 11/07/24 22:10 Dose: 1 patch Lisinopril (Lisinopril 10 Mg Tablet) 10 mg PO DAILY [facility]; Protocol Last Admin: 11/11/24 09:49 Dose: 10 mg Magnesium Hydroxide (Milk Of Magnesia 30 Ml Oral.Susp) 30 ml PO DAILY PRN PRN Reason: Constipation Metformin HCl (Metformin Hcl Er 500 Mg Tab.Er.24h) 500 mg PO BEDTIME [facility] Last Admin: 11/10/24 20:33 Dose: 500 mg Methadone HCl (Methadone Hcl 20 Mg/2 Ml Oral.Conc) 15 mg PO DAILY@0800 [facility] Last Admin: 11/11/24 07:48 Dose: 15 mg Metoprolol Tartrate (Metoprolol Tartrate 50 Mg Tablet) 150 mg PO BID [facility]; Protocol Last Admin: 11/11/24 09:50 Dose: 150 mg Naloxone HCl (Naloxone Hcl Nasal 4 Mg [place]) 4 mg NOSTRILALT Q2M PRN PRN Reason: opioid overdose Nicotine (Nicotine 21 Mg Patch.Td24) 21 mg TRANSDERMA DAILY PRN PRN Reason: nicotine cravings Nicotine Polacrilex (Nicotine Polacrilex 2 Mg Gum) 4 mg BUCCAL Q2H PRN PRN Reason: Nicotine Cravings Prednisone (Prednisone 20 Mg Tablet) 60 mg PO DAILY [facility] Stop: 11/12/24 09:01 Last Admin: 11/11/24 09:49 Dose: 60 mg Prednisone (Prednisone 20 Mg Tablet) 40 mg PO DAILY [facility] Stop: 11/15/24 09:01 Prednisone (Prednisone 20 Mg Tablet) 20 mg PO DAILY [facility] Stop: 11/19/24 08:59 Trazodone HCl (Trazodone Hcl 50 Mg Tablet) 50 mg PO BEDTIME MRX1 PRN PRN Reason: Insomnia Last Admin: 11/10/24 20:32 Dose: 50 mg Venlafaxine HCl (Venlafaxine Hcl Er 37.5 Mg Cap.Er.24h) 37.5 mg PO DAILY [facility] Last Admin: 11/11/24 09:48 Dose: 37.5 mg Allergies Allergies Allergy/AdvReac Type Severity Reaction Status Date / Time No Known Allergies Allergy Verified 11/02/24 14:23 Assessment & Plan Assessment & Plan (1) Opioid use disorder, severe, dependence: Status: Acute Code(s): F11.20 - Opioid dependence, uncomplicated Assessment and Plan: * methadone last dose tomorrow 11/10 --15mg * suboxone to start Wednesday 8mg in AM * will need appt with [facility]--publicity expert to see Wednesday morning and schedule telehealth (2) Alcohol use disorder, moderate, dependence: Status: Acute Code(s): F10.20 - Alcohol dependence, uncomplicated (3) MDD (major depressive disorder), recurrent episode, moderate: Status: Acute Code(s): F33.1 - Major depressive disorder, recurrent, moderate Plan Mr. Tolentino is a 64 year-old male with hx of alcohol, opioid use disorder who self presented to [facility] reporting abdominal pain found to have diverticulitis, started on augmentin. Utox positive for fentanyl and oxycodone. He also reported increased depression and SI initially with a plan to shoot himself. On the unit, he denies any plan or intent to harm himself but does report that he has been more depressed in past months. It also seems that he has not been to his PCP recently. His LFTs elevated, ammonia mildly elevated 58. A1c also elevated 7.8% which he says he has never been told he has DM. We discussed risks, benefits and alternative treatment options. Will start lactulose 20gm BID, recheck ammonia tomorrow AM. Start metformin ER 500mg po qhs- with plan to follow up with PCP. Although B12 not severely low 480's will give one time dose of cyanocobalamine 1000mcg IM. Will start effexor for depression 37.5mg po daily, monitor SBP. Addiction consult to adjust Methadone- he was started on methadone 10mg po daily. EKG shows Afib- reviewed with Dr. Landers since long hx of Afib, no RVR, already on eliquix and metoprolol- no additional intervention needed. PLAN 1. Admit to M3, CV, 5 mins checks due to walker 2. Medical: Lactulose 20gm po BID for elevated ammonia 58 on 11/05/24, will recheck on 11/[address] abdomen shows cirrhosis, need to be seen by GI. A1c 7.8% started on metformin ER 500mg po qhs--> follow up with PCP. May benefit from SGLT2 for additional cardiac protection given hx of HF with preserved ejection fraction. EKG shows Afib, long hx of persistent afib, no RVR, already on eliquis and metoprolol. Per Dr. Landers no additional intervention at this point. 3. Ordered addiction medicine consult to adjust methadone. Started in ED methadone 10mg po daily. 4. Start Effexor 37.5mg po daily for depression, using SNRI to help with energy. Monitor SBP. 5. aftercare planning 11/06: Active on unit, social with peers. attending groups. Patient reports feeling depressed ; pt stated, my pain kept me up all night. I'm walking hurt. I relapsed because of the pain. I wouldn't kill myself because that would only hurt my if I did that . denies SI/HI/VH/AH. Patient reports he feels methadone helped him a bit with his pain; being followed by Yumiko Simms NP. 11/07: Active on unit, social with peers. attending groups. Patient reports feeling okay today; pt stated, I always feel anxious but today I'm feeling like I can walk better. The methadone is helping me but it makes me feel out of it . Per nursing, slept 6 hours. denies SI/HI/VH/AH. Continue current tx plan. 11/08: Continue current regimen and plans. Decreased his methadone to 30 mg, colchicine to t.i.d. dosing schedule and capsaicin ointment for his knees. 11/09: B/L and polyarticular pain not c/w gout; hospitalist consult for proper eval and mgmt. aware staying on psych unit is not tenable for either pain or medical problems, denies SI. informed of plan for discharge tomorrow, pending outcome of hospitalist consult. 11/10: Laying in bed. Patient reports feeling fine other than being in pain ; patient stated, I'm sad because of my family members passing but I don't want to . I love life. 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 denies SI/HI/VH/AH. Start: Cymbalta 20mg PO daily Pt seen by hospitalist; started on prednisone; please see note. Plan for discharge Wednesday;pt aware. 11/11: Continue current management and treatment plan. LFTs repeated. Educated on acute vs chronic liver disease. Reason for continued inpatient stay Substantial Risk for: inability to function, rapid decompensation and med/psych decompensation Time Spent With Patient Time: Total time managing care of this patient today ____ minutes.
[2024-11-11 12:42] LABS: Ammonia 64 umol/L (13-55)
[2024-11-11 12:50] LABS: Alanine Aminotransferase 71 U/L (0-40); Albumin Level 3.4 g/dL (3.5-5.0); Alkaline Phosphatase 159 U/L (39-117); Aspartate Amino Transferase 85 U/L (5-37); Bilirubin Direct 0.5 mg/dL (0.0-0.5); Bilirubin Total 1.1 mg/dL (0.0-1.0)
[2024-11-11] MEDS: Lactulose 20 GM/30 ML SOLUTION PO ×2 (14:02→20:30)
--- NOTE | 2024-11-11 14:11 | PC.NURSE ---
Ammonia elevated at [address] Hays notified. Wong initially declined morning lactulose and re-offered which he accepted; Dr. Hays notified.
[2024-11-11 20:00] VITALS: BP 155/69; PULSE 91; RESP 18; TEMP 36.7; O2SAT 94
[2024-11-11] MEDS: metFORMIN HCl ER 500 MG TAB.ER.24H PO (20:31)
[2024-11-11] MEDS: traZODone HCL 50 MG TABLET PO (20:31)
[2024-11-12 08:10] VITALS: BP 136/84; PULSE 79; RESP 14; TEMP 36.4; O2SAT 95
[2024-11-12] MEDS: Lactulose 20 GM/30 ML SOLUTION PO ×2 (08:53→20:13)
[2024-11-12] MEDS: DULoxetine HCl 20 MG CAPSULE.DR PO (08:55)
[2024-11-12] MEDS: Digoxin 0.125 MG TABLET PO (08:55)
[2024-11-12] MEDS: lisinopriL 10 MG TABLET PO (08:56)
[2024-11-12] MEDS: Furosemide 20 MG TABLET PO (08:56)
[2024-11-12] MEDS: Apixaban 5 MG TABLET PO ×2 (08:56→20:14)
[2024-11-12] MEDS: Venlafaxine HCl ER 37.5 MG CAP.ER.24H PO (08:57)
[2024-11-12] MEDS: predniSONE 20 MG TABLET 60 MG PO (08:57)
[2024-11-12] MEDS: Metoprolol Tartrate 50 MG TABLET 150 MG PO ×2 (08:58→20:14)
[2024-11-12] MEDS: Colchicine 0.6 MG TABLET PO ×3 (08:58→20:14)
--- NOTE | 2024-11-12 09:58 | P.PNPSI_ITS ---
Subjective Subjective Date of Service: 11/12/24 Reason For Visit: Depression Interim History: Patient seen. Discussed. I need two more days doc. Feels he is improving but hoping he can stay through Wednesday so he can be more mobile and make sure his pain and depression are better controlled. I will never drink again and I mean that.. Pain is improving with the steroids he says. He denied SI/HI. LFT's improved. Ammonia a bit higher on yesterday's labs but no evidence of AMS. Adherent to lactulose. Review of Systems Review of Systems Hand and knee pain and swelling Yes all other systems are reviewed and are negative Constitutional: Reports as per HPI Eyes: Reports as per HPI Reports as per HPI Cardiovascular: Reports as per HPI Respiratory: Reports as per HPI Gastrointestinal: Reports as per HPI Genitourinary: Reports as per HPI Musculoskeletal: Reports as per HPI Skin/Breast: Reports as per HPI Reports as per HPI Psychiatric: Reports as per HPI Endocrine: Reports as per HPI Hematologic/Lymphatic: Reports as per HPI Allergic/Immunologic: Reports as per HPI Mental Status Exam Mental Status Exam Narrative: Pt is alert and oriented; behavior is cooperative; dressed in casual attire; mood is described as fine ; eye contact appropriate; Speech is normal rate, volume and not pressured; thought process is organized; Thought content is on medical issues; denies SI/HI/VH/AH. Patient Appearance: Unkempt Level of Consciousness: Awake and Alert Patient Behavior: Appropriate Mood Description: Anxious Affect Description: Anxious Speech Pattern: Clear Diagnostics Vital Signs (24Hr): Vital Signs - 24 hr 11/11/24 20:00 11/12/24 08:10 Temperature 98.0 F 97.6 F Pulse Rate 91 79 Respiratory Rate 18 14 Blood Pressure 155/69 H 136/84 Pulse Oximetry 94 95 Oxygen Delivery Method Room Air Room Air BMI result Body Mass Index 39.8 Labs 11/02/24 15:31 11/11/24 08:12 Labs: Laboratory Results - last 48 hr 11/11/24 11/11/24 08:12 12:21 Creatinine 0.83 Estim Creat Clear Calc 126.8 Estimated GFR > 60 Total Bilirubin 1.1 H Direct Bilirubin 0.5 AST 85 H ALT 71 H Alkaline Phosphatase 159 H Ammonia 64 H Total Protein 8.0 Albumin 3.4 L Medications Medications Current Medications Al Hydroxide/Mg Hydroxide (Magnesium Hydrox/Alum Hydrox 30 Ml Oral.Susp) 30 ml PO Q6H PRN PRN Reason: Heartburn/Nausea Last Admin: 11/05/24 16:43 Dose: 30 ml Albuterol Sulfate (Albuterol Sulfate 90 Mcg 8 Gm Inhaler) 2 puff INHALE Q4H PRN PRN Reason: wheezing Apixaban (Apixaban 5 Mg Tablet) 5 mg PO BID [facility] Last Admin: 11/12/24 08:56 Dose: 5 mg Capsaicin (Capsaicin 0.025% Cream 60 Gm Tube) 1 appl TOPICAL QID PRN; Protocol PRN Reason: knee pain Last Admin: 11/08/24 22:25 Dose: 1 appl Colchicine (Colchicine 0.6 Mg Tablet) 0.6 mg PO TID [facility] Last Admin: 11/12/24 08:58 Dose: 0.6 mg Digoxin (Digoxin 0.125 Mg Tablet) 0.125 mg PO DAILY [facility]; Protocol Last Admin: 11/12/24 08:55 Dose: 0.125 mg Duloxetine HCl (Duloxetine Hcl 20 Mg Capsule.Dr) 20 mg PO DAILY [facility] Last Admin: 11/12/24 08:55 Dose: 20 mg Furosemide (Furosemide 20 Mg Tablet) 20 mg PO DAILY [facility]; Protocol Last Admin: 11/12/24 08:56 Dose: 20 mg Hydroxyzine HCl (Hydroxyzine Hcl 25 Mg Tablet) 25 mg PO Q6H PRN PRN Reason: Anxiety Last Admin: 11/10/24 20:33 Dose: 25 mg Lactulose (Lactulose 20 Gm/30 Ml Solution) 20 gm PO BID [facility] Last Admin: 11/12/24 08:53 Dose: 20 gm Lidocaine (Lidocaine 4 % Patch Adh..Patch) 1 patch TRANSDERMA DAILY PRN PRN Reason: pain Last Admin: 11/07/24 22:10 Dose: 1 patch Lisinopril (Lisinopril 10 Mg Tablet) 10 mg PO DAILY [facility]; Protocol Last Admin: 11/12/24 08:56 Dose: 10 mg Magnesium Hydroxide (Milk Of Magnesia 30 Ml Oral.Susp) 30 ml PO DAILY PRN PRN Reason: Constipation Metformin HCl (Metformin Hcl Er 500 Mg Tab.Er.24h) 500 mg PO BEDTIME [facility] Last Admin: 11/11/24 20:31 Dose: 500 mg Metoprolol Tartrate (Metoprolol Tartrate 50 Mg Tablet) 150 mg PO BID [facility]; Protocol Last Admin: 11/12/24 08:58 Dose: 150 mg Naloxone HCl (Naloxone Hcl Nasal 4 Mg [place]) 4 mg NOSTRILALT Q2M PRN PRN Reason: opioid overdose Nicotine (Nicotine 21 Mg Patch.Td24) 21 mg TRANSDERMA DAILY PRN PRN Reason: nicotine cravings Nicotine Polacrilex (Nicotine Polacrilex 2 Mg Gum) 4 mg BUCCAL Q2H PRN PRN Reason: Nicotine Cravings Prednisone (Prednisone 20 Mg Tablet) 40 mg PO DAILY [facility] Stop: 11/15/24 09:01 Prednisone (Prednisone 20 Mg Tablet) 20 mg PO DAILY [facility] Stop: 11/19/24 08:59 Trazodone HCl (Trazodone Hcl 50 Mg Tablet) 50 mg PO BEDTIME MRX1 PRN PRN Reason: Insomnia Last Admin: 11/11/24 20:31 Dose: 50 mg Venlafaxine HCl (Venlafaxine Hcl Er 37.5 Mg Cap.Er.24h) 37.5 mg PO DAILY [facility] Last Admin: 11/12/24 08:57 Dose: 37.5 mg Allergies Allergies Allergy/AdvReac Type Severity Reaction Status Date / Time No Known Allergies Allergy Verified 11/02/24 14:23 Assessment & Plan Assessment & Plan (1) Opioid use disorder, severe, dependence: Status: Acute Code(s): F11.20 - Opioid dependence, uncomplicated Assessment and Plan: * methadone last dose tomorrow 11/10 --15mg * suboxone to start Wednesday 8mg in AM * will need appt with [facility]--ball holder to see Wednesday and schedule telehealth (2) Alcohol use disorder, moderate, dependence: Status: Acute Code(s): F10.20 - Alcohol dependence, uncomplicated (3) MDD (major depressive disorder), recurrent episode, moderate: Status: Acute Code(s): F33.1 - Major depressive disorder, recurrent, moderate Plan Mr. Tolentino is a 64 year-old male with hx of alcohol, opioid use disorder who self presented to [facility] reporting abdominal pain found to have diverticulitis, started on augmentin. Utox positive for fentanyl and oxycodone. He also reported increased depression and SI initially with a plan to shoot himself. On the unit, he denies any plan or intent to harm himself but does report that he has been more depressed in past months. It also seems that he has not been to his PCP recently. His LFTs elevated, ammonia mildly elevated 58. A1c also elevated 7.8% which he says he has never been told he has DM. We discussed risks, benefits and alternative treatment options. Will start lactulose 20gm BID, recheck ammonia tomorrow AM. Start metformin ER 500mg po qhs- with plan to follow up with PCP. Although B12 not severely low 480's will give one time dose of cyanocobalamine 1000mcg IM. Will start effexor for depression 37.5mg po daily, monitor SBP. Addiction consult to adjust Methadone- he was started on methadone 10mg po daily. EKG shows Afib- reviewed with Dr. Landers since long hx of Afib, no RVR, already on eliquix and metoprolol- no additional intervention needed. PLAN 1. Admit to M3, CV, 5 mins checks due to walker 2. Medical: Lactulose 20gm po BID for elevated ammonia 58 on 11/05/24, will recheck on 11/[address] abdomen shows cirrhosis, need to be seen by GI. A1c 7.8% started on metformin ER 500mg po qhs--> follow up with PCP. May benefit from SGLT2 for additional cardiac protection given hx of HF with preserved ejection fraction. EKG shows Afib, long hx of persistent afib, no RVR, already on eliquis and metoprolol. Per Dr. Landers no additional intervention at this point. 3. Ordered addiction medicine consult to adjust methadone. Started in ED methadone 10mg po daily. 4. Start Effexor 37.5mg po daily for depression, using SNRI to help with energy. Monitor SBP. 5. aftercare planning 11/06: Active on unit, social with peers. attending groups. Patient reports feeling depressed ; pt stated, my pain kept me up all night. I'm walking hurt. I relapsed because of the pain. I wouldn't kill myself because that would only hurt my if I did that . denies SI/HI/VH/AH. Patient reports he feels methadone helped him a bit with his pain; being followed by Yumiko Simms NP. 11/07: Active on unit, social with peers. attending groups. Patient reports feeling okay today; pt stated, I always feel anxious but today I'm feeling like I can walk better. The methadone is helping me but it makes me feel out of it . Per nursing, slept 6 hours. denies SI/HI/VH/AH. Continue current tx plan. 11/08: Continue current regimen and plans. Decreased his methadone to 30 mg, colchicine to t.i.d. dosing schedule and capsaicin ointment for his knees. 11/09: B/L and polyarticular pain not c/w gout; hospitalist consult for proper eval and mgmt. aware staying on psych unit is not tenable for either pain or medical problems, denies SI. informed of plan for discharge tomorrow, pending outcome of hospitalist consult. 11/10: Laying in bed. Patient reports feeling fine other than being in pain ; patient stated, I'm sad because of my family members passing but I don't want to . I love life. 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 denies SI/HI/VH/AH. Start: Cymbalta 20mg PO daily Pt seen by hospitalist; started on prednisone; please see note. Plan for discharge Wednesday;pt aware. 11/11: Continue current management and treatment plan. LFTs repeated. Educated on acute vs chronic liver disease. 11/12: continue current management and treatment plan. Reason for continued inpatient stay Substantial Risk for: harm to self, inability to function and med/psych decompensation Time Spent With Patient Time: Total time managing care of this patient today ____ minutes.
[2024-11-12 20:00] VITALS: BP 142/88; PULSE 90; RESP 15; TEMP 36.8; O2SAT 95
[2024-11-12] MEDS: traZODone HCL 50 MG TABLET PO (20:14)
[2024-11-12] MEDS: metFORMIN HCl ER 500 MG TAB.ER.24H PO (20:14)
[2024-11-13 09:00] VITALS: BP 143/90; PULSE 69; RESP 14; TEMP 36.6; O2SAT 95
[2024-11-13 09:23] VITALS: BP 143/90; PULSE 69
[2024-11-13] MEDS: Furosemide 20 MG TABLET PO (09:23)
[2024-11-13] MEDS: Metoprolol Tartrate 50 MG TABLET 150 MG PO ×2 (09:23→20:11)
[2024-11-13] MEDS: DULoxetine HCl 20 MG CAPSULE.DR PO (09:23)
[2024-11-13 09:24] VITALS: BP 143/90
[2024-11-13] MEDS: lisinopriL 10 MG TABLET PO (09:24)
[2024-11-13] MEDS: predniSONE 20 MG TABLET 40 MG PO (09:24)
[2024-11-13] MEDS: Colchicine 0.6 MG TABLET PO ×3 (09:24→20:11)
[2024-11-13] MEDS: Lactulose 20 GM/30 ML SOLUTION PO ×2 (09:25→20:10)
[2024-11-13] MEDS: Apixaban 5 MG TABLET PO ×2 (09:25→20:11)
[2024-11-13] MEDS: Venlafaxine HCl ER 37.5 MG CAP.ER.24H PO (09:25)
[2024-11-13] MEDS: Digoxin 0.125 MG TABLET PO (09:26)
--- NOTE | 2024-11-13 09:40 | P.PNPSI_ITS ---
Subjective Subjective Date of Service: 11/13/24 Reason For Visit: Depression Subjective Notes: Conditional Voluntary Interim History: Patient reports feeling better ; pt stated, I feel like I'm in less pain and I slept pretty good . Patient denies SI/HI/VH/AH. Plan to be discharged home tomorrow and follow up with outpatient providers. Hospitalist DC'd prednisone d/t possibly increasing LFTs; pt aware. DC Cymbalta. Medication Compliance: Yes Side effects from medications: No Attending Groups: No Mental Status Exam Mental Status Exam Narrative: Pt is alert and oriented; behavior is cooperative; dressed in casual attire; mood is described as better ; eye contact appropriate; Speech is normal rate, volume and not pressured; thought process is organized; Thought content is on tx; denies SI/HI/VH/AH. Diagnostics Vital Signs (24Hr): Vital Signs - 24 hr 11/12/24 20:00 11/13/24 09:00 11/13/24 09:23 Temperature 98.2 F 97.8 F Pulse Rate 90 69 Respiratory Rate 15 14 Blood Pressure 142/88 H 143/90 H 143/90 H Pulse Oximetry 95 95 Oxygen Delivery Method Room Air 11/13/24 09:23 11/13/24 09:24 Temperature Pulse Rate 69 Respiratory Rate Blood Pressure 143/90 H 143/90 H Pulse Oximetry Oxygen Delivery Method BMI result Body Mass Index 39.8 Labs 11/02/24 15:31 11/11/24 08:12 Labs: Laboratory Results - last 48 hr 11/11/24 12:21 Total Bilirubin 1.1 H Direct Bilirubin 0.5 AST 85 H ALT 71 H Alkaline Phosphatase 159 H Ammonia 64 H Total Protein 8.0 Albumin 3.4 L Medications Medications Current Medications Al Hydroxide/Mg Hydroxide (Magnesium Hydrox/Alum Hydrox 30 Ml Oral.Susp) 30 ml PO Q6H PRN PRN Reason: Heartburn/Nausea Last Admin: 11/05/24 16:43 Dose: 30 ml Albuterol Sulfate (Albuterol Sulfate 90 Mcg 8 Gm Inhaler) 2 puff INHALE Q4H PRN PRN Reason: wheezing Apixaban (Apixaban 5 Mg Tablet) 5 mg PO BID [facility] Last Admin: 11/13/24 09:25 Dose: 5 mg Capsaicin (Capsaicin 0.025% Cream 60 Gm Tube) 1 appl TOPICAL QID PRN; Protocol PRN Reason: knee pain Last Admin: 11/08/24 22:25 Dose: 1 appl Colchicine (Colchicine 0.6 Mg Tablet) 0.6 mg PO TID [facility] Last Admin: 11/13/24 09:24 Dose: 0.6 mg Digoxin (Digoxin 0.125 Mg Tablet) 0.125 mg PO DAILY [facility]; Protocol Last Admin: 11/13/24 09:26 Dose: 0.125 mg Duloxetine HCl (Duloxetine Hcl 20 Mg Capsule.Dr) 20 mg PO DAILY [facility] Last Admin: 11/13/24 09:23 Dose: 20 mg Furosemide (Furosemide 20 Mg Tablet) 20 mg PO DAILY [facility]; Protocol Last Admin: 11/13/24 09:23 Dose: 20 mg Hydroxyzine HCl (Hydroxyzine Hcl 25 Mg Tablet) 25 mg PO Q6H PRN PRN Reason: Anxiety Last Admin: 11/10/24 20:33 Dose: 25 mg Lactulose (Lactulose 20 Gm/30 Ml Solution) 20 gm PO BID [facility] Last Admin: 11/13/24 09:25 Dose: 20 gm Lidocaine (Lidocaine 4 % Patch Adh..Patch) 1 patch TRANSDERMA DAILY PRN PRN Reason: pain Last Admin: 11/07/24 22:10 Dose: 1 patch Lisinopril (Lisinopril 10 Mg Tablet) 10 mg PO DAILY [facility]; Protocol Last Admin: 11/13/24 09:24 Dose: 10 mg Magnesium Hydroxide (Milk Of Magnesia 30 Ml Oral.Susp) 30 ml PO DAILY PRN PRN Reason: Constipation Metformin HCl (Metformin Hcl Er 500 Mg Tab.Er.24h) 500 mg PO BEDTIME [facility] Last Admin: 11/12/24 20:14 Dose: 500 mg Metoprolol Tartrate (Metoprolol Tartrate 50 Mg Tablet) 150 mg PO BID [facility]; Protocol Last Admin: 11/13/24 09:23 Dose: 150 mg Naloxone HCl (Naloxone Hcl Nasal 4 Mg [place]) 4 mg NOSTRILALT Q2M PRN PRN Reason: opioid overdose Nicotine (Nicotine 21 Mg Patch.Td24) 21 mg TRANSDERMA DAILY PRN PRN Reason: nicotine cravings Nicotine Polacrilex (Nicotine Polacrilex 2 Mg Gum) 4 mg BUCCAL Q2H PRN PRN Reason: Nicotine Cravings Prednisone (Prednisone 20 Mg Tablet) 40 mg PO DAILY [facility] Stop: 11/15/24 09:01 Last Admin: 11/13/24 09:24 Dose: 40 mg Prednisone (Prednisone 20 Mg Tablet) 20 mg PO DAILY [facility] Stop: 11/19/24 08:59 Trazodone HCl (Trazodone Hcl 50 Mg Tablet) 50 mg PO BEDTIME MRX1 PRN PRN Reason: Insomnia Last Admin: 11/12/24 20:14 Dose: 50 mg Venlafaxine HCl (Venlafaxine Hcl Er 37.5 Mg Cap.Er.24h) 37.5 mg PO DAILY [facility] Last Admin: 11/13/24 09:25 Dose: 37.5 mg Allergies Allergies Allergy/AdvReac Type Severity Reaction Status Date / Time No Known Allergies Allergy Verified 11/02/24 14:23 Assessment & Plan Assessment & Plan (1) MDD (major depressive disorder), recurrent episode, moderate: Status: Acute Code(s): F33.1 - Major depressive disorder, recurrent, moderate (2) Opioid use disorder, severe, dependence: Status: Acute Code(s): F11.20 - Opioid dependence, uncomplicated Assessment and Plan: * methadone last dose tomorrow 11/10 --15mg * suboxone to start Wednesday morning 8mg in AM * will need appt with [facility]--ropewalk rope maker to see Wednesday and schedule telehealth (3) Alcohol use disorder, moderate, dependence: Status: Acute Code(s): F10.20 - Alcohol dependence, uncomplicated Plan Mr. Tolentino is a 64 year-old male with hx of alcohol, opioid use disorder who self presented to [facility] reporting abdominal pain found to have diverticulitis, started on augmentin. Utox positive for fentanyl and oxycodone. He also reported increased depression and SI initially with a plan to shoot himself. On the unit, he denies any plan or intent to harm himself but does report that he has been more depressed in past months. It also seems that he has not been to his PCP recently. His LFTs elevated, ammonia mildly elevated 58. A1c also elevated 7.8% which he says he has never been told he has DM. We discussed risks, benefits and alternative treatment options. Will start lactulose 20gm BID, recheck ammonia tomorrow AM. Start metformin ER 500mg po qhs- with plan to follow up with PCP. Although B12 not severely low 480's will give one time dose of cyanocobalamine 1000mcg IM. Will start effexor for depression 37.5mg po daily, monitor SBP. Addiction consult to adjust Methadone- he was started on methadone 10mg po daily. EKG shows Afib- reviewed with Dr. Landers since long hx of Afib, no RVR, already on eliquix and metoprolol- no additional intervention needed. PLAN 1. Admit to M3, CV, 5 mins checks due to walker 2. Medical: Lactulose 20gm po BID for elevated ammonia 58 on 11/05/24, will recheck on 11/[address] abdomen shows cirrhosis, need to be seen by GI. A1c 7.8% started on metformin ER 500mg po qhs--> follow up with PCP. May benefit from SGLT2 for additional cardiac protection given hx of HF with preserved ejection fraction. EKG shows Afib, long hx of persistent afib, no RVR, already on eliquis and metoprolol. Per Dr. Landers no additional intervention at this point. 3. Ordered addiction medicine consult to adjust methadone. Started in ED methadone 10mg po daily. 4. Start Effexor 37.5mg po daily for depression, using SNRI to help with energy. Monitor SBP. 5. aftercare planning 11/06: Active on unit, social with peers. attending groups. Patient reports feeling depressed ; pt stated, my pain kept me up all night. I'm walking hurt. I relapsed because of the pain. I wouldn't kill myself because that would only hurt my if I did that . denies SI/HI/VH/AH. Patient reports he feels methadone helped him a bit with his pain; being followed by Yumiko Simms NP. 11/07: Active on unit, social with peers. attending groups. Patient reports feeling okay today; pt stated, I always feel anxious but today I'm feeling like I can walk better. The methadone is helping me but it makes me feel out of it . Per nursing, slept 6 hours. denies SI/HI/VH/AH. Continue current tx plan. 11/08: Continue current regimen and plans. Decreased his methadone to 30 mg, colchicine to t.i.d. dosing schedule and capsaicin ointment for his knees. 11/09: B/L and polyarticular pain not c/w gout; hospitalist consult for proper eval and mgmt. aware staying on psych unit is not tenable for either pain or medical problems, denies SI. informed of plan for discharge tomorrow, pending outcome of hospitalist consult. 11/10: Laying in bed. Patient reports feeling fine other than being in pain ; patient stated, I'm sad because of my family members passing but I don't want to . I love life. 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 denies SI/HI/VH/AH. Start: Cymbalta 20mg PO daily Pt seen by hospitalist; started on prednisone; please see note. Plan for discharge Wednesday;pt aware. 11/11: Continue current management and treatment plan. LFTs repeated. Educated on acute vs chronic liver disease. 11/12: continue current management and treatment plan. 11/13: Patient reports feeling better ; pt stated, I feel like I'm in less pain and I slept pretty good . Patient denies SI/HI/VH/AH. Plan to be discharged home tomorrow and follow up with outpatient providers. Hospitalist DC'd prednisone d/t possibly increasing LFTs; pt aware. Plans to follow up with [facility]. Patient educated on: diagnosis and medication risk/benefits Reason for continued inpatient stay Substantial Risk for: stable for discharge Time Spent With Patient Time: Total time managing care of this patient today _20___ minutes.
--- NOTE | 2024-11-13 10:55 | MHC.RECOVRN ---
Met with pt this morning to follow up and provide support. Pt last received methadone, 15 mg, on 11/11. Pt would like to restart Suboxone and continue treatment with the [facility]. Pt laying in bed, awake, alert, easily engages in conversation, appears comfortable. Pt reports feeling better and hopes to discharge tomorrow (as opposed to today). Pt denies current withdrawal symptoms. Pt denies questions or concerns for t/w. Discussed with Yumiko Simms APRN. Plan to initiate Suboxone when appropriate. Rx sent to pharmacy for 4 mg BID. Spoke with SW, plan for SW to schedule [facility] follow up appointment.
[2024-11-13 12:05] LABS: Ammonia 62 umol/L (13-55)
[2024-11-13 12:14] LABS: Alanine Aminotransferase 96 U/L (0-40); Albumin Level 3.4 g/dL (3.5-5.0); Alkaline Phosphatase 166 U/L (39-117); Aspartate Amino Transferase 164 U/L (5-37); Bilirubin Direct 0.3 mg/dL (0.0-0.5); Bilirubin Total 0.6 mg/dL (0.0-1.0); Total Protein 7.8 g/dL (6.5-8.0)
--- NOTE | 2024-11-13 16:25 | MHC.RECOVRN ---
Attempted to meet with pt to assess for opioid withdrawal. Pt laying in bed, asleep, does not wake to voice, appears comfortable. Pts RN reports he was up about 30 mins ago and did not appear in withdrawal nor report withdrawal symptoms. Yumiko Simms APRN, aware.
[2024-11-13 19:44] VITALS: BP 149/69; PULSE 93; RESP 18; TEMP 36.3; O2SAT 94
[2024-11-13] MEDS: traZODone HCL 50 MG TABLET PO (20:11)
[2024-11-13] MEDS: metFORMIN HCl ER 500 MG TAB.ER.24H PO (20:11)
[2024-11-14 07:36] VITALS: BP 138/76; PULSE 80; RESP 18; TEMP 36.2; O2SAT 96
[2024-11-14] MEDS: Naloxone HCl Nasal TAKE HOME 4 MG SPRAY 8 MG NOSTRILALT (08:26)
[2024-11-14 08:27] VITALS: BP 138/86
[2024-11-14] MEDS: Venlafaxine HCl ER 37.5 MG CAP.ER.24H PO (08:27)
[2024-11-14] MEDS: Furosemide 20 MG TABLET PO (08:27)
[2024-11-14] MEDS: lisinopriL 10 MG TABLET PO (08:27)
[2024-11-14] MEDS: Metoprolol Tartrate 50 MG TABLET 150 MG PO (08:28)
[2024-11-14] MEDS: Colchicine 0.6 MG TABLET PO (08:28)
[2024-11-14] MEDS: Apixaban 5 MG TABLET PO (08:28)
[2024-11-14] MEDS: Digoxin 0.125 MG TABLET PO (08:28)
[2024-11-14] MEDS: Lactulose 20 GM/30 ML SOLUTION PO (08:28)
[2024-11-14 08:30] VITALS: PULSE 84
--- NOTE | 2024-11-14 08:59 | P.DS_ITS ---
DS: Providers Provider Date of Service: 11/14/24 Date of admission: 11/04/24 15:45 Date of discharge: 11/14/24 Primary care physician: Malinda Physician Admitting clinician: Roxanna Reynoso Attending physician on admission: Aiden Briones Consults: 11/05/24 09:35 Addiction Medicine Routine Consulting Provider: Addiction Covering Reason for consultation: adjusting dose of methadone Has provider been notified: Yes 11/09/24 14:03 Consult to Hospitalist Routine Comment: h/o gout, pain same as gout but poly-joint Consulting Provider: [facility] Hospitalists Reason For Exam: B/L wrist, knee, ankle pain; new. Attending physician on discharge: Aiden Briones Discharging clinician: Luz Marina Francois DS: Diagnosis Discharge Diagnosis (1) MDD (major depressive disorder), recurrent episode, moderate: Status: Acute (2) Opioid use disorder, severe, dependence: Status: Acute (3) Alcohol use disorder, moderate, dependence: Status: Acute DS: Medications Discharge Medications Home Medications: Home Medications ?Medication ?Instructions ?Recorded ?Confirmed albuterol sulfate 90 mcg/actuation 2 puff inhalation Q4H PRN wheezing 05/14/23 11/02/24 aerosol inhaler (Ventolin HFA) colchicine 0.6 mg tablet 0.6 mg PO TID PRN GOUT FLARE 11/02/24 11/02/24 furosemide 20 mg tablet 20 mg PO DAILY 11/02/24 11/02/24 ibuprofen 800 mg tablet 800 mg PO TID PRN Pain (Scale 11/02/24 11/02/24 Score 4-6) metoprolol tartrate 100 mg tablet 150 mg PO BID 11/02/24 11/02/24 Previous Rx's ?Medication ?Instructions ?Recorded naloxone 4 mg/actuation nasal 4 mg intranasal Q2M PRN opioid 06/22/22 spray (Narcan) overdose #2 ea apixaban 5 mg tablet (Eliquis) 5 mg PO BID #60 tabs 05/21/23 digoxin 125 mcg (0.125 mg) tablet 0.125 mg PO DAILY #30 tabs 05/21/23 lisinopril 10 mg tablet 10 mg PO DAILY #30 tabs 05/21/23 lorazepam 0.5 mg tablet 0.5 mg PO BID PRN Anxiety #20 tabs 05/21/23 lidocaine 5 % topical patch 1 patch topical DAILY PRN pain #15 09/24/23 ea Mental Status Exam Mental Status Exam Narrative: Pt is alert and oriented; behavior is cooperative; dressed in casual attire; mood is described as better ; eye contact appropriate; Speech is normal rate, volume and not pressured; thought process is organized; Thought content is on tx; denies SI/HI/VH/AH. Data Data Completed and Pending Completed studies during hospitalization [Text1]: 11/11/24 11/11/24 11/13/24 08:12 12:21 11:55 Creatinine 0.83 Estim Creat Clear Calc 126.8 Estimated GFR > 60 Total Bilirubin 1.1 H 0.6 Direct Bilirubin 0.5 0.3 AST 85 H 164 H ALT 71 H 96 H Alkaline Phosphatase 159 H 166 H Ammonia 64 H 62 H Total Protein 8.0 7.8 Albumin 3.4 L 3.4 L 11/13/24 13:55 Urine clean catch - Clean Catch Midstream Urine Culture - Pending DS: Summary Hospital Course Hospital Course: Mr. Tolentino is a 64 year-old male with hx of alcohol and opioid use disorder who initially self presented to [facility] ED reporting abdominal pain. Abdominal pain showed diverticulitis. He was started on augmentin. Utox was positive for fentanyl and oxycodone, which he reports buying on the streets. He also reported increased depression, and suicidal ideation with plan to cut his throat. He has a number of medical conditions. In terms of pertinent labs- cbc with elevated MCV although no anemia, no leukopenia nor leukocytosis. B12 480. CMP without electrolyte imbalances, BUN 16, Cr 1.04 with creatinine clearance of 100. LFTs elevated (AST 155, ALT 96, Al.phos 187) Ammonia is slightly elevated 58. Abdominal CT showed liver cirrhosis. UA is negative. Head CT without acute findings but does show microvascular changes and atrophy. A1c elevated 7.8%- pt reports never been told to have DM.TSH On the unit, pt reports he has been feeling more depressed in the past few months. He endorses anhedonia, low energy levels, hopeless and helpless. He also reports chronic pain exacerbating mood. He denies current or past visual or auditory hallucinations. He reports poor sleep. He reports using alcohol daily about 10 nips a day. He also reports buying oxycodone and fentanyl on the streets. He does denied any plan or intent to harm himself. He reports that although he has been more depressed he is not suicidal anymore. He reports he needs help with mental health, addiction and his overall health. Mr. Tolentino is a 64 year-old male with hx of alcohol, opioid use disorder who self presented to [facility] ED reporting abdominal pain found to have diverticulitis, started on augmentin. Utox positive for fentanyl and oxycodone. He also reported increased depression and SI initially with a plan to shoot himself. On the unit, he denies any plan or intent to harm himself but does report that he has been more depressed in past months. It also seems that he has not been to his PCP rec ently. His LFTs elevated, ammonia mildly elevated 58. A1c also elevated 7.8% which he says he has never been told he has DM. We discussed risks, benefits and alternative treatment options. Will start lactulose 20gm BID, recheck ammonia tomorrow AM. Start metformin ER 500mg po qhs- with plan to follow up with PCP. Although B12 not severely low 480's will give one time dose of cyanocobalamine 1000mcg IM. Will start effexor for depression 37.5mg po daily, monitor SBP. Addiction consult to adjust Methadone- he was started on methadone 10mg po daily. EKG shows Afib- reviewed with Dr. Landers since long hx of Afib, no RVR, already on eliquix and metoprolol- no additional intervention needed. PLAN 1. Admit to M3, CV, 5 mins checks due to walker 2. Medical: Lactulose 20gm po BID for elevated ammonia 58 on 11/05/24, will recheck on 11/[address] abdomen shows cirrhosis, need to be seen by GI. A1c 7.8% started on metformin ER 500mg po qhs--> follow up with PCP. May benefit from SGLT2 for additional cardiac protection given hx of HF with preserved ejection fraction. EKG shows Afib, long hx of persistent afib, no RVR, already on eliquis and metoprolol. Per Dr. Landers no additional intervention at this point. 3. Ordered addiction medicine consult to adjust methadone. Started in ED methadone 10mg po daily. 4. Start Effexor 37.5mg po daily for depression, using SNRI to help with energy. Monitor SBP. 5. aftercare planning Active on unit, social with peers. attending groups. Patient reports feeling depressed ; pt stated, my pain kept me up all night. I'm walking hurt. I relapsed because of the pain. I wouldn't kill myself because that would only hurt my if I did that . denies SI/HI/VH/AH. Patient reports he feels methadone helped him a bit with his pain; being followed by Yumiko Simms NP. Active on unit, social with peers. attending groups. Patient reports feeling okay today; pt stated, I always feel anxious but today I'm feeling like I can walk better. The methadone is helping me but it makes me feel out of it . Per nursing, slept 6 hours. denies SI/HI/VH/AH. Continue current tx plan. Continue current regimen and plans. Decreased his methadone to 30 mg, col chicine to t.i.d. dosing schedule and capsaicin ointment for his knees. B/L and polyarticular pain not c/w gout; hospitalist consult for proper eval and mgmt. aware staying on psych unit is not tenable for either pain or medical problems, denies SI. informed of plan for discharge tomorrow, pending outcome of hospitalist consult. Laying in bed. Patient reports feeling fine other than being in pain ; patient stated, I'm sad because of my family members passing but I don't want to . I love life. 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 denies SI/HI/VH/AH. Start: Cymbalta 20mg PO daily Pt seen by hospitalist; started on prednisone; please see note. Plan for discharge Wednesday;pt aware. Continue current management and treatment plan. LFTs repeated. Educated on acute vs chronic liver disease. Patient reports feeling better ; pt stated, I feel like I'm in less pain and I slept pretty good . Patient denies SI/HI/VH/AH. Plan to be discharged home tomorrow and follow up with outpatient providers. Hospitalist DC'd prednisone d/t possibly increasing LFTs; pt aware. Plans to follow [facility] with [facility]. Status at Discharge Cognitive/behavioral status at discharge: Patient was interviewed prior to discharge and found to be fully oriented and without SI or HI. Patient has insight and demonstrates good judgment in terms of wanting to pursue treatment. Patient has a safety plan that includes presenting to the closest ER or calling 911 if feeling unsafe. Functional status at discharge: uses cane/walker Overall status at discharge: patient is back to baseline Time Spent with Patient Time attestation: Total time managing care of this patient today _20___ minutes. Time spent: Less than 30 minutes Discharge Plan Discharge Anticipated Discharge Date/Time: 11/14/24 11:00 Patient Disposition: Home, Self-Care Discharge Diagnosis: MDD, Alcohol use d/o, opioid use d/o Referrals: [facility] [Other] - 1 day (Please present to [facility] in [place] the day after discharge to continue receiving methadone. ) Almita Lu ([facility]) [Other] - 11/17/24 11:00 am (in person appointment) Lila Gimenez ([facility] Psychiatrist) [Other] - 12/07/24 12:30 pm (telehealth appointment) [facility] ([facility]) [Other] - 11/17/24 2:00 am (Telehealth appointment Follow up appointment) [facility] [Provider Group] - 1 Week (walk in hours Mon through Fri 830 a to 4p) Discharge Medications: New metformin 500 mg Tablet Extended Release 24 Hr 500 mg PO BEDTIME 30 Days Qty: 30 0RF lactulose 20 gram/30 mL Solution 20 g PO BID 30 Days Qty: 1800 0RF venlafaxine 37.5 mg Capsule,Extended Release 24hr 37.5 mg PO DAILY 30 Days Qty: 30 0RF Continued albuterol sulfate [Ventolin HFA] 90 mcg/actuation HFA aerosol inhaler 2 puff INHALATION Q4H PRN (Reason: wheezing) lisinopril 10 mg Tablet 10 mg PO DAILY Qty: 30 0RF Protocol: Hold for SBP< HOLD for SBP < : 90 digoxin 125 mcg (0.125 mg) Tablet 0.125 mg PO DAILY Qty: 30 0RF Eliquis 5 mg tablet 5 mg PO BID Qty: 60 0RF lidocaine 5 % adhesive patch,medicated 1 patch topical DAILY PRN (Reason: pain) Qty: 15 0RF Rx Instructions: leave on most painful area for up to 12 hrs metoprolol tartrate 100 mg Tablet 150 mg PO BID colchicine 0.6 mg Tablet 0.6 mg PO TID PRN (Reason: GOUT FLARE) furosemide 20 mg Tablet 20 mg PO DAILY ibuprofen 800 mg Tablet 800 mg PO TID PRN (Reason: Pain (Scale Score 4-6)) naloxone [Narcan] 4 mg/actuation spray,non-aerosol 4 mg intranasal Q2M PRN (Reason: opioid overdose) Qty: 2 0RF Rx Instructions: spray 1 dose into ONE nostril; alternate nostrils w each dose until help arrives Discontinued lorazepam 0.5 mg tablet 0.5 mg PO BID PRN (Reason: Anxiety) Qty: 20 0RF No Action buprenorphine-naloxone [Suboxone] 2-0.5 mg film 1 film buccal DAILY Qty: 7 0RF Discharge Orders: Discharge Order (Routine); Ordered 11/14/24 Ordered By: Luz Marina Francois Diet: Regular diet Activity on Discharge: As tolerated Stand Alone Forms: Patient Portal Discharge page, Community Support Print Language: Cypriot Activity Restrictions/Additional Instructions: labs reassuring no acute trauma on CT scans of head or abdominal wall only fat containing hernias no bowel issues. Care Plan Goals: Maintain mood and safe behaviors Take medications as prescribed Continue to pursue sobriety Practice coping skills Continue with outpatient providers and reach out to them as needed Health Concerns: Mood stability and behaviors Sobriety Follow up with pain management clinic Plan of Treatment: Follow up with your PCP, psychiatric provider and other outpatient providers regarding above concerns Take medications as prescribed Assessment: Patient was interviewed prior to discharge and found to be fully oriented and w ithout SI or HI. Patient has insight and demonstrates good judgment in terms of wanting to pursue treatment. Patient has a safety plan that includes presenting to the closest ER or calling 911 if feeling unsafe. Patient Instructions: Muscle Strain (ED), Abdominal Pain (ED), Opioid Use Disorder (ED) Discharge Date/Time: 11/14/24 10:57
[2024-11-14 09:37] VITALS: PULSE 84; RESP 18; TEMP 37.1; O2SAT 98
--- NOTE | 2024-11-14 09:37 | P.PNADD_ITS ---
Subjective Subjective Date of Service: 11/14/24 Reason For Visit: Depression Interim History: Patient seen in follow up for AUD and OUD Last dose of methadone 15mg on 11/11 Prednisone taper for gout Seen in room 322, patient laying in bed. Awake, alert, brighter affect. Reports feeling better, hopeful Denies any withdrawal sx Would like to restart buprenorphine at home overdose prevention discussion Review of Systems Constitutional: Reports as per HPI Mental Status Exam Mental Status Exam Patient Appearance: Appropriate Level of Consciousness: Awake, Appropriate and Alert Patient Behavior: Appropriate and Talkative Mood Description: Calm Affect Description: Calm Speech Pattern: Clear Thought Process: Intact Thought Content: positive for Intact Diagnostics Vital Signs (24Hr): Vital Signs - 24 hr 11/13/24 19:44 11/14/24 07:36 11/14/24 08:27 Temperature 97.4 F 97.2 F Pulse Rate 93 80 Respiratory Rate 18 18 Blood Pressure 149/69 H 138/76 138/86 Pulse Oximetry 94 96 Oxygen Delivery Method Room Air Room Air 11/14/24 08:30 Temperature Pulse Rate 84 Respiratory Rate Blood Pressure Pulse Oximetry Oxygen Delivery Method BMI result Body Mass Index 39.8 Labs 11/02/24 15:31 11/11/24 08:12 Labs: Laboratory Results - last 48 hr 11/13/24 11:55 Total Bilirubin 0.6 Direct Bilirubin 0.3 AST 164 H ALT 96 H Alkaline Phosphatase 166 H Ammonia 62 H Total Protein 7.8 Albumin 3.4 L Medications Medications Current Medications Al Hydroxide/Mg Hydroxide (Magnesium Hydrox/Alum Hydrox 30 Ml Oral.Susp) 30 ml PO Q6H PRN PRN Reason: Heartburn/Nausea Last Admin: 11/05/24 16:43 Dose: 30 ml Albuterol Sulfate (Albuterol Sulfate 90 Mcg 8 Gm Inhaler) 2 puff INHALE Q4H PRN PRN Reason: wheezing Apixaban (Apixaban 5 Mg Tablet) 5 mg PO BID [facility] Last Admin: 11/14/24 08:28 Dose: 5 mg Capsaicin (Capsaicin 0.025% Cream 60 Gm Tube) 1 appl TOPICAL QID PRN; Protocol PRN Reason: knee pain Last Admin: 11/08/24 22:25 Dose: 1 appl Colchicine (Colchicine 0.6 Mg Tablet) 0.6 mg PO TID [facility] Last Admin: 11/14/24 08:28 Dose: 0.6 mg Digoxin (Digoxin 0.125 Mg Tablet) 0.125 mg PO DAILY [facility]; Protocol Last Admin: 11/14/24 08:28 Dose: 0.125 mg Furosemide (Furosemide 20 Mg Tablet) 20 mg PO DAILY [facility]; Protocol Last Admin: 11/14/24 08:27 Dose: 20 mg Hydroxyzine HCl (Hydroxyzine Hcl 25 Mg Tablet) 25 mg PO Q6H PRN PRN Reason: Anxiety Last Admin: 11/10/24 20:33 Dose: 25 mg Lactulose (Lactulose 20 Gm/30 Ml Solution) 20 gm PO BID [facility] Last Admin: 11/14/24 08:28 Dose: 20 gm Lidocaine (Lidocaine 4 % Patch Adh..Patch) 1 patch TRANSDERMA DAILY PRN PRN Reason: pain Last Admin: 11/07/24 22:10 Dose: 1 patch Lisinopril (Lisinopril 10 Mg Tablet) 10 mg PO DAILY [facility]; Protocol Last Admin: 11/14/24 08:27 Dose: 10 mg Magnesium Hydroxide (Milk Of Magnesia 30 Ml Oral.Susp) 30 ml PO DAILY PRN PRN Reason: Constipation Metformin HCl (Metformin Hcl Er 500 Mg Tab.Er.24h) 500 mg PO BEDTIME [facility] Last Admin: 11/13/24 20:11 Dose: 500 mg Metoprolol Tartrate (Metoprolol Tartrate 50 Mg Tablet) 150 mg PO BID [facility]; Protocol Last Admin: 11/14/24 08:28 Dose: 150 mg Naloxone HCl (Naloxone Hcl Nasal 4 Mg [place]) 4 mg NOSTRILALT Q2M PRN PRN Reason: opioid overdose Nicotine (Nicotine 21 Mg Patch.Td24) 21 mg TRANSDERMA DAILY PRN PRN Reason: nicotine cravings Nicotine Polacrilex (Nicotine Polacrilex 2 Mg Gum) 4 mg BUCCAL Q2H PRN PRN Reason: Nicotine Cravings Trazodone HCl (Trazodone Hcl 50 Mg Tablet) 50 mg PO BEDTIME MRX1 PRN PRN Reason: Insomnia Last Admin: 11/13/24 20:11 Dose: 50 mg Venlafaxine HCl (Venlafaxine Hcl Er 37.5 Mg Cap.Er.24h) 37.5 mg PO DAILY [facility] Last Admin: 11/14/24 08:27 Dose: 37.5 mg Allergies Allergies Allergy/AdvReac Type Severity Reaction Status Date / Time No Known Allergies Allergy Verified 11/02/24 14:23 Assessment & Plan Assessment & Plan (1) Opioid use disorder, severe, dependence: Status: Acute Code(s): F11.20 - Opioid dependence, uncomplicated Assessment and Plan: * suboxone 2mg QD rx sent to patients home pharmacy * take home narcan * follow up appt already in place with [facility] Total time managing care of this patient today __25__ minutes.
== END 2024-11-14 10:57 | disposition home or self-care (01) | DRG 751 ==
LOC: HO.ED 11-04 09:55 → HO.PADLT16 11-04 15:52
PROVIDERS: Emergency Medicine; Physician Assistant; Psychiatry & Neurology Psychiatry; Admitting Provider Social Worker; Emergency Provider Emergency Medicine Emergency Medical Services; Responsible Provider Registered Nurse; Visit Provider Psychiatry & Neurology Psychiatry
DX: F33.1 Major depressive disorder, recurrent, moderate (principal); R45.851 Suicidal ideations; I50.32 Chronic diastolic (congestive) heart failure; I48.19 Other persistent atrial fibrillation; I11.0 Hypertensive heart disease with heart failure; M10.9 Gout, unspecified; F10.20 Alcohol dependence, uncomplicated; F11.20 Opioid dependence, uncomplicated; Z87.891 Personal history of nicotine dependence; Z79.01 Long term (current) use of anticoagulants; Z79.84 Long term (current) use of oral hypoglycemic drugs; Z79.899 Other long term (current) drug therapy
CPT/HCPCS: 36415; 70450; 74177; 80048; 80053; 80061; 80076; 80162; 80307; 81003; 82140; 82565; 82607; 82746; 82947; 83036; 83690; 83735; 84443; 85025; 86704; 86706; 86709; 86803; 87086; 87340; 93005; 99285; J1100; J1885; J2003; J2250; J2405; J2704; J3010; J3420; Q9967; S9485

== ENCOUNTER → 2024-11-02 16:11 | Outpatient (BNV) | payer OTHER, SELFPAY | PROVIDERS: Emergency Provider Emergency Medicine; Visit Provider Radiology Diagnostic Radiology | DX: S09.90XA Unspecified injury of head, initial encounter (principal); K57.92 Diverticulitis of intestine, part unspecified, without perforation or abscess without bleeding | CPT/HCPCS: 70450; 74177 ==

== ENCOUNTER 2024-11-04 15:45 | Outpatient (BNV) | payer OTHER, SELFPAY | END 2024-11-05 09:49 | PROVIDERS: Admitting Provider Social Worker; Emergency Provider Emergency Medicine Emergency Medical Services; Visit Provider Internal Medicine Cardiovascular Disease | DX: I48.91 Unspecified atrial fibrillation (principal); R94.31 Abnormal electrocardiogram [ECG] [EKG] | CPT/HCPCS: 93010 ==

== ENCOUNTER 2024-11-04 15:45 | Outpatient (BNV) | payer OTHER, SELFPAY | END 2024-11-04 15:54 | PROVIDERS: Admitting Provider Social Worker; Emergency Provider Emergency Medicine Emergency Medical Services; Visit Provider Internal Medicine | DX: I48.91 Unspecified atrial fibrillation (principal); R94.31 Abnormal electrocardiogram [ECG] [EKG] | CPT/HCPCS: 93010 ==

== ENCOUNTER → 2024-11-04 15:45 | Outpatient (BNV) | payer OTHER, SELFPAY | PROVIDERS: Admitting Provider Social Worker; Emergency Provider Emergency Medicine Emergency Medical Services; Visit Provider Social Worker | DX: F33.1 Major depressive disorder, recurrent, moderate (principal); F11.20 Opioid dependence, uncomplicated; F10.20 Alcohol dependence, uncomplicated | CPT/HCPCS: 99231; 99232 ==

== ENCOUNTER → 2024-11-04 15:45 | Outpatient (BNV) | payer OTHER, SELFPAY | PROVIDERS: Admitting Provider Social Worker; Emergency Provider Emergency Medicine Emergency Medical Services; Visit Provider Nurse Practitioner Psychiatric/Mental Health | DX: F11.20 Opioid dependence, uncomplicated (principal) | CPT/HCPCS: 99499 ==

== ENCOUNTER 2024-11-17 13:37 | Outpatient (AMB) | payer OTHER, SELFPAY ==
--- NOTE | 2024-11-17 13:37 | MHC.AM.SUB ---
Intake Visit Reasons: MAT Tele Allergies No Known Allergies Allergy (Verified 11/02/24 14:23) HPI HPI MAT Tele: Details: Patient presents for follow up via telehealth following recent hospital discharge Seen while admitted to unit for opioid use disorder Briefly initiated on methadone, but tapered off as he did not care for how it made him feel Met with this automotive service writer several times during admission and at discharge, it was decided that suboxone rx would be sent home for patient to taken when he was ready ---of note, patient is well known to this automotive service writer as he as in care outpatient for over a year for OUD. Reports he only took suboxone 2mg X 2 days, since his discharge but is wondering if it is giving him a headache. So, he did not take it today. Reports difficulty sleeping, and some body aches, but overall much improved from when he initially presented to the hospital. Continues to abstain from alcohol and illicit opiates. Saw therapist today, and is scheduled for follow up next week Psychiatrist appointment on 12/07 Asking for lorazepam rx --per provider it was discontinued --patient aware of this Reporting he needs a new PCP due to insurance change. Encouraged him to start calling on Wednesday He was asking about his medications and wondering if he should continue--t/w advised him to continue taking medications as prescribed until he meets with provider and orders are adjusted. Patient verbalized understanding. Review of Systems Const Reports as per HPI, Reports difficulty sleeping and Reports lethargy Psych Reports anxiety, Reports depression and Reports anhedonia Telehealth Telehealth Telehealth Platform: Telephone Location of provider rendering services: practice address Location of patient: address on file Patient Identification confirmed using: Name, : Yes Telehealth method: voice only Patient verbally consented to treatment: Yes Patient verbally consented to billing insurance company: Yes Minutes spent on Phone/Video with Pt.: 25 Assessment & Plan Assessment & Plan (1) Opioid use disorder, severe, dependence: Code(s): F11.20 - Opioid dependence, uncomplicated Category: Medical Plan: discussed when to start suboxone again if he wants to --worsening pain or possible withdrawal sx reinforced risk of overdose with buying illicit pressed pills relapse prevention discussion with alcohol as well follow up 2 weeks via telehealth will call if he needs a refill [facility] Medical History (Updated 11/17/24 @ 13:54 by Yumiko Simms CNP) History of alcohol abuse Elevated LFTs Hypersomnia with sleep apnea Lumbar degenerative disc disease Knee osteoarthritis Hypertension Alcohol withdrawal Opioid dependence Social History Household Members: Spouse Housing: Apartment Do you presently have visiting nurse or other home services: No Alcohol intake: never Comment: 5 min checks Patient Tobacco Use Status: Former Tobacco user Substance Use Type: Opiates Advance Directives Date on File: 05/12/22 service: No Sexual orientation: Straight/Heterosexual Social History: lives with of several years. Substance History: reports using opioids for several years, used to be on suboxone alcohol also for many years, reports recently using about 10 nips/day cocaine- denies Trauma History: not disclosed
== END 2024-11-17 14:58 | disposition home or self-care (01) ==
PROVIDERS: Visit Provider Nurse Practitioner Psychiatric/Mental Health
DX: F11.20 Opioid dependence, uncomplicated (principal)
CPT/HCPCS: 99214

== ENCOUNTER → 2024-11-17 13:37 | Outpatient (BNVA) | payer OTHER, SELFPAY | PROVIDERS: Visit Provider Nurse Practitioner Psychiatric/Mental Health ==

== ENCOUNTER 2024-11-26 14:33 | Inpatient (IN) | payer OTHER, SELFPAY ==
[2024-11-26] VITALS (9 sets, daily range): BP systolic 101–145; BP diastolic 54–76; PULSE 84–128; RESP 16–22; TEMP 36.2–36.9; O2SAT 96–97; BMI 37.8
--- NOTE | 2024-11-26 | ECG_ITS ---
Test Reason : TACHY Blood Pressure : */* mmHG Vent. Rate : 143 BPM Atrial Rate : * BPM P-R Int : * ms QRS Dur : 88 ms QT Int : 270 ms P-R-T Axes : * 67 42 degrees QTcB Int : 416 ms Atrial fibrillation with rapid ventricular response Nonspecific ST abnormality Abnormal ECG When compared with ECG of 05-Nov-2024 09:49, Vent. rate has increased by 61 bpm Referred By: Bethany Berry Electronically Signed By: Samy Pink
--- NOTE | ~2024-11-26 | CT_ITS ---
CLINICAL HISTORY: Abdominal pain nausea vomiting diarrhea CT abdomen and pelvis with contrast Comparison: CT abdomen pelvis 11/02/2024 Findings: Diffuse esophageal mural thickening, nonspecific. Atelectasis with lingular suspected ill-defined nodules, possibly measuring up to 1.1 cm. Per Fleischner criteria: Low-risk patients: CT at 3-6 months, then consider CT at 18-24 months. High-risk patients: CT at 3-6 months, then CT at 18-24 months. Cardiomegaly without significant pericardial effusion. Coronary artery calcifications. Hepatomegaly with steatosis and cirrhosis. Distended gallbladder. Left-sided hypodense renal cysts. Clustered nonobstructive calculi in the left lower pole kidney measuring no more than 3 mm. Duodenal diverticuli noted along the 2nd and 3rd segments. Diffuse fluid-filled bowel. Diffuse small bowel and colonic mural thickening with mucosal hyperemia and air-fluid levels suggesting enterocolitis. Midline abdominal wall eventration. Fat containing umbilical hernia. Fat containing inguinal hernias. Colonic diverticulosis without diverticulitis. Right total hip arthroplasty. Ankylosis of the bilateral SI joints. Osteopenia with diffuse multilevel spondylosis. Diffuse atheromatous plaque disease throughout the aorta and branch vessels, without aneurysmal dilatation. IMPRESSION: 1. Findings suggestive of diffuse enterocolitis. 2. Clustered nonobstructive calculi in the left lower pole kidney measuring no more than 3 mm. 3. Cirrhosis. 4. Additional findings as described. This document has been electronically signed by: Francois Angel MD on 11/26/2024 19:45:10
--- NOTE | 2024-11-26 16:01 | ED_ITS ---
HPI - General Adult General Chief complaint: Abdominal Pain Stated complaint: Abd pain reaction to meds? Time Seen by Provider: 11/26/24 17:50 Related Data Home Medications ?Medication ?Instructions ?Recorded ?Confirmed albuterol sulfate 90 mcg/actuation 2 puff inhalation Q4H PRN wheezing 05/14/23 11/02/24 aerosol inhaler (Ventolin HFA) colchicine 0.6 mg tablet 0.6 mg PO TID PRN GOUT FLARE 11/02/24 11/02/24 furosemide 20 mg tablet 20 mg PO DAILY 11/02/24 11/02/24 ibuprofen 800 mg tablet 800 mg PO TID PRN Pain (Scale 11/02/24 11/02/24 Score 4-6) metoprolol tartrate 100 mg tablet 150 mg PO BID 11/02/24 11/02/24 Previous Rx's ?Medication ?Instructions ?Recorded naloxone 4 mg/actuation nasal 4 mg intranasal Q2M PRN opioid 06/22/22 spray (Narcan) overdose #2 ea apixaban 5 mg tablet (Eliquis) 5 mg PO BID #60 tabs 05/21/23 digoxin 125 mcg (0.125 mg) tablet 0.125 mg PO DAILY #30 tabs 05/21/23 lisinopril 10 mg tablet 10 mg PO DAILY #30 tabs 05/21/23 lidocaine 5 % topical patch 1 patch topical DAILY PRN pain #15 09/24/23 ea buprenorphine 2 mg-naloxone 0.5 mg 1 film buccal DAILY #7 ea 11/14/24 sublingual film (Suboxone) lactulose 20 gram/30 mL oral 20 g (30 mL) PO BID 30 days #1,800 11/14/24 solution mL metformin 500 mg tablet,extended 500 mg PO BEDTIME 30 days #30 tabs 11/14/24 release 24 hr venlafaxine 37.5 mg 37.5 mg PO DAILY 30 days #30 caps 11/14/24 capsule,extended release 24 hr Allergies Allergy/AdvReac Type Severity Reaction Status Date / Time No Known Allergies Allergy Verified 11/26/24 16:05 PMFSH Past Medical History Medical History History of alcohol abuse Elevated LFTs Hypersomnia with sleep apnea Lumbar degenerative disc disease Knee osteoarthritis Hypertension Alcohol withdrawal Opioid dependence Social History Social History Household Members: Spouse Housing: Apartment Do you presently have visiting nurse or other home services: No Alcohol intake: never Comment: 5 min checks Patient Tobacco Use Status: Former Tobacco user Substance Use Type: Opiates Advance Directives: Yes Advance Directives on File: Yes Advance Directives Date on File: 05/12/22 Do you have a plan to hurt others: No Plan service: No Sexual orientation: Straight/Heterosexual Physical Exam ED Vital Signs: Vital Signs - 24 hr 11/26/24 16:02 11/26/24 19:13 11/26/24 19:20 Temperature 97.2 F Pulse Rate 84 119 H 113 H Respiratory Rate 18 20 20 Blood Pressure 102/57 L 140/54 H 138/70 Pulse Oximetry 97 97 96 Oxygen Delivery Method Room Air Room Air Room Air 11/26/24 19:34 11/26/24 19:49 11/26/24 19:59 Temperature Pulse Rate 102 H 106 H 101 H Respiratory Rate 18 21 H Blood Pressure 131/66 136/76 145/71 H Pulse Oximetry 97 97 97 Oxygen Delivery Method Room Air Room Air Room Air 11/26/24 20:05 11/26/24 20:21 Temperature Pulse Rate 128 H 119 H Respiratory Rate 22 H 18 Blood Pressure 101/73 122/68 Pulse Oximetry 97 Oxygen Delivery Method Room Air BMI result Body Mass Index 37.8 Course Course Course Narrative: This is an RME performed by Luanne Ryan CNP: Additional HPI, ROS, PE not included below will be deferred to primary provider. Patient is a 64-year-old male who presents to the emergency department for evaluation of Reports compliance with his medications, states he took his lactulose this morning approximately 10 minutes later he began developing diffuse abdominal pain nausea multiple episodes of vomiting bilious nonbloody emesis, and watery diarrhea. States he has taken lactulose previously without any reaction such as this. He denies any known sick contacts. He denies any fevers or chills. Plan: Serum labs, viral serologies, sublingual Zofran Reevaluation(s) Reevaluation #1: Received call from lab regarding critical lactic acid of 3.2, has leukocytosis 22,100. Blood cultures have been ordered. rubber thread spooler made aware of patient. May be secondary to vomiting however warrants further evaluation, +/- CT AP. Reevaluation #2: See additional note dated 11/26/2024 Medications Administered Discontinued Medications Generic Name Dose Route Start Last Admin Trade Name Bailey PRN Reason Stop Dose Admin Piperacillin Sod/Tazobactam 100 mls @ 200 mls/hr 11/26/24 17:46 11/26/24 18:47 Sod 4.5 gm/ Sodium Chloride IV 11/26/24 18:15 Infused ONCE ONE Infusion Sodium Chloride 3,789 mls @ 3,789 mls/hr 11/26/24 18:14 11/26/24 19:17 Ns 30 ml/kg infuse over 1 hr (3789 ml) 11/26/24 19:13 Infused IV Infusion .Q1H STA Iohexol 100 ml 11/26/24 19:02 11/26/24 19:02 Iohexol 350 Mg/Ml 100 Ml Infus..Btl IV 11/26/24 19:03 85 ml ONCE ONE Administration Ondansetron HCl 4 mg 11/26/24 16:05 11/26/24 16:06 Ondansetron Odt 4 Mg Tab.Rapdis TRANSLINGU 11/26/24 16:06 4 mg ONCE ONE Administration Medical Decision Making Lab Data 11/26/24 16:23 11/26/24 16:23 Labs: Lab Results 11/26/24 Range/Units 16:23 WBC 22.1 H (4.8-10.8) X10*3/uL RBC 4.82 (4.60-5.80) X10*6/uL Hgb 16.9 (14.0-18.0) g/dl Hct 48.0 (42.0-52.0) % MCV 99.6 H (80.0-98.0) fL MCH 35.1 H (27.0-33.0) pg MCHC 35.2 (31.0-36.0) g/dl RDW 12.9 (11.0-16.0) % Plt Count 240 (160-400) X10*3/uL MPV 10.6 (9.4-12.4) fL Immature Gran % (Auto) 0.4 (0.0-0.4) % Neut % (Auto) 87.2 H (45-73) % Lymph % (Auto) 6.4 L (20-40) % [place] % (Auto) 4.6 (2-11) % Eos % (Auto) 1.0 (0-4) % Baso % (Auto) 0.4 (0-2) % Lymph # (Auto) 1.4 (1.2-4.9) X10*3/uL [place] # (Auto) 1.0 (0.1-1.2) X10*3/uL Eos # (Auto) 0.2 (0.0-0.4) X10*3/uL Baso # (Auto) 0.1 (0.0-0.2) X10*3/uL Abs Immat Gran (auto) 0.08 H (0.00-0.03) X10*3/uL Absolute Neuts (auto) 19.2 H (2.0-8.3) x10*3/uL Absolute Nucleated RBC 0.000 (0.0-0.012) X10*3/uL Nucleated RBC % (auto) 0.0 (0.0-0.2) /100WBC PT 14.5 H (10.9-12.4) SEC INR 1.2 H (0.9-1.1) Sodium 140 (135-145) mmol/L Potassium 4.1 (3.3-5.1) mmol/L Chloride 109 H (96-108) mmol/L Carbon Dioxide 22 (22-29) mmol/L Anion Gap 13 (12-20) BUN 11 (9-16) mg/dL Creatinine 0.86 (0.5-1.4) mg/dL Estim Creat Clear Calc 119.1 Estimated GFR > 60 Random Glucose 171 H (60-115) mg/dL Lactic Acid 3.2 H* (0.5-2.0) mmol/L Calcium 9.5 D (8.4-10.2) mg/dL Magnesium 1.8 (1.6-2.6) mg/dL Total Bilirubin 0.9 (0.0-1.0) mg/dL Direct Bilirubin 0.3 (0.0-0.5) mg/dL AST 104 H (5-37) U/L ALT 102 H (0-40) U/L Alkaline Phosphatase 181 H (39-117) U/L Ammonia 66 H (13-55) umol/L Total Protein 7.9 (6.5-8.0) g/dL Albumin 3.8 (3.5-5.0) g/dL Lipase 30 (8-78) U/L Ethyl Alcohol < 10 mg/dL Influenza Type A (PCR) NEGATIVE (Negative) Influenza Type B (PCR) NEGATIVE (Negative) RSV RNA Qual (PCR) NEGATIVE (Negative) SARS-CoV-2 RNA (RT-PCR) NEGATIVE (Negative) Discharge Plan Discharge Clinical Impression: Colitis Patient Disposition: Admitted As Inpatient Print Language: Kinyarwanda
[2024-11-26] MEDS: Ondansetron ODT 4 MG TAB.RAPDIS TRANSLINGU (16:06)
[2024-11-26 16:29] LABS: MANUAL DIFF FLAG NO
[2024-11-26 16:30] LABS: Basophils Absolute Auto 0.1 X10*3/uL (0.0-0.2); Basophils Percent Auto 0.4 % (0-2); Eosinophils Absolute Auto 0.2 X10*3/uL (0.0-0.4); Hemoglobin 16.9 g/dl (14.0-18.0); Imm Gran Abs Auto 0.08 X10*3/uL (0.00-0.03); Imm Gran Pct Auto 0.4 % (0.0-0.4); Lymphocytes Absolute Auto 1.4 X10*3/uL (1.2-4.9); Lymphocytes Percent Auto 6.4 % (20-40); Mean Corpuscular HGB Conc 35.2 g/dl (31.0-36.0); Mean Corpuscular Hemoglobin 35.1 pg (27.0-33.0); Mean Corpuscular Volume 99.6 fL (80.0-98.0); Mean Platelet Volume 10.6 fL (9.4-12.4); Monocytes Percent Auto 4.6 % (2-11); Neutrophils Absolute Auto 19.2 x10*3/uL (2.0-8.3); Neutrophils Percent Auto 87.2 % (45-73); Platelet Count 240 X10*3/uL (160-400); Red Blood Count 4.82 X10*6/uL (4.60-5.80); Red Cell Distribution Width 12.9 % (11.0-16.0); White Blood Count 22.1 X10*3/uL (4.8-10.8)
[2024-11-26 17:00] LABS: Alanine Aminotransferase 102 U/L (0-40); Albumin Level 3.8 g/dL (3.5-5.0); Alkaline Phosphatase 181 U/L (39-117); Anion Gap 13 (12-20); Aspartate Amino Transferase 104 U/L (5-37); Bilirubin Direct 0.3 mg/dL (0.0-0.5); Bilirubin Total 0.9 mg/dL (0.0-1.0); Blood Urea Nitrogen 11 mg/dL (9-16); Calcium 9.5 mg/dL (8.4-10.2); Carbon Dioxide 22 mmol/L (22-29); Chloride 109 mmol/L (96-108); Creatinine Clr Calc Pharmacy 119.1; Estimated Glomerular Filt Rate > 60; Glucose Random 171 mg/dL (60-115); Lipase 30 U/L (8-78); Magnesium 1.8 mg/dL (1.6-2.6); Potassium 4.1 mmol/L (3.3-5.1); Sodium 140 mmol/L (135-145); Total Protein 7.9 g/dL (6.5-8.0)
[2024-11-26 17:05] LABS: Ethanol < 10 mg/dL
[2024-11-26 17:06] LABS: INTERNATIONAL NORM RATIO 1.2 (0.9-1.1); Prothrombin Time 14.5 SEC (10.9-12.4)
[2024-11-26 17:31] LABS: Lactic Acid 3.2 mmol/L (0.5-2.0)
[2024-11-26 17:32] LABS: Influenza A PCR NEGATIVE (Negative); Influenza B PCR NEGATIVE (Negative); Resp Syncy Virus RNA Qual PCR NEGATIVE (Negative); SARS COV2 PCR INHOUSE NEGATIVE (Negative)
[2024-11-26] MEDS: Piperacillin Sodium/Tazobactam 4.5 GM in 0.9 % Sodium Chloride 100 ML IV ×2 (18:17→23:31)
[2024-11-26] MEDS: SODIUM CHLORIDE 3789 ML IV (18:17)
[2024-11-26 18:27] LABS: Reflex Lactate? Lactic Acid Added
[2024-11-26 18:37] LABS: Ammonia 66 umol/L (13-55)
--- NOTE | 2024-11-26 19:00 | PC.NURSE ---
pt taken to CT- fluids paused
[2024-11-26] MEDS: iohexoL 350 MG/ML 100 ML INFUS..BTL IV (19:02)
--- NOTE | 2024-11-26 20:02 | ED_ITS ---
HPI - Abdominal Pain General Chief Complaint: Abdominal Pain Stated Complaint: Abd pain reaction to meds? Time Seen by Provider: 11/26/24 17:50 History of Present Illness HPI narrative: 63-year-old male with history of alcohol use disorder, morbid obesity, HFrEF, chronic low back pain with lumbar degenerative disc disease, osteoarthritis, hypertension, atrial fibrillation anticoagulated with Eliquis . Presented today with having diarrhea that is brown in color. No blood. Not on recent antibiotics. Diffuse abdominal pain. History of liver cirrhosis is currently on lactulose. Previous history of opiate use disorder. History of alcohol intoxication. Complaining of generalized malaise. Patient is also on Eliquis for the atrial fibrillation. Related Data Home Medications ?Medication ?Instructions ?Recorded ?Confirmed albuterol sulfate 90 mcg/actuation 2 puff inhalation Q4H PRN wheezing 05/14/23 11/02/24 aerosol inhaler (Ventolin HFA) colchicine 0.6 mg tablet 0.6 mg PO TID PRN GOUT FLARE 11/02/24 11/02/24 furosemide 20 mg tablet 20 mg PO DAILY 11/02/24 11/02/24 ibuprofen 800 mg tablet 800 mg PO TID PRN Pain (Scale 11/02/24 11/02/24 Score 4-6) metoprolol tartrate 100 mg tablet 150 mg PO BID 11/02/24 11/02/24 Previous Rx's ?Medication ?Instructions ?Recorded naloxone 4 mg/actuation nasal 4 mg intranasal Q2M PRN opioid 06/22/22 spray (Narcan) overdose #2 ea apixaban 5 mg tablet (Eliquis) 5 mg PO BID #60 tabs 05/21/23 digoxin 125 mcg (0.125 mg) tablet 0.125 mg PO DAILY #30 tabs 05/21/23 lisinopril 10 mg tablet 10 mg PO DAILY #30 tabs 05/21/23 lidocaine 5 % topical patch 1 patch topical DAILY PRN pain #15 09/24/23 ea buprenorphine 2 mg-naloxone 0.5 mg 1 film buccal DAILY #7 ea 11/14/24 sublingual film (Suboxone) lactulose 20 gram/30 mL oral 20 g (30 mL) PO BID 30 days #1,800 11/14/24 solution mL metformin 500 mg tablet,extended 500 mg PO BEDTIME 30 days #30 tabs 11/14/24 release 24 hr venlafaxine 37.5 mg 37.5 mg PO DAILY 30 days #30 caps 11/14/24 capsule,extended release 24 hr Allergies Allergy/AdvReac Type Severity Reaction Status Date / Time No Known Allergies Allergy Verified 11/26/24 16:05 Review of Systems Review of Systems Positive abdominal pain positive diarrhea Yes all other systems are reviewed and are negative [facility] Past Medical History Attestation statement: The following information was validated with the patient. Medical History History of alcohol abuse Elevated LFTs Hypersomnia with sleep apnea Lumbar degenerative disc disease Knee osteoarthritis Hypertension Alcohol withdrawal Opioid dependence Social History Social History Household Members: Spouse Housing: Apartment Do you presently have visiting nurse or other home services: No Alcohol intake: never Comment: 5 min checks Patient Tobacco Use Status: Former Tobacco user Substance Use Type: Opiates Advance Directives: Yes Advance Directives on File: Yes Advance Directives Date on File: 05/12/22 Do you have a plan to hurt others: No Plan service: No Sexual orientation: Straight/Heterosexual Physical Exam ED Vital Signs: Vital Signs - 24 hr 11/26/24 16:02 Temperature 97.2 F Pulse Rate 84 Respiratory Rate 18 Blood Pressure 102/57 L Pulse Oximetry 97 Oxygen Delivery Method Room Air BMI result Body Mass Index 37.8 Appearance: Alert. Oriented X3. No acute distress. Eyes: Pupils equal, round and reactive to light. ENT: Pharynx normal. Neck: Normal inspection. Neck supple. No lymph nodes noted. No crepitus CVS: Normal heart rate and rhythm. Pulses normal. Normal S1 and S2 Respiratory: No respiratory distress. Breath sounds normal. No Wheezing. No rales Abdomen: Soft and nontender. No rigidity. No distention. good BS x4 Skin: Skin warm and dry. Normal skin color. Normal skin turgor. Extremities: No lower extremity edema. Neurovascular intact to all extremities. No Lacerations. No Rash Neuro: Oriented X 3. No motor deficit. No sensory deficit. Moving all extermities. No slurred speech Medical Decision Making Medical Decision Making MDM Narrative: Diffuse abdominal pain with diarrhea. Patient's labs showed an elevated white count of 22.1. Significant shift. Patient is electrolytes showed an elevated lactate at 3.2 question if this is secondary to dehydration. Versus intra- abdominal infection. Nevertheless antibiotic was started. Cultures are obtained. Patient is CT scan of the abdomen pelvis was done. It showed no acute obstruction no acute mass no perforation it did show colitis. Patient denies any recent use of antibiotics. There is no large to on ascites suggest patient has SBP. After IV fluids patient's lactate will be repeated. Will require admission for further evaluation. Monitoring. Differential Diagnosis Differential Diagnoses: The differential diagnosis associated with the presentation includes Atrial fibrillation, diarrhea, C diff, flu COVID RSV, dehydration Admission/Observation Consideration of admission/observation: Escalation of care including admission/observation considered Consult Healthcare Provider Management of the patient was discussed with: Hospitalist Lab Data MDM Lab Attestation statement: I reviewed the patient's lab results. 11/26/24 16:23 11/26/24 16:23 Labs: Lab Results 11/26/24 Range/Units 16:23 WBC 22.1 H (4.8-10.8) X10*3/uL RBC 4.82 (4.60-5.80) X10*6/uL Hgb 16.9 (14.0-18.0) g/dl Hct 48.0 (42.0-52.0) % MCV 99.6 H (80.0-98.0) fL MCH 35.1 H (27.0-33.0) pg MCHC 35.2 (31.0-36.0) g/dl RDW 12.9 (11.0-16.0) % Plt Count 240 (160-400) X10*3/uL MPV 10.6 (9.4-12.4) fL Immature Gran % (Auto) 0.4 (0.0-0.4) % Neut % (Auto) 87.2 H (45-73) % Lymph % (Auto) 6.4 L (20-40) % [place] % (Auto) 4.6 (2-11) % Eos % (Auto) 1.0 (0-4) % Baso % (Auto) 0.4 (0-2) % Lymph # (Auto) 1.4 (1.2-4.9) X10*3/uL [place] # (Auto) 1.0 (0.1-1.2) X10*3/uL Eos # (Auto) 0.2 (0.0-0.4) X10*3/uL Baso # (Auto) 0.1 (0.0-0.2) X10*3/uL Abs Immat Gran (auto) 0.08 H (0.00-0.03) X10*3/uL Absolute Neuts (auto) 19.2 H (2.0-8.3) x10*3/uL Absolute Nucleated RBC 0.000 (0.0-0.012) X10*3/uL Nucleated RBC % (auto) 0.0 (0.0-0.2) /100WBC PT 14.5 H (10.9-12.4) SEC INR 1.2 H (0.9-1.1) Sodium 140 (135-145) mmol/L Potassium 4.1 (3.3-5.1) mmol/L Chloride 109 H (96-108) mmol/L Carbon Dioxide 22 (22-29) mmol/L Anion Gap 13 (12-20) BUN 11 (9-16) mg/dL Creatinine 0.86 (0.5-1.4) mg/dL Estim Creat Clear Calc 119.1 Estimated GFR > 60 Random Glucose 171 H (60-115) mg/dL Lactic Acid 3.2 H* (0.5-2.0) mmol/L Calcium 9.5 D (8.4-10.2) mg/dL Magnesium 1.8 (1.6-2.6) mg/dL Total Bilirubin 0.9 (0.0-1.0) mg/dL Direct Bilirubin 0.3 (0.0-0.5) mg/dL AST 104 H (5-37) U/L ALT 102 H (0-40) U/L Alkaline Phosphatase 181 H (39-117) U/L Ammonia 66 H (13-55) umol/L Total Protein 7.9 (6.5-8.0) g/dL Albumin 3.8 (3.5-5.0) g/dL Lipase 30 (8-78) U/L Ethyl Alcohol < 10 mg/dL Influenza Type A (PCR) NEGATIVE (Negative) Influenza Type B (PCR) NEGATIVE (Negative) RSV RNA Qual (PCR) NEGATIVE (Negative) SARS-CoV-2 RNA (RT-PCR) NEGATIVE (Negative) Radiology Impression Discussion of test interpretation with radiology: I have reviewed the radiologist's reading. (I reviewed the radiologist reading of the CT scan abdomen pelvis which is consistent with having colitis) External Record Review External record reviewed: Inpatient record Chronic Conditions History of alcohol use previous history of abdominal surgery for hernia Medications Administered Discontinued Medications Generic Name Dose Route Start Last Admin Trade Name Freq PRN Reason Stop Dose Admin Piperacillin Sod/Tazobactam 100 mls @ 200 mls/hr 11/26/24 17:46 11/26/24 18:47 Sod 4.5 gm/ Sodium Chloride IV 11/26/24 18:15 Infused ONCE ONE Infusion Sodium Chloride 3,789 mls @ 3,789 mls/hr 11/26/24 18:14 11/26/24 18:17 Ns 30 ml/kg infuse over 1 hr (3789 ml) 11/26/24 19:13 3,789 mls/hr IV Administration .Q1H STA Iohexol 100 ml 11/26/24 19:02 11/26/24 19:02 Iohexol 350 Mg/Ml 100 Ml Infus..Btl IV 11/26/24 19:03 85 ml ONCE ONE Administration Ondansetron HCl 4 mg 11/26/24 16:05 11/26/24 16:06 Ondansetron Odt 4 Mg Tab.Rapdis TRANSLINGU 11/26/24 16:06 4 mg ONCE ONE Administration Discharge Plan Discharge Clinical Impression: Colitis Patient Disposition: Admitted As Inpatient Prescriptions: No Action buprenorphine-naloxone [Suboxone] 2-0.5 mg film 1 film buccal DAILY Qty: 7 0RF albuterol sulfate [Ventolin HFA] 90 mcg/actuation HFA aerosol inhaler 2 puff INHALATION Q4H PRN (Reason: wheezing) lisinopril 10 mg Tablet 10 mg PO DAILY Qty: 30 0RF Protocol: Hold for SBP< HOLD for SBP < : 90 digoxin 125 mcg (0.125 mg) Tablet 0.125 mg PO DAILY Qty: 30 0RF Eliquis 5 mg tablet 5 mg PO BID Qty: 60 0RF lidocaine 5 % adhesive patch,medicated 1 patch topical DAILY PRN (Reason: pain) Qty: 15 0RF Rx Instructions: leave on most painful area for up to 12 hrs metoprolol tartrate 100 mg Tablet 150 mg PO BID colchicine 0.6 mg Tablet 0.6 mg PO TID PRN (Reason: GOUT FLARE) furosemide 20 mg Tablet 20 mg PO DAILY ibuprofen 800 mg Tablet 800 mg PO TID PRN (Reason: Pain (Scale Score 4-6)) metformin 500 mg Tablet Extended Release 24 Hr 500 mg PO BEDTIME 30 Days Qty: 30 0RF lactulose 20 gram/30 mL Solution 20 g PO BID 30 Days Qty: 1800 0RF venlafaxine 37.5 mg Capsule,Extended Release 24hr 37.5 mg PO DAILY 30 Days Qty: 30 0RF naloxone [Narcan] 4 mg/actuation spray,non-aerosol 4 mg intranasal Q2M PRN (Reason: opioid overdose) Qty: 2 0RF Rx Instructions: spray 1 dose into ONE nostril; alternate nostrils w each dose until help arrives Print Language: Bulgarian
[2024-11-26 20:30] LABS: ~Lactic Acid-LAB USE ONLY 2.4 mmol/L (0.5-2.0)
[2024-11-26] MEDS: HYDROmorphone HCl 0.5 MG/0.5 ML SYRINGE 0.25 MG IVPUSH (20:34)
[2024-11-26] MEDS: ondansetron HCL 4 MG/2 ML VIAL IVPUSH (20:34)
[2024-11-26] MEDS: Metoprolol Tartrate 5 MG/5 ML VIAL IVPUSH (20:34)
[2024-11-26 20:44] LABS: Appearance Urine Clear; Color Urine Yellow; Glucose Urine UA Negative (Negative); Leukocyte Esterase Urine Negative (Negative); Nitrite Urine Negative (Negative); PH 5.5 (5.0-9.0); Specific Gravity - Urine >= 1.030 (1.005-1.025); UMIC TRIGGER UACC YES; Urine Blood Negative (Negative); Urine Ketones Negative (Negative); Urine Protein 30 (1+) mg/dL (Neg-Trace)
[2024-11-26 20:52] LABS: Bacteria Urine None Seen (None Seen); Granular Casts Urine Present; RBC Urine 0-2 /HPF (0-2); WBC Urine 0-5 /HPF (0-5)
[2024-11-26 22:01] LABS: Reflex Lactate? 2 Y
--- NOTE | 2024-11-26 22:30 | P.HPHOSP_ITS ---
History of Present Illness Date of Service: 11/26/24 Attending physician on admission: Farheen Dumont Chief Complaint: diarrhea, abd pain Patient is a 64-year-old male with a past medical history significant for alcohol abuse, cirrhosis, HFpEF, awake, HTN, paroxysmal AFib on Eliquis, T2DM, substance use disorder, who presented to the ED today due to diffuse abdominal pain and severe diarrhea. He reports the diarrhea started at 09:00 and has been persistent since. He denies any blood in the stool but does report a malodorous scent. 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 He denies any sick contacts. He also is complaining of a mild headache without any improvement with the Dilaudid. He rates his abdominal pain is 7/10 but reports it was 10/10 when he arrived here. He reports a history of similar many years ago at [facility]. He currently takes lactulose for cirrhosis and denies any current confusion and states that he has been on this for weeks and has never had this severe diarrhea before. His diarrhea did begin shortly after taking his 1st lactulose dose this morning. Review of Systems 2 Constitutional: Constitutional: Denies chills, Denies fatigue, Denies fever(s) and Reports headache(s) Eyes: Eyes: Denies change in vision ENT: Reports headache(s), Denies nasal congestion, Denies nasal discharge and Denies sore throat Cardiovascular: Cardiovascular: Denies chest pain, Denies rapid heart rate, Denies leg edema and Denies dyspnea Respiratory: Respiratory: Denies chest congestion, Denies cough, Denies dyspnea and Denies wheezing Gastrointestinal: Gastrointestinal: Reports as per HPI Genitourinary: Genitourinary: Denies dysuria, Denies urinary frequency and Denies urinary urgency Musculoskeletal: Musculoskeletal: Denies myalgias Integumentary/Breasts: Skin/Breast: Denies rash Neurologic: Denies confusion and Reports headache(s) Psychiatric: Psychiatric: Denies confusion Endocrine: Endocrine: Denies fatigue Hematologic/Lymphatic: Hematologic/Lymphatic: Denies easy bleeding and Denies easy bruising Allergic/Immunologic: Allergic/Immunologic: Denies wheezing [facility] Medical History (Updated 11/26/24 @ 22:50 by Tila Carty PA-C) Obesity (BMI 35.0-39.9 without comorbidity) Cirrhosis of liver History of alcohol abuse Elevated LFTs Hypersomnia with sleep apnea Lumbar degenerative disc disease Knee osteoarthritis Hypertension Alcohol withdrawal Opioid dependence Functional capacity: uses cane/walker Social History Household Members: Spouse Housing: Apartment Do you presently have visiting nurse or other home services: No Alcohol intake: former Comment: 5 min checks Patient Tobacco Use Status: Former Tobacco user Smoked in Last 30 Days: No Substance Use Type: Opiates Advance Directives: Yes Advance Directives on File: Yes Advance Directives Date on File: 05/12/22 Do you have a plan to hurt others: No Plan service: No Sexual orientation: Straight/Heterosexual Narrative: No current alcohol use, has been without 4 weeks. Denies substance use or smoking. Meds Allergies Allergy/AdvReac Type Severity Reaction Status Date / Time No Known Allergies Allergy Verified 11/26/24 16:05 Active Medications: Current Medications Acetaminophen (Acetaminophen 325 Mg Tablet) 650 mg PO Q6H PRN PRN Reason: Pain, Mild 1-3,fever,headache Apixaban (Apixaban 5 Mg Tablet) 5 mg PO BID [facility] Calcium Carbonate (Calcium Carbonate 750 Mg Tab.Chew) 750 mg PO Q4H PRN PRN Reason: Heartburn Glucose (Glucose Gel 15 Gm Gel..Gram.) 15 gm PO Q15M PRN; Protocol PRN Reason: per Hypoglycemia Standing Ord. Lactated Ringer's (Lr) 1,000 mls @ 100 mls/hr IVCONT .Q10H [facility] Dextrose (D10) 250 mls @ 750 mls/hr IV Q15M PRN; Protocol PRN Reason: per Hypoglycemia Standing Ord. Insulin Human Lispro (Insulin Lispro 100 Unit/Ml 3 Ml Vial) 0 unit SUBCUT QIDACHS [facility]; Protocol Magnesium Hydroxide (Milk Of Magnesia 30 Ml Oral.Susp) 30 ml PO DAILY PRN PRN Reason: Constipation Melatonin (Melatonin 3 Mg Tablet) 6 mg PO BEDTIME PRN PRN Reason: Insomnia Morphine Sulfate (Morphine Sulfate 4 Mg/Ml Cartridge) 2 mg IVPUSH Q4H PRN; Protocol PRN Reason: Pain, Severe (Pain Scale 7-10) Ondansetron HCl (Ondansetron Hcl 4 Mg/2 Ml Vial) 4 mg IVPUSH Q8H PRN PRN Reason: Nausea and Vomiting Oxycodone HCl (Oxycodone Hcl Immed Release 5 Mg Tablet) 5 mg PO Q6H PRN PRN Reason: Pain, Moderate(Pain Scale 4-6) Sodium Chloride (0.9 % Sodium Chloride Flush 3 Ml Syringe) 3 ml IVFLUSH QSHIFT [facility] Medications ?Medication ?Instructions ?Recorded ?Confirmed ?Last Taken ?Type albuterol sulfate 90 mcg/actuation 2 puff inhalation Q4H PRN wheezing 05/14/23 11/02/24 Unknown History aerosol inhaler (Ventolin HFA) colchicine 0.6 mg tablet 0.6 mg PO TID PRN GOUT FLARE 11/02/24 11/02/24 Unknown History furosemide 20 mg tablet 20 mg PO DAILY 11/02/24 11/02/24 11/02/24 History ibuprofen 800 mg tablet 800 mg PO TID PRN Pain (Scale 11/02/24 11/02/24 Unknown History Score 4-6) metoprolol tartrate 100 mg tablet 150 mg PO BID 11/02/24 11/02/24 11/02/24 History Physical Exam 2 Vital Signs and Narrative: Vital Signs: Last Vital Signs Temp 97.2 F 11/26/24 16:02 Pulse 119 H 11/26/24 20:21 Resp 18 11/26/24 20:21 BP 122/68 11/26/24 20:21 Pulse Ox 97 11/26/24 20:21 O2 Del Method Room Air 11/26/24 20:21 BMI result Body Mass Index 37.8 General: AOx3, no acute distress Resp: CTA bilaterally CVS: S1, S2, RRR GI: +BS, generalized tenderness, mostly in the periumbilical region, no distention Skin: Warm, dry Neuro: Cranial nerves II-XII grossly intact bilaterally. Motor grossly intact bilaterally Extremities: No lower extremity edema Psych: Appropriate affect Const: General: No confusion Orientation/consciousness: No confusion Neuro: General: No confusion Results Labs 11/26/24 16:23 11/26/24 16:23 Labs: Laboratory Results - last 24 hr 11/26/24 11/26/24 11/26/24 16:23 19:57 20:30 MCV 99.6 H MCH 35.1 H MCHC 35.2 RDW 12.9 Plt Count 240 MPV 10.6 Immature Gran % (Auto) 0.4 Neut % (Auto) 87.2 H Lymph % (Auto) 6.4 L [place] % (Auto) 4.6 Eos % (Auto) 1.0 Baso % (Auto) 0.4 Lymph # (Auto) 1.4 [place] # (Auto) 1.0 Eos # (Auto) 0.2 Baso # (Auto) 0.1 Abs Immat Gran (auto) 0.08 H Absolute Neuts (auto) 19.2 H Absolute Nucleated RBC 0.000 Nucleated RBC % (auto) 0.0 PT 14.5 H INR 1.2 H Anion Gap 13 Estim Creat Clear Calc 119.1 Estimated GFR > 60 Random Glucose 171 H Lactic Acid 3.2 H* Lactic Acid F/U @ 2Hr 2.4 H* Calcium 9.5 D Magnesium 1.8 Total Bilirubin 0.9 Direct Bilirubin 0.3 AST 104 H ALT 102 H Alkaline Phosphatase 181 H Ammonia 66 H Total Protein 7.9 Albumin 3.8 Lipase 30 Urine Color Yellow Urine Appearance Clear Urine pH 5.5 Ur Specific [place] >= 1.030 H Urine Protein 30 (1+) H Urine Glucose (UA) Negative Urine Ketones Negative Urine Blood Negative Urine Nitrite Negative Ur Leukocyte Esterase Negative Urine RBC 0-2 Urine WBC 0-5 Ur Squamous Epith Cells 3-5 Urine Bacteria None Seen Hyaline Casts 6-10 Granular Casts Present Ethyl Alcohol < 10 Influenza Type A (PCR) NEGATIVE Influenza Type B (PCR) NEGATIVE RSV RNA Qual (PCR) NEGATIVE SARS-CoV-2 RNA (RT-PCR) NEGATIVE Assessment and Plan (1) Sepsis: Status: Acute (2) Colitis: Status: Acute (3) Obesity (BMI 35.0-39.9 without comorbidity): Status: Chronic Plan Patient is a 64-year-old male with a past medical history significant for alcohol abuse, cirrhosis, HFpEF, OA, HTN, paroxysmal AFib on Eliquis, T2DM, substance use disorder, who presented to the ED today due to diffuse abdominal pain and severe diarrhea. Abdominopelvic CT consistent with small-bowel and colonic mural thickening with mucosal hyperemia and air-fluid levels suggesting enterocolitis. Sepsis secondary to colitis ?c diff - WBC 22, lactate 3.2, 2.4 on repeat, tachycardic, blood cultures x2 pending, not severe sepsis - abdominopelvic CT consistent with small bowel and colonic mural thickening with mucosal hyperemia and air-fluid level suggesting enterocolitis - GI panel and C diff pending - received fluid bolus in the ED - started on Zosyn, add p.o. vancomycin x1 dose pending stool studies for C diff coverage - contact precautions until C diff testing back - GI consult - monitor CBC and BMP Alcohol abuse/cirrhosis - patient reports no recent use - alcohol level less than 10 - LFTs elevated, sepsis likely contributing - ammonia mildly elevated, hold lactulose due to severe diarrhea, patient not confused - monitor CIWA T2DM - hold metformin - sliding scale insulin - diabetic diet HFpEF, no acute exacerbation - continue home meds HTN - continue home meds Persistent AFib - continue Eliquis and metoprolol Substance use disorder - patient reports none recently Full code VTE prophylaxis: Eliquis Patient with sepsis secondary to colitis, possible C diff, requiring admission for at least 2 midnight stay for antibiotics and further testing. Quality Stroke Does the patient have a stroke diagnosis?: No VTE Prior VTE?: No VTE Risk Level:: Medical - moderate - high VTE Device Contraindication: Treatment Not Indicated VTE Drug Contraindication: N/A - Med Ordered
[2024-11-26 23:15] LABS: ~Lactic Acid-LAB USE ONLY 2.3 mmol/L (0.5-2.0)
[2024-11-26] MEDS: 0.9 % Sodium Chloride Flush 3 ML SYRINGE IVFLUSH (23:27)
[2024-11-26] MEDS: vancomycin HCL 125 MG CAPSULE PO (23:33)
[2024-11-26] MEDS: Apixaban 5 MG TABLET PO (23:34)
[2024-11-26] MEDS: Metoprolol Tartrate 50 MG TABLET 150 MG PO (23:34)
[2024-11-26 23:57] LABS: CDiff Gene PCR POSITIVE (Negative)
[2024-11-27] MEDS: Morphine Sulfate 4 MG/ML CARTRIDGE 2 MG IVPUSH ×2 (00:34→21:30)
[2024-11-27] MEDS: Calcium Carbonate 750 MG TAB.CHEW PO (00:34)
[2024-11-27 00:46] LABS: CDIFF Internal ctrl Dots and bkg OK (V); CDiff Toxin Negative (Negative)
--- NOTE | 2024-11-27 03:09 | PC.NURSE ---
This senior medical writer assumed care of this Pt at 2300. Pt A&Ox3, reports 05/24 constant ABD pain. Pt denies any N/V, reports diarrhea. Pt medicated per JAN. Pt ambulates to BR independently with cane.
[2024-11-27 04:18] LABS: Basophils Percent Auto 0.3 % (0-2); Eosinophils Absolute Auto 0.1 X10*3/uL (0.0-0.4); Eosinophils Percent Auto 0.6 % (0-4); Hematocrit 39.7 % (42.0-52.0); Hemoglobin 13.8 g/dl (14.0-18.0); Imm Gran Abs Auto 0.03 X10*3/uL (0.00-0.03); Imm Gran Pct Auto 0.3 % (0.0-0.4); Lymphocytes Absolute Auto 0.4 X10*3/uL (1.2-4.9); Lymphocytes Percent Auto 3.5 % (20-40); MANUAL DIFF FLAG SCAN; Mean Corpuscular HGB Conc 34.8 g/dl (31.0-36.0); Mean Corpuscular Hemoglobin 34.9 pg (27.0-33.0); Mean Corpuscular Volume 100.5 fL (80.0-98.0); Mean Platelet Volume 10.1 fL (9.4-12.4); Monocytes Absolute Auto 0.4 X10*3/uL (0.1-1.2); Monocytes Percent Auto 3.4 % (2-11); Neutrophils Absolute Auto 9.8 x10*3/uL (2.0-8.3); Neutrophils Percent Auto 91.9 % (45-73); Platelet Count 152 X10*3/uL (160-400); Red Blood Count 3.95 X10*6/uL (4.60-5.80); Red Cell Distribution Width 13.2 % (11.0-16.0); SCAN SMEAR FLAG 1; White Blood Count 10.7 X10*3/uL (4.8-10.8)
[2024-11-27 04:32] LABS: Anion Gap 13 (12-20); Blood Urea Nitrogen 14 mg/dL (9-16); Calcium 8.6 mg/dL (8.4-10.2); Carbon Dioxide 20 mmol/L (22-29); Chloride 111 mmol/L (96-108); Creatinine Clr Calc Pharmacy 126.5; Estimated Glomerular Filt Rate > 60; Glucose Random 151 mg/dL (60-115); Potassium 4.2 mmol/L (3.3-5.1); Sodium 140 mmol/L (135-145)
[2024-11-27 04:37] LABS: SLIDE REVIEW VERIFIED
[2024-11-27 05:31] LABS: Basophils Percent Auto 0.2 % (0-2); Eosinophils Absolute Auto 0.1 X10*3/uL (0.0-0.4); Eosinophils Percent Auto 0.5 % (0-4); Hematocrit 40.8 % (42.0-52.0); Hemoglobin 14.5 g/dl (14.0-18.0); Imm Gran Abs Auto 0.04 X10*3/uL (0.00-0.03); Imm Gran Pct Auto 0.4 % (0.0-0.4); Lymphocytes Absolute Auto 0.4 X10*3/uL (1.2-4.9); Lymphocytes Percent Auto 3.7 % (20-40); MANUAL DIFF FLAG SCAN; Mean Corpuscular HGB Conc 35.5 g/dl (31.0-36.0); Mean Corpuscular Hemoglobin 35.8 pg (27.0-33.0); Mean Corpuscular Volume 100.7 fL (80.0-98.0); Mean Platelet Volume 10.5 fL (9.4-12.4); Monocytes Absolute Auto 0.3 X10*3/uL (0.1-1.2); Monocytes Percent Auto 3.1 % (2-11); Neutrophils Absolute Auto 9.4 x10*3/uL (2.0-8.3); Neutrophils Percent Auto 92.1 % (45-73); Platelet Count 164 X10*3/uL (160-400); Red Blood Count 4.05 X10*6/uL (4.60-5.80); Red Cell Distribution Width 13.2 % (11.0-16.0); SCAN SMEAR FLAG 1; White Blood Count 10.2 X10*3/uL (4.8-10.8)
[2024-11-27 05:48] LABS: Alanine Aminotransferase 92 U/L (0-40); Albumin Level 3.2 g/dL (3.5-5.0); Alkaline Phosphatase 138 U/L (39-117); Anion Gap 12 (12-20); Aspartate Amino Transferase 161 U/L (5-37); Blood Urea Nitrogen 13 mg/dL (9-16); Calcium 8.6 mg/dL (8.4-10.2); Carbon Dioxide 21 mmol/L (22-29); Chloride 110 mmol/L (96-108); Estimated Glomerular Filt Rate > 60; Glucose Random 145 mg/dL (60-115); Sodium 139 mmol/L (135-145); Total Protein 6.5 g/dL (6.5-8.0)
[2024-11-27 06:35] VITALS: BP 118/74; PULSE 93; RESP 15; TEMP 37; O2SAT 95
[2024-11-27] MEDS: Piperacillin Sodium/Tazobactam 4.5 GM in 0.9 % Sodium Chloride 100 ML IV ×4 (06:45→23:23)
[2024-11-27] MEDS: ondansetron HCL 4 MG/2 ML VIAL IVPUSH ×2 (06:45→15:21)
--- NOTE | 2024-11-27 07:15 | PC.NURSE ---
Report received from YAMILE Bowser
[2024-11-27 07:27] LABS: Glucose, Whole Blood 148 mg/dL (60-115)
--- NOTE | 2024-11-27 08:47 | P.PNIM_ITS ---
Subjective Subjective Date of Service: 11/27/24 Interval History: Follow up nausea vomiting and diarrhea Still having diarrhea, poor appetite Physical Exam 2 Vital Signs: Vital Signs: Last Vital Signs Temp 98.6 F 11/27/24 06:35 Pulse 93 11/27/24 06:35 Resp 15 11/27/24 06:35 BP 118/74 11/27/24 06:35 Pulse Ox 95 11/27/24 06:35 O2 Del Method Room Air 11/27/24 06:35 BMI result Body Mass Index 37.8 Appearing in no acute distress lung sounds are clear to auscultation heart regular rate rhythm, clear S1, S2 positive bowel sounds, abdomen is soft, nontender neuro patient is alert x3, no focal deficits Objective Data Active Medications Acetaminophen (Acetaminophen 325 Mg Tablet) 650 mg PO Q6H PRN PRN Reason: Pain, Mild 1-3,fever,headache Apixaban (Apixaban 5 Mg Tablet) 5 mg PO BID [facility] Last Admin: 11/26/24 23:34 Dose: 5 mg Documented By: POLLY Calcium Carbonate (Calcium Carbonate 750 Mg Tab.Chew) 750 mg PO Q4H PRN PRN Reason: Heartburn Last Admin: 11/27/24 00:34 Dose: 750 mg Documented By: POLLY Glucose (Glucose Gel 15 Gm Gel..Gram.) 15 gm PO Q15M PRN; Protocol PRN Reason: per Hypoglycemia Standing Ord. Dextrose (D10) 250 mls @ 750 mls/hr IV Q15M PRN; Protocol PRN Reason: per Hypoglycemia Standing Ord. Piperacillin Sod/Tazobactam (Sod 4.5 gm/ Sodium Chloride) 100 mls @ 200 mls/hr IV Q6H [facility] Last Infusion: 11/27/24 07:36 Dose: Infused Documented By: YESENIA Insulin Human Lispro (Insulin Lispro 100 Unit/Ml 3 Ml Vial) 0 unit SUBCUT QIDACHS [facility]; Protocol Last Admin: 11/27/24 07:37 Dose: Not Given Documented By: YESENIA Non-Admin Reason: POC = 148 Magnesium Hydroxide (Milk Of Magnesia 30 Ml Oral.Susp) 30 ml PO DAILY PRN PRN Reason: Constipation Melatonin (Melatonin 3 Mg Tablet) 6 mg PO BEDTIME PRN PRN Reason: Insomnia Metoprolol Tartrate (Metoprolol Tartrate 50 Mg Tablet) 150 mg PO BID [facility]; Protocol Last Admin: 11/26/24 23:34 Dose: 150 mg Documented By: POLLY Morphine Sulfate (Morphine Sulfate 4 Mg/Ml Cartridge) 2 mg IVPUSH Q4H PRN; Protocol PRN Reason: Pain, Severe (Pain Scale 7-10) Last Admin: 11/27/24 00:34 Dose: 2 mg Documented By: POLLY Ondansetron HCl (Ondansetron Hcl 4 Mg/2 Ml Vial) 4 mg IVPUSH Q8H PRN PRN Reason: Nausea and Vomiting Last Admin: 11/27/24 06:45 Dose: 4 mg Documented By: STEPHANIE Oxycodone HCl (Oxycodone Hcl Immed Release 5 Mg Tablet) 5 mg PO Q6H PRN PRN Reason: Pain, Moderate(Pain Scale 4-6) Sodium Chloride (0.9 % Sodium Chloride Flush 3 Ml Syringe) 3 ml IVFLUSH QSHIFT [facility] Last Admin: 11/27/24 07:41 Dose: Not Given Documented By: YESENIA Non-Admin Reason: Previously Administered Vancomycin HCl (Vancomycin Hcl 125 Mg Capsule) 125 mg PO Q6H [facility] Labs 11/27/24 05:15 11/27/24 05:15 Labs: Laboratory Results - last 24 hr 11/26/24 11/26/24 11/26/24 16:23 19:57 20:30 MCV 99.6 H MCH 35.1 H MCHC 35.2 RDW 12.9 Plt Count 240 MPV 10.6 Immature Gran % (Auto) 0.4 Neut % (Auto) 87.2 H Lymph % (Auto) 6.4 L [place] % (Auto) 4.6 Eos % (Auto) 1.0 Baso % (Auto) 0.4 Lymph # (Auto) 1.4 [place] # (Auto) 1.0 Eos # (Auto) 0.2 Baso # (Auto) 0.1 Abs Immat Gran (auto) 0.08 H Absolute Neuts (auto) 19.2 H Absolute Nucleated RBC 0.000 Nucleated RBC % (auto) 0.0 Smear Tech's Comments PT 14.5 H INR 1.2 H Anion Gap 13 Estim Creat Clear Calc 119.1 Estimated GFR > 60 POC Glucose Random Glucose 171 H Lactic Acid 3.2 H* Lactic Acid F/U @ 2Hr 2.4 H* Lactic Acid F/U @ 4Hr Calcium 9.5 D Magnesium 1.8 Total Bilirubin 0.9 Direct Bilirubin 0.3 AST 104 H ALT 102 H Alkaline Phosphatase 181 H Ammonia 66 H Total Protein 7.9 Albumin 3.8 Lipase 30 Urine Color Yellow Urine Appearance Clear Urine pH 5.5 Ur Specific [place] >= 1.030 H Urine Protein 30 (1+) H Urine Glucose (UA) Negative Urine Ketones Negative Urine Blood Negative Urine Nitrite Negative Ur Leukocyte Esterase Negative Urine RBC 0-2 Urine WBC 0-5 Ur Squamous Epith Cells 3-5 Urine Bacteria None Seen Hyaline Casts 6-10 Granular Casts Present Ethyl Alcohol < 10 C. difficile Tox B Gene C. difficile Toxin A&B C. difficile Interpret Influenza Type A (PCR) NEGATIVE Influenza Type B (PCR) NEGATIVE RSV RNA Qual (PCR) NEGATIVE SARS-CoV-2 RNA (RT-PCR) NEGATIVE 11/26/24 11/26/24 11/27/24 22:46 23:05 04:14 MCV 100.5 H MCH 34.9 H MCHC 34.8 RDW 13.2 Plt Count 152 L D MPV 10.1 Immature Gran % (Auto) 0.3 Neut % (Auto) 91.9 H Lymph % (Auto) 3.5 L [place] % (Auto) 3.4 Eos % (Auto) 0.6 Baso % (Auto) 0.3 Lymph # (Auto) 0.4 L [place] # (Auto) 0.4 Eos # (Auto) 0.1 Baso # (Auto) 0.0 Abs Immat Gran (auto) 0.03 Absolute Neuts (auto) 9.8 H Absolute Nucleated RBC 0.000 Nucleated RBC % (auto) 0.0 Smear Tech's Comments VERIFIED PT INR Anion Gap 13 Estim Creat Clear Calc 126.5 Estimated GFR > 60 POC Glucose Random Glucose 151 H Lactic Acid Lactic Acid F/U @ 2Hr Lactic Acid F/U @ 4Hr 2.3 H* Calcium 8.6 D Magnesium Total Bilirubin Direct Bilirubin AST ALT Alkaline Phosphatase Ammonia Total Protein Albumin Lipase Urine Color Urine Appearance Urine pH Ur Specific [place] Urine Protein Urine Glucose (UA) Urine Ketones Urine Blood Urine Nitrite Ur Leukocyte Esterase Urine RBC Urine WBC Ur Squamous Epith Cells Urine Bacteria Hyaline Casts Granular Casts Ethyl Alcohol C. difficile Tox B Gene POSITIVE A* C. difficile Toxin A&B Negative C. difficile Interpret SEE NOTE Influenza Type A (PCR) Influenza Type B (PCR) RSV RNA Qual (PCR) SARS-CoV-2 RNA (RT-PCR) 11/27/24 11/27/24 05:15 07:23 MCV 100.7 H MCH 35.8 H MCHC 35.5 RDW 13.2 Plt Count 164 MPV 10.5 Immature Gran % (Auto) 0.4 Neut % (Auto) 92.1 H Lymph % (Auto) 3.7 L [place] % (Auto) 3.1 Eos % (Auto) 0.5 Baso % (Auto) 0.2 Lymph # (Auto) 0.4 L [place] # (Auto) 0.3 Eos # (Auto) 0.1 Baso # (Auto) 0.0 Abs Immat Gran (auto) 0.04 H Absolute Neuts (auto) 9.4 H Absolute Nucleated RBC 0.000 Nucleated RBC % (auto) 0.0 Smear Tech's Comments PT INR Anion Gap 12 Estim Creat Clear Calc 128.0 Estimated GFR > 60 POC Glucose 148 H Random Glucose 145 H Lactic Acid Lactic Acid F/U @ 2Hr Lactic Acid F/U @ 4Hr Calcium 8.6 Magnesium Total Bilirubin 1.0 Direct Bilirubin AST 161 H ALT 92 H Alkaline Phosphatase 138 H Ammonia Total Protein 6.5 Albumin 3.2 L Lipase Urine Color Urine Appearance Urine pH Ur Specific [place] Urine Protein Urine Glucose (UA) Urine Ketones Urine Blood Urine Nitrite Ur Leukocyte Esterase Urine RBC Urine WBC Ur Squamous Epith Cells Urine Bacteria Hyaline Casts Granular Casts Ethyl Alcohol C. difficile Tox B Gene C. difficile Toxin A&B C. difficile Interpret Influenza Type A (PCR) Influenza Type B (PCR) RSV RNA Qual (PCR) SARS-CoV-2 RNA (RT-PCR) Assessment and Plan (1) Colitis: Status: Acute (2) Acute diarrhea: Status: Acute Plan Patient is a 64-year-old male with a past medical history significant for alcohol abuse, cirrhosis, HFpEF, OA, HTN, paroxysmal AFib on Eliquis, T2DM, substance use disorder, who presented to the ED today due to diffuse abdominal pain and severe diarrhea. Abdominopelvic CT consistent with small-bowel and colonic mural thickening with mucosal hyperemia and air-fluid levels suggesting enterocolitis. Cdiff likely reason for colitis oral vancomycin 10 days contact precautions clear liquid diet for now Sepsis secondary to colitis WBC 22, lactate 3.2, 2.4 on repeat, tachycardic, blood cultures x2 pending, not severe sepsis abdominopelvic CT consistent with small bowel and colonic mural thickening with mucosal hyperemia and air-fluid level suggesting enterocolitis GI panel pending, cdiff pos received fluid bolus in the ED started on Zosyn, added vancomycin GI consult monitor CBC and BMP Alcohol abuse/cirrhosis patient reports no recent use alcohol level less than 10 LFTs elevated, sepsis likely contributing ammonia mildly elevated, hold lactulose due to severe diarrhea, patient not confused monitor CIWA T2DM hold metformin sliding scale insulin diabetic diet HFpEF, no acute exacerbation continue home meds HTN continue home meds Persistent AFib continue Eliquis and metoprolol Substance use disorder patient reports none recently Full code VTE prophylaxis: Eliquis Patient with sepsis secondary to colitis, possible C diff, requiring admission for at least 2 midnight stay for antibiotics and further testing. Quality Stroke Does the patient have a stroke diagnosis?: No VTE Prior VTE?: No VTE Risk Level:: Medical - moderate - high VTE Device Contraindication: Treatment Not Indicated VTE Drug Contraindication: N/A - Med Ordered
[2024-11-27] MEDS: vancomycin HCL 125 MG CAPSULE PO ×3 (09:05→21:19)
[2024-11-27] MEDS: Apixaban 5 MG TABLET PO ×2 (09:05→21:19)
[2024-11-27] MEDS: Metoprolol Tartrate 50 MG TABLET 150 MG PO ×2 (09:05→21:18)
[2024-11-27 09:06] VITALS: BP 138/74; PULSE 160; RESP 20; TEMP 37; O2SAT 94
--- NOTE | 2024-11-27 10:45 | PHA.MEDREC ---
Addendum entered by Gabriela Singh RPh 11/27/24 11:05: reviewed by [facility]. Original Note: Pharmacy Consult ? Medication Reconciliation Pharmacy has completed the medication reconciliation. Spoke to patient to confirm med list. Patient states he no longer takes Suboxone 2mg-0.5 mg ( claims it doesn't work), Ibuprofen 800 mg, Lidocaine patch, Metformin 500 mg ( states he was never taking), Venlafazine 37.5 mg ( doesn't want to take). Patient states he need to be on Lorazepam 0.5 mg bid ( last filled 10/06/24 for 30 days) because he has severe anxiety. He hasn't been on in over 3 weeks and can't sleep without. left off med rec because patient hasn't taken in a while. Patent ran out of medication and doesn't have a PCP.
[2024-11-27 11:37] LABS: Glucose, Whole Blood 143 mg/dL (60-115)
[2024-11-27 11:50] LABS: Adenovirus F 40/41 Not Detected (Not Detect.); Astrovirus Not Detected (Not Detect.); Campylobacter Not Detected (Not Detect.); Cryptosporidium Not Detected (Not Detect.); Cyclospora cayetanensis Not Detected (Not Detect.); E. coli EAEC Not Detected (Not Detect.); E. coli EPEC Not Detected (Not Detect.); E. coli ETEC Not Detected (Not Detect.); E. coli STEC Not Detected (Not Detect.); Entamoeba histolytica Not Detected (Not Detect.); Giardia lamblia Not Detected (Not Detect.); Plesiomonas shigelloides Not Detected (Not Detect.); Rotavirus A Not Detected (Not Detect.); Salmonella Not Detected (Not Detect.); Sapovirus Not Detected (Not Detect.); Shigella sp./EIEC Not Detected (Not Detect.); Vibrio Not Detected (Not Detect.); Vibrio Cholerae Not Detected (Not Detect.); Yersinia enterocolitica Not Detected (Not Detect.)
--- NOTE | 2024-11-27 11:50 | P.CNGI_ITS ---
History of Present Illness Data of Consult Service Date: 11/27/24 Requesting physician: Tila Carty Primary Care Provider: Duncan Rush MD HPI Reason for consult: ? Enterocolitis versus C diff colitis 64 YM with alcohol abuse, cirrhosis, HFpEF, awake, HTN, paroxysmal AFib on Eliquis, T2DM, substance use disorder, seen at [facility] on 11/26/24 with diffuse abdominal pain and severe diarrhea. Pt reports diarrhea started at 09:00 on 11/26/24 and has been persistent since. He denies any blood in the stool but does report a malodorous scent. 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 He complaining of a mild headache without any improvement with the Dilaudid. He rated his abdominal pain is 7/10 but reports it was 10/10 when he arrived here. Pt reported similar symptoms several years ago at [facility] and denies a hx of C diff infection in the past. States he eats yogurt all the time Pt notes he was diagnosed with fatty liver by his primary care provider and discontinued alcohol use 4 years ago. He states he was drinking beer occasionally in the past and not on a regular basis. He admits to drinking 6-7 shots of hard liquor for 3 months and stopped 6-7 weeks ago. Pt is on lactulose for hepatic encephalopathy and denies any confusion or difficulty with memory His diarrhea did begin shortly after taking his 1st lactulose dose this morning. Patient denies smoking marijuana or tobacco. Pt was hospitalized at [facility] in the psych unit from 11/05 to 11/14/24 with diverticulitis and suicidal ideation and was treated with antibiotics for diverticulitis Patient reports having a colonoscopy 6-10 years ago at [facility] and small polyps were removed. Patient denies known family history of colon polyps or colon cancer. A brother has prostate problems 11/26/[address] SCAN SHOWED: 1. Findings suggestive of diffuse enterocolitis. 2. Clustered nonobstructive calculi in the left lower pole kidney measuring no more than 3 mm. 3. Cirrhosis. 4. Duodenal diverticuli noted along the 2nd and 3rd segments. Diffuse fluid-filled bowel. Diffuse small bowel and colonic mural thickening with mucosal hyperemia and air-fluid levels suggesting enterocolitis. [facility] Past Medical History Medical History (Updated 11/27/24 @ 11:54 by Jeffrey Jalloh MD) Obesity (BMI 35.0-39.9 without comorbidity) Cirrhosis of liver History of alcohol abuse Elevated LFTs Hypersomnia with sleep apnea Lumbar degenerative disc disease Knee osteoarthritis Hypertension Alcohol withdrawal Opioid dependence Social History Social History Household Members: Spouse Housing: Apartment Do you presently have visiting nurse or other home services: No Alcohol intake: former Comment: 5 min checks Patient Tobacco Use Status: Former Tobacco user Substance Use Type: Opiates Advance Directives Date on File: 05/12/22 service: No Sexual orientation: Straight/Heterosexual Meds Allergies Allergy/AdvReac Type Severity Reaction Status Date / Time No Known Allergies Allergy Verified 11/26/24 16:05 Active Medications: Current Medications Acetaminophen (Acetaminophen 325 Mg Tablet) 650 mg PO Q6H PRN PRN Reason: Pain, Mild 1-3,fever,headache Apixaban (Apixaban 5 Mg Tablet) 5 mg PO BID [facility] Last Admin: 11/27/24 09:05 Dose: 5 mg Calcium Carbonate (Calcium Carbonate 750 Mg Tab.Chew) 750 mg PO Q4H PRN PRN Reason: Heartburn Last Admin: 11/27/24 00:34 Dose: 750 mg Glucose (Glucose Gel 15 Gm Gel..Gram.) 15 gm PO Q15M PRN; Protocol PRN Reason: per Hypoglycemia Standing Ord. Dextrose (D10) 250 mls @ 750 mls/hr IV Q15M PRN; Protocol PRN Reason: per Hypoglycemia Standing Ord. Piperacillin Sod/Tazobactam (Sod 4.5 gm/ Sodium Chloride) 100 mls @ 200 mls/hr IV Q6H [facility] Last Infusion: 11/27/24 07:36 Dose: Infused Insulin Human Lispro (Insulin Lispro 100 Unit/Ml 3 Ml Vial) 0 unit SUBCUT QIDACHS [facility]; Protocol Last Admin: 11/27/24 11:44 Dose: Not Given Magnesium Hydroxide (Milk Of Magnesia 30 Ml Oral.Susp) 30 ml PO DAILY PRN PRN Reason: Constipation Melatonin (Melatonin 3 Mg Tablet) 6 mg PO BEDTIME PRN PRN Reason: Insomnia Metoprolol Tartrate (Metoprolol Tartrate 50 Mg Tablet) 150 mg PO BID [facility]; Protocol Last Admin: 11/27/24 09:05 Dose: 150 mg Morphine Sulfate (Morphine Sulfate 4 Mg/Ml Cartridge) 2 mg IVPUSH Q4H PRN; Protocol PRN Reason: Pain, Severe (Pain Scale 7-10) Last Admin: 11/27/24 00:34 Dose: 2 mg Ondansetron HCl (Ondansetron Hcl 4 Mg/2 Ml Vial) 4 mg IVPUSH Q8H PRN PRN Reason: Nausea and Vomiting Last Admin: 11/27/24 06:45 Dose: 4 mg Oxycodone HCl (Oxycodone Hcl Immed Release 5 Mg Tablet) 5 mg PO Q6H PRN PRN Reason: Pain, Moderate(Pain Scale 4-6) Sodium Chloride (0.9 % Sodium Chloride Flush 3 Ml Syringe) [facility] Last Admin: 11/27/24 07:41 Dose: Not Given Vancomycin HCl (Vancomycin Hcl 125 Mg Capsule) 125 mg PO Q6H [facility] Last Admin: 11/27/24 09:05 Dose: 125 mg Home Medications ?Medication ?Instructions ?Recorded ?Confirmed ?Last Taken ?Type albuterol sulfate 90 mcg/actuation 2 puff inhalation Q4H PRN wheezing 05/14/23 11/27/24 Unknown History aerosol inhaler (Ventolin HFA) colchicine 0.6 mg tablet 0.6 mg PO TID PRN GOUT FLARE 11/02/24 11/27/24 Unknown History furosemide 20 mg tablet 20 mg PO DAILY 11/02/24 11/27/24 11/26/24 History metoprolol tartrate 100 mg tablet 150 mg PO BID 11/02/24 11/27/24 11/26/24 History acetaminophen 500 mg tablet 500 mg PO DAILY PRN Pain 11/27/24 11/27/24 Unknown History Physical Exam 2 Vital Signs: Vital Signs: Last Vital Signs Temp 98.6 F 11/27/24 09:06 Pulse 160 H 11/27/24 09:06 Resp 20 11/27/24 09:06 BP 138/74 11/27/24 09:06 Pulse Ox 94 11/27/24 09:06 O2 Del Method Room Air 11/27/24 09:06 BMI result Body Mass Index 37.8 Const: General: no acute distress and other (appears uncomfortable) N utritional Appearance: obese Orientation/consciousness: patient oriented x3 Limitations: no limitations HEENT: Head: Yes normal to inspection Ears: hearing grossly normal bilaterally Mouth: Normal oral and palatal mucosa present Eyes: Sclerae: sclerae normal Pupils: Equal, round and reactive pupils present Neck: Neck: Yes normal visual inspection Chest: Chest palpation & inspection: normal inspection of the chest Resp: Effort & Inspection: normal respiratory effort Auscultation: clear to auscultation bilaterally Cardio: Palpation: normal PMI Rate: regular rate Rhythm: regular rhythm Heart sounds: S1 normal heart sound present, S2 normal heart sound present and no murmurs GI: Inspection: Yes obesity Palpation (GI): Soft to palpation, Tenderness to palpation present (GI) (mild diffuse abdominal tenderness without rebound) and No hepatosplenomegaly present Auscultation: normal bowel sounds Rectal Exam - Male: Yes deferred Skin: General skin exam: no rashes or lesions noted Neuro: General: patient oriented x3, gait normal and moves all extremities Cranial nerves: Yes Equal, round and reactive pupils present Psych: Appearance: grossly normal Mental Status: mental status grossly normal Results Labs 11/28/24 05:43 11/28/24 05:43 Labs: Short CBC 11/26/24 11/27/24 11/27/24 Range/Units 16:23 04:14 05:15 WBC 22.1 H 10.7 10.2 (4.8-10.8) X10*3/uL Hgb 16.9 13.8 L 14.5 (14.0-18.0) g/dl Hct 48.0 39.7 L 40.8 L (42.0-52.0) % Plt Count 240 152 L D 164 (160-400) X10*3/uL BMP 11/26/24 11/27/24 11/27/24 16:23 04:14 05:15 Sodium 140 140 139 Potassium 4.1 4.2 4.0 Chloride 109 H 111 H 110 H Carbon Dioxide 22 20 L 21 L BUN 11 14 13 Creatinine 0.86 0.81 0.80 Calcium 9.5 D 8.6 D 8.6 Liver Function 11/26/24 11/27/24 Range/Units 16:23 05:15 Total Bilirubin 0.9 1.0 (0.0-1.0) mg/dL Direct Bilirubin 0.3 (0.0-0.5) mg/dL AST 104 H 161 H (5-37) U/L ALT 102 H 92 H (0-40) U/L Alkaline Phosphatase 181 H 138 H (39-117) U/L Albumin 3.8 3.2 L (3.5-5.0) g/dL Urine 11/26/24 Range/Units 20:30 Urine Color Yellow Urine Appearance Clear Urine pH 5.5 (5.0-9.0) Ur Specific Industry >= 1.030 H (1.005-1.025) Urine Protein 30 (1+) H (Neg-Trace) mg/dL Urine Glucose (UA) Negative (Negative) mg/dL Assessment and Plan (1) Colitis: Status: Acute (2) Cirrhosis of liver: Status: Acute (3) Acute diarrhea: Status: Acute Plan 64 YM with alcohol abuse, cirrhosis, HFpEF, awake, HTN, paroxysmal AFib on Eliquis, T2DM, substance use disorder, was admitted to [facility] on 11/26/24 with diffuse abdominal pain and severe diarrhea. Pt reports diarrhea started at 09:00 on 11/26/24 and has been persistent since. Stool test positive for C Diff colitis Pt was hospitalized at [facility] in the psych unit from 11/05 to 11/14/24 with diverticulitis and suicidal ideation and was treated with antibiotics for diverticulitis Pt reports continued diarrhea with 4-5 episodes of watery stools today and nocturnal diarrhea last night Labs show elevated LFTs, low albumin and INR of 1.2. MELDNa score is 8. CT scan showed Hepatomegaly with steatosis and cirrhosis. RECOMMENDATIONS: 1. Agree with IV pain medications and antiemetics 2. Continue Vancomycin 125 mg q.6 hourly for C diff colitis 3. If no improvement in diarrhea switch to Fidaxomicin 200 mg PO twice daily x 10 days 4. Add PO probiotics 5. Pt can FU in GI clinic after discharge for fpc FU of cirrhosis 6. Pt advised to discontinue alcohol use Procedures Date of Service Date of Service: 11/28/24
--- NOTE | 2024-11-27 12:16 | MHC.CM.PN ---
Addendum entered by Sal Mcdowell 11/27/24 12:19: PT HAS HCP ON FILE DCP:HOME NO SERVICES VIA PRIVATE TRANSPORT PCP LIST PROVIDED Original Note: OBGYN NURSE ANDCM MET WITH PT PT STATES HE LIVES AT HOME WITH PT DOES NOT RECEIVE SERVICES OR USE DME PT'S INSURANCE [facility] PT NO LONGER HAS PCP OF 11/15/24 DUE TO PCP NO LONGER TAKING INS
[2024-11-27] MEDS: Flu Vacc TS2024-25(6mos up)/PF 0.5 ML SYRINGE IM (12:37)
--- NOTE | 2024-11-27 13:12 | MHC.IC ---
CDIFF PCR + and NOROVIRUS +, preliminary. STRICT contact precautions and hand washing with soap and water, cleaning w bleach.
[2024-11-27] MEDS: Digoxin 0.125 MG TABLET PO (13:16)
[2024-11-27] MEDS: LORazepam 0.5 MG TABLET PO (14:42)
[2024-11-27] MEDS: Colchicine 0.6 MG TABLET PO (14:42)
[2024-11-27 15:13] VITALS: BP 141/86; PULSE 91; RESP 18; TEMP 36.9; O2SAT 94
[2024-11-27 16:14] LABS: Glucose, Whole Blood 123 mg/dL (60-115)
[2024-11-27] MEDS: Acetaminophen 325 MG TABLET 650 MG PO (17:43)
[2024-11-27 19:31] VITALS: BP 162/83; PULSE 92; RESP 18; TEMP 36.5; O2SAT 95
[2024-11-27 19:45] LABS: Glucose, Whole Blood 136 mg/dL (60-115)
[2024-11-27 21:18] VITALS: BP 162/83; PULSE 92
[2024-11-27] MEDS: Lactulose 20 GM/30 ML SOLUTION PO (21:20)
[2024-11-27] MEDS: 0.9 % Sodium Chloride Flush 3 ML SYRINGE IVFLUSH (21:20)
[2024-11-27] MEDS: oxyCODONE HCl Immed Release 5 MG TABLET PO (22:36)
[2024-11-28] VITALS (8 sets, daily range): BP systolic 125–178; BP diastolic 62–105; PULSE 75–89; RESP 18; TEMP 36.1–36.9; O2SAT 92–95
[2024-11-28] MEDS: vancomycin HCL 125 MG CAPSULE PO ×4 (01:50→19:10)
[2024-11-28 06:07] LABS: MANUAL DIFF FLAG NO
[2024-11-28] MEDS: Piperacillin Sodium/Tazobactam 4.5 GM in 0.9 % Sodium Chloride 100 ML IV (06:07)
[2024-11-28 06:11] LABS: Basophils Percent Auto 0.3 % (0-2); Eosinophils Absolute Auto 0.1 X10*3/uL (0.0-0.4); Eosinophils Percent Auto 1.5 % (0-4); Hematocrit 39.6 % (42.0-52.0); Hemoglobin 13.7 g/dl (14.0-18.0); Imm Gran Abs Auto 0.01 X10*3/uL (0.00-0.03); Imm Gran Pct Auto 0.2 % (0.0-0.4); Lymphocytes Absolute Auto 1.4 X10*3/uL (1.2-4.9); Lymphocytes Percent Auto 22.6 % (20-40); Mean Corpuscular HGB Conc 34.6 g/dl (31.0-36.0); Mean Corpuscular Volume 101.3 fL (80.0-98.0); Mean Platelet Volume 10.6 fL (9.4-12.4); Monocytes Absolute Auto 0.7 X10*3/uL (0.1-1.2); Neutrophils Percent Auto 64.4 % (45-73); Platelet Count 134 X10*3/uL (160-400); Red Blood Count 3.91 X10*6/uL (4.60-5.80); Red Cell Distribution Width 13.3 % (11.0-16.0); White Blood Count 6.2 X10*3/uL (4.8-10.8)
[2024-11-28 06:23] LABS: Anion Gap 11 (12-20); Blood Urea Nitrogen 14 mg/dL (9-16); Calcium 8.3 mg/dL (8.4-10.2); Carbon Dioxide 21 mmol/L (22-29); Chloride 110 mmol/L (96-108); Creatinine Clr Calc Pharmacy 123.4; Estimated Glomerular Filt Rate > 60; Glucose Random 111 mg/dL (60-115); Potassium 3.5 mmol/L (3.3-5.1); Sodium 138 mmol/L (135-145)
[2024-11-28] MEDS: LORazepam 0.5 MG TABLET PO (06:40)
[2024-11-28 07:34] LABS: Glucose, Whole Blood 125 mg/dL (60-115)
[2024-11-28] MEDS: oxyCODONE HCl Immed Release 5 MG TABLET PO ×2 (08:03→16:48)
[2024-11-28] MEDS: Digoxin 0.125 MG TABLET PO (08:04)
[2024-11-28] MEDS: Metoprolol Tartrate 50 MG TABLET 150 MG PO ×2 (08:04→21:43)
[2024-11-28] MEDS: Apixaban 5 MG TABLET PO ×2 (08:04→21:43)
[2024-11-28] MEDS: lisinopriL 10 MG TABLET PO (08:04)
[2024-11-28] MEDS: Furosemide 20 MG TABLET PO (08:05)
[2024-11-28] MEDS: 0.9 % Sodium Chloride Flush 3 ML SYRINGE IVFLUSH (08:06)
--- NOTE | 2024-11-28 08:17 | HO.PM.IMPN ---
Subjective Subjective Date of Service: 11/28/24 Interval History: Follow up nausea vomiting and diarrhea Still having diarrhea, poor appetite Physical Exam Vital Signs: Vital Signs: Last Vital Signs Temp 97.9 F 11/28/24 07:32 Pulse 89 11/28/24 08:04 Resp 18 11/28/24 07:32 BP 136/76 11/28/24 08:05 Pulse Ox 92 11/28/24 07:32 O2 Del Method Room Air 11/28/24 07:32 BMI result Body Mass Index 37.8 Appearing in no acute distress lung sounds are clear to auscultation heart regular rate rhythm, clear S1, S2 positive bowel sounds, abdomen is soft, nontender neuro patient is alert x3, no focal deficits Objective Data Active Medications Acetaminophen (Acetaminophen 325 Mg Tablet) 650 mg PO Q6H PRN PRN Reason: Pain, Mild 1-3,fever,headache Last Admin: 11/27/24 17:43 Dose: 650 mg Documented By: DEEPIKA Apixaban (Apixaban 5 Mg Tablet) 5 mg PO BID [facility] Last Admin: 11/28/24 08:04 Dose: 5 mg Documented By: DEEPIKA Calcium Carbonate (Calcium Carbonate 750 Mg Tab.Chew) 750 mg PO Q4H PRN PRN Reason: Heartburn Last Admin: 11/27/24 00:34 Dose: 750 mg Documented By: POLLY Colchicine (Colchicine 0.6 Mg Tablet) 0.6 mg PO TID PRN PRN Reason: GOUT FLARE Last Admin: 11/27/24 14:42 Dose: 0.6 mg Documented By: DEEPIKA Digoxin (Digoxin 0.125 Mg Tablet) 0.125 mg PO DAILY [facility]; Protocol Last Admin: 11/28/24 08:04 Dose: 0.125 mg Documented By: DEEPIKA Furosemide (Furosemide 20 Mg Tablet) 20 mg PO DAILY [facility]; Protocol Last Admin: 11/28/24 08:05 Dose: 20 mg Documented By: DEEPIKA Glucose (Glucose Gel 15 Gm Gel..Gram.) 15 gm PO Q15M PRN; Protocol PRN Reason: per Hypoglycemia Standing Ord. Dextrose (D10) 250 mls @ 750 mls/hr IV Q15M PRN; Protocol PRN Reason: per Hypoglycemia Standing Ord. Piperacillin Sod/Tazobactam (Sod 4.5 gm/ Sodium Chloride) 100 mls @ 200 mls/hr IV Q6H [facility] Last Infusion: 11/28/24 08:01 Dose: Infused Documented By: DEEPIKA Insulin Human Lispro (Insulin Lispro 100 Unit/Ml 3 Ml Vial) 0 unit SUBCUT QIDACHS [facility]; Protocol Last Admin: 11/28/24 07:53 Dose: Not Given Documented By: DEEPIKA Non-Admin Reason: No Insulin Coverage Lactulose (Lactulose 20 Gm/30 Ml Solution) 20 gm PO BID [facility] Last Admin: 11/28/24 08:08 Dose: Not Given Documented By: DEEPIKA Non-Admin Reason: multiple loose stools Lisinopril (Lisinopril 10 Mg Tablet) 10 mg PO DAILY [facility]; Protocol Last Admin: 11/28/24 08:04 Dose: 10 mg Documented By: DEEPIKA Lorazepam (Lorazepam 0.5 Mg Tablet) 0.5 mg PO Q8H PRN PRN Reason: anxiety/restlessness Last Admin: 11/28/24 06:40 Dose: 0.5 mg Documented By: DOMINIQUE Magnesium Hydroxide (Milk Of Magnesia 30 Ml Oral.Susp) 30 ml PO DAILY PRN PRN Reason: Constipation Melatonin (Melatonin 3 Mg Tablet) 6 mg PO BEDTIME PRN PRN Reason: Insomnia Metoprolol Tartrate (Metoprolol Tartrate 50 Mg Tablet) 150 mg PO BID [facility]; Protocol Last Admin: 11/28/24 08:04 Dose: 150 mg Documented By: DEEPIKA Morphine Sulfate (Morphine Sulfate 4 Mg/Ml Cartridge) 2 mg IVPUSH Q4H PRN; Protocol PRN Reason: Pain, Severe (Pain Scale 7-10) Last Admin: 11/27/24 21:30 Dose: 2 mg Documented By: DOMINIQUE Ondansetron HCl (Ondansetron Hcl 4 Mg/2 Ml Vial) 4 mg IVPUSH Q8H PRN PRN Reason: Nausea and Vomiting Last Admin: 11/27/24 15:21 Dose: 4 mg Documented By: DEEPIKA Oxycodone HCl (Oxycodone Hcl Immed Release 5 Mg Tablet) 5 mg PO Q6H PRN PRN Reason: Pain, Moderate(Pain Scale 4-6) Last Admin: 11/28/24 08:03 Dose: 5 mg Documented By: DEEPIKA Sodium Chloride (0.9 % Sodium Chloride Flush 3 Ml Syringe) 3 ml IVFLUSH QSHIFT [facility] Last Admin: 11/28/24 08:06 Dose: 3 ml Documented By: DEEPIKA Vancomycin HCl (Vancomycin Hcl 125 Mg Capsule) 125 mg PO Q6H [facility] Last Admin: 11/28/24 08:04 Dose: 125 mg Documented By: DEEPIKA Labs 11/28/24 05:43 11/28/24 05:43 Labs: Laboratory Results - last 24 hr 11/26/24 11/27/24 11/27/24 23:05 11:24 16:00 MCV MCH MCHC RDW Plt Count MPV Immature Gran % (Auto) Neut % (Auto) Lymph % (Auto) [place] % (Auto) Eos % (Auto) Baso % (Auto) Lymph # (Auto) [place] # (Auto) Eos # (Auto) Baso # (Auto) Abs Immat Gran (auto) Absolute Neuts (auto) Absolute Nucleated RBC Nucleated RBC % (auto) Anion Gap Estim Creat Clear Calc Estimated GFR POC Glucose 143 H 123 H Random Glucose Calcium Stl C. cayetanensis PCR Not Detected Stool Rotavirus A PCR Not Detected Stl Adenov F 40/41 PCR Not Detected Stool Astrovirus (PCR) Not Detected Stool Campylobacter PCR Not Detected Stool Cryptosporidium PCR Not Detected Stl Sh Tox Pr E STEC PCR Not Detected Stool E coli O157 PCR Not applicable Stl Enterotoxigenic E PCR Not Detected Stool EPEC (PCR) Not Detected Stool EAEC (PCR) Not Detected Stl E. histolytica PCR Not Detected Stool Giardia Lamblia PCR Not Detected Stl P. shigelloides PCR Not Detected Stool Salmonella PCR Not Detected Stool Sapovirus (PCR) Not Detected Stl Shigella/EIEC PCR Not Detected St Y.enterocolitica PCR Not Detected Stool Vibrio (PCR) Not Detected Stl Vibrio cholerae PCR Not Detected Stl Norovirus GI/GII PCR See Comment 11/27/24 11/28/24 11/28/24 19:38 05:43 07:21 MCV 101.3 H MCH 35.0 H MCHC 34.6 RDW 13.3 Plt Count 134 L MPV 10.6 Immature Gran % (Auto) 0.2 Neut % (Auto) 64.4 Lymph % (Auto) 22.6 [place] % (Auto) 11.0 Eos % (Auto) 1.5 Baso % (Auto) 0.3 Lymph # (Auto) 1.4 [place] # (Auto) 0.7 Eos # (Auto) 0.1 Baso # (Auto) 0.0 Abs Immat Gran (auto) 0.01 Absolute Neuts (auto) 4.0 Absolute Nucleated RBC 0.000 Nucleated RBC % (auto) 0.0 Anion Gap 11 L Estim Creat Clear Calc 123.4 Estimated GFR > 60 POC Glucose 136 H 125 H Random Glucose 111 Calcium 8.3 L Stl C. cayetanensis PCR Stool Rotavirus A PCR Stl Adenov F 40/41 PCR Stool Astrovirus (PCR) Stool Campylobacter PCR Stool Cryptosporidium PCR Stl Sh Tox Pr E STEC PCR Stool E coli O157 PCR Stl Enterotoxigenic E PCR Stool EPEC (PCR) Stool EAEC (PCR) Stl E. histolytica PCR Stool Giardia Lamblia PCR Stl P. shigelloides PCR Stool Salmonella PCR Stool Sapovirus (PCR) Stl Shigella/EIEC PCR St Y.enterocolitica PCR Stool Vibrio (PCR) Stl Vibrio cholerae PCR Stl Norovirus GI/GII PCR Microbiology Microbiology Results: Microbiology 11/26/24 18:09 Blood Culture - Preliminary Blood - Venous No growth after 24 hours. 11/26/24 18:09 Blood Culture - Preliminary Blood - Venous No growth after 24 hours. Assessment and Plan (1) Colitis: Status: Acute (2) Acute diarrhea: Status: Acute Plan Patient is a 64-year-old male with a past medical history significant for alcohol abuse, cirrhosis, HFpEF, OA, HTN, paroxysmal AFib on Eliquis, T2DM, substance use disorder, who presented to the ED today due to diffuse abdominal pain and severe diarrhea. Abdominopelvic CT consistent with small-bowel and colonic mural thickening with mucosal hyperemia and air-fluid levels suggesting enterocolitis. Cdiff likely reason for colitis oral vancomycin 10 days contact precautions advance diet as tolerated Sepsis secondary to colitis. Sepsis resolved WBC 22, lactate 3.2, 2.4 on repeat, tachycardic, blood cultures x2 pending, not severe sepsis abdominopelvic CT consistent with small bowel and colonic mural thickening with mucosal hyperemia and air-fluid level suggesting enterocolitis GI panel neg, cdiff pos received fluid bolus in the ED stopped Zosyn, added vancomycin GI consult monitor CBC and BMP Alcohol abuse/cirrhosis patient reports no recent use alcohol level less than 10 LFTs elevated, sepsis likely contributing ammonia mildly elevated, hold lactulose due to severe diarrhea, patient not confused monitor CIWA T2DM hold metformin sliding scale insulin diabetic diet HFpEF, no acute exacerbation continue home meds HTN continue home meds Persistent AFib continue Eliquis and metoprolol Substance use disorder patient reports none recently Full code VTE prophylaxis: Eliquis Patient with sepsis secondary to colitis, possible C diff, requiring admission for at least 2 midnight stay for antibiotics and further testing. Quality Stroke Does the patient have a stroke diagnosis?: No VTE Prior VTE?: No VTE Risk Level:: Medical - moderate - high VTE Device Contraindication: Treatment Not Indicated VTE Drug Contraindication: N/A - Med Ordered
[2024-11-28] MEDS: 0.9 % Sodium Chloride 1,000 ML 125 ML IVCONT ×2 (09:42→16:50)
[2024-11-28 11:18] LABS: Glucose, Whole Blood 144 mg/dL (60-115)
[2024-11-28 16:11] LABS: Glucose, Whole Blood 95 mg/dL (60-115)
[2024-11-28 20:41] LABS: Glucose, Whole Blood 132 mg/dL (60-115)
[2024-11-29] MEDS: 0.9 % Sodium Chloride 1,000 ML 125 ML IVCONT ×2 (00:03→08:05)
[2024-11-29] MEDS: vancomycin HCL 125 MG CAPSULE PO ×2 (01:36→08:05)
[2024-11-29] MEDS: LORazepam 0.5 MG TABLET PO ×3 (03:03→23:50)
[2024-11-29] MEDS: oxyCODONE HCl Immed Release 5 MG TABLET PO (03:03)
[2024-11-29 04:00] VITALS: BP 160/82; PULSE 86; RESP 19; TEMP 37.2; O2SAT 97
[2024-11-29 06:17] LABS: MANUAL DIFF FLAG NO
[2024-11-29 06:42] LABS: Anion Gap 12 (12-20); Blood Urea Nitrogen 11 mg/dL (9-16); Carbon Dioxide 21 mmol/L (22-29); Chloride 111 mmol/L (96-108); Creatinine Clr Calc Pharmacy 144.3; Estimated Glomerular Filt Rate > 60; Glucose Random 128 mg/dL (60-115); Potassium 3.5 mmol/L (3.3-5.1); Sodium 140 mmol/L (135-145)
[2024-11-29 06:51] LABS: Basophils Percent Auto 0.5 % (0-2); Eosinophils Absolute Auto 0.2 X10*3/uL (0.0-0.4); Eosinophils Percent Auto 2.6 % (0-4); Hematocrit 40.4 % (42.0-52.0); Hemoglobin 13.7 g/dl (14.0-18.0); Imm Gran Abs Auto 0.01 X10*3/uL (0.00-0.03); Imm Gran Pct Auto 0.2 % (0.0-0.4); Lymphocytes Absolute Auto 2.4 X10*3/uL (1.2-4.9); Lymphocytes Percent Auto 39.9 % (20-40); Mean Corpuscular HGB Conc 33.9 g/dl (31.0-36.0); Mean Corpuscular Hemoglobin 34.6 pg (27.0-33.0); Mean Platelet Volume 10.7 fL (9.4-12.4); Monocytes Absolute Auto 0.7 X10*3/uL (0.1-1.2); Monocytes Percent Auto 10.6 % (2-11); Neutrophils Absolute Auto 2.8 x10*3/uL (2.0-8.3); Neutrophils Percent Auto 46.2 % (45-73); Platelet Count 146 X10*3/uL (160-400); Red Blood Count 3.96 X10*6/uL (4.60-5.80); Red Cell Distribution Width 12.9 % (11.0-16.0); White Blood Count 6.1 X10*3/uL (4.8-10.8)
[2024-11-29 07:29] VITALS: BP 144/77; PULSE 95; RESP 18; TEMP 36; O2SAT 97
[2024-11-29 07:55] LABS: Glucose, Whole Blood 101 mg/dL (60-115)
--- NOTE | 2024-11-29 08:01 | HO.PM.IMPN ---
Subjective Subjective Date of Service: 11/29/24 Interval History: Follow up nausea vomiting and diarrhea Still having diarrhea appetite better Physical Exam Vital Signs: Vital Signs: Last Vital Signs Temp 96.8 F 11/29/24 07:29 Pulse 95 11/29/24 07:29 Resp 18 11/29/24 07:29 BP 144/77 H 11/29/24 07:29 Pulse Ox 97 11/29/24 07:29 O2 Del Method Room Air 11/29/24 04:00 BMI result Body Mass Index 37.8 Appearing in no acute distress lung sounds are clear to auscultation heart regular rate rhythm, clear S1, S2 positive bowel sounds, abdomen is soft, nontender neuro patient is alert x3, no focal deficits Objective Data Active Medications Acetaminophen (Acetaminophen 325 Mg Tablet) 650 mg PO Q6H PRN PRN Reason: Pain, Mild 1-3,fever,headache Last Admin: 11/27/24 17:43 Dose: 650 mg Documented By: DEEPIKA Apixaban (Apixaban 5 Mg Tablet) 5 mg PO BID [facility] Last Admin: 11/28/24 21:43 Dose: 5 mg Documented By: IVANA Calcium Carbonate (Calcium Carbonate 750 Mg Tab.Chew) 750 mg PO Q4H PRN PRN Reason: Heartburn Last Admin: 11/27/24 00:34 Dose: 750 mg Documented By: POLLY Colchicine (Colchicine 0.6 Mg Tablet) 0.6 mg PO TID PRN PRN Reason: GOUT FLARE Last Admin: 11/27/24 14:42 Dose: 0.6 mg Documented By: DEEPIKA Digoxin (Digoxin 0.125 Mg Tablet) 0.125 mg PO DAILY [facility]; Protocol Last Admin: 11/28/24 08:04 Dose: 0.125 mg Documented By: DEEPIKA Furosemide (Furosemide 20 Mg Tablet) 20 mg PO DAILY [facility]; Protocol Last Admin: 11/28/24 08:05 Dose: 20 mg Documented By: DEEPIKA Glucose (Glucose Gel 15 Gm Gel..Gram.) 15 gm PO Q15M PRN; Protocol PRN Reason: per Hypoglycemia Standing Ord. Dextrose (D10) 250 mls @ 750 mls/hr IV Q15M PRN; Protocol PRN Reason: per Hypoglycemia Standing Ord. Sodium Chloride (Ns) 1,000 mls @ 125 mls/hr IVCONT .Q8H [facility] Last Admin: 11/29/24 00:03 Dose: 125 mls/hr Documented By: MIGUEL ANGEL Insulin Human Lispro (Insulin Lispro 100 Unit/Ml 3 Ml Vial) 0 unit SUBCUT QIDACHS [facility]; Protocol Last Admin: 11/29/24 07:59 Dose: Not Given Documented By: NEMESIO Non-Admin Reason: No Insulin Coverage Lactulose (Lactulose 20 Gm/30 Ml Solution) 20 gm PO BID [facility] Last Admin: 11/28/24 08:08 Dose: Not Given Documented By: DEEPIKA Non-Admin Reason: multiple loose stools Lisinopril (Lisinopril 10 Mg Tablet) 10 mg PO DAILY [facility]; Protocol Last Admin: 11/28/24 08:04 Dose: 10 mg Documented By: DEEPIKA Lorazepam (Lorazepam 0.5 Mg Tablet) 0.5 mg PO Q8H PRN PRN Reason: anxiety/restlessness Last Admin: 11/29/24 03:03 Dose: 0.5 mg Documented By: MIGUEL ANGEL Magnesium Hydroxide (Milk Of Magnesia 30 Ml Oral.Susp) 30 ml PO DAILY PRN PRN Reason: Constipation Melatonin (Melatonin 3 Mg Tablet) 6 mg PO BEDTIME PRN PRN Reason: Insomnia Metoprolol Tartrate (Metoprolol Tartrate 50 Mg Tablet) 150 mg PO BID [facility]; Protocol Last Admin: 11/28/24 21:43 Dose: 150 mg Documented By: IVANA Morphine Sulfate (Morphine Sulfate 4 Mg/Ml Cartridge) 2 mg IVPUSH Q4H PRN; Protocol PRN Reason: Pain, Severe (Pain Scale 7-10) Last Admin: 11/27/24 21:30 Dose: 2 mg Documented By: DOMINIQUE Ondansetron HCl (Ondansetron Hcl 4 Mg/2 Ml Vial) 4 mg IVPUSH Q8H PRN PRN Reason: Nausea and Vomiting Last Admin: 11/27/24 15:21 Dose: 4 mg Documented By: DEEPIKA Oxycodone HCl (Oxycodone Hcl Immed Release 5 Mg Tablet) 5 mg PO Q6H PRN PRN Reason: Pain, Moderate(Pain Scale 4-6) Last Admin: 11/29/24 03:03 Dose: 5 mg Documented By: MIGUEL ANGEL Sodium Chloride (0.9 % Sodium Chloride Flush 3 Ml Syringe) 3 ml IVFLUSH QSHIFT [facility] Last Admin: 11/29/24 00:03 Dose: Not Given Documented By: MIGUEL ANGEL Non-Admin Reason: IV Running Vancomycin HCl (Vancomycin Hcl 125 Mg Capsule) 125 mg PO Q6H [facility] Last Admin: 11/29/24 01:36 Dose: 125 mg Documented By: MIGUEL ANGEL Labs 11/29/24 05:22 11/29/24 05:22 Labs: Laboratory Results - last 24 hr 11/28/24 11/28/24 11/28/24 11:10 16:08 20:36 MCV MCH MCHC RDW Plt Count MPV Immature Gran % (Auto) Neut % (Auto) Lymph % (Auto) Crisp % (Auto) Eos % (Auto) Baso % (Auto) Lymph # (Auto) Crisp # (Auto) Eos # (Auto) Baso # (Auto) Abs Immat Gran (auto) Absolute Neuts (auto) Absolute Nucleated RBC Nucleated RBC % (auto) Anion Gap Estim Creat Clear Calc Estimated GFR POC Glucose 144 H 95 132 H Random Glucose Calcium 11/29/24 11/29/24 05:22 07:32 MCV 102.0 H MCH 34.6 H MCHC 33.9 RDW 12.9 Plt Count 146 L MPV 10.7 Immature Gran % (Auto) 0.2 Neut % (Auto) 46.2 Lymph % (Auto) 39.9 Crisp % (Auto) 10.6 Eos % (Auto) 2.6 Baso % (Auto) 0.5 Lymph # (Auto) 2.4 Crisp # (Auto) 0.7 Eos # (Auto) 0.2 Baso # (Auto) 0.0 Abs Immat Gran (auto) 0.01 Absolute Neuts (auto) 2.8 Absolute Nucleated RBC 0.000 Nucleated RBC % (auto) 0.0 Anion Gap 12 Estim Creat Clear Calc 144.3 Estimated GFR > 60 POC Glucose 101 Random Glucose 128 H Calcium 8.0 L Microbiology Microbiology Results: Microbiology 11/26/24 18:09 Blood Culture - Preliminary Blood - Venous No growth after 48 hours. 11/26/24 18:09 Blood Culture - Preliminary Blood - Venous No growth after 48 hours. Assessment and Plan (1) Colitis: Status: Acute (2) Acute diarrhea: Status: Acute Plan Patient is a 64-year-old male with a past medical history significant for alcohol abuse, cirrhosis, HFpEF, OA, HTN, paroxysmal AFib on Eliquis, T2DM, substance use disorder, who presented to the ED today due to diffuse abdominal pain and severe diarrhea. Abdominopelvic CT consistent with small-bowel and colonic mural thickening with mucosal hyperemia and air-fluid levels suggesting enterocolitis. Cdiff likely reason for colitis contact precautions ada diet, stop IV fluids as appetite is better still with multiple watery stools overnight but slightly more formed GI following>continue oral vancomycin 10 days, if diarrhea continues switch to Fidaxomicin 200mg BID x10 days Sepsis secondary to cdiff colitis. Sepsis resolved WBC 22, lactate 3.2, 2.4 on repeat, tachycardic, blood cultures x2 pending, not severe sepsis abdomen/pelvic CT consistent with small bowel and colonic mural thickening with mucosal hyperemia and air-fluid level suggesting enterocolitis GI panel neg, cdiff pos stopped Zosyn, added oral vancomycin Alcohol abuse/cirrhosis patient reports no recent use alcohol level less than 10 LFTs elevated, sepsis likely contributing ammonia mildly elevated, hold lactulose due to severe diarrhea, patient not confused monitor CIWA f/u o/p with GI T2DM hold metformin sliding scale insulin diabetic diet HFpEF, no acute exacerbation continue home meds HTN continue home meds Persistent AFib continue Eliquis and metoprolol Substance use disorder patient reports none recently Chronic thrombocytopenia Likely secondary to alcoholic cirrhosis Full code VTE prophylaxis: Eliquis Patient with sepsis secondary to colitis, possible C diff, requiring admission for at least 2 midnight stay for antibiotics and further testing. Quality Stroke Does the patient have a stroke diagnosis?: No VTE Prior VTE?: No VTE Risk Level:: Medical - moderate - high VTE Device Contraindication: Treatment Not Indicated VTE Drug Contraindication: N/A - Med Ordered
[2024-11-29] MEDS: Furosemide 20 MG TABLET PO (08:04)
[2024-11-29] MEDS: Apixaban 5 MG TABLET PO ×2 (08:04→21:15)
[2024-11-29] MEDS: Metoprolol Tartrate 50 MG TABLET 150 MG PO ×2 (08:04→21:15)
[2024-11-29] MEDS: lisinopriL 10 MG TABLET PO (08:05)
[2024-11-29] MEDS: Digoxin 0.125 MG TABLET PO (08:05)
[2024-11-29 08:32] LABS: Magnesium 1.8 mg/dL (1.6-2.6)
[2024-11-29 09:50] LABS: Norovirus Stool PCR DETECTED
[2024-11-29 11:48] LABS: Glucose, Whole Blood 134 mg/dL (60-115)
[2024-11-29] MEDS: Fidaxomicin 200 MG TABLET PO ×2 (11:48→21:15)
[2024-11-29 12:00] VITALS: BP 160/102; PULSE 63; RESP 18; TEMP 36.7; O2SAT 98
--- NOTE | 2024-11-29 15:36 | MHC.CM.PN ---
per rounds ptno medically ready for dc
[2024-11-29 16:00] VITALS: BP 155/89; PULSE 65; RESP 18; TEMP 36.2; O2SAT 94
[2024-11-29 16:14] LABS: Glucose, Whole Blood 118 mg/dL (60-115)
[2024-11-29] MEDS: 0.9 % Sodium Chloride Flush 3 ML SYRINGE IVFLUSH ×2 (17:12→21:15)
[2024-11-29 19:53] VITALS: BP 166/76; PULSE 80; RESP 18; TEMP 36.2; O2SAT 94
[2024-11-29 20:32] LABS: Glucose, Whole Blood 107 mg/dL (60-115)
[2024-11-30] VITALS (7 sets, daily range): BP systolic 126–159; BP diastolic 77–90; PULSE 69–93; RESP 16–18; TEMP 36.1–36.6; O2SAT 94–98
[2024-11-30] MEDS: oxyCODONE HCl Immed Release 5 MG TABLET PO ×2 (00:49→20:28)
[2024-11-30 07:27] LABS: Glucose, Whole Blood 114 mg/dL (60-115)
[2024-11-30] MEDS: lisinopriL 10 MG TABLET PO (08:14)
[2024-11-30] MEDS: Apixaban 5 MG TABLET PO ×2 (08:14→20:28)
[2024-11-30] MEDS: Furosemide 20 MG TABLET PO (08:14)
[2024-11-30] MEDS: Digoxin 0.125 MG TABLET PO (08:14)
[2024-11-30] MEDS: 0.9 % Sodium Chloride Flush 3 ML SYRINGE IVFLUSH ×3 (08:15→20:28)
[2024-11-30] MEDS: Metoprolol Tartrate 50 MG TABLET 150 MG PO ×2 (08:15→20:27)
[2024-11-30] MEDS: Fidaxomicin 200 MG TABLET PO ×2 (10:43→23:23)
[2024-11-30 11:11] LABS: Glucose, Whole Blood 134 mg/dL (60-115)
[2024-11-30] MEDS: LORazepam 0.5 MG TABLET PO (15:28)
[2024-11-30 16:40] LABS: Glucose, Whole Blood 118 mg/dL (60-115)
--- NOTE | 2024-11-30 17:11 | P.PNIM_ITS ---
Subjective Subjective Date of Service: 11/30/24 Interval History: seen and examined this morning follow up for diarrhea +for norovirus diarrhea improving Review of Systems Review of Systems: Yes all other systems are reviewed and are negative Constitutional Constitutional: Denies chills and Denies fever(s) Gastrointestinal Gastrointestinal: Denies nausea and Denies vomiting Physical Exam 2 Vital Signs: Vital Signs: Last Vital Signs Temp 97.2 F 11/30/24 15:04 Pulse 93 11/30/24 15:04 Resp 18 11/30/24 15:04 BP 150/90 H 11/30/24 15:04 Pulse Ox 96 11/30/24 15:04 O2 Del Method Room Air 11/30/24 15:04 BMI result Body Mass Index 37.8 Const: General: alert and awake Nutritional Appearance: overweight O rientation/consciousness: patient oriented x3 GI: Inspection: No distended Palpation (GI): Soft to palpation and nontender Neuro: General: patient oriented x3, moves all extremities and CN's II-XI intact bilaterally Objective Data Active Medications Acetaminophen (Acetaminophen 325 Mg Tablet) 650 mg PO Q6H PRN PRN Reason: Pain, Mild 1-3,fever,headache Last Admin: 11/27/24 17:43 Dose: 650 mg Documented By: DEEPIKA Apixaban (Apixaban 5 Mg Tablet) 5 mg PO BID [facility] Last Admin: 11/30/24 08:14 Dose: 5 mg Documented By: NEMESIO Calcium Carbonate (Calcium Carbonate 750 Mg Tab.Chew) 750 mg PO Q4H PRN PRN Reason: Heartburn Last Admin: 11/27/24 00:34 Dose: 750 mg Documented By: POLLY Colchicine (Colchicine 0.6 Mg Tablet) 0.6 mg PO TID PRN PRN Reason: GOUT FLARE Last Admin: 11/27/24 14:42 Dose: 0.6 mg Documented By: DEEPIKA Digoxin (Digoxin 0.125 Mg Tablet) 0.125 mg PO DAILY [facility]; Protocol Last Admin: 11/30/24 08:14 Dose: 0.125 mg Documented By: NEMESIO Fidaxomicin (Fidaxomicin 200 Mg Tablet) 200 mg PO Q12H [facility] Last Admin: 11/30/24 10:43 Dose: 200 mg Documented By: NEMESIO Furosemide (Furosemide 20 Mg Tablet) 20 mg PO DAILY [facility]; Protocol Last Admin: 11/30/24 08:14 Dose: 20 mg Documented By: NEMESIO Glucose (Glucose Gel 15 Gm Gel..Gram.) 15 gm PO Q15M PRN; Protocol PRN Reason: per Hypoglycemia Standing Ord. Dextrose (D10) 250 mls @ 750 mls/hr IV Q15M PRN; Protocol PRN Reason: per Hypoglycemia Standing Ord. Insulin Human Lispro (Insulin Lispro 100 Unit/Ml 3 Ml Vial) 0 unit SUBCUT QIDACHS [facility]; Protocol Last Admin: 11/30/24 16:46 Dose: Not Given Documented By: NEMESIO Non-Admin Reason: No Insulin Coverage Lactulose (Lactulose 20 Gm/30 Ml Solution) 20 gm PO BID [facility] Last Admin: 11/28/24 08:08 Dose: Not Given Documented By: DEEPIKA Non-Admin Reason: multiple loose stools Lisinopril (Lisinopril 10 Mg Tablet) 10 mg PO DAILY [facility]; Protocol Last Admin: 11/30/24 08:14 Dose: 10 mg Documented By: NEMESIO Lorazepam (Lorazepam 0.5 Mg Tablet) 0.5 mg PO Q8H PRN PRN Reason: anxiety/restlessness Last Admin: 11/30/24 15:28 Dose: 0.5 mg Documented By: NEMESIO Magnesium Hydroxide (Milk Of Magnesia 30 Ml Oral.Susp) 30 ml PO DAILY PRN PRN Reason: Constipation Melatonin (Melatonin 3 Mg Tablet) 6 mg PO BEDTIME PRN PRN Reason: Insomnia Metoprolol Tartrate (Metoprolol Tartrate 50 Mg Tablet) 150 mg PO BID [facility]; Protocol Last Admin: 11/30/24 08:15 Dose: 150 mg Documented By: NEMESIO Morphine Sulfate (Morphine Sulfate 4 Mg/Ml Cartridge) 2 mg IVPUSH Q4H PRN; Protocol PRN Reason: Pain, Severe (Pain Scale 7-10) Last Admin: 11/27/24 21:30 Dose: 2 mg Documented By: DOMINIQUE Ondansetron HCl (Ondansetron Hcl 4 Mg/2 Ml Vial) 4 mg IVPUSH Q8H PRN PRN Reason: Nausea and Vomiting Last Admin: 11/27/24 15:21 Dose: 4 mg Documented By: DEEPIKA Oxycodone HCl (Oxycodone Hcl Immed Release 5 Mg Tablet) 5 mg PO Q6H PRN PRN Reason: Pain, Moderate(Pain Scale 4-6) Last Admin: 11/30/24 00:49 Dose: 5 mg Documented By: MIGUEL ANGEL Sodium Chloride (0.9 % Sodium Chloride Flush 3 Ml Syringe) 3 ml IVFLUSH QSHIFT [facility] Last Admin: 11/30/24 15:31 Dose: 3 ml Documented By: NEMESIO Labs 11/29/24 05:22 11/29/24 05:22 Labs: Laboratory Results - last 24 hr 11/29/24 11/30/24 11/30/24 20:27 07:18 11:04 POC Glucose 107 114 134 H 11/30/24 16:34 POC Glucose 118 H Assessment and Plan (1) Acute diarrhea: Status: Acute Plan This is a 64-year-old male with a past medical history significant for alcohol abuse, cirrhosis, HFpEF, OA, HTN, paroxysmal AFib on Eliquis, T2DM, substance use disorder, who presented to the ED today due to diffuse abdominal pain and severe diarrhea. Abdominopelvic CT consistent with small-bowel and colonic mural thickening with mucosal hyperemia and air-fluid levels suggesting enterocolitis found to be positive for norovirus diarrhea likely due to norovirus and possible underlying cdif GI panel neg, cdiff PCR positive but toxin negative indicating likely colonization however has improved since swithcing to fidaxomicin, d/w GI, plan to treat for total of 10 days - 5 more days upon discharge Sepsis secondary to colitis. Sepsis resolved no severe sepsis abdomen/pelvic CT consistent with small bowel and colonic mural thickening with mucosal hyperemia and air-fluid level suggesting enterocolitis blood cultures negative to date Alcohol abuse/cirrhosis patient reports no recent use. no evidence of acute alcohol withdrawal LFTs elevated, sepsis likely contributing ammonia mildly elevated, hold lactulose due to severe diarrhea, patient not confused monitor CIWA f/u o/p with GI T2DM hold metformin sliding scale insulin diabetic diet HFpEF, no acute exacerbation continue home meds HTN continue home meds Persistent AFib continue Eliquis and metoprolol Substance use disorder patient reports none recently Chronic thrombocytopenia Likely secondary to alcoholic cirrhosis not due to severe sepsis Full code VTE prophylaxis: Eliquis requires ongoing inpatietn stay for management of colitis/diarrhea Quality Stroke Does the patient have a stroke diagnosis?: No VTE Prior VTE?: No VTE Risk Level:: Medical - moderate - high VTE Device Contraindication: Treatment Not Indicated VTE Drug Contraindication: N/A - Med Ordered
[2024-11-30 20:32] LABS: Glucose, Whole Blood 105 mg/dL (60-115)
[2024-12-01 04:00] VITALS: BP 127/73; PULSE 78; RESP 18; TEMP 36.3; O2SAT 96
[2024-12-01] MEDS: LORazepam 0.5 MG TABLET PO (04:23)
[2024-12-01 07:33] VITALS: BP 131/73; PULSE 95; RESP 18; TEMP 36.3; O2SAT 94
[2024-12-01 07:41] LABS: Glucose, Whole Blood 121 mg/dL (60-115)
[2024-12-01] MEDS: Apixaban 5 MG TABLET PO (08:18)
[2024-12-01] MEDS: Metoprolol Tartrate 50 MG TABLET 150 MG PO (08:18)
[2024-12-01] MEDS: Furosemide 20 MG TABLET PO (08:18)
[2024-12-01] MEDS: Digoxin 0.125 MG TABLET PO (08:18)
[2024-12-01] MEDS: lisinopriL 10 MG TABLET PO (08:18)
[2024-12-01] MEDS: 0.9 % Sodium Chloride Flush 3 ML SYRINGE IVFLUSH (08:19)
--- NOTE | 2024-12-01 10:30 | MHC.CM.PN ---
Patient is discharged to home self care. He has arranged for transportation home. The [facility] MD brochure has been provided to the patient. He has been instructed to make an appointment with a new PCP.
--- NOTE | 2024-12-01 11:14 | P.DS_ITS ---
DS: Providers Provider Date of Service: 12/01/24 Date of admission: 11/26/24 22:24 Date of discharge: 12/01/24 Primary care physician: Duncan Rush MD Consults: 11/26/24 22:45 Consult to Gastroenterology Routine Consulting Provider: Jeffrey Jalloh Reason for consultation: enterocolitis, ?c diff Has provider been notified: No Attending physician on discharge: Mir Hull Discharging clinician: Alexandra Lucas DS: Diagnosis Discharge Diagnosis (1) Acute diarrhea: Status: Acute DS: Summary Hospital Course Hospital Course: From H&P on the day of admission Patient is a 64-year-old male with a past medical history significant for alcohol abuse, cirrhosis, HFpEF, awake, HTN, paroxysmal AFib on Eliquis, T2DM, substance use disorder, who presented to the ED today due to diffuse abdominal pain and severe diarrhea. He reports the diarrhea started at 09:00 and has been persistent since. He denies any blood in the stool but does report a malodorous scent. He denies any recent antibiotics or travel but does report that his works in a [employer]. He denies any sick contacts. He also is complaining of a mild headache without any improvement with the Dilaudid. He rates his abdominal pain is 7/10 but reports it was 10/10 when he arrived here. He reports a history of similar many years ago at [facility]. He currently takes lactulose for cirrhosis and denies any current confusion and states that he has been on this for weeks and has never had this severe diarrhea before. His diarrhea did begin shortly after taking his 1st lactulose dose this morning. diarrhea/enterocolitis likely due to norovirus and possible underlying cdif GI panel neg, cdiff PCR positive but toxin negative indicating likely colonization however has improved since switching to fidaxomicin and did have diffuse enterocolitis on imaging. d/w GI, plan to treat for total of 10 days - 5 more days upon discharge Sepsis secondary to colitis. Sepsis resolved no severe features. abdomen/pelvic CT consistent with small bowel and colonic mural thickening with mucosal hyperemia and air-fluid level suggesting enterocolitis. blood cultures negative to date Alcohol abuse/cirrhosis patient reports no recent use. no evidence of acute alcohol withdrawal. CIWA has remained low. follows outpatient in the comprehensive care clinic LFTs elevated recommend outpatient follow up with GI Time Attestation Discharge Coordination Time (in mins): 40 Quality: Safe Use of Opioids Does Pt have an Active Cancer Diagnosis on the Problem List?: No Quality: Stroke Does the patient have a stroke diagnosis?: No Physical Exam Vital Signs: Vital Signs: Last Vital Signs Temp 97.4 F 12/01/24 07:33 Pulse 95 12/01/24 07:33 Resp 18 12/01/24 07:33 BP 131/73 12/01/24 07:33 Pulse Ox 94 12/01/24 07:33 O2 Del Method Room Air 12/01/24 07:33 BMI result Body Mass Index 37.8 Const: General: alert and awake Nutritional Appearance: overweight Orientation/consciousness: patient oriented x3 GI: Inspection: No distended Palpation (GI): Soft to palpation and nontender Neuro: General: patient oriented x3, moves all extremities and CN's II-XI intact bilaterally DS: Data Data Completed and Pending Labs on day of discharge: Laboratory Results - last 24 hr 11/30/24 11/30/24 12/01/24 16:34 20:29 07:36 POC Glucose 118 H 105 121 H Preliminary micro results at discharge 11/26/24 18:09 Blood Culture - Preliminary Blood - Venous No growth after 48 hours. 11/26/24 18:09 Blood Culture - Preliminary Blood - Venous No growth after 48 hours. Discharge Plan Discharge Anticipated Discharge Date/Time: 12/01/24 11:23 Patient Disposition: Home, Self-Care Discharge Diagnosis: enterocolitis; diarrhea liver cirrhosis Referrals: Duncan Rush MD [Primary Care Provider] - 1 Week Jeffrey Jalloh MD [Physician] - 1 Week Discharge Medications: New Dificid 200 mg Tablet 200 mg PO Q12H 5 Days Qty: 10 0RF lorazepam [Ativan] 0.5 mg tablet 0.5 mg PO BEDTIME PRN (Reason: anxiety) Qty: 7 0RF Continued albuterol sulfate [Ventolin HFA] 90 mcg/actuation HFA aerosol inhaler 2 puff INHALATION Q4H PRN (Reason: wheezing) lisinopril 10 mg Tablet 10 mg PO DAILY Qty: 30 0RF Protocol: Hold for SBP< HOLD for SBP < : 90 digoxin 125 mcg (0.125 mg) Tablet 0.125 mg PO DAILY Qty: 30 0RF Eliquis 5 mg tablet 5 mg PO BID Qty: 60 0RF metoprolol tartrate 100 mg Tablet 150 mg PO BID colchicine 0.6 mg Tablet 0.6 mg PO TID PRN (Reason: GOUT FLARE) furosemide 20 mg Tablet 20 mg PO DAILY lactulose 20 gram/30 mL Solution 20 g PO BID 30 Days Qty: 1800 0RF acetaminophen 500 mg Tablet 500 mg PO DAILY PRN (Reason: Pain) Discharge Orders: Discharge Order (Routine); Ordered 12/01/24 Ordered By: Alexandra Lucas Activity on Discharge: As tolerated Stand Alone Forms: Patient Portal Discharge page Print Language: [place] Care Plan Goals: see below Health Concerns: diarrhea due to multiple factors including norovirus, cdif colonization Plan of Treatment: Complete 5 more days of fidaxomicin as prescribed Can resume lactulose as prescribed with goal of want to do bowel movements daily call to schedule follow up appointment with GI regarding liver cirrhosis follow up with new PCP Assessment: see discharge summary
[2024-12-01 11:31] VITALS: BP 148/87; PULSE 73; RESP 18; TEMP 36.7; O2SAT 96
[2024-12-01 11:33] LABS: Glucose, Whole Blood 146 mg/dL (60-115)
[2024-12-01] MEDS: Fidaxomicin 200 MG TABLET PO (11:37)
== END 2024-12-01 13:08 | disposition home or self-care (01) | DRG 720 ==
LOC: HO.ED 20:07 → HO.EDOVER 22:32 → HO.S3 11-27 07:21
PROVIDERS: Internal Medicine; Nurse Practitioner Acute Care; Nurse Practitioner Family; Admitting Provider Physician Assistant; Emergency Provider Emergency Medicine Emergency Medical Services; PCP Internal Medicine; Visit Provider Physician Assistant Medical
DX: A41.4 Sepsis due to anaerobes (principal); A04.72 Enterocolitis due to Clostridium difficile, not specified as recurrent; I50.32 Chronic diastolic (congestive) heart failure; D69.59 Other secondary thrombocytopenia; K70.30 Alcoholic cirrhosis of liver without ascites; I48.19 Other persistent atrial fibrillation; Z79.01 Long term (current) use of anticoagulants; E66.01 Morbid (severe) obesity due to excess calories; F11.20 Opioid dependence, uncomplicated; F10.10 Alcohol abuse, uncomplicated; Z23 Encounter for immunization; Z68.37 Body mass index [BMI] 37.0-37.9, adult; Z71.3 Dietary counseling and surveillance; Z20.822 Contact with and (suspected) exposure to COVID-19; Z87.891 Personal history of nicotine dependence; Z79.899 Other long term (current) drug therapy
CPT/HCPCS: 0241U; 36415; 74177; 80048; 80053; 80076; 80307; 81001; 82140; 82947; 83605; 83690; 83735; 85025; 85610; 87040; 87324; 87493; 87507; 90656; 93005; 97161; 99285; J1171; J2270; J2405; J2543; Q9967

== ENCOUNTER → 2024-11-26 17:57 | Outpatient (BNV) | payer OTHER, SELFPAY | PROVIDERS: Admitting Provider Physician Assistant; Emergency Provider Emergency Medicine Emergency Medical Services; PCP Internal Medicine; Visit Provider Internal Medicine Cardiovascular Disease | DX: R94.31 Abnormal electrocardiogram [ECG] [EKG] (principal) | CPT/HCPCS: 93010 ==

== ENCOUNTER → 2024-11-26 18:14 | Outpatient (BNV) | payer OTHER, SELFPAY | PROVIDERS: Emergency Provider Emergency Medicine Emergency Medical Services; PCP Internal Medicine; Visit Provider Radiology Diagnostic Radiology | DX: N20.0 Calculus of kidney (principal); K74.60 Unspecified cirrhosis of liver | CPT/HCPCS: 74177 ==

== ENCOUNTER → 2024-11-26 22:24 | Outpatient (BNV) | payer OTHER, SELFPAY | PROVIDERS: Admitting Provider Physician Assistant; Emergency Provider Emergency Medicine Emergency Medical Services; PCP Internal Medicine; Visit Provider Internal Medicine Gastroenterology | DX: K52.9 Noninfective gastroenteritis and colitis, unspecified (principal); K74.60 Unspecified cirrhosis of liver | CPT/HCPCS: 99232 ==

== ENCOUNTER → 2024-11-26 22:24 | Outpatient (BNV) | payer OTHER, SELFPAY | PROVIDERS: Admitting Provider Physician Assistant; Emergency Provider Emergency Medicine Emergency Medical Services; PCP Internal Medicine; Visit Provider Physician Assistant | DX: K52.9 Noninfective gastroenteritis and colitis, unspecified (principal) | CPT/HCPCS: 99223; 99232; 99239 ==

== ENCOUNTER 2024-12-06 12:51 | Outpatient (AMB) | payer OTHER, SELFPAY ==
--- NOTE | 2024-12-06 12:51 | A.OFFVISCC_ITS ---
Intake Visit Reasons: MAT Tele Allergies No Known Allergies Allergy (Verified 11/26/24 16:05) HPI HPI MAT Tele: Details: Patient presents for follow up via telehealth Reports he was recently medically admitted with colitis Notes reviewed--he did not receive suboxone during admission Says he is not taking suboxone --took 2 mg the other night and felt like it was too strong Still trying to find primary care Pain is his biggest complaint,--denies any alcohol or oxycodone use Review of Systems Const Reports as per HPI and Reports difficulty sleeping (due to ongoing pain ) Telehealth Telehealth Telehealth Platform: Telephone Location of provider rendering services: practice address Location of patient: address on file Patient Identification confirmed using: Name, : Yes Telehealth method: voice only Patient verbally consented to treatment: Yes Patient verbally consented to billing insurance company: Yes Minutes spent on Phone/Video with Pt.: 15 ON LICENSE OF [facility] Medical History (Updated 11/27/24 @ 11:54 by Jeffrey Jalloh MD) Obesity (BMI 35.0-39.9 without comorbidity) Cirrhosis of liver History of alcohol abuse Elevated LFTs Hypersomnia with sleep apnea Lumbar degenerative disc disease Knee osteoarthritis Hypertension Alcohol withdrawal Opioid dependence Social History Household Members: Spouse Housing: Apartment Do you presently have visiting nurse or other home services: No Alcohol intake: former Comment: 5 min checks Patient Tobacco Use Status: Former Tobacco user Substance Use Type: Opiates Advance Directives Date on File: 05/12/22 service: No Sexual orientation: Straight/Heterosexual Social History: lives with of several years. Substance History: reports using opioids for several years, used to be on suboxone alcohol also for many years, reports recently using about 10 nips/day cocaine- denies Trauma History: not disclosed Assessment & Plan Assessment & Plan (1) Opioid use disorder, severe, dependence: Code(s): F11.20 - Opioid dependence, uncomplicated Category: Medical Plan: * encouraged to take 1/4 film next time he decides to take suboxone * overdose prevention discussion * \follow up 3 weeks
--- OUTSIDE RECORDS SUMMARY | 2024-12-06 14:39 | XMS_ITS ---
Author Organization [facility] Address Unknown Problems Problem Status Start Date End Date OTHER INTERVERTEBRAL DISC DE GENERATION, LUMBAR REGION (Primary) (M51.36 - ICD-10-CM) ACTIVE 05/15/2022 OBESITY, UNSPECIFIED (E66.9 - ICD-10-CM) ACTIVE 05/15/2022 ANXIETY DISORDER, UNSPECIFIED (F41.9 - ICD-10-CM) ACTI VE 05/15/2022 OPIOID DEPENDENCE, UNCOMPLICATED (F11.20 - ICD-10-CM) ACTIVE 05/15/2022 ALCOHOL ABUSE, UNCOMPLICATED (F10.10 - ICD-10-CM) ACTI VE 05/16/2022 ESSENTIAL (PRIMARY) HYPERTENSION (I10 - ICD-10-CM) ACT CORINA 05/15/2022 MUSCLE WEAKNESS (GENERALIZED) (M62.81 - ICD-10-CM) ACT CORINA 05/15/2022 DIFFICULTY IN WALKING, NOT E LSEWHERE CLASSIFIED (R26.2 - ICD-10-CM) ACTIVE 05/15/2022 HISTORY OF FALLING (Z91.81 - ICD-10-CM) ACTIVE 0 05/15/2022 EDEMA, UNSPECIFIED (R60.9 - ICD-10-CM) ACTIVE UNSPECIFIED OSTEOARTHRITIS, UNSPECIFIED SITE (M19.90 - ICD-10-CM) ACTIVE 05/15/2022 PAIN IN UNSPECIFIED JOINT (M25.50 - ICD-10-CM) ACTIVE 05/15/2022 Encounters Encounter Performer Performer Role Encounter Diagnoses Location Date Discharge - Discharged to home or self care - Home - Private home/apt. with other home health services [facility] 2 10:28 pm EDT - 2 03:54 pm EDT Immunizations Vaccine Date Pneumovax Dose 1 06/12/2020 12:00 am EDT SARS-COV-2 (COVID-19) 01/10/2021 12:00 a m EST SARS-COV-2 (COVID-19) 12/20/2020 12:00 a m EST (PFIZER) Covid-19 Booster Social History
== END 2024-12-06 13:20 | disposition home or self-care (01) ==
PROVIDERS: Visit Provider Nurse Practitioner Psychiatric/Mental Health
DX: F11.20 Opioid dependence, uncomplicated (principal)
CPT/HCPCS: 99213

== ENCOUNTER → 2024-12-06 12:51 | Outpatient (BNVA) | payer OTHER, SELFPAY | PROVIDERS: Visit Provider Nurse Practitioner Psychiatric/Mental Health | DX: F11.20 Opioid dependence, uncomplicated (principal) ==

== ENCOUNTER 2024-12-26 10:30 | Emergency (ER) | payer OTHER, SELFPAY ==
--- NOTE | ~2024-12-26 | XR_ITS ---
EXAMINATION: XR CHEST CLINICAL INFORMATION: cough, sob COMPARISON: 05/14/2023. TECHNIQUE: Frontal view of the chest was obtained. FINDINGS: No significant abnormality is noted involving the heart, lungs, mediastinum, bony thorax or soft tissues. XR/XR chest 1V IMPRESSION: No active pulmonary disease. Electronically signed by: Franklyn Wells MD 12/26/2024 12:02 PM [facility] [place]
--- NOTE | ~2024-12-26 | XR_ITS ---
EXAMINATION: XR KNEE, LEFT CLINICAL INFORMATION: pain COMPARISON: None available. TECHNIQUE: Four views of the left knee. FINDINGS: No fracture, dislocation, or suspicious bone lesion. Sclerotic small lesion in the femoral metaphysis centrally, consistent with a small enchondroma. Mild to moderate medial and lateral compartment joint space narrowing, with more significant arthritis in the patellofemoral joint. No evidence of significant joint effusion. No discrete soft tissue abnormality. XR/XR knee LT 3V IMPRESSION: No acute bony findings left knee. No joint effusion. Mild to moderate tricompartmental arthritis worst in the patellofemoral compartment. Electronically signed by: Franklyn Wells MD 12/26/2024 12:05 PM [facility]
[2024-12-26 10:41] VITALS: BP 151/86; PULSE 84; RESP 18; TEMP 36; O2SAT 96; BMI 38.0
[2024-12-26 11:08] LABS: MANUAL DIFF FLAG NO
[2024-12-26 11:10] LABS: Basophils Absolute Auto 0.1 X10*3/uL (0.0-0.2); Basophils Percent Auto 0.8 % (0-2); Eosinophils Absolute Auto 0.2 X10*3/uL (0.0-0.4); Eosinophils Percent Auto 2.4 % (0-4); Hematocrit 45.9 % (42.0-52.0); Imm Gran Abs Auto 0.06 X10*3/uL (0.00-0.03); Imm Gran Pct Auto 0.6 % (0.0-0.4); Lymphocytes Absolute Auto 2.7 X10*3/uL (1.2-4.9); Lymphocytes Percent Auto 28.9 % (20-40); Mean Corpuscular HGB Conc 34.9 g/dl (31.0-36.0); Mean Corpuscular Hemoglobin 34.5 pg (27.0-33.0); Mean Corpuscular Volume 98.9 fL (80.0-98.0); Mean Platelet Volume 10.9 fL (9.4-12.4); Monocytes Absolute Auto 0.7 X10*3/uL (0.1-1.2); Monocytes Percent Auto 7.2 % (2-11); Neutrophils Absolute Auto 5.6 x10*3/uL (2.0-8.3); Neutrophils Percent Auto 60.1 % (45-73); Platelet Count 203 X10*3/uL (160-400); Red Blood Count 4.64 X10*6/uL (4.60-5.80); Red Cell Distribution Width 13.1 % (11.0-16.0); White Blood Count 9.3 X10*3/uL (4.8-10.8)
[2024-12-26 11:49] LABS: Influenza A PCR NEGATIVE (Negative); Influenza B PCR NEGATIVE (Negative); Resp Syncy Virus RNA Qual PCR NEGATIVE (Negative); SARS COV2 PCR INHOUSE NEGATIVE (Negative)
[2024-12-26 11:52] LABS: Alanine Aminotransferase 87 U/L (0-40); Albumin Level 3.6 g/dL (3.5-5.0); Alkaline Phosphatase 183 U/L (39-117); Anion Gap 11 (12-20); Aspartate Amino Transferase 83 U/L (5-37); Bilirubin Total 0.5 mg/dL (0.0-1.0); Blood Urea Nitrogen 11 mg/dL (9-16); Carbon Dioxide 21 mmol/L (22-29); Chloride 109 mmol/L (96-108); Creatinine Clr Calc Pharmacy 142.7; Estimated Glomerular Filt Rate > 60; Glucose Random 146 mg/dL (60-115); Potassium 4.4 mmol/L (3.3-5.1); Sodium 137 mmol/L (135-145); Total Protein 8.1 g/dL (6.5-8.0)
--- NOTE | 2024-12-26 16:16 | ECG_ITS ---
Test Reason : C/P Blood Pressure : */* mmHG Vent. Rate : 89 BPM Atrial Rate : * BPM P-R Int : * ms QRS Dur : 92 ms QT Int : 348 ms P-R-T Axes : * 62 45 degrees QTcB Int : 423 ms Atrial fibrillation Abnormal ECG When compared with ECG of 26-Nov-2024 17:57, Vent. rate has decreased by 54 bpm Referred By: Doug Freedman Electronically Signed By: ERENDIRA BASSETT MD
[2024-12-26] MEDS: predniSONE 20 MG TABLET 60 MG PO (16:22)
[2024-12-26] MEDS: oxyCODONE HCl Immed Release 5 MG TABLET PO (16:22)
[2024-12-26 17:03] LABS: Troponin-I High Sensitivity < 2.7 ng/L (<3.5-35.0)
[2024-12-26 17:07] LABS: B Type Natriuretic Peptide 79 pg/mL (<100)
--- NOTE | 2024-12-26 19:07 | ED.GENADULT ---
HPI - General Adult General Chief complaint: General Medical Stated complaint: Joint pain, flu symptoms Time Seen by Provider: 12/26/24 19:06 Source: patient Mode of arrival: ambulatory Limitations: no limitations History of Present Illness HPI narrative: This is a 64-year-old man with a past medical history of alcohol abuse, cirrhosis, CHF, hypertension, paroxysmal atrial fibrillation on Eliquis, type 2 diabetes mellitus, substance use disorder who presents for evaluation of cough, congestion and sick for the last approximate week. He states no fevers or chills. He states clear sputum production. He states no hemoptysis or chest pain. He states feeling mildly dyspneic. He states no traumatic injuries or falls. He states no GI or symptoms. He states feeling like he is having gout in his knees. He states that his left knee is very painful. Related Data Home Medications ?Medication ?Instructions ?Recorded ?Confirmed albuterol sulfate 90 mcg/actuation 2 puff inhalation Q4H PRN wheezing 05/14/23 11/27/24 aerosol inhaler (Ventolin HFA) colchicine 0.6 mg tablet 0.6 mg PO TID PRN GOUT FLARE 11/02/24 11/27/24 furosemide 20 mg tablet 20 mg PO DAILY 11/02/24 11/27/24 metoprolol tartrate 100 mg tablet 150 mg PO BID 11/02/24 11/27/24 acetaminophen 500 mg tablet 500 mg PO DAILY PRN Pain 11/27/24 11/27/24 Previous Rx's ?Medication ?Instructions ?Recorded apixaban 5 mg tablet (Eliquis) 5 mg PO BID #60 tabs 05/21/23 digoxin 125 mcg (0.125 mg) tablet 0.125 mg PO DAILY #30 tabs 05/21/23 lisinopril 10 mg tablet 10 mg PO DAILY #30 tabs 05/21/23 lactulose 20 gram/30 mL oral 20 g (30 mL) PO BID 30 days #1,800 11/14/24 solution mL lorazepam 0.5 mg tablet (Ativan) 0.5 mg PO BEDTIME PRN anxiety #7 12/01/24 tabs doxycycline hyclate 100 mg capsule 100 mg PO BID 28 days #56 caps 12/26/24 Allergies Allergy/AdvReac Type Severity Reaction Status Date / Time No Known Allergies Allergy Verified 12/26/24 10:41 Review of Systems Review of Systems: ROS as per HPI [facility] Past Medical History Medical History (Updated 12/26/24 @ 19:19 by Zenon Hayward MD) Paroxysmal atrial fibrillation Obesity (BMI 35.0-39.9 without comorbidity) Cirrhosis of liver History of alcohol abuse Elevated LFTs Hypersomnia with sleep apnea Lumbar degenerative disc disease Knee osteoarthritis Hypertension Alcohol withdrawal Opioid dependence Social History Social History Household Members: Spouse Housing: Apartment Do you presently have visiting nurse or other home services: No Alcohol intake: former Comment: 5 min checks Patient Tobacco Use Status: Former Tobacco user Substance Use Type: Opiates Advance Directives: Yes Advance Directives on File: Yes Advance Directives Date on File: 05/12/22 Do you have a plan to hurt others: No Plan service: No Sexual orientation: Straight/Heterosexual Physical Exam ED Vital Signs: Vital Signs - 24 hr 12/26/24 10:41 Temperature 96.8 F Pulse Rate 84 Respiratory Rate 18 Blood Pressure 151/86 H Pulse Oximetry 96 Oxygen Delivery Method Room Air BMI result Body Mass Index 38.0 Gen: NAD, AOx3 HEENT: NCAT, EOMI, normal conjunctiva CV: RRR, 2+ bilateral DP/PT pulses Pulm: CTAB, no increased work of breathing GI: Soft, NTND, no rebound, guarding or rigidity MSK: Bilateral lower extremity compartments are soft, no deformity to the bilateral knees or associated overlying erythema is now/edema, intact active range of motion with bilateral knee flexion/extension Neuro: Grossly non focal, sensation intact to light touch in bilateral lower extremities Medications Administered Discontinued Medications Generic Name Dose Route Start Last Admin Trade Name Freq PRN Reason Stop Dose Admin Oxycodone HCl 5 mg 12/26/24 16:16 12/26/24 16:22 Oxycodone Hcl Immed Release 5 Mg Tablet PO 12/26/24 16:17 5 mg ONCE ONE Administration Prednisone 60 mg 12/26/24 16:16 12/26/24 16:22 Prednisone 20 Mg Tablet PO 12/26/24 16:17 60 mg ONCE ONE Administration Medical Decision Making Medical Decision Making MDM Narrative: Differential diagnosis includes, but is not limited to viral URI, pneumonia, reactive arthritis, crystal arthropathy, Lyme arthritis. Exam is not consistent with septic arthritis. Patient is afebrile and hemodynamically stable on room air. Exam is benign and reassuring. I reviewed the patient's labs, overall testing and x-rays as below. Given reassuring physical exam and x-ray, I have low suspicion for peripheral arthropathy. Patient did receive prednisone and oxycodone while in triage. Will defer any further steroid or opiate use given history of diabetes mellitus and abuse, respectively. Further, suspicion for crystal arthropathy is low. I have provided the patient with a single dose of naproxen here in the ED. Will provide doxycyline for bronchitis, but also for empiric treatment of lyme arthritis given atraumatic left knee pain an endemic region. Lyme serologies pending at time of discharge. On re-examination, patient is well-appearing and in no acute distress. There is no indication for further emergent evaluation in this otherwise well-appearing patient as above. ?Patient is provided written and verbal instructions, educational materials, prescription for doxycycline, recommendations for outpatient follow-up, strict return precautions and teach back is performed. ?Patient states understanding and agreement with plan of care. ?Patient is discharged home in stable and improved condition. Admission/Observation Consideration of admission/observation: Escalation of care including admission/observation considered Lab Data MDM Lab Attestation statement: I reviewed the patient's lab results. I independently reviewed and interpreted the patient's labs as below including CBC, metabolic panel, troponin, BNP, viral testing, which are all benign and reassuring. 12/26/24 11:02 12/26/24 11:02 Labs: Lab Results 12/26/24 12/26/24 Range/Units 11:02 16:28 WBC 9.3 (4.8-10.8) X10*3/uL RBC 4.64 (4.60-5.80) X10*6/uL Hgb 16.0 (14.0-18.0) g/dl Hct 45.9 (42.0-52.0) % MCV 98.9 H (80.0-98.0) fL MCH 34.5 H (27.0-33.0) pg MCHC 34.9 (31.0-36.0) g/dl RDW 13.1 (11.0-16.0) % Plt Count 203 D (160-400) X10*3/uL MPV 10.9 (9.4-12.4) fL Immature Gran % (Auto) 0.6 H (0.0-0.4) % Neut % (Auto) 60.1 (45-73) % Lymph % (Auto) 28.9 (20-40) % Alpine % (Auto) 7.2 (2-11) % Eos % (Auto) 2.4 (0-4) % Baso % (Auto) 0.8 (0-2) % Lymph # (Auto) 2.7 (1.2-4.9) X10*3/uL Alpine # (Auto) 0.7 (0.1-1.2) X10*3/uL Eos # (Auto) 0.2 (0.0-0.4) X10*3/uL Baso # (Auto) 0.1 (0.0-0.2) X10*3/uL Abs Immat Gran (auto) 0.06 H (0.00-0.03) X10*3/uL Absolute Neuts (auto) 5.6 (2.0-8.3) x10*3/uL Absolute Nucleated RBC 0.000 (0.0-0.012) X10*3/uL Nucleated RBC % (auto) 0.0 (0.0-0.2) /100WBC Sodium 137 (135-145) mmol/L Potassium 4.4 D (3.3-5.1) mmol/L Chloride 109 H (96-108) mmol/L Carbon Dioxide 21 L (22-29) mmol/L Anion Gap 11 L (12-20) BUN 11 (9-16) mg/dL Creatinine 0.72 (0.5-1.4) mg/dL Estim Creat Clear Calc 142.7 Estimated GFR > 60 Random Glucose 146 H (60-115) mg/dL Calcium 9.0 D (8.4-10.2) mg/dL Total Bilirubin 0.5 (0.0-1.0) mg/dL AST 83 H (5-37) U/L ALT 87 H (0-40) U/L Alkaline Phosphatase 183 H (39-117) U/L Troponin I High Sens < 2.7 (<3.5-35.0) ng/L B-Natriuretic Peptide 79 (<100) pg/mL Total Protein 8.1 H (6.5-8.0) g/dL Albumin 3.6 (3.5-5.0) g/dL Influenza Type A (PCR) NEGATIVE (Negative) Influenza Type B (PCR) NEGATIVE (Negative) RSV RNA Qual (PCR) NEGATIVE (Negative) SARS-CoV-2 RNA (RT-PCR) NEGATIVE (Negative) Independent Interpretation I performed an independent interpretation of an: EKG and Plain X-Ray Interpretation: I independently reviewed interpreted the patient's chest x-ray and knee x-ray, which demonstrates no pleural effusion/focal consolidation/pneumothorax or acute fracture, respectively. I independently reviewed and interpreted the patient's EKG, which demonstrates atrial fibrillation at 89 beats per minute, QRS 92, QTC 423, no STEMI. Radiology Impression Discussion of test interpretation with radiology: I have reviewed the radiologist's reading. Radiologist Impression: XR/XR chest 1V IMPRESSION: No active pulmonary disease. Electronically signed by: Franklyn Wells MD 12/26/2024 12:02 PM EST RP Dictated By: Franklyn Wells MD Signed By: <Electronically signed by Franklyn Wells MD in [place]> 12/26/24 1202 XR/XR knee LT 3V IMPRESSION: No acute bony findings left knee. No joint effusion. Mild to moderate tricompartmental arthritis worst in the patellofemoral compartment. Electronically signed by: Franklyn Wells MD 12/26/2024 12:05 PM EST RP Dictated By: Franklyn Wells MD Signed By: <Electronically signed by Franklyn Wells MD in [place]> 12/26/24 12 Discharge Plan Discharge Clinical Impression: Acute pain of left knee, Arthritis of left knee, Bronchitis Patient Disposition: Home, Self-Care Instructions: Osteoarthritis (DC), Acute Bronchitis (ED) Additional Instructions: You were seen and evaluated in the emergency room. Your vital signs, blood work and x-rays were reassuring. Your chest x-ray showed no evidence of pneumonia. You tested negative for COVID-19, influenza and RSV. Your symptoms were consistent with bronchitis. The x-ray of your knee show no evidence of gout or any broken bones. Your x-ray showed no evidence of a knee effusion (or fluid around your knee). Your blood tests for Lyme arthritis are pending final results. You are given antibiotics for your bronchitis as well as the potential of lyme arthritis. Please follow-up with a primary care doctor in the next 1-2 weeks. Please return to the emergency room if you develop any worsening symptoms. Prescriptions: New doxycycline hyclate 100 mg capsule 100 mg PO BID 28 Days Qty: 56 0RF No Action albuterol sulfate [Ventolin HFA] 90 mcg/actuation HFA aerosol inhaler 2 puff INHALATION Q4H PRN (Reason: wheezing) lisinopril 10 mg Tablet 10 mg PO DAILY Qty: 30 0RF Protocol: Hold for SBP< HOLD for SBP < : 90 digoxin 125 mcg (0.125 mg) Tablet 0.125 mg PO DAILY Qty: 30 0RF Eliquis 5 mg tablet 5 mg PO BID Qty: 60 0RF metoprolol tartrate 100 mg Tablet 150 mg PO BID colchicine 0.6 mg Tablet 0.6 mg PO TID PRN (Reason: GOUT FLARE) furosemide 20 mg Tablet 20 mg PO DAILY lactulose 20 gram/30 mL Solution 20 g PO BID 30 Days Qty: 1800 0RF acetaminophen 500 mg Tablet 500 mg PO DAILY PRN (Reason: Pain) lorazepam [Ativan] 0.5 mg tablet 0.5 mg PO BEDTIME PRN (Reason: anxiety) Qty: 7 0RF Referrals: [facility] [place] Family Medicine [Provider Group] [facility] [place] Primary Care[facility]ort[facility] [Provider Group] [facility] [place] [facility] [Provider Group] Print Language: Yakut
[2024-12-26 19:57] VITALS: BP 137/89; PULSE 86; RESP 20; TEMP 36.8; O2SAT 97
[2024-12-26] MEDS: NaPROXEN 500 MG TABLET PO (19:59)
[2024-12-26] MEDS: Doxycycline Monohydrate 100 MG CAPSULE PO (20:00)
[2024-12-26 20:02] VITALS: BP 137/89; PULSE 86; RESP 20; TEMP 36.8; O2SAT 97
[2024-12-28 10:19] LABS: Lyme Abs Screen <0.90 index
== END 2024-12-26 20:03 | disposition home or self-care (01) ==
PROVIDERS: Physician Assistant; Emergency Provider Emergency Medicine; PCP Internal Medicine
DX: M17.12 Unilateral primary osteoarthritis, left knee (principal); R07.89 Other chest pain; I48.91 Unspecified atrial fibrillation; M25.562 Pain in left knee; R06.02 Shortness of breath; Z03.818 Encounter for observation for suspected exposure to other biological agents ruled out; Z79.899 Other long term (current) drug therapy; Z79.01 Long term (current) use of anticoagulants
CPT/HCPCS: 0241U; 36415; 71045; 73562; 80053; 83880; 84484; 85025; 86617; 86618; 93005; 99283; 99284

== ENCOUNTER → 2024-12-26 11:35 | Outpatient (BNV) | payer OTHER, SELFPAY | PROVIDERS: PCP Internal Medicine; Visit Provider Radiology Diagnostic Radiology | DX: M17.12 Unilateral primary osteoarthritis, left knee (principal); R05.9 Cough, unspecified; R06.02 Shortness of breath | CPT/HCPCS: 71045; 73562 ==

== ENCOUNTER → 2024-12-26 16:16 | Outpatient (BNV) | payer OTHER, SELFPAY | PROVIDERS: Emergency Provider Emergency Medicine; PCP Internal Medicine; Visit Provider Internal Medicine Cardiovascular Disease | DX: R07.9 Chest pain, unspecified (principal); I48.91 Unspecified atrial fibrillation; R94.31 Abnormal electrocardiogram [ECG] [EKG] | CPT/HCPCS: 93010 ==

== ENCOUNTER 2025-03-15 09:47 | Emergency (ER) | payer MEDICAID, SELFPAY ==
--- NOTE | ~2025-03-15 | CT_ITS ---
EXAMINATION: CT ABDOMEN PELVIS WITHOUT THEN WITH IV CONTRAST HISTORY: rectal bleeding, on AC COMPARISON: Comparison is made with the prior examination dated 11/26/2024. TECHNIQUE: CT scan of the abdomen and pelvis was performed before and after the intravenous administration of 80 mL Omnipaque 350. Post contrast images were obtained in the arterial and delayed phases. Coronal and sagittal reformatted images were generated and reviewed. Oral contrast material was not administered per department protocol. This CT exam was performed with one or more of the following dose reduction techniques: automated exposure control, adjustment of the mA and/or kV according to patient size, use of iterative reconstruction technique. DLP: 2374 mGy-cm ABDOMEN: LOWER CHEST: The visualized lung bases are clear. There is no pleural effusion. CARDIOVASCULATURE: The heart is normal in size. There is no pericardial effusion. LIVER: The liver again demonstrates a nodular contour, consistent with cirrhosis. There is hypertrophy of the left and caudate lobes. The liver demonstrates diffusely decreased attenuation, consistent with steatosis.No liver mass is identified. The hepatic and portal veins are patent. GALLBLADDER / BILE DUCTS: The gallbladder is distended, without evidence of calcified stones. There is no intra or extrahepatic biliary ductal dilatation. SPLEEN: The spleen is normal in size. No focal splenic lesion is identified. PANCREAS: The pancreas is unremarkable in appearance. ADRENAL GLANDS: Within normal limits. KIDNEYS/RETROPERITONEUM: There are two adjacent 2 mm nonobstructing calculi at the lower pole of the left kidney. There is no hydronephrosis. No renal masses are identified. LYMPH NODES: There are mildly prominent periportal lymph nodes measuring up to 1.6 cm in size. VASCULATURE: The abdominal aorta demonstrates atherosclerotic calcification, but is normal in caliber. MESENTERY/PERITONEUM: No free fluid. No masses. There is no free intraperitoneal gas. STOMACH: The stomach is collapsed, limiting evaluation. SMALL BOWEL: The small bowel is normal in caliber. COLON: There is diverticulosis of the descending and sigmoid colon, without evidence of diverticulitis. No contrast extravasation is seen to suggest active GI bleeding. APPENDIX: Normal. URINARY BLADDER/PELVIC ORGANS: The urinary bladder is unremarkable. The prostate is normal in size. BONES / SOFT TISSUES: The patient is status post right total hip arthroplasty. There is degenerative disc disease of the spine. CT/CT gi bleed abd pel wo/w IVcon IMPRESSION: 1. No contrast extravasation is identified to suggest active GI bleeding. 2. Cirrhosis of the liver with steatosis. 3. Left nephrolithiasis without evidence of ureteral obstruction. 4. Diverticulosis of the descending and sigmoid colon, without evidence of diverticulitis. Electronically signed by: Chun Delgado MD 03/15/2025 01:22 PM EDT
[2025-03-15 09:55] VITALS: BP 104/72; PULSE 84; RESP 16; TEMP 36.2; O2SAT 95; BMI 38.0
[2025-03-15 10:23] LABS: MANUAL DIFF FLAG NO
[2025-03-15 10:25] LABS: Basophils Absolute Auto 0.1 X10*3/uL (0.0-0.2); Basophils Percent Auto 0.8 % (0-2); Eosinophils Absolute Auto 0.3 X10*3/uL (0.0-0.4); Eosinophils Percent Auto 2.3 % (0-4); Hematocrit 47.3 % (42.0-52.0); Hemoglobin 16.1 g/dl (14.0-18.0); Imm Gran Abs Auto 0.07 X10*3/uL (0.00-0.03); Imm Gran Pct Auto 0.7 % (0.0-0.4); Lymphocytes Absolute Auto 3.1 X10*3/uL (1.2-4.9); Lymphocytes Percent Auto 28.6 % (20-40); Mean Corpuscular Hemoglobin 34.3 pg (27.0-33.0); Mean Corpuscular Volume 100.6 fL (80.0-98.0); Mean Platelet Volume 10.2 fL (9.4-12.4); Monocytes Absolute Auto 0.8 X10*3/uL (0.1-1.2); Monocytes Percent Auto 7.8 % (2-11); Neutrophils Absolute Auto 6.4 x10*3/uL (2.0-8.3); Neutrophils Percent Auto 59.8 % (45-73); Platelet Count 195 X10*3/uL (160-400); Red Cell Distribution Width 13.4 % (11.0-16.0); White Blood Count 10.7 X10*3/uL (4.8-10.8)
--- NOTE | 2025-03-15 11:33 | ED_ITS ---
HPI - GI Bleed General Chief complaint: GI Bleed Stated complaint: Rectal bleeding 2 days Time Seen by Provider: 03/15/25 11:33 Source: patient and RN notes reviewed Mode of arrival: ambulatory Limitations: no limitations History of Present Illness ED Provider: Tara Crow PA-C HPI Narrative: This is a 65-year-old male, with a past medical history paroxysmal atrial fibrillation on Eliquis, alcohol use disorder, cirrhosis, CHF, hypertension, type 2 diabetes, and substance use disorder, who presents emergency department with concerns for bright red blood per rectum. He states that he was noticed not only blood in the toilet but as well as on the toilet paper. He denies any current pain, shortness for breath or dizziness. He does report increased tiredness. Patient denies any fevers, chills, dizziness, chest pain, shortness of breath, nausea or vomiting. Denies any external hemorrhoids. Patient does not report abdominal pain however does report some mild discomfort throughout. He does report some mild dysuria, no unusual urinary frequency or urgency. He reports that he is on prednisone, he does not take ibuprofen or NSAIDs. He states that he does not drink alcohol or use any drugs. No other complaints or concerns at this time. MD complaint: blood on toilet paper Exacerbating factors: none Associated symptoms: abdominal pain Treatments Prior to Arrival: none Related Data Home Medications ?Medication ?Instructions ?Recorded ?Confirmed albuterol sulfate 90 mcg/actuation 2 puff inhalation Q4H PRN wheezing 05/14/23 11/27/24 aerosol inhaler (Ventolin HFA) colchicine 0.6 mg tablet 0.6 mg PO TID PRN GOUT FLARE 11/02/24 11/27/24 furosemide 20 mg tablet 20 mg PO DAILY 11/02/24 11/27/24 metoprolol tartrate 100 mg tablet 150 mg PO BID 11/02/24 11/27/24 acetaminophen 500 mg tablet 500 mg PO DAILY PRN Pain 11/27/24 11/27/24 Previous Rx's ?Medication ?Instructions ?Recorded apixaban 5 mg tablet (Eliquis) 5 mg PO BID #60 tabs 05/21/23 digoxin 125 mcg (0.125 mg) tablet 0.125 mg PO DAILY #30 tabs 05/21/23 lisinopril 10 mg tablet 10 mg PO DAILY #30 tabs 05/21/23 lactulose 20 gram/30 mL oral 20 g (30 mL) PO BID 30 days #1,800 11/14/24 solution mL lorazepam 0.5 mg tablet (Ativan) 0.5 mg PO BEDTIME PRN anxiety #7 12/01/24 tabs doxycycline hyclate 100 mg capsule 100 mg PO BID 28 days #56 caps 12/26/24 Allergies Allergy/AdvReac Type Severity Reaction Status Date / Time No Known Allergies Allergy Verified 03/15/25 10:00 Review of Systems 2 Review of Systems: Constitutional: No Weight loss, No Fever, No Chills, No Night Sweats, No Fatigue, No Malaise ENT/Mouth: No Hearing loss, No Ear Pain, No Nasal Congestion, No Sinus Pain, No Hoarseness, No sore throat, No Rhinorrhea, No Swallowing Difficulty Eyes: No Eye Pain, No Swelling, No Redness, No Foreign Body, No Discharge, No Vision Changes Cardiovascular: No Chest Pain, No SOB, No Dyspnea on Exertion, No Orthopnea, No Edema, No Palpitations Respiratory: No Cough, No Sputum, No Wheezing, No Smoke Exposure, No Dyspnea Gastrointestinal: No Nausea, No Vomiting, No Diarrhea, No Constipation, + Abdominal pain, + Hematochezia, No Melena Genitourinary: No irregular bleeding, No Dysuria, No Urinary Frequency, No Hematuria, No Urinary Incontinence/retention, No Urgency, No Flank Pain, No Urinary Flow Changes, No Hesitancy Musculoskeletal: No joint pain, No Myalgias, No Joint Swelling Skin: No Skin Lesions, No rash Neuro: No Weakness, No Numbness, No Paresthesias, No Loss of Consciousness, No Dizziness, No Headache Psych: No Anxiety/Panic, No Depression, No SI/HI/AH/VH, No Social Issues, Heme/Lymph: No Bruising, No Bleeding,No Lymphadenopathy Endocrine: No Polyuria, No Polydipsia, No Temperature Intolerance Yes all other systems are reviewed and are negative Constitutional: Constitutional: Reports as per [facility] Past Medical History Medical History (Updated 03/15/25 @ 13:58 by EVERETTE Padilla) Paroxysmal atrial fibrillation Obesity (BMI 35.0-39.9 without comorbidity) Cirrhosis of liver History of alcohol abuse Elevated LFTs Hypersomnia with sleep apnea Lumbar degenerative disc disease Knee osteoarthritis Hypertension Alcohol withdrawal Opioid dependence Social History Social History Household Members: Spouse Housing: Apartment Do you presently have visiting nurse or other home services: No Alcohol intake: former Comment: 5 min checks Patient Tobacco Use Status: Former Tobacco user Substance Use Type: Opiates Advance Directives Date on File: 05/12/22 service: No Sexual orientation: Straight/Heterosexual Physical Exam 2 Vital Signs: Vital Signs: Last Vital Signs Temp 0 F L 03/15/25 15:59 Pulse 89 03/15/25 15:59 Resp 18 03/15/25 15:59 BP 102/62 03/15/25 15:59 Pulse Ox 95 03/15/25 15:59 O2 Del Method Room Air 03/15/25 15:59 BMI result Body Mass Index 38.0 Const: General: cooperative, comfortable and no acute distress O rientation/consciousness: patient oriented x3 Limitations: no limitations HEENT: Head: Yes normal to inspection, Yes normocephalic and Yes atraumatic Ears: hearing grossly normal bilaterally General nose exam: Normal external nose present Face and sinus: Yes normal facial exam Mouth: Normal oral and palatal mucosa present, oropharynx normal and moist mucous membranes Throat: Yes posterior oropharynx normal Eyes: General: appearance normal, both eyes and all related structures E yelids: Yes eyelids normal Conjunctivae: conjunctivae normal Sclerae: s clerae normal Pupils: Equal, round and reactive pupils present EOM: EOMs intact bilaterally Neck: Neck: Yes normal visual inspection, Yes full ROM and Yes no lymphadenopathy Lymphatic: no lymphadenopathy noted Chest: Chest palpation & inspection: normal inspection of the chest Resp: Effort & Inspection: normal respiratory effort and able to speak in complete sentences Auscultation: clear to auscultation bilaterally, no crackles, no rales, no rhonchi and no wheezes Cardio: Rate: regular rate Rhythm: regular rhythm Heart sounds: S1 normal heart sound present and S2 normal heart sound present GI: Other: Abdomen is soft, nontender, nondistended; rectal examination deferred Inspection: Yes normal to inspection Skin: General skin exam: no rashes or lesions noted Trauma: no lacerations or abrasions Wounds: no wounds Neuro: General: patient oriented x3 and moves all extremities Cranial nerves: Yes Equal, round and reactive pupils present Extrem: General: Yes normal to inspection Right upper extremity: normal to inspection Left upper extremity: normal to inspection Right lower extremity: normal to inspection Left lower extremity: normal to inspection Medications Administered Discontinued Medications Generic Name Dose Route Start Last Admin Trade Name Bailey PRN Reason Stop Dose Admin Iohexol 100 ml 03/15/25 12:42 03/15/25 12:43 Iohexol 350 Mg/Ml 100 Ml Infus..Btl IV 03/15/25 12:43 80 ml ONCE ONE Administration Medical Decision Making Medical Decision Making [facility] Narrative: This is a 65-year-old male, with a past medical history of persistent atrial fibrillation, MDD, who presents emergency department with concerns for bright red blood per rectum. Patient states that over the last 2 days he has had bright red blood with bowel movements. On arrival, vital signs within normal limits. Abdomen is soft, with no significant tenderness palpation however patient does report some mild discomfort throughout. Does report some urinary symptoms. Patient is well-appearing, appears to be under no acute distress. Differential diagnoses include hemorrhoids, acute GI bleed, ulcer, anemia, colitis, diverticulosis, diverticulitis. Will obtain CBC to rule out any anemia, chemistry will be obtained to rule out any electrolyte derangement. Will obtain CAT scan to rule out any acute pathology. Course: Labs returned, he has no leukocytosis, chemistry revealing slight elevation in BUN at 19, creatinine 0.9, glucose 212, he does have a history of diabetes, and slightly elevated liver transaminases, AST and ALT 56 and 92, similar to previous. Patient does have a positive stool occult. Patient provided a stool sample, does appear to have brown stool with streaks of blood, no blood clots seen on bowel movement. Cat scan revealing no contrast extravasation to suggest active GI bleeding, cirrhosis of the liver with steatosis, left nephrolithiasis without evidence of ureteral obstruction, diverticulosis of the descending and sigmoid colon without evidence of diverticulitis. Given he has a stable H&H, no active bleeding seen on CT scan, and brown colored stool, I believe that it is appropriate to discharge patient with strict return precautions. He does report he was had a colonoscopy however does report that he was overdue for one. Stressed the importance of following up with the GI specialist. He was given strict return precautions. He understands and agrees with plan. Patient stable for discharge Differential Diagnosis Differential Diagnoses: The differential diagnosis associated with the presentation includes See above Admission/Observation Consideration of admission/observation: Escalation of care including admission/observation considered Lab Data MDM Lab Attestation statement: I reviewed the patient's lab results. See course comment 03/15/25 10:11 03/15/25 11:54 Labs: Lab Results 03/15/25 03/15/25 03/15/25 Range/Units 10:11 11:54 12:39 WBC 10.7 (4.8-10.8) X10*3/uL RBC 4.70 (4.60-5.80) X10*6/uL Hgb 16.1 (14.0-18.0) g/dl Hct 47.3 (42.0-52.0) % MCV 100.6 H (80.0-98.0) fL MCH 34.3 H (27.0-33.0) pg MCHC 34.0 (31.0-36.0) g/dl RDW 13.4 (11.0-16.0) % Plt Count 195 (160-400) X10*3/uL MPV 10.2 (9.4-12.4) fL Immature Gran % (Auto) 0.7 H (0.0-0.4) % Neut % (Auto) 59.8 (45-73) % Lymph % (Auto) 28.6 (20-40) % [place] % (Auto) 7.8 (2-11) % Eos % (Auto) 2.3 (0-4) % Baso % (Auto) 0.8 (0-2) % Lymph # (Auto) 3.1 (1.2-4.9) X10*3/uL [place] # (Auto) 0.8 (0.1-1.2) X10*3/uL Eos # (Auto) 0.3 (0.0-0.4) X10*3/uL Baso # (Auto) 0.1 (0.0-0.2) X10*3/uL Abs Immat Gran (auto) 0.07 H (0.00-0.03) X10*3/uL Absolute Neuts (auto) 6.4 (2.0-8.3) x10*3/uL Absolute Nucleated RBC 0.000 (0.0-0.012) X10*3/uL Nucleated RBC % (auto) 0.0 (0.0-0.2) /100WBC Sodium 135 (135-145) mmol/L Potassium 4.1 (3.3-5.1) mmol/L Chloride 105 (96-108) mmol/L Carbon Dioxide 22 (22-29) mmol/L Anion Gap 12 (12-20) BUN 19 H (9-16) mg/dL Creatinine 0.93 (0.5-1.4) mg/dL Estim Creat Clear Calc 109.0 Estimated GFR > 60 Random Glucose 212 H (60-115) mg/dL Calcium 9.1 (8.4-10.2) mg/dL Total Bilirubin 0.7 (0.0-1.0) mg/dL AST 56 H (5-37) U/L ALT 92 H (0-40) U/L Alkaline Phosphatase 87 (39-117) U/L Total Protein 6.7 (6.5-8.0) g/dL Albumin 3.8 (3.5-5.0) g/dL Urine Color Yellow Urine Appearance Clear Urine pH 5.5 (5.0-9.0) Ur Specific [place] 1.015 (1.005-1.025) Urine Protein Negative (Neg-Trace) mg/dL Urine Glucose (UA) >=1000 H (Negative) mg/dL Urine Ketones Negative (Negative) mg/dL Urine Blood Negative (Negative) Urine Nitrite Negative (Negative) Ur Leukocyte Esterase Trace H (Negative) Urine RBC 0-2 (0-2) /HPF Urine WBC 0-5 (0-5) /HPF Ur Squamous Epith Cells 0-2 (0-2) /HPF Urine Bacteria None Seen (None Seen) Hyaline Casts 0-2 (0-2) /LPF Stool Occult Blood POSITIVE (NEGATIVE) Stl C. cayetanensis PCR Not Detected (Not Detect.) Stool Rotavirus A PCR Not Detected (Not Detect.) Stl Adenov F 40/41 PCR Not Detected (Not Detect.) Stool Astrovirus (PCR) Not Detected (Not Detect.) Stool Campylobacter PCR Not Detected (Not Detect.) Stool Cryptosporidium PCR Not Detected (Not Detect.) Stl Sh Tox Pr E STEC PCR Not Detected (Not Detect.) Stool E coli O157 PCR Not applicable (Not Detect.) Stl Enterotoxigenic E PCR Not Detected (Not Detect.) Stool EPEC (PCR) Not Detected (Not Detect.) Stool EAEC (PCR) Not Detected (Not Detect.) Stl E. histolytica PCR Not Detected (Not Detect.) Stool Giardia Lamblia PCR Not Detected (Not Detect.) Stl P. shigelloides PCR Not Detected (Not Detect.) Stool Salmonella PCR Not Detected (Not Detect.) Stool Sapovirus (PCR) Not Detected (Not Detect.) Stl Shigella/EIEC PCR Not Detected (Not Detect.) St Y.enterocolitica PCR Not Detected (Not Detect.) Stool Vibrio (PCR) Not Detected (Not Detect.) Stl Vibrio cholerae PCR Not Detected (Not Detect.) Stl Norovirus GI/GII PCR Not Detected (Not Detect.) C. difficile Tox B Gene POSITIVE A* (Negative) C. difficile Toxin A&B Negative (Negative) C. difficile Interpret SEE NOTE Radiology Impression Discussion of test interpretation with radiology: I have reviewed the radiologist's reading. Radiologist Impression: CT/CT gi bleed abd pel wo/w IVcon IMPRESSION: 1. No contrast extravasation is identified to suggest active GI bleeding. 2. Cirrhosis of the liver with steatosis. 3. Left nephrolithiasis without evidence of ureteral obstruction. 4. Diverticulosis of the descending and sigmoid colon, without evidence of diverticulitis. Electronically signed by: Chun Delgado MD 03/15/2025 01:22 PM EDT Dictated By: Chun Delgado MD External Record Review External record reviewed: Inpatient record, Office record, Outpatient record, Prior outpatient labs, Prior outpatient radiology, Primary care record and Outside ED record Discharge Plan Discharge Clinical Impression: Diverticulitis, Bright red rectal bleeding Patient Disposition: Home, Self-Care Instructions: Rectal Bleeding (ED) Additional Instructions: You were seen in the emergency department due to rectal bleeding. Your CT scan does not show any active GI bleeding, you do have cirrhosis of the liver, as well as kidney stones that are nonobstructing. You do have evidence of diverticulosis without any evidence of diverticulitis. Your blood work was reassuring. Your liver enzymes were slightly elevated, improved from previous records, please follow-up with your primary care physician. Your glucose was slightly elevated at 212 - you have a history of diabetes. Please follow-up with your primary care. Your urine does not appear to be infected. Your stool sample did test positive for the gene of C diff, however the toxin is negative therefore you have a history of this however no active infection. If any new or worsening symptoms occur including but not limited to worsening bleeding, severe abdominal pain, severe shortness of breath, please seek emergent care. You need to follow-up with the GI specialist, please have colonoscopy for further management and evaluation. Prescriptions: No Action albuterol sulfate [Ventolin HFA] 90 mcg/actuation HFA aerosol inhaler 2 puff INHALATION Q4H PRN (Reason: wheezing) lisinopril 10 mg Tablet 10 mg PO DAILY Qty: 30 0RF Protocol: Hold for SBP< HOLD for SBP < : 90 digoxin 125 mcg (0.125 mg) Tablet 0.125 mg PO DAILY Qty: 30 0RF Eliquis 5 mg tablet 5 mg PO BID Qty: 60 0RF doxycycline hyclate 100 mg capsule 100 mg PO BID 28 Days Qty: 56 0RF metoprolol tartrate 100 mg Tablet 150 mg PO BID colchicine 0.6 mg Tablet 0.6 mg PO TID PRN (Reason: GOUT FLARE) furosemide 20 mg Tablet 20 mg PO DAILY lactulose 20 gram/30 mL Solution 20 g PO BID 30 Days Qty: 1800 0RF acetaminophen 500 mg Tablet 500 mg PO DAILY PRN (Reason: Pain) lorazepam [Ativan] 0.5 mg tablet 0.5 mg PO BEDTIME PRN (Reason: anxiety) Qty: 7 0RF [place] [facility] [place] [facility] [place] Interventions: ED Discharge Assessment Last Done: 03/15/25 15:59 Discharge Date/Time: 03/15/25 16:00 Print Language: Estonian
[2025-03-15 12:21] LABS: Alanine Aminotransferase 92 U/L (0-40); Albumin Level 3.8 g/dL (3.5-5.0); Alkaline Phosphatase 87 U/L (39-117); Anion Gap 12 (12-20); Aspartate Amino Transferase 56 U/L (5-37); Bilirubin Total 0.7 mg/dL (0.0-1.0); Blood Urea Nitrogen 19 mg/dL (9-16); Calcium 9.1 mg/dL (8.4-10.2); Carbon Dioxide 22 mmol/L (22-29); Chloride 105 mmol/L (96-108); Estimated Glomerular Filt Rate > 60; Glucose Random 212 mg/dL (60-115); Potassium 4.1 mmol/L (3.3-5.1); Sodium 135 mmol/L (135-145); Total Protein 6.7 g/dL (6.5-8.0)
[2025-03-15] MEDS: iohexoL 350 MG/ML 100 ML INFUS..BTL IV (12:43)
[2025-03-15 12:47] LABS: Appearance Urine Clear; Color Urine Yellow; Glucose Urine UA >=1000 mg/dL (Negative); Leukocyte Esterase Urine Trace (Negative); Nitrite Urine Negative (Negative); PH 5.5 (5.0-9.0); Specific Gravity - Urine 1.015 (1.005-1.025); UMIC TRIGGER UACC YES; Urine Blood Negative (Negative); Urine Ketones Negative (Negative); Urine Protein Negative (Neg-Trace)
[2025-03-15 12:49] LABS: Bacteria Urine None Seen (None Seen); Hyaline Casts Urine 0-2 /LPF (0-2); RBC Urine 0-2 /HPF (0-2); Squamous Epithelial Cell Urine 0-2 /HPF (0-2); WBC Urine 0-5 /HPF (0-5)
[2025-03-15 12:54] LABS: OBS Int Ctl Valid YES; OBS1 POSITIVE (NEGATIVE)
[2025-03-15 13:37] VITALS: BP 100/57; PULSE 83; RESP 20; O2SAT 93
[2025-03-15 13:52] LABS: CDiff Gene PCR POSITIVE (Negative)
[2025-03-15 14:21] LABS: CDIFF Internal ctrl Dots and bkg OK (V); CDiff Toxin Negative (Negative)
[2025-03-15 14:32] LABS: Adenovirus F 40/41 Not Detected (Not Detect.); Astrovirus Not Detected (Not Detect.); Campylobacter Not Detected (Not Detect.); Cryptosporidium Not Detected (Not Detect.); Cyclospora cayetanensis Not Detected (Not Detect.); E. coli EAEC Not Detected (Not Detect.); E. coli EPEC Not Detected (Not Detect.); E. coli ETEC Not Detected (Not Detect.); E. coli STEC Not Detected (Not Detect.); Entamoeba histolytica Not Detected (Not Detect.); Giardia lamblia Not Detected (Not Detect.); Norovirus GI/GII Not Detected (Not Detect.); Plesiomonas shigelloides Not Detected (Not Detect.); Rotavirus A Not Detected (Not Detect.); Salmonella Not Detected (Not Detect.); Sapovirus Not Detected (Not Detect.); Shigella sp./EIEC Not Detected (Not Detect.); Vibrio Not Detected (Not Detect.); Vibrio Cholerae Not Detected (Not Detect.); Yersinia enterocolitica Not Detected (Not Detect.)
[2025-03-15 15:04] VITALS: BP 102/62; PULSE 89; RESP 18; O2SAT 95
[2025-03-15 15:59] VITALS: BP 102/62; PULSE 89; RESP 18; TEMP -17.7; TEMP 0; O2SAT 95
== END 2025-03-15 16:00 | disposition home or self-care (01) ==
PROVIDERS: Physician Assistant Medical; Emergency Provider Emergency Medicine; PCP Internal Medicine
DX: K57.32 Diverticulitis of large intestine without perforation or abscess without bleeding (principal); K92.1 Melena; I48.91 Unspecified atrial fibrillation; E11.9 Type 2 diabetes mellitus without complications; I10 Essential (primary) hypertension; Z79.01 Long term (current) use of anticoagulants; Z79.899 Other long term (current) drug therapy; Z87.891 Personal history of nicotine dependence
CPT/HCPCS: 36415; 74178; 80053; 81001; 82272; 85025; 87324; 87493; 87507; 99284; Q9967

== ENCOUNTER → 2025-03-15 12:13 | Outpatient (BNV) | payer MEDICAID, SELFPAY | PROVIDERS: Emergency Provider Emergency Medicine; PCP Internal Medicine; Visit Provider Radiology Diagnostic Radiology | DX: K74.60 Unspecified cirrhosis of liver (principal); K76.0 Fatty (change of) liver, not elsewhere classified; K57.30 Diverticulosis of large intestine without perforation or abscess without bleeding; N20.0 Calculus of kidney | CPT/HCPCS: 74178 ==

== ENCOUNTER 2025-03-27 09:13 | Outpatient (AMB) | payer MEDICAID, SELFPAY ==
--- NOTE | 2025-03-27 09:22 | A.OFFVIS_ITS ---
Vital Signs 03/27/25 09:24 03/27/25 09:39 Height 6 ft Weight 293 lb 3.437 oz BMI 39.8 BP 118/76 Blood Pressure Location Lt brachial Position Sitting Pulse 101 H 78 Intake Visit Reasons: ED f/U Bright red rectal bleeding/Divert Intake Note: Wong presents in the office as a ED follow up for Bright Red Rectal Bleeding and Diverticulitis. CC: States he is worried about the bright red blood that was coming out. Accounts Payable Supervisor Required: No Allergies No Known Allergies Allergy (Verified 03/27/25 09:24) Medication List - Last Reconciled 03/27/25 by Radha Snow CNP acetaminophen 500 mg PO DAILY PRN albuterol sulfate 90 mcg/actuation (Ventolin HFA) 2 puffs inhalation Q4H PRN apixaban (Eliquis) 5 mg PO BID colchicine 0.6 mg PO TID PRN cyanocobalamin (vitamin B-12) 1,000 mcg PO DAILY dapagliflozin propanediol (Farxiga) 10 mg PO DAILY digoxin 0.125 mg PO DAILY furosemide 40 mg PO DAILY glipizide ER 5 mg PO DAILY lactulose 20 grams PO BID PRN lisinopril 10 mg See Protocol PO DAILY metoprolol tartrate 150 mg PO BID spironolactone 25 mg PO DAILY HPI HPI ED f/U Bright red rectal bleeding/Divert: Details: Patient is a 65-year-old male with PMH of DMII, hypertension, HFpEF, paroxysmal A-Fib on Eliquis , MDD, alcohol use disorder, opioid use, and cirrhosis. Patient reports rectal bleeding starting on March 14, 2025. Described as a significant amount of blood, similar to pouring beet juice into the toilet bowl. Bleeding was associated with bowel movements and occurred 5-6 times over two to three days. He sought ER care the next day with the hopes of admission but was discharged home after reassuring workup. Reports no further episodes of rectal bleeding noted after March 17, 2025. Patient initially experienced no abdominal pain but later recalled mild stomachaches during the bleeding episodes. Reports lightheadedness without associated dizziness during bleeding episodes. Shares he was taking ibuprofen intermittently for pain relief for about a month, prior to the onset of bleeding. Reports last colonoscopy was approximately six years ago, with removal of small polyps. Denies nausea, vomiting, heartburn, regurgitation, difficulty swallowing or unintentional wt loss. Patient also reports severe fatigue, which has been persistent and unrelieved by rest. Recently started taking B12 supplements, which have provided some improvement in alertness. Patient is currently wearing a heart monitor to assess for causes of fatigue. Patient has a history of liver issues, including elevated liver enzymes. Shared he was told not to be overly concerned about his fatty liver. Patient uses CPAP for sleep apnea intermittently but has had issues with compliance due to discomfort. SOCIAL HISTORY: - Diet: Consumes a high-fiber diet, including fruits, vegetables, legumes, and baked beans. Drinks 10-12 bottles of water a day. - Alcohol: Stopped consuming alcohol eight months ago. Prior consumption was occasional, including a beer or a shot or two for pain relief. - Tobacco: Former smoker, quit 50 years ago. - Drug Use: Used Fentanyl pills mistakenly identified as Percocet for about 2-3 months, eight months ago. 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 - family hx as below -denies personal hx of [facility] Medical History (Updated 03/27/25 @ 10:47 by Radha Snow CNP) Diverticulosis of colon Blood in stool Diverticulosis Diabetes Paroxysmal atrial fibrillation Obesity (BMI 35.0-39.9 without comorbidity) Cirrhosis of liver History of alcohol abuse Elevated LFTs Hypersomnia with sleep apnea Lumbar degenerative disc disease Knee osteoarthritis Hypertension Alcohol withdrawal Opioid dependence Surgical History (Updated 03/27/25 @ 09:25 by EZEKIEL Brink) History of esophagogastroduodenoscopy (EGD) Hx of colonoscopy Family History (Updated 03/27/25 @ 11:04 by Radha Snow CNP) Mother Cervical cancer Brother Prostate cancer Social History Household Members: Spouse Housing: Apartment Do you presently have visiting nurse or other home services: No Alcohol intake: former Comment: 5 min checks Patient Tobacco Use Status: Former Tobacco user Substance Use Type: Opiates Advance Directives Date on File: 05/12/22 service: No Sexual orientation: Straight/Heterosexual Review of Systems Const Reports as per HPI ENT Reports as per HPI Card Reports as per HPI Resp Reports as per HPI GI Reports as per HPI Reports as per HPI Physical Exam Const General: healthy appearing, no acute distress and well developed Nutritional Appearance: obese Orientation/consciousness: patient oriented x3 HEENT Head: Yes normal to inspection, Yes normocephalic and Yes atraumatic Face and sinus: Yes normal facial exam Eyes Conjunctivae: conjunctival abnormal left (s/p cataract surgery ) conjunctival injection Neck Neck: Yes normal visual inspection Resp Effort & Inspection: normal respiratory effort, able to speak in complete sentences, no tracheal deviation and symmetric chest movement Auscultation: clear to auscultation bilaterally Cardio Jugular venous distension: no JVD Rate: regular rate Rhythm: regular rhythm Heart sounds: S1 normal heart sound present, S2 normal heart sound present, no gallops and no murmurs GI Inspection: Yes normal to inspection, No distended and Yes obesity Palpation (GI): Soft to palpation, not firm, nontender and Hepatomegaly present Auscultation: normal bowel sounds Neuro General: patient oriented x3 Gait exam (Neuro): Normal gait present Psych Appearance: grossly normal Mental Status: mental status grossly normal Speech and movement: Normal speech and movement present Affect: normal affect Attitude: cooperative Thought process: Normal thought process present Thought content: Normal thought content present Insight: Fair insight present (Psych) Judgement: Good judgement present (Psych) Results Reviewed Results Reviewed: 03/15/25 03/15/25 03/15/25 Range/Units 10:11 11:54 12:39 WBC 10.7 (4.8-10.8) X10*3/uL RBC 4.70 (4.60-5.80) X10*6/uL Hgb 16.1 (14.0-18.0) g/dl Hct 47.3 (42.0-52.0) % MCV 100.6 H (80.0-98.0) fL MCH 34.3 H (27.0-33.0) pg MCHC 34.0 (31.0-36.0) g/dl RDW 13.4 (11.0-16.0) % Plt Count 195 (160-400) X10*3/uL MPV 10.2 (9.4-12.4) fL Immature Gran % (Auto) 0.7 H (0.0-0.4) % Neut % (Auto) 59.8 (45-73) % Lymph % (Auto) 28.6 (20-40) % [place] % (Auto) 7.8 (2-11) % Eos % (Auto) 2.3 (0-4) % Baso % (Auto) 0.8 (0-2) % Lymph # (Auto) 3.1 (1.2-4.9) X10*3/uL [place] # (Auto) 0.8 (0.1-1.2) X10*3/uL Eos # (Auto) 0.3 (0.0-0.4) X10*3/uL Baso # (Auto) 0.1 (0.0-0.2) X10*3/uL Abs Immat Gran (auto) 0.07 H (0.00-0.03) X10*3/uL Absolute Neuts (auto) 6.4 (2.0-8.3) x10*3/uL Absolute Nucleated RBC 0.000 (0.0-0.012) X10*3/uL Nucleated RBC % (auto) 0.0 (0.0-0.2) /100WBC Sodium 135 (135-145) mmol/L Potassium 4.1 (3.3-5.1) mmol/L Chloride 105 (96-108) mmol/L Carbon Dioxide 22 (22-29) mmol/L Anion Gap 12 (12-20) BUN 19 H (9-16) mg/dL Creatinine 0.93 (0.5-1.4) mg/dL Estim Creat Clear Calc 109.0 Estimated GFR > 60 Random Glucose 212 H (60-115) mg/dL Calcium 9.1 (8.4-10.2) mg/dL Total Bilirubin 0.7 (0.0-1.0) mg/dL AST 56 H (5-37) U/L ALT 92 H (0-40) U/L Alkaline Phosphatase 87 (39-117) U/L Total Protein 6.7 (6.5-8.0) g/dL Albumin 3.8 (3.5-5.0) g/dL Urine Color Yellow Urine Appearance Clear Urine pH 5.5 (5.0-9.0) Ur Specific [place] 1.015 (1.005-1.025) Urine Protein Negative (Neg-Trace) mg/dL Urine Glucose (UA) >=1000 H (Negative) mg/dL Urine Ketones Negative (Negative) mg/dL Urine Blood Negative (Negative) Urine Nitrite Negative (Negative) Ur Leukocyte Esterase Trace H (Negative) Urine RBC 0-2 (0-2) /HPF Urine WBC 0-5 (0-5) /HPF Ur Squamous Epith Cells 0-2 (0-2) /HPF Urine Bacteria None Seen (None Seen) Hyaline Casts 0-2 (0-2) /LPF Stool Occult Blood POSITIVE (NEGATIVE) Stl C. cayetanensis PCR Not Detected (Not Detect.) Stool Rotavirus A PCR Not Detected (Not Detect.) Stl Adenov F 40/41 PCR Not Detected (Not Detect.) Stool Astrovirus (PCR) Not Detected (Not Detect.) Stool Campylobacter PCR Not Detected (Not Detect.) Stool Cryptosporidium PCR Not Detected (Not Detect.) Stl Sh Tox Pr E STEC PCR Not Detected (Not Detect.) Stool E coli O157 PCR Not applicable (Not Detect.) Stl Enterotoxigenic E PCR Not Detected (Not Detect.) Stool EPEC (PCR) Not Detected (Not Detect.) Stool EAEC (PCR) Not Detected (Not Detect.) Stl E. histolytica PCR Not Detected (Not Detect.) Stool Giardia Lamblia PCR Not Detected (Not Detect.) Stl P. shigelloides PCR Not Detected (Not Detect.) Stool Salmonella PCR Not Detected (Not Detect.) Stool Sapovirus (PCR) Not Detected (Not Detect.) Stl Shigella/EIEC PCR Not Detected (Not Detect.) St Y.enterocolitica PCR Not Detected (Not Detect.) Stool Vibrio (PCR) Not Detected (Not Detect.) Stl Vibrio cholerae PCR Not Detected (Not Detect.) Stl Norovirus GI/GII PCR Not Detected (Not Detect.) C. difficile Tox B Gene POSITIVE A* (Negative) C. difficile Toxin A&B Negative (Negative) C. difficile Interpret SEE NOTE Laboratory Tests 11/04/24 16:47 TSH 2.03 NAFLD (Non-Alcoholic Fatty Liver Disease) Fibrosis Score from [employer] on 03/27/2025 RESULT SUMMARY: 1.16 points Correlated Fibrosis Severity: F3-F4 INPUTS: Age ?> 65 years BMI ?> 39.8 kg/m? Impaired fasting glucose/diabetes ?> 1 = Yes AST ?> 56 U/L ALT ?> 92 U/L Platelet count ?> 195 ? 10?/?L Albumin ?> 3.8 g/dL Date of Service: 03/15/25 Procedure(s): CT gi bleed abd pel wo/w IVcon Accession Number(s): [id number] cc: Duncan Rush MD; Tara Funes~ Report Number: [id number]: Total DLP = 2374.00 mGy-cm EXAMINATION: CT ABDOMEN PELVIS WITHOUT THEN WITH IV CONTRAST HISTORY: rectal bleeding, on AC COMPARISON: Comparison is made with the prior examination dated 11/26/2024. TECHNIQUE: CT scan of the abdomen and pelvis was performed before and after the intravenous administration of 80 mL Omnipaque 350. Post contrast images were obtained in the arterial and delayed phases. Coronal and sagittal reformatted images were generated and reviewed. Oral contrast material was not administered per department protocol. This CT exam was performed with one or more of the following dose reduction techniques: automated exposure control, adjustment of the mA and/or kV according to patient size, use of iterative reconstruction technique. DLP: 2374 mGy-cm ABDOMEN: LOWER CHEST: The visualized lung bases are clear. There is no pleural effusion. CARDIOVASCULATURE: The heart is normal in size. There is no pericardial effusion. LIVER: The liver again demonstrates a nodular contour, consistent with cirrhosis. There is hypertrophy of the left and caudate lobes. The liver demonstrates diffusely decreased attenuation, consistent with steatosis.No liver mass is identified. The hepatic and portal veins are patent. GALLBLADDER / BILE DUCTS: The gallbladder is distended, without evidence of calcified stones. There is no intra or extrahepatic biliary ductal dilatation. SPLEEN: The spleen is normal in size. No focal splenic lesion is identified. PANCREAS: The pancreas is unremarkable in appearance. ADRENAL GLANDS: Within normal limits. KIDNEYS/RETROPERITONEUM: There are two adjacent 2 mm nonobstructing calculi at the lower pole of the left kidney. There is no hydronephrosis. No renal masses are identified. LYMPH NODES: There are mildly prominent periportal lymph nodes measuring up to 1.6 cm in size. VASCULATURE: The abdominal aorta demonstrates atherosclerotic calcification, but is normal in caliber. MESENTERY/PERITONEUM: No free fluid. No masses. There is no free intraperitoneal gas. STOMACH: The stomach is collapsed, limiting evaluation. SMALL BOWEL: The small bowel is normal in caliber. COLON: There is diverticulosis of the descending and sigmoid colon, without evidence of diverticulitis. No contrast extravasation is seen to suggest active GI bleeding. APPENDIX: Normal. URINARY BLADDER/PELVIC ORGANS: The urinary bladder is unremarkable. The prostate is normal in size. BONES / SOFT TISSUES: The patient is status post right total hip arthroplasty. There is degenerative disc disease of the spine. CT/CT gi bleed abd pel wo/w IVcon IMPRESSION: 1. No contrast extravasation is identified to suggest active GI bleeding. 2. Cirrhosis of the liver with steatosis. 3. Left nephrolithiasis without evidence of ureteral obstruction. 4. Diverticulosis of the descending and sigmoid colon, without evidence of diverticulitis. 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 His A1c value was 7.2 collected October 2024. Diagnostic Tests: Repeat Hemoglobin A1C. Continue current regimen issued by PCP. (2) Cirrhosis of liver: Code(s): K74.60 - Unspecified cirrhosis of liver Category: Medical Qualifiers: Hepatic cirrhosis type: unspecified hepatic cirrhosis Ascites presence: without ascites Qualified Code(s): K74.60 - Unspecified cirrhosis of liver Plan: We reviewed recent imaging findings from November 2024 hospitalization. Brief discussion on disease process and impacts to health. Suspicion as MASLD induced. However, we will proceed with formal workup. NAFLD Fibrosis Score from [employer] on 03/27/2025 : 1.16 points, Correlated Fibrosis Severity: F3-F4 Diagnostic Tests: lipid panel, Liver function tests, complete metabolic panel, hepatitis panels and autoimmune antibodies. Patient Education: Avoid alcohol, adhere strictly to medication regimen, avoid hepatotoxic substances (e.g., excess Tylenol) (3) Diverticulosis of colon: Code(s): K57.30 - Diverticulosis of large intestine without perforation or abscess without bleeding Category: Medical Plan: Noted to descending and sigmoid colon on 03/15/2025 abdomen/pelvis CT. History of diverticulitis with antibiotic treatment in November 2024. Last colonoscopy about six years ago through outside facility, with removal of small polyps. Diagnostic Tests: Colonoscopy. We will review prep and procedure at follow-up. Patient Education: Emphasize importance of high-fiber diet. Avoid NSAIDs. (4) Blood in stool: Code(s): K92.1 - Melena Category: Medical Plan: Recent 3 day episode. 03/15/2025 ER workup with evidence of diverticulosis as above, otherwise stable H&H without signs of active bleeding. Diagnostic Tests: Colonoscopy Medications: Avoid NSAIDs. Patient Education: Monitor for any recurrence of bleeding, report immediately if it occurs. Referrals: Will need cardiology evaluation for pre-colonoscopy clearance. Plan Follow-up in 3 weeks or sooner as needed to review lab work. Time: I spent a total of 60 minutes on the date of encounter which includes: Preparing to see the patient (reviewed previous documentation, test results and medical history) Performing a medically appropriate exam and/or evaluation Ordering medications, tests, and procedures Documenting clinical information in the health record Orders: Orders SHAMIKA Reflex Titer and Pattern Today K74.60 - Unspecified cirrhosis of liver Lipase Today K74.60 - Unspecified cirrhosis of liver Hemoglobin A1c Today E11.9 - Type 2 diabetes mellitus without complications Liver Fibrosis Pnl Today K74.60 - Unspecified cirrhosis of liver Lipid Panel Today E11.9 - Type 2 diabetes mellitus without complications C Reactive Protein Today K74.60 - Unspecified cirrhosis of liver IRON PROFILE Today K74.60 - Unspecified cirrhosis of liver Immunoglobulins,IgG IgA IgM Today K74.60 - Unspecified cirrhosis of liver Mitochondrial Antibody Today K74.60 - Unspecified cirrhosis of liver Smooth Muscle Antibody Today K74.60 - Unspecified cirrhosis of liver Ceruloplasmin Today K74.60 - Unspecified cirrhosis of liver Ferritin Today K74.60 - Unspecified cirrhosis of liver Prothrombin Time INR Today K74.60 - Unspecified cirrhosis of liver TSH reflex Free T4 Today R53.83 - Other fatigue Hepatitis A,B,C Profile Today K74.60 - Unspecified cirrhosis of liver Medications: Discontinued doxycycline hyclate Discontinued Reason: No Longer Medically Relevant 100 mg PO BID 28 days 56 caps 0RF Coding Level of Care Code New Pt New Pt Level 5 (25145) Patient Type New Diagnoses Type 2 diabetes mellitus with hyperglycemia, without long-term current use of insulin E11.65 Diabetes mellitus type: type 2 Diabetes mellitus local intermodal truck driver insulin use: without local intermodal truck driver use Diabetes mellitus complication status: with hyperglycemia Cirrhosis of liver without ascites, unspecified hepatic cirrhosis type K74.60 Hepatic cirrhosis type: unspecified hepatic cirrhosis Ascites presence: without ascites Diverticulosis of colon K57.30 Blood in stool K92.1
[2025-03-27 09:24] VITALS: BP 118/76; PULSE 101; BMI 39.8
[2025-03-27 09:39] VITALS: PULSE 78
== END 2025-03-27 10:18 | disposition home or self-care (01) ==
LOC: HO.HGI 09:14
PROVIDERS: PCP Internal Medicine; Visit Provider Nurse Practitioner Family
DX: E11.65 Type 2 diabetes mellitus with hyperglycemia (principal); K74.60 Unspecified cirrhosis of liver; K57.30 Diverticulosis of large intestine without perforation or abscess without bleeding; K92.1 Melena
CPT/HCPCS: 99205

== ENCOUNTER → 2025-03-27 09:13 | Outpatient (BNVA) | payer MEDICAID, SELFPAY | PROVIDERS: PCP Internal Medicine; Visit Provider Nurse Practitioner Family | DX: K92.1 Melena (principal); E11.65 Type 2 diabetes mellitus with hyperglycemia; K74.60 Unspecified cirrhosis of liver; K57.30 Diverticulosis of large intestine without perforation or abscess without bleeding | CPT/HCPCS: 99212 ==

== ENCOUNTER 2025-04-17 06:04 | Outpatient (REF) | payer MEDICARE, MEDICAID, SELFPAY ==
[2025-04-17 07:30] LABS: INTERNATIONAL NORM RATIO 1.2 (0.9-1.1); Prothrombin Time 13.7 SEC (10.9-12.4)
[2025-04-17 07:38] LABS: Estimated Average Glucose 197 mg/dL; Hemoglobin A1c % 8.5 % (<6.0)
[2025-04-17 07:51] LABS: C Reactive Protein 0.15 mg/dL (< or = 0.50); Cholesterol 199 mg/dL (<200); HDL Cholesterol 39 mg/dL (>40); Iron 94 mcg/dL (45-160); LDL Cholesterol Calculated 126 mg/dL (<100); Lipase 45 U/L (8-78); Percent Iron Saturation 30 % (15-50); Total Iron Binding Capacity 317 mcg/dL (228-428); Triglycerides 173 mg/dL (<150); Unsaturated Iron Binding 223 ug/dL
[2025-04-17 08:19] LABS: Ferritin 241 ng/mL (20-250); HBS Num1 0.09 mIU/mL (0-7.99); HBc Num1 0.04 S/CO (0.00-0.79); HBsAGNum1 0.28 S/CO (0.00-0.99); Hepatitis A Antibody IgM 0.17 Index (0-0.79); Hepatitis B Core Antibody Nonreactive (Nonreactive); Hepatitis B Surface Antigen Negative (Negative); TSH reflex Free T4 1.96 uIU/mL (0.32-4.0); ~HepC Num1 0.11 S/CO (0.00-0.79); ~Hepatitis A Antibody IgM Nonreactive (Nonreactive); ~Hepatitis B Surface Antibody NONREACTIVE (Nonreactive); ~Hepatitis C Antibody Nonreactive (Nonreactive)
[2025-04-18 06:48] LABS: IgA 304 mg/dL (70-320); IgG 1037 mg/dL (600-1540); IgM 76 mg/dL (50-300)
[2025-04-18 07:28] LABS: Ceruloplasmin 19 mg/dL (14-30)
[2025-04-19 10:59] LABS: Mitochondrial Antibodies NEGATIVE (NEGATIVE)
[2025-04-19 15:14] LABS: Anti Nuclear Antibody Screen NEGATIVE (NEGATIVE)
[2025-04-22 06:34] LABS: Smooth Muscle Antibody <20 U (<20)
[2025-04-24 01:04] LABS: FIB-ALT 42 U/L (9-46); FIB-Alpha-2-Macroglobulin 341 mg/dL (106-279); FIB-Apolipoprotein A1 150 mg/dL (94-176); FIB-GGT 215 U/L (3-70); FIB-Haptoglobin 61 mg/dL (43-212); FIB-Total Bilirubin 0.4 mg/dL (0.2-1.2); Liver Fibrosis Score 0.79; Liver Fibrosis Stage F4; Nec Inflam Act Grade A1-A2; Nec Inflam Act Score 0.39
== END 2025-04-17 06:05 | disposition home or self-care (01) ==
LOC: HO.LAB 06:04
PROVIDERS: PCP Internal Medicine; Visit Provider Nurse Practitioner Family
DX: K74.60 Unspecified cirrhosis of liver (principal); R53.83 Other fatigue; E11.9 Type 2 diabetes mellitus without complications
CPT/HCPCS: 36415; 80061; 81596; 82390; 82728; 82784; 83036; 83540; 83690; 84443; 85610; 86015; 86038; 86140; 86381; 86704; 86706; 86709; 86803; 87340

== ENCOUNTER 2025-04-28 14:18 | Emergency (ER) | payer MEDICARE, MEDICAID, SELFPAY ==
--- NOTE | ~2025-04-28 | XR_ITS ---
CLINICAL HISTORY: pain and swelling 4 view right wrist Comparison: None Findings: No fractures or dislocations. Mild degenerative changes of the right wrist centered at the STT joint and the 1st carpometacarpal joint. No radiopaque foreign body. Ulnar positive variance. IMPRESSION: 1. No acute findings This document has been electronically signed by: Naveen Snell MD on 04/28/2025 15:01:40
[2025-04-28 14:21] VITALS: BP 89/51; PULSE 97; RESP 16; TEMP 36.4; O2SAT 96; BMI 40.4
--- NOTE | 2025-04-28 14:23 | ED.GENADULT ---
HPI - General Adult General Chief complaint: Extremity Injury, Upper Stated complaint: wrist pain/swelling Time Seen by Provider: 04/28/25 15:18 Related Data Home Medications ?Medication ?Instructions ?Recorded ?Confirmed albuterol sulfate 90 mcg/actuation 2 puff inhalation Q4H PRN wheezing 05/14/23 03/27/25 aerosol inhaler (Ventolin HFA) colchicine 0.6 mg tablet 0.6 mg PO TID PRN GOUT FLARE 11/02/24 03/27/25 metoprolol tartrate 100 mg tablet 150 mg PO BID 11/02/24 03/27/25 acetaminophen 500 mg tablet 500 mg PO DAILY PRN Pain 11/27/24 03/27/25 cyanocobalamin (vitamin B-12) 1,000 mcg PO DAILY 03/27/25 03/27/25 1,000 mcg tablet dapagliflozin propanediol 10 mg 10 mg PO DAILY 03/27/25 03/27/25 tablet (Farxiga) furosemide 40 mg tablet 40 mg PO DAILY 03/27/25 03/27/25 glipizide 5 mg tablet, extended 5 mg PO DAILY 03/27/25 03/27/25 release 24 hr lactulose 20 gram/30 mL oral 20 g PO BID PRN 03/27/25 solution spironolactone 25 mg tablet 25 mg PO DAILY 03/27/25 03/27/25 Previous Rx's ?Medication ?Instructions ?Recorded apixaban 5 mg tablet (Eliquis) 5 mg PO BID #60 tabs 05/21/23 digoxin 125 mcg (0.125 mg) tablet 0.125 mg PO DAILY #30 tabs 05/21/23 lisinopril 10 mg tablet 10 mg PO DAILY #30 tabs 05/21/23 prednisone 20 mg tablet 20 mg PO DAILY 5 days #5 tabs 04/28/25 Allergies Allergy/AdvReac Type Severity Reaction Status Date / Time No Known Allergies Allergy Verified 04/28/25 14:22 [facility] Past Medical History Medical History Diverticulosis of colon Blood in stool Diverticulosis Diabetes Paroxysmal atrial fibrillation Obesity (BMI 35.0-39.9 without comorbidity) Cirrhosis of liver History of alcohol abuse Elevated LFTs Hypersomnia with sleep apnea Lumbar degenerative disc disease Knee osteoarthritis Hypertension Alcohol withdrawal Opioid dependence Surgical History History of esophagogastroduodenoscopy (EGD) Hx of colonoscopy Family History Family History Mother Cervical cancer Brother Prostate cancer Social History Social History Household Members: Spouse Housing: Apartment Do you presently have visiting nurse or other home services: No Alcohol intake: former Comment: 5 min checks Patient Tobacco Use Status: Former Tobacco user Smoked in Last 30 Days: No Use of substances other than those prescribed or required for medical reasons: No Substance Use Type: Opiates Advance Directives: Yes Advance Directives on File: Yes Advance Directives Date on File: 05/12/22 Do you have a plan to hurt others: No Plan service: No Sexual orientation: Straight/Heterosexual Physical Exam ED Vital Signs: BMI result Body Mass Index 40.4 Course Course Course Narrative: This is a rapid medical exam performed by Jerrica Fernandes NP: Additional HPI, ROS, PE not included below will be deferred to primary provider. Patient is a 65-year-old right hand dominant male presenting with complaint of right wrist pain and swelling for the past 2-3 weeks, progressively worsening. Currently rates 10/10. 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 Plan: labs, xray Medical Decision Making Lab Data 04/28/25 14:37 04/28/25 14:37 Labs: Lab Results 04/28/25 Range/Units 14:37 WBC 9.0 (4.8-10.8) X10*3/uL RBC 4.75 (4.60-5.80) X10*6/uL Hgb 16.1 (14.0-18.0) g/dl Hct 46.1 (42.0-52.0) % MCV 97.1 (80.0-98.0) fL MCH 33.9 H (27.0-33.0) pg MCHC 34.9 (31.0-36.0) g/dl RDW 13.2 (11.0-16.0) % Plt Count 181 (160-400) X10*3/uL MPV 10.4 (9.4-12.4) fL Immature Gran % (Auto) 0.6 H (0.0-0.4) % Neut % (Auto) 84.4 H (45-73) % Lymph % (Auto) 11.3 L (20-40) % [place] % (Auto) 3.3 (2-11) % Eos % (Auto) 0.1 (0-4) % Baso % (Auto) 0.3 (0-2) % Lymph # (Auto) 1.0 L (1.2-4.9) X10*3/uL [place] # (Auto) 0.3 (0.1-1.2) X10*3/uL Eos # (Auto) 0.0 (0.0-0.4) X10*3/uL Baso # (Auto) 0.0 (0.0-0.2) X10*3/uL Abs Immat Gran (auto) 0.05 H (0.00-0.03) X10*3/uL Absolute Neuts (auto) 7.6 (2.0-8.3) x10*3/uL Absolute Nucleated RBC 0.000 (0.0-0.012) X10*3/uL Nucleated RBC % (auto) 0.0 (0.0-0.2) /100WBC ESR 6 (0-15) MM/HR Sodium 138 (135-145) mmol/L Potassium 4.6 (3.3-5.1) mmol/L Chloride 108 (96-108) mmol/L Carbon Dioxide 21 L (22-29) mmol/L Anion Gap 14 (12-20) BUN 19 H (9-16) mg/dL Creatinine 0.89 (0.5-1.4) mg/dL Estim Creat Clear Calc 117.7 Estimated GFR > 60 Random Glucose 178 H (60-115) mg/dL Calcium 9.6 (8.4-10.2) mg/dL C-Reactive Protein 0.36 (< or = 0.50) mg/dL Discharge Plan Discharge Clinical Impression: Muscle strain of wrist Patient Disposition: Home, Self-Care Instructions: Wrist Injury (ED), Cold Compress or Soak (ED) Additional Instructions: You were evaluated in the ED today due to right wrist pain. Your labs did not reveal any elevated white blood count or any elevated inflammatory markers indicating infection. Your wrist x-ray did not reveal any fracture or dislocation. However your x-ray did observed degenerative changes of the right wrist indicating arthritis, as well as ulnar positive variance which means your ulnar bone is longer than your radial bone which can cause pain of the wrist. You are being prescribed a 5 day course of 20 mg prednisone to manage inflammation. You can manage your pain at home taking a 1000 mg of Tylenol every 8 hours. Additionally you can ice the affected area in 20 minute increments, elevate the wrist above heart level and wear a wrist brace at night and when needing additional compression for comfort. You should follow up with the orthopedic doctors. You can call on Wednesday to see if you are able to get in with them. You should follow up with your PCP to ensure improvement. Please return to the emergency department if you develop fever over 100.4?, worsening pain, worsening swelling, loss of sensation, loss of ability to move the wrist, or any other new/worsening/concerning symptoms. Prescriptions: New prednisone 20 mg tablet 20 mg PO DAILY 5 Days Qty: 5 0RF No Action albuterol sulfate [Ventolin HFA] 90 mcg/actuation HFA aerosol inhaler 2 puff INHALATION Q4H PRN (Reason: wheezing) lisinopril 10 mg Tablet 10 mg PO DAILY Qty: 30 0RF Protocol: Hold for SBP< HOLD for SBP < : 90 digoxin 125 mcg (0.125 mg) Tablet 0.125 mg PO DAILY Qty: 30 0RF Eliquis 5 mg tablet 5 mg PO BID Qty: 60 0RF metoprolol tartrate 100 mg Tablet 150 mg PO BID colchicine 0.6 mg Tablet 0.6 mg PO TID PRN (Reason: GOUT FLARE) acetaminophen 500 mg Tablet 500 mg PO DAILY PRN (Reason: Pain) cyanocobalamin (vitamin B-12) 1,000 mcg tablet 1,000 mcg PO DAILY dapagliflozin propanediol [Farxiga] 10 mg tablet 10 mg PO DAILY spironolactone 25 mg tablet 25 mg PO DAILY glipizide 5 mg tablet extended release 24hr 5 mg PO DAILY furosemide 40 mg tablet 40 mg PO DAILY lactulose 20 gram/30 mL solution 20 g PO BID PRN Interventions: ED Discharge Assessment Last Done: 04/28/25 17:32 Discharge Date/Time: 04/28/25 17:34 Print Language: Romansh
[2025-04-28 14:41] LABS: MANUAL DIFF FLAG NO
[2025-04-28 14:43] LABS: Basophils Percent Auto 0.3 % (0-2); Eosinophils Percent Auto 0.1 % (0-4); Hematocrit 46.1 % (42.0-52.0); Hemoglobin 16.1 g/dl (14.0-18.0); Imm Gran Abs Auto 0.05 X10*3/uL (0.00-0.03); Imm Gran Pct Auto 0.6 % (0.0-0.4); Lymphocytes Percent Auto 11.3 % (20-40); Mean Corpuscular HGB Conc 34.9 g/dl (31.0-36.0); Mean Corpuscular Hemoglobin 33.9 pg (27.0-33.0); Mean Corpuscular Volume 97.1 fL (80.0-98.0); Mean Platelet Volume 10.4 fL (9.4-12.4); Monocytes Absolute Auto 0.3 X10*3/uL (0.1-1.2); Monocytes Percent Auto 3.3 % (2-11); Neutrophils Absolute Auto 7.6 x10*3/uL (2.0-8.3); Neutrophils Percent Auto 84.4 % (45-73); Platelet Count 181 X10*3/uL (160-400); Red Blood Count 4.75 X10*6/uL (4.60-5.80); Red Cell Distribution Width 13.2 % (11.0-16.0)
[2025-04-28 15:05] LABS: Anion Gap 14 (12-20); Blood Urea Nitrogen 19 mg/dL (9-16); C Reactive Protein 0.36 mg/dL (< or = 0.50); Calcium 9.6 mg/dL (8.4-10.2); Carbon Dioxide 21 mmol/L (22-29); Chloride 108 mmol/L (96-108); Creatinine Clr Calc Pharmacy 117.7; Estimated Glomerular Filt Rate > 60; Glucose Random 178 mg/dL (60-115); Potassium 4.6 mmol/L (3.3-5.1); Sodium 138 mmol/L (135-145)
[2025-04-28 15:34] LABS: Erythrocyte Sedimentation Rate 6 MM/HR (0-15)
[2025-04-28 16:27] VITALS: BP 121/76; RESP 18
--- NOTE | 2025-04-28 16:53 | ED.EXTPRO ---
HPI - Extremity Problem General Chief complaint: Extremity Injury, Upper Stated complaint: wrist pain/swelling Time Seen by Provider: 04/28/25 15:18 Source: patient Mode of arrival: ambulatory Limitations: no limitations History of Present Illness ED Provider: Anatoly Pope PA-C HPI Narrative: 65-year-old male with medical history of AFib on Eliquis, arthritis, HTN, polysubstance use disorder, T2DM, presents to the ED for 2 weeks of right wrist pain. Patient is right-hand dominant. Patient states he has had increasing pain of the right wrist over the past 2 weeks. Reports that he is currently doing some increased physical activity through renovating a house. States today he hit his right wrist on a steel bar while doing renovations prompting him to come in and seek care today. Patient reports he has been taking Tylenol without effect. Denies chest pain, shortness of breath, nausea, vomiting, abdominal pain, black/tarry stool. MD Complaint: extremity pain Onset (ago): week(s) (2) Pain Consistency: constant Location: right Quality: aching and constant Radiation: none Relieving factors: nothing Exacerbating factors: range of motion (Flexion, extension) Associated symptoms: denies other symptoms Related Data Home Medications ?Medication ?Instructions ?Recorded ?Confirmed albuterol sulfate 90 mcg/actuation 2 puff inhalation Q4H PRN wheezing 05/14/23 03/27/25 aerosol inhaler (Ventolin HFA) colchicine 0.6 mg tablet 0.6 mg PO TID PRN GOUT FLARE 11/02/24 03/27/25 metoprolol tartrate 100 mg tablet 150 mg PO BID 11/02/24 03/27/25 acetaminophen 500 mg tablet 500 mg PO DAILY PRN Pain 11/27/24 03/27/25 cyanocobalamin (vitamin B-12) 1,000 mcg PO DAILY 03/27/25 03/27/25 1,000 mcg tablet dapagliflozin propanediol 10 mg 10 mg PO DAILY 03/27/25 03/27/25 tablet (Farxiga) furosemide 40 mg tablet 40 mg PO DAILY 03/27/25 03/27/25 glipizide 5 mg tablet, extended 5 mg PO DAILY 03/27/25 03/27/25 release 24 hr lactulose 20 gram/30 mL oral 20 g PO BID PRN 03/27/25 solution spironolactone 25 mg tablet 25 mg PO DAILY 03/27/25 03/27/25 Previous Rx's ?Medication ?Instructions ?Recorded apixaban 5 mg tablet (Eliquis) 5 mg PO BID #60 tabs 05/21/23 digoxin 125 mcg (0.125 mg) tablet 0.125 mg PO DAILY #30 tabs 05/21/23 lisinopril 10 mg tablet 10 mg PO DAILY #30 tabs 05/21/23 prednisone 20 mg tablet 20 mg PO DAILY 5 days #5 tabs 04/28/25 Allergies Allergy/AdvReac Type Severity Reaction Status Date / Time No Known Allergies Allergy Verified 04/28/25 14:22 Review of Systems Review of Systems: CONST: Negative for fever, body aches and chills. HENT: Negative for neck pain/stiffness, headache, congestion, sore throat, swelling. EYES: Negative for discharge/pain or vision changes. RESP: Negative for cough/hemoptysis and shortness of breath. CV: Negative chest pain, difficulty breathing, palpitations. ABD: Negative pain, nausea, vomiting. : Negative increase frequency, dysuria, blood in urine or stool. MUSC: Negative for muscle aches, edema. POS R wrist pain SKIN: Negative rash, lesions/sores. NEURO: Negative headache, dizziness, weakness. Yes all other systems are reviewed and are negative [facility] Past Medical History Attestation statement: The following information was validated with the patient. Source: old records reviewed and nursing notes reviewed Medical History Diverticulosis of colon Blood in stool Diverticulosis Diabetes Paroxysmal atrial fibrillation Obesity (BMI 35.0-39.9 without comorbidity) Cirrhosis of liver History of alcohol abuse Elevated LFTs Hypersomnia with sleep apnea Lumbar degenerative disc disease Knee osteoarthritis Hypertension Alcohol withdrawal Opioid dependence Surgical History History of esophagogastroduodenoscopy (EGD) Hx of colonoscopy Family History Family History Mother Cervical cancer Brother Prostate cancer Social History Social History Household Members: Spouse Housing: Apartment Do you presently have visiting nurse or other home services: No Alcohol intake: former Comment: 5 min checks Patient Tobacco Use Status: Former Tobacco user Smoked in Last 30 Days: No Use of substances other than those prescribed or required for medical reasons: No Substance Use Type: Opiates Advance Directives: Yes Advance Directives on File: Yes Advance Directives Date on File: 05/12/22 Do you have a plan to hurt others: No Plan service: No Sexual orientation: Straight/Heterosexual Physical Exam Vital Signs: Vital Signs: Last Vital Signs Temp 97.6 F 04/28/25 14:21 Pulse 97 04/28/25 14:21 Resp 18 04/28/25 16:27 BP 121/76 04/28/25 16:27 Pulse Ox 96 04/28/25 14:21 O2 Del Method Room Air 04/28/25 14:21 BMI result Body Mass Index 40.4 GENERAL APPEARANCE: ?AxOx4, generally well-appearing, no acute distress. HEENT: ?NC, AT. MMM. EOMI, clear conjunctiva, oropharynx clear. HEART:? Normal rate and regular rhythm, normal S1/S1, no m/r/g LUNGS:? CTAB, moving air well. No crackles or wheezes are heard. ABDOMEN: ?Soft, nontender, nondistended with good bowel sounds heard. EXTREMITIES: ?Without cyanosis, clubbing or edema. Right wrist with mild edema of ulnar aspect, ROM intact with pain, pain more pronounced with flexion and extension. Octaviano's negative. No warmth, erythema, overlying skin changes. No ecchymosis. Radial pulse +2, sensation intact, opposition intact NEUROLOGICAL: ?Grossly nonfocal. Alert and oriented, moving all 4 extremities. Observed to ambulate with normal gait. Skin: ?Warm and dry without any rash. Medical Decision Making Medical Decision Making MDM Narrative: 65-year-old male with medical history of AFib on Eliquis, arthritis, HTN, polysubstance use disorder, T2DM, presents to the ED for 2 weeks of right wrist pain. Patient is right-hand dominant. Patient states he has had increasing pain of the right wrist over the past 2 weeks. Reports that he is currently doing some increased physical activity through renovating a house. States today he hit his right wrist on a steel bar while doing renovations prompting him to come in and seek care today. Patient reports he has been taking Tylenol without effect. VSS, in no acute distress, nontoxic appearing. On physical exam right wrist with mild edema of the ulnar aspect. Pain with ROM in flexion and extension. Negative Octaviano's- less likely tenosynovitis No overlying skin changes, patient afebrile, no leukocytosis- less likely septic joint. Sensation is intact, radial pulses +2, 2 second capillary refill of all 5 digits. Labs without leukocytosis, negative inflammatory markers, unremarkable. X-ray does not reveal any acute fracture or dislocation. X-ray reveals degenerative changes, and ulnar positive variance. Patient on Eliquis, history of PUD not a candidate for NSAIDs. We will licensed professional counselor patient on Tylenol for pain management. We will urge patient to follow up with Orthopedics for management of arthritic changes of the right wrist. We will discharge patient with right wrist brace for mild compression and protection of the wrist. Patient counseled on taking a few days off from renovation to allow the wrist inflammation to go down. We will discharge patient with a 5 day course of 20 mg prednisone for inflammation. Differential Diagnosis Differential Diagnoses: The differential diagnosis associated with the presentation includes Tenosynovitis Septic joint Gout Wrist sprain Arthritis Admission/Observation Consideration of admission/observation: Escalation of care including admission/observation considered Lab Data MDM Lab Attestation statement: I reviewed the patient's lab results. 04/28/25 14:37 04/28/25 14:37 Labs: Lab Results 04/28/25 Range/Units 14:37 WBC 9.0 (4.8-10.8) X10*3/uL RBC 4.75 (4.60-5.80) X10*6/uL Hgb 16.1 (14.0-18.0) g/dl Hct 46.1 (42.0-52.0) % MCV 97.1 (80.0-98.0) fL MCH 33.9 H (27.0-33.0) pg MCHC 34.9 (31.0-36.0) g/dl RDW 13.2 (11.0-16.0) % Plt Count 181 (160-400) X10*3/uL MPV 10.4 (9.4-12.4) fL Immature Gran % (Auto) 0.6 H (0.0-0.4) % Neut % (Auto) 84.4 H (45-73) % Lymph % (Auto) 11.3 L (20-40) % Kimball % (Auto) 3.3 (2-11) % Eos % (Auto) 0.1 (0-4) % Baso % (Auto) 0.3 (0-2) % Lymph # (Auto) 1.0 L (1.2-4.9) X10*3/uL Kimball # (Auto) 0.3 (0.1-1.2) X10*3/uL Eos # (Auto) 0.0 (0.0-0.4) X10*3/uL Baso # (Auto) 0.0 (0.0-0.2) X10*3/uL Abs Immat Gran (auto) 0.05 H (0.00-0.03) X10*3/uL Absolute Neuts (auto) 7.6 (2.0-8.3) x10*3/uL Absolute Nucleated RBC 0.000 (0.0-0.012) X10*3/uL Nucleated RBC % (auto) 0.0 (0.0-0.2) /100WBC ESR 6 (0-15) MM/HR Sodium 138 (135-145) mmol/L Potassium 4.6 (3.3-5.1) mmol/L Chloride 108 (96-108) mmol/L Carbon Dioxide 21 L (22-29) mmol/L Anion Gap 14 (12-20) BUN 19 H (9-16) mg/dL Creatinine 0.89 (0.5-1.4) mg/dL Estim Creat Clear Calc 117.7 Estimated GFR > 60 Random Glucose 178 H (60-115) mg/dL Calcium 9.6 (8.4-10.2) mg/dL C-Reactive Protein 0.36 (< or = 0.50) mg/dL Independent Interpretation I performed an independent interpretation of an: Plain X-Ray Radiology Impression Discussion of test interpretation with radiology: I have reviewed the radiologist's reading. Radiologist Impression: Findings: No fractures or dislocations. Mild degenerative changes of the right wrist centered at the STT joint and the 1st carpometacarpal joint. No radiopaque foreign body. Ulnar positive variance. IMPRESSION: 1. No acute findings This document has been electronically signed by: Naveen Snell MD on 04/28/2025 15:01:40 Dictated By: Naveen Snell MD Signed By: <Electronically signed by Naveen Snell MD in OV> 04/28/25 1502 External Record Review External record reviewed: Inpatient record, Office record and Outpatient record Prescription Management I considered prescription management with: Other (NSAIDs) Patient on Eliquis, history of peptic ulcer disease not a candidate for NSAIDs. Chronic Conditions Patient?s care impacted by: Diabetes, Hypertension and Other (PUD, polysubstance use disorder) Discharge Plan Discharge Clinical Impression: Muscle strain of wrist Qualifiers: Encounter type: initial encounter Laterality: right Qualified Code(s): S66.911A - Strain of unspecified muscle, fascia and tendon at wrist and hand level, right hand, initial encounter Patient Disposition: Home, Self-Care Instructions: Wrist Injury (ED), Cold Compress or Soak (ED) Additional Instructions: You were evaluated in the ED today due to right wrist pain. Your labs did not reveal any elevated white blood count or any elevated inflammatory markers indicating infection. Your wrist x-ray did not reveal any fracture or dislocation. However your x-ray did observed degenerative changes of the right wrist indicating arthritis, as well as ulnar positive variance which means your ulnar bone is longer than your radial bone which can cause pain of the wrist. You are being prescribed a 5 day course of 20 mg prednisone to manage inflammation. You can manage your pain at home taking a 1000 mg of Tylenol every 8 hours. Additionally you can ice the affected area in 20 minute increments, elevate the wrist above heart level and wear a wrist brace at night and when needing additional compression for comfort. You should follow up with the orthopedic doctors. You can call on Wednesday to see if you are able to get in with them. You should follow up with your PCP to ensure improvement. Please return to the emergency department if you develop fever over 100.4?, worsening pain, worsening swelling, loss of sensation, loss of ability to move the wrist, or any other new/worsening/concerning symptoms. Prescriptions: New prednisone 20 mg tablet 20 mg PO DAILY 5 Days Qty: 5 0RF No Action albuterol sulfate [Ventolin HFA] 90 mcg/actuation HFA aerosol inhaler 2 puff INHALATION Q4H PRN (Reason: wheezing) lisinopril 10 mg Tablet 10 mg PO DAILY Qty: 30 0RF Protocol: Hold for SBP< HOLD for SBP < : 90 digoxin 125 mcg (0.125 mg) Tablet 0.125 mg PO DAILY Qty: 30 0RF Eliquis 5 mg tablet 5 mg PO BID Qty: 60 0RF metoprolol tartrate 100 mg Tablet 150 mg PO BID colchicine 0.6 mg Tablet 0.6 mg PO TID PRN (Reason: GOUT FLARE) acetaminophen 500 mg Tablet 500 mg PO DAILY PRN (Reason: Pain) cyanocobalamin (vitamin B-12) 1,000 mcg tablet 1,000 mcg PO DAILY dapagliflozin propanediol [Farxiga] 10 mg tablet 10 mg PO DAILY spironolactone 25 mg tablet 25 mg PO DAILY glipizide 5 mg tablet extended release 24hr 5 mg PO DAILY furosemide 40 mg tablet 40 mg PO DAILY lactulose 20 gram/30 mL solution 20 g PO BID PRN Print Language: Lithuanian
[2025-04-28 17:32] VITALS: BP 121/76; PULSE 89; RESP 18; TEMP 36.9; O2SAT 95
== END 2025-04-28 17:34 | disposition home or self-care (01) ==
PROVIDERS: Registered Nurse Emergency; Emergency Provider Emergency Medicine; PCP Internal Medicine
DX: S66.911A Strain of unspecified muscle, fascia and tendon at wrist and hand level, right hand, initial encounter (principal); W22.09XA Striking against other stationary object, initial encounter; Y93.H3 Activity, building and construction; Y92.019 Unspecified place in single-family (private) house as the place of occurrence of the external cause; Y99.9 Unspecified external cause status
CPT/HCPCS: 36415; 73100; 80048; 85025; 85652; 86140; 99283; 99284

== ENCOUNTER → 2025-04-28 14:26 | Outpatient (BNV) | payer MEDICARE, MEDICAID, SELFPAY | PROVIDERS: Emergency Provider Emergency Medicine; PCP Internal Medicine; Visit Provider Radiology Diagnostic Radiology | DX: M25.531 Pain in right wrist (principal); R22.31 Localized swelling, mass and lump, right upper limb | CPT/HCPCS: 73100 ==

== ENCOUNTER 2025-05-11 13:58 | Outpatient (AMB) | payer MEDICARE, MEDICAID, SELFPAY ==
--- NOTE | 2025-05-11 14:08 | MHC.OFFVIS ---
Vital Signs 05/11/25 14:11 Height 6 ft Weight 298 lb BMI 40.4 BP 90/56 L Blood Pressure Location Lt brachial Position Sitting Pulse 101 H Pulse Oximetry (%) 97 Oxygen Delivery Method Room Air Intake Visit Reasons: follow up labs Intake Note: Patient follow up for bloody stool and lab results. Patient denies any GI issues. 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 Who presents for follow up on labs. He reports blood in stools, initially noted at the last visit. Colonoscopy is pending. He has a history of alcohol consumption but reports significantly reduced intake, now only having occasional beers or wine coolers and not hard liquor. There is also mention of joint pain managed with [id number] ibuprofen, despite recent cautions against it. reports feeling fatigued and tired, possibly attributed to chronic conditions and medications. He uses a CPAP machine for better sleep but mentions still waking up tired with occasional choking or dry throat. He expresses frustration with blood glucose levels given his diabetes diagnosis. He notes dark-colored urine despite adequate hydration. Social history: Diet: Low-sugar diet including fruits and salads, minimal sweets, primary protein and vegetable intake. Alcohol Use: Significantly reduced; occasional beers or wine coolers.. 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 [facility] Medical History (Updated 05/11/25 @ 14:12 by Radha Snow CNP) Colon cancer screening Diverticulosis of colon Blood in stool Diverticulosis Diabetes Paroxysmal atrial fibrillation Obesity (BMI 35.0-39.9 without comorbidity) Cirrhosis of liver History of alcohol abuse Elevated LFTs Hypersomnia with sleep apnea Lumbar degenerative disc disease Knee osteoarthritis Hypertension Alcohol withdrawal Opioid dependence Surgical History History of esophagogastroduodenoscopy (EGD) Hx of colonoscopy Family History Mother Cervical cancer Brother Prostate cancer Social History Household Members: Spouse Housing: Apartment Do you presently have visiting nurse or other home services: No Alcohol intake: former Comment: 5 min checks Patient Tobacco Use Status: Former Tobacco user Substance Use Type: Opiates Advance Directives Date on File: 05/12/22 service: No Sexual orientation: Straight/Heterosexual Review of Systems Const Reports as per HPI ENT Reports as per HPI Card Reports as per HPI Resp Reports as per HPI GI Reports as per HPI Reports as per HPI Physical Exam Vital Signs: Last Vital Signs Pulse 101 H 05/11/25 14:11 BP 90/56 L 05/11/25 14:11 Pulse Ox 97 05/11/25 14:11 Oxygen Delivery Method Room Air 05/11/25 14:11 BMI result Body Mass Index 40.4 Const General: no acute distress and well developed Nutritional Appearance: obese Orientation/consciousness: patient oriented x3 HEENT Head: Yes normal to inspection, Yes normocephalic and Yes atraumatic Face and sinus: Yes normal facial exam Eyes General: appearance normal, both eyes and all related structures Neck Neck: Yes normal visual inspection Resp Effort & Inspection: normal respiratory effort, able to speak in complete sentences, no tracheal deviation and symmetric chest movement Auscultation: clear to auscultation bilaterally Cardio Jugular venous distension: no JVD Rate: regular rate Rhythm: regular rhythm Heart sounds: S1 normal heart sound present, S2 normal heart sound present, no gallops and no murmurs GI Inspection: Yes normal to inspection, No distended and Yes obesity Palpation (GI): Soft to palpation, not firm and nontender Auscultation: normal bowel sounds Neuro General: patient oriented x3 Gait exam (Neuro): Normal gait present Psych Appearance: grossly normal Mental Status: mental status grossly normal Speech and movement: Normal speech and movement present Affect: normal affect Attitude: cooperative Thought process: Normal thought process present Thought content: Normal thought content present Insight: Good insight present (Psych) Judgement: Good judgement present (Psych) Immunizations Engerix-B (PF) 20 mcg/mL intramuscular suspension Performing Provider: Radha Snow CNP Performing Location: [facility] G[facility]ology [facility] Administered by: Carolyn Perdomo RN on 05/11/25 15:06 Dose Route Admin Location Dispensed Lot Number Expiration Date [facility] Watch Inspector 1 mL IM Left Deltoid 1 mL [id number] 06/12/27 46826-709-06 Sproxil Total Dispensed Waste 1 mL 0 % VIS Given Date VIS Provided VIS Publication Date 05/11/25 Single Vaccine 23 Eligibility Eligibility Date Funding Source Not [facility] Eligible 05/11/25 Private Assessment & Plan Assessment & Plan (1) Cirrhosis of liver: Code(s): K74.60 - Unspecified cirrhosis of liver Category: Medical Qualifiers: Ascites presence: without ascites Hepatic cirrhosis type: unspecified hepatic cirrhosis Qualified Code(s): K74.60 - Unspecified cirrhosis of liver Plan: Confirmed with labs with fibrosis score of 0.79, staging F4. ?Diagnosis of cirrhosis discussed, handout also provided. Additional Tests: -Upper endoscopy and colonoscopy to be expedited. -Regular liver function tests/imaging every six months or sooner if symptoms worsen. -Hepatitis B immunization due to lack of immunity. Medications: -Minimize hepatotoxic medications and avoid NSAIDs and acetaminophen where possible. Lifestyle Modifications: -Absolute abstinence from alcohol. -Coordination with a career technical education instructor for a hepatic-friendly diet. -Encourage maintaining diabetes and cholesterol under control. follow up: -PCP to consider pain management referral (2) Colon cancer screening: Code(s): Z12.11 - Encounter for screening for malignant neoplasm of colon Category: Medical Plan: Colonoscopy pending, plan as above Plan Follow-up after endoscopy or sooner as needed Time: I spent a total of 45 minutes on the date of encounter which includes: Preparing to see the patient (reviewed previous documentation, test results and medical history) Performing a medically appropriate exam and/or evaluation Ordering medications, tests, and procedures Documenting clinical information in the health record Orders: Orders Hepatitis B Adult Immunization 05/11/25 Z23 - Encounter for immunization Referrals Nutrition/Dietitian Referral E11.9 - Type 2 diabetes mellitus without complications, E78.5 - Hyperlipidemia, unspecified, K74.60 - Unspecified cirrhosis of liver Medications: New bisacodyl Take four tablets once for 1 day per colonoscopy instructions 5 mg PO ONCE 4 tabs 0RF 1 day polyethylene glycol 3350 (Miralax) per colonoscopy prep instructions 238 grams PO ONCE 238 grams 0RF Coding Level of Care Code Established Pt Est Pt Level 5 (31514) Patient Type Established Diagnoses Cirrhosis of liver without ascites, unspecified hepatic cirrhosis type K74.60 Ascites presence: without ascites Hepatic cirrhosis type: unspecified hepatic cirrhosis Colon cancer screening Z12.11
[2025-05-11 14:11] VITALS: BP 90/56; PULSE 101; O2SAT 97; BMI 40.4
== END 2025-05-11 15:08 | disposition home or self-care (01) ==
LOC: HO.HGI 13:58
PROVIDERS: PCP Internal Medicine; Visit Provider Nurse Practitioner Family
DX: Z23 Encounter for immunization (principal)

== ENCOUNTER → 2025-05-11 13:58 | Outpatient (BNVA) | payer MEDICARE, MEDICAID, SELFPAY | PROVIDERS: PCP Internal Medicine; Visit Provider Nurse Practitioner Family | DX: Z23 Encounter for immunization (principal); Z12.11 Encounter for screening for malignant neoplasm of colon; K74.60 Unspecified cirrhosis of liver | CPT/HCPCS: 90471; 90746; 99212 ==

== ENCOUNTER 2025-06-15 08:39 | Outpatient (AMB) | payer MEDICARE, MEDICAID, SELFPAY ==
--- NOTE | 2025-06-15 08:50 | AM.OFFVISNUR ---
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
--- OUTSIDE RECORDS SUMMARY | 2025-06-15 08:50 | XMS_ITS | Encounter Summary ---
Author Organization [facility] Address [address] [address] Phone Care Team Providers Care Customer Service Sales Consultant Name Role Phone Duncan Rush Primary Care Provider [phone] Dnucan Rush DO Unavailable Encounter Details Date Type Department Care Team (Late st Contact Info) Description 04/26/2020 Transcribe Orders Virtual Department [address] [place] [address] Duncan Rush DO [address] [facility] [address] [place], [place] [id number] [email or web address] Cough (Primary Dx) Social History Tobacco Use Types Packs/Day Years Used Date Smoking Tobacco: Never Assessed Sex and Gender Information Value Date Recorded Sex Assigned at Not on file Legal Sex Male 9:49 PM EDT Gender Identity Not on file Sexual Orientation Not on file documented as of this encounter Plan of Treatment Not on file documented as of this encounter Results * COVID-19 PCR Order (04/27/2020 9:40 AM EDT) Specimen Source NASOPHARYNGEAL SWAB (STAIN REMOVER) [facility] COVID Testing Status Sent to [facility] Micro Lab [facility] Other 04/27/2020 9:40 AM EDT 04/27/2020 12:02 PM EDT us Duncan Rush DO BODY FLUIDS AND STOOLS ORDERABLE S Final Result [facility] [address] [place] [address] documented in this encounter Visit Diagnoses Diagnosis Cough- Primary documented in this encounter Additional Health Concerns Infection Onset Date Last Indicated Resolved Time CoV-Presumed 04/19/2020 04/19/2020 05/09/2020 1:26 AM EDT COVID-19 Comment:Converted from CoV-Presumed to COVID-19 per infection control policy based on SARS-CoV-2 NAAT testing of presumptive positive/neg late signal/inconclusive. 04/19/2020 04/20/2020 05/09/2020 1:2 6 AM EDT documented as of this encounter Care Teams Customer Service Sales Consultant Relationship Specialty Start Date End Date Duncan Rush DO [email or web address] PCP - General Internal Medicine 04/19/20 Duncan Rush DO [address] [place] [address] [email or web address] Insurance Assigned Provider 05/20/20 04/03/23 documented as of this encounter Additional Source Comments The information contained in this document represents components of the legal health record. It is not the complete legal health record.[facility]
== END 2025-06-15 08:52 | disposition home or self-care (01) ==
LOC: HO.HGI 08:40
PROVIDERS: PCP Internal Medicine; Visit Provider Internal Medicine Gastroenterology
DX: Z23 Encounter for immunization (principal)

== ENCOUNTER → 2025-06-15 08:39 | Outpatient (BNVA) | payer MEDICARE, MEDICAID, SELFPAY | PROVIDERS: PCP Internal Medicine; Visit Provider Internal Medicine Gastroenterology | DX: Z23 Encounter for immunization (principal) | CPT/HCPCS: 90471; 90746; 99211 ==

== ENCOUNTER 2025-09-26 08:12 | Outpatient (AMB) | payer MEDICARE, MEDICAID, SELFPAY ==
--- NOTE | 2025-09-26 08:17 | MHC.OFFVIS ---
Intake Visit Reasons: kidney stones Intake Note: Patient is present for KIDNEY STONES Urology Medication:VITAMIN B12 Antibiotic Allergy:NONE Blood Thinner:APIXABAN TODAY'S PVR:0ML'S General Operator Required: No Allergies No Known Allergies Allergy (Verified 09/26/25 09:18) Medication List - Last Reconciled 09/26/25 by CHIRAG Guillen acetaminophen 500 mg PO DAILY PRN albuterol sulfate 90 mcg/actuation (Ventolin HFA) 2 puffs inhalation Q4H PRN apixaban (Eliquis) 5 mg PO BID colchicine 0.6 mg PO TID PRN cyanocobalamin (vitamin B-12) 1,000 mcg PO DAILY dapagliflozin propanediol (Farxiga) 10 mg PO DAILY digoxin 0.125 mg PO DAILY furosemide 40 mg PO DAILY glipizide ER 5 mg PO DAILY lactulose 20 grams PO BID PRN lisinopril 10 mg See Protocol PO DAILY metoprolol tartrate 50 mg PO ONCE spironolactone 25 mg PO DAILY HPI Comments Details: Wong is a very pleasant 65-year-old male patient of Dr. Rush. He has a past medical history of diverticulosis, diabetes, paroxysmal AFib, obesity, cirrhosis of the liver hyper insomnia with sleep apnea, osteoarthritis, hypertension, opioid dependence and alcohol dependence. He presents to the office today as a new patient for nephrolithiasis. In discussion with the patient today he reports a longstanding history of nephrolithiasis in the past. He reports over 15 years ago he had a surgical procedure for nephrolithiasis at in [place] at [facility]. However is unsure as to will procedure he had and or which kidney. He reports he had been experiencing flank pain earlier this year that has since subsided. In review of patient's chart it appears CT 04/08 noted there to adjacent 2 mm nonobstructing calculus at the lower pole of the left kidney. There is no hydronephrosis or renal masses identified. He does report urinary frequency however relates this to his diuretic. He also reports episodes of nocturia up to 10 times per night. He does have a history of sleep apnea and in discussion with the patient today he is noncompliant with CPAP. We did discussed correlation of nocturia and uncontrolled sleep apnea. In office urinalysis results reviewed with the patient today. PVR 0 mL. He denies incontinence, hematuria, dysuria, foul smelling urine, changes to urinary stream, flank pain, fever, and or chills. TWIN was offered however deferred. We discussed obtaining retroperitoneal ultrasound and PSA for further assessment evaluation. We did discuss potential causes of his lower urinary tract symptoms as well as nephrolithiasis. We discussed further treatment options and risks and benefits of these treatment options. All questions were answered. He otherwise offers no other issues or concerns at this time. [facility] Medical History Colon cancer screening Diverticulosis of colon Blood in stool Diverticulosis Diabetes Paroxysmal atrial fibrillation Obesity (BMI 35.0-39.9 without comorbidity) Cirrhosis of liver History of alcohol abuse Elevated LFTs Hypersomnia with sleep apnea Lumbar degenerative disc disease Knee osteoarthritis Hypertension Alcohol withdrawal Opioid dependence Surgical History History of esophagogastroduodenoscopy (EGD) Hx of colonoscopy Family History Mother Cervical cancer Brother Prostate cancer Social History Household Members: Spouse Housing: Apartment Do you presently have visiting nurse or other home services: No Alcohol intake: former Comment: 5 min checks Patient Tobacco Use Status: Former Tobacco user Substance Use Type: Opiates Advance Directives Date on File: 05/12/22 service: No Sexual orientation: Straight/Heterosexual Review of Systems Const All systems reviewed & are unremarkable except as noted in HPI and below Physical Exam Const General: cooperative, comfortable, no acute distress, well developed, alert and awake Orientation/consciousness: patient oriented x3 Limitations: no limitations HEENT Head: Yes normal to inspection, Yes normocephalic and Yes atraumatic Ears: hearing grossly normal bilaterally Eyes General: appearance normal, both eyes and all related structures Neck Neck: Yes normal visual inspection and Yes trachea midline Chest Chest palpation & inspection: normal inspection of the chest Resp Effort & Inspection: normal respiratory effort and able to speak in complete sentences Cardio Rate: regular rate GI Inspection: Yes normal to inspection General: Yes no CVA tenderness Back/Spine/Pelvis Back: no CVA tenderness Skin General skin exam: no rashes or lesions noted Neuro General: patient oriented x3 Extrem General: Yes normal to inspection Psych Appearance: grossly normal and well kempt Mental Status: mental status grossly normal Speech and movement: Normal speech and movement present and Clear speech present Affect: normal affect Attitude: cooperative Thought process: Normal thought process present Thought content: Normal thought content present Insight: Fair insight present (Psych) Judgement: Fair judgement present (Psych) Office Procedures Post Void Residual Post Residual Void Post Void Residual (PVR): 0 [id number] Void Residual by ultrasound Results AMB Urinalysis, Automated UA Leukoctes 0 Lani/uL Last Edit by SE Gross on 09/26/25 08:32 UA Nitrite Negative Last Edit by SE Gross on 09/26/25 08:32 UA Urobilinogen 0.2 mg/dL Last Edit by SE Gross on 09/26/25 08:32 UA Protein 0 mg/dL Last Edit by SE Gross on 09/26/25 08:32 UA pH 6.0 Last Edit by SE Gross on 09/26/25 08:32 UA Blood 0 Boris/uL Last Edit by Jordan Sullivan CCM on 09/26/25 08:32 UA Specific [place] 1.015 Last Edit by SE Gross on 09/26/25 08:32 UA Ketone Negative Last Edit by SE Gross on 09/26/25 08:32 UA Bilirubin 0 mg/dL Last Edit by Jordan Sullivan CCM on 09/26/25 08:32 UA Glucose 1000 mg/dL Last Edit by Jordan Sullivan [facility] on 09/26/25 08:32 Results Reviewed Results Reviewed: Laboratory Last Values Urine pH (Auto) 6.0 09/26/25 08:25 Specific [place] (Auto) 1.015 09/26/25 08:25 Urine Protein (Auto) 0 mg/dL 09/26/25 08:25 Glucose (UA)(Auto) 1000 mg/dL 09/26/25 08:25 Urine Ketones (Auto) Negative 09/26/25 08:25 Urine Blood (Auto) 0 Boris/uL 09/26/25 08:25 Urine Nitrite (Auto) Negative 09/26/25 08:25 Urine Bilirubin (Auto) 0 mg/dL 09/26/25 08:25 Urine Urobilinogen (Auto) 0.2 mg/dL 09/26/25 08:25 Leukocyte Esterase (Auto) 0 Lani/uL 09/26/25 08:25 Date of Service: 03/15/25 EXAMINATION: CT ABDOMEN PELVIS WITHOUT THEN WITH IV CONTRAST ABDOMEN: LOWER CHEST: The visualized lung bases are clear. There is no pleural effusion. CARDIOVASCULATURE: The heart is normal in size. There is no pericardial effusion. LIVER: The liver again demonstrates a nodular contour, consistent with cirrhosis. There is hypertrophy of the left and caudate lobes. The liver demonstrates diffusely decreased attenuation, consistent with steatosis.No liver mass is identified. The hepatic and portal veins are patent. GALLBLADDER / BILE DUCTS: The gallbladder is distended, without evidence of calcified stones. There is no intra or extrahepatic biliary ductal dilatation. SPLEEN: The spleen is normal in size. No focal splenic lesion is identified. PANCREAS: The pancreas is unremarkable in appearance. ADRENAL GLANDS: Within normal limits. KIDNEYS/RETROPERITONEUM: There are two adjacent 2 mm nonobstructing calculi at the lower pole of the left kidney. There is no hydronephrosis. No renal masses are identified. LYMPH NODES: There are mildly prominent periportal lymph nodes measuring up to 1.6 cm in size. VASCULATURE: The abdominal aorta demonstrates atherosclerotic calcification, but is normal in caliber. MESENTERY/PERITONEUM: No free fluid. No masses. There is no free intraperitoneal gas. STOMACH: The stomach is collapsed, limiting evaluation. SMALL BOWEL: The small bowel is normal in caliber. COLON: There is diverticulosis of the descending and sigmoid colon, without evidence of diverticulitis. No contrast extravasation is seen to suggest active GI bleeding. APPENDIX: Normal. URINARY BLADDER/PELVIC ORGANS: The urinary bladder is unremarkable. The prostate is normal in size. BONES / SOFT TISSUES: The patient is status post right total hip arthroplasty. There is degenerative disc disease of the spine. IMPRESSION: 1. No contrast extravasation is identified to suggest active GI bleeding. 2. Cirrhosis of the liver with steatosis. 3. Left nephrolithiasis without evidence of ureteral obstruction. 4. Diverticulosis of the descending and sigmoid colon, without evidence of diverticulitis. Assessment & Plan Assessment & Plan (1) Nephrolithiasis: Code(s): N20.0 - Calculus of kidney Category: Medical (2) Nocturia: Code(s): R35.1 - Nocturia Category: Medical (3) Urinary frequency: Code(s): R35.0 - Frequency of micturition Category: Medical Plan In office urinalysis results reviewed with the patient today; as noted above. Previous CT results reviewed with the patient today; as noted above. PVR 0 mL. We did discussed potential causes of nephrolithiasis and further treatment options and risks and benefits of these treatment options. We did discussed potential causes of urinary frequency as well as nocturia; we discussed further treatment options and risks and benefits of these treatment options. All questions were answered. We did discussed the importance of adequate hydration relation to nephrolithiasis as well as overall health and well-being. Will obtain retroperitoneal ultrasound for further assessment evaluation. We did discussed the importance of management and diabetes for improvement in urological health as well as overall health and well-being. Will obtain PSA for further assessment evaluation. Follow-up in 1-3 months with imaging and labs; or sooner with any issues, concerns, and or questions. Orders: Orders AMB Urinalysis Automated Today Z13.9 - Encounter for screening, unspecified Patient Instructions: The patient had an opportunity to ask questions regarding the treatment plan. All questions were answered. Physical exam, labs, and imaging were discussed and reviewed in detail. As well as risks, benefits, and discussion of treatment choices. No major barriers to understanding were identified. The patient expressed understanding and agreement with the above treatment plan. The patient was made aware they should contact our office by phone for worsening of their current condition, the appearance of new symptoms, or with any questions or concerns. Compliance is encouraged with any medications and follow up testing that is ordered. It is a privilege to be allowed the opportunity to participate in? your urological care.? Again, if you have any questions or concerns If you have any questions or concerns please do not hesitate to contact me. The office is [phone]. This note is constructed using voice recognition software. While every effort has been made to ensure accuracy oil burner servicer and installer errors may have been included. Yours sincerely, CHIRAG Guillen Coding Level of Care Code New Pt Level 3 (36278) Diagnoses Nephrolithiasis N20.0 Nocturia R35.1 Urinary frequency R35.0 CPT Codes Post Residual Void - PVR CPT Code: 89745-[id number] Void Residual by ultrasound ([id number])
== END 2025-09-26 08:53 | disposition home or self-care (01) ==
LOC: HO.HUSH 08:13
PROVIDERS: PCP Internal Medicine; Visit Provider Nurse Practitioner Family
DX: N20.0 Calculus of kidney (principal); R35.1 Nocturia; R35.0 Frequency of micturition; Z13.9 Encounter for screening, unspecified
CPT/HCPCS: 99203

== ENCOUNTER → 2025-09-26 08:12 | Outpatient (BNVA) | payer MEDICARE, MEDICAID, SELFPAY | PROVIDERS: PCP Internal Medicine; Visit Provider Nurse Practitioner Family | DX: N20.0 Calculus of kidney (principal); R35.0 Frequency of micturition; R35.1 Nocturia; Z87.891 Personal history of nicotine dependence; F10.11 Alcohol abuse, in remission; F11.11 Opioid abuse, in remission | CPT/HCPCS: 51798; 81003; 99202 ==